=== PATIENT | male | born 1955 | race Caucasian/White ===

== ENCOUNTER 2022-09-01 10:00 | Outpatient (OUT) | payer MEDICARE, SELFPAY ==
[2022-09-01 11:17] LABS: Basophils Percent Auto 0.4 % (0.2-2.0); Eosinophils Absolute Auto 0.1 10^3/uL (0.0-0.7); Eosinophils Percent Auto 1.5 % (0.9-7.0); Hematocrit 37.7 % (42.0-54.0); Hemoglobin 12.6 g/dL (14.0-18.0); Immature Granulocytes Abs Auto 0.03 10^3/uL (0.00-0.03); Immature Granulocytes Pct Auto 0.6 % (0.0-0.5); Mean Corpuscular HGB Conc 33.4 g/dL (29.9-35.2); Mean Corpuscular Hemoglobin 30.4 pg (25.9-34.0); Mean Corpuscular Volume 90.8 fL (80.0-94.0); Mean Platelet Volume 10.7 fL (9.5-13.5); Monocytes Absolute Auto 0.5 10^3/uL (0.3-0.8); Monocytes Percent Auto 8.8 % (1.7-12.0); Neutrophils Absolute Auto 3.7 10^3/uL (1.4-6.5); Neutrophils Percent Auto 69.7 % (43.0-75.0); Platelet Count 132 10^3/uL (150-450); Red Blood Count 4.15 10^6/uL (4.70-6.10); Red Cell Distribution Width 13.1 % (11.0-15.0); White Blood Count 5.3 10^3/uL (4.0-11.0)
[2022-09-01 11:26] LABS: Creatinine Urine Random 92.04 mg/dL (20.00-300.00); Total Protein Urine Random 18.5 mg/dL (<=11.9)
[2022-09-01 11:27] LABS: Phosphorus 2.6 mg/dL (2.6-4.7)
[2022-09-01 11:38] LABS: Alanine Aminotransferase 29 U/L (16-63); Albumin Globulin Ratio 1.1; Albumin Level 3.6 g/dL (3.4-5.0); Alkaline Phosphatase 44 U/L (46-116); Anion Gap 13.4; Aspartate Amino Transferase 19 U/L (15-37); BUN Creatinine Ratio 18.9; Bilirubin Total 0.7 mg/dL (0.2-1.0); Calcium 9.9 mg/dL (8.5-10.1); Carbon Dioxide 24.1 mmol/L (21.0-32.0); Chloride 105 mmol/L (98-107); Estimated GFR (African America 49 (>=60); Estimated GFR (Non-African Ame 41 (>=60); Globulin 3.3 g/dL; Glucose 206 mg/dL (74-106); Magnesium 1.9 mg/dL (1.8-2.4); Potassium 4.5 mmol/L (3.5-5.1); Sodium 138 mmol/L (136-145); Total Protein 6.9 g/dL (6.4-8.2); Uric Acid 4.9 mg/dL (3.5-7.2)
[2022-09-01 12:17] LABS: Bilirubin Urine NEGATIVE (NEGATIVE); Blood Urine NEGATIVE (NEGATIVE); Clarity Urine CLEAR (CLEAR); Color Urine YELLOW (YELLOW); Glucose Urine UA 250 mg/dL (NEGATIVE); Ketones Urine NEGATIVE (NEGATIVE); Leukocyte Esterase Urine NEGATIVE (NEGATIVE); Nitrite Urine NEGATIVE (NEGATIVE); Protein Urine NEGATIVE (NEG/TRACE); Specific Gravity Urine 1.015 (1.005-1.025); Urobilinogen Urine 0.2 EU/dL (0.2-1.0); pH Urine 5.5 (5.0-9.0)
[2022-09-01 13:28] LABS: Bacteria Urine NONE SEEN #/HPF (NONE SEEN); Mucus Urine NONE SEEN (NONE SEEN); RBC Urine NONE SEEN #/HPF (0-2); Squamous Epithelial Cell Urine RARE #/LPF (NONE/RARE); WBC Urine NONE SEEN #/HPF (NONE SEEN)
[2022-09-02 13:08] LABS: PTH, Intact 82 pg/mL (15-65)
[2022-09-04 03:06] LABS: Tacrolimus (FK506), Blood 3.7 ng/mL (2.0-20.0)
== END 2022-09-01 10:01 | disposition home or self-care (01) ==
PROVIDERS: PCP Internal Medicine; Visit Provider Internal Medicine
DX: Z00.00 Encounter for general adult medical examination without abnormal findings (principal); Z94.0 Kidney transplant status; N18.30 Chronic kidney disease, stage 3 unspecified; E11.22 Type 2 diabetes mellitus with diabetic chronic kidney disease; I12.9 Hypertensive chronic kidney disease with stage 1 through stage 4 chronic kidney disease, or unspecified chronic kidney disease; N25.81 Secondary hyperparathyroidism of renal origin
CPT/HCPCS: 36415; 80053; 80069; 80197; 81001; 82042; 82306; 82570; 83735; 83970; 84100; 84156; 84550; 85025

== ENCOUNTER 2022-10-11 12:33 | Outpatient (OUT) | payer MEDICARE, SELFPAY ==
--- NOTE | 2022-10-11 | ECG_ITS ---
[facility] Test Date: 2022-10-11 Pat Name: LAUREL BLANCA Department: Room: - Gender: Male Qm Nurse: : 1955 Requested By: SHAIKH NOEMY Order Number: [id number] Reading MD: KATALINA KLEIN Measurements Intervals [place] Rate: 66 P: 61 WI: 191 QRS: 65 QRSD: 148 T: 51 QT: 396 QTc: 418 Interpretive Statements SINUS RHYTHM RIGHT BUNDLE BRANCH BLOCK [120+ ms QRS DURATION, UPRIGHT V1, 40+ ms S IN I/aVL/V4/V5/V6] No previous ECG available for comparison Electronically Signed On 10-12-2022 7:13:21 EDT by KATALINA KLEIN
--- NOTE | 2022-10-11 12:39 | XR_ITS ---
[address] [address] Patient Name: LAUREL BLANCA MRN: [id number] date: 1955 Sex: M Assigned Patient Location: CARD Current Patient Location: CARD Accession/Order Number: [id number] Exam Date: 10/11/2022 12:45 Report Date: 10/11/2022 13:55 At the request of: SHAIKH NOEMY Procedure: XR DEXA axial skeleton EXAMINATION: XR DEXA axial skeleton HISTORY: Osteoporosis screening Z13.820 COMPARISON: No relevant comparison available. TECHNIQUE: Dual-energy X-ray absorptiometry (DXA) was performed. FINDINGS: SPINE ANALYSIS: Average bone mineral density is 1.175 g/cm2. T-score (standard deviation relative to young adult mean): -0.2 . HIP ANALYSIS: Lowest bone mineral density is within the left femoral neck, 0.602 g/cm2. T-score (standard deviation relative to young adult mean): -3.1 . XR/XR DEXA axial skeleton IMPRESSION: [employer] Classification: Osteoporosis - High Fracture Risk Electronically authenticated by: RAMSEY RIVERS Date: 10/11/2022 13:55
== END 2022-10-11 12:34 | disposition home or self-care (01) ==
LOC: CARD 12:34
PROVIDERS: PCP Internal Medicine; Visit Provider Internal Medicine
DX: R06.09 Other forms of dyspnea (principal); Z13.820 Encounter for screening for osteoporosis; M81.0 Age-related osteoporosis without current pathological fracture
CPT/HCPCS: 77080; 93005

== ENCOUNTER 2022-12-13 08:56 | Outpatient (OUT) | payer MEDICARE, SELFPAY ==
[2022-12-13 09:47] LABS: Hematocrit 38.2 % (42.0-54.0); Hemoglobin 12.5 g/dL (14.0-18.0); Mean Corpuscular HGB Conc 32.7 g/dL (29.9-35.2); Mean Corpuscular Hemoglobin 30.3 pg (25.9-34.0); Mean Corpuscular Volume 92.5 fL (80.0-94.0); Mean Platelet Volume 10.9 fL (9.5-13.5); Platelet Count 119 10^3/uL (150-450); Red Blood Count 4.13 10^6/uL (4.70-6.10); Red Cell Distribution Width 12.8 % (11.0-15.0); White Blood Count 4.7 10^3/uL (4.0-11.0)
[2022-12-13 10:03] LABS: Creatinine Urine Random 59.97 mg/dL (20.00-300.00); Total Protein Urine Random 11.7 mg/dL (<=11.9)
[2022-12-13 10:14] LABS: Bilirubin Urine NEGATIVE (NEGATIVE); Blood Urine NEGATIVE (NEGATIVE); Clarity Urine CLEAR (CLEAR); Color Urine LT. YELLOW (YELLOW); Glucose Urine UA 100 mg/dL (NEGATIVE); Ketones Urine NEGATIVE (NEGATIVE); Leukocyte Esterase Urine NEGATIVE (NEGATIVE); Nitrite Urine NEGATIVE (NEGATIVE); Protein Urine NEGATIVE (NEG/TRACE); Urobilinogen Urine 0.2 EU/dL (0.2-1.0)
[2022-12-13 10:28] LABS: Bacteria Urine NONE SEEN #/HPF (NONE SEEN); Mucus Urine NONE SEEN (NONE SEEN); RBC Urine NONE SEEN #/HPF (0-2); Squamous Epithelial Cell Urine RARE #/LPF (NONE/RARE); WBC Urine NONE SEEN #/HPF (NONE SEEN)
[2022-12-13 10:32] LABS: Alanine Aminotransferase 26 U/L (16-63); Albumin Globulin Ratio 1.1; Albumin Level 3.5 g/dL (3.4-5.0); Alkaline Phosphatase 45 U/L (46-116); Anion Gap 10.7; Aspartate Amino Transferase 14 U/L (15-37); BUN Creatinine Ratio 16.5; Bilirubin Total 0.6 mg/dL (0.2-1.0); Calcium 9.4 mg/dL (8.5-10.1); Carbon Dioxide 25.6 mmol/L (21.0-32.0); Chloride 105 mmol/L (98-107); Estimated GFR (African America 45 (>=60); Estimated GFR (Non-African Ame 37 (>=60); Globulin 3.3 g/dL; Glucose 156 mg/dL (74-106); Magnesium 1.5 mg/dL (1.8-2.4); Phosphorus 2.6 mg/dL (2.6-4.7); Potassium 4.3 mmol/L (3.5-5.1); Sodium 137 mmol/L (136-145); Total Protein 6.8 g/dL (6.4-8.2)
[2022-12-14 11:09] LABS: PTH, Intact 74 pg/mL (15-65)
[2022-12-16 09:10] LABS: Tacrolimus (FK506), Blood 6.3 ng/mL (2.0-20.0)
== END 2022-12-13 08:57 | disposition home or self-care (01) ==
LOC: LAB 08:58
PROVIDERS: PCP Internal Medicine; Visit Provider Internal Medicine
DX: Z00.00 Encounter for general adult medical examination without abnormal findings (principal); E78.5 Hyperlipidemia, unspecified; Z94.0 Kidney transplant status; E11.22 Type 2 diabetes mellitus with diabetic chronic kidney disease; I12.9 Hypertensive chronic kidney disease with stage 1 through stage 4 chronic kidney disease, or unspecified chronic kidney disease; N18.30 Chronic kidney disease, stage 3 unspecified; N25.81 Secondary hyperparathyroidism of renal origin; R01.1 Cardiac murmur, unspecified; D69.6 Thrombocytopenia, unspecified
CPT/HCPCS: 36415; 80053; 80061; 80069; 80197; 81001; 82306; 82570; 83036; 83735; 83970; 84156; 85027

== ENCOUNTER 2022-12-13 09:08 | Outpatient (OUT) | payer MEDICARE, SELFPAY ==
[2022-12-13 10:08] LABS: Estimated Average Glucose 131 mg/dL; Glycohemoglobin A1C 6.2 % (4.5-6.2)
[2022-12-13 10:42] LABS: Chol HDL Ratio 2.2; Cholesterol 148 mg/dL (<=200); HDL Cholesterol 68 mg/dL (40-60); Triglycerides 60 mg/dL (<=150)
== END 2022-12-13 09:09 | disposition home or self-care (01) ==
PROVIDERS: PCP Internal Medicine; Visit Provider Internal Medicine
DX: E78.5 Hyperlipidemia, unspecified (principal); E11.9 Type 2 diabetes mellitus without complications
CPT/HCPCS: 36415; 80061; 83036

== ENCOUNTER 2023-04-21 09:06 | Outpatient (OUT) | payer MEDICARE, SELFPAY ==
--- OUTSIDE RECORDS SUMMARY | 2023-04-21 09:11 | XMS_ITS | CCD ---
Author Name Unknown Address [address] [facility] [address] [place] [address] Organization [facility] Care Team Providers Care Translator Deaf Name Role Phone Jarod Painter Unavailable MISC, DR HERRERA Primary Care Unavailable MISC, DR HERRERA Admitting Unavailable MISC, DR HERRERA Attending Unavailable MISC, DR HERRERA Consulting Unavailable MISC, DR HERRERA Admitting Unavailable FAWWAD, KEVIN H Primary Care Unavailable MISC, DR HERRERA Attending Unavailable MISC, DR HERRERA Consulting Unavailable FAWWAD, KEVIN H Primary Care Unavailable FAWWAD, KEVIN H Admitting Unavailable FAWWAD, KEVIN H Attending Unavailable FAWWAD, KEVIN H Consulting Unavailable FAWWAMamadou, KEVIN H Primary Care Unavailable MADINAJAROD Admitting Unavailable MADINAJAROD Simmons Attending Unavailable JAROD PAINTER Consulting Unavailable MISC, DR HERRERA Admitting Unavailable MISC, DR HERRERA Attending Unavailable FAWWAD, KEVIN H Primary Care Unavailable MISC, DR HERRERA Consulting Unavailable MD Jarod Painter Attending Provider [phone] MD Nicolette Rodarte Primary Care Provider Shaikh Rodarte Primary Care Unavailable MadinaJarod simmons Attending Unavailable Jarod Painter Admitting Unavailable Chani Milner Unavailable Kailey Deluca Unavailable Shaikh Rodaret MD Primary Care Provider Shaikh Rodarte MD Primary Care Provider GISSELL GALLO Attending Unavailable SHAIKH RODARTE Attending Unavailable Medications Current Medications Medication Drug Class(es) Dates Sig (Normalized) Sig (Original) alendronic acid 70 mg oral tablet (9 sources) Bisphosphonate Start: 03-26-2023 take 1 tablet by mouth every week alendronate (Fosamax) 70 MG tablet Indications: Other osteoporosis without current pathological fracture (CMS/HCC) Take 1 tablet (70 mg) by mouth 1 (one) time per week 12 tablet 1 03/26/2023 Active End: 03-26-2023 take 1 tablet by mouth in the morning alendronate (Fosamax) 70 MG tablet Take 70 mg by mouth every 7 (seven) days. Take in the morning with a full glass of water, on an empty stomach, and do not take anything else by mouth or lie down for the next 30 min. 0 03/26/2023 Discontinued take 1 tablet by massiel once daily Fosamax 70 MG 1 tablet 30 minutes before the first food, beverage or medicine of the day with plain water Orally Active allopurinol 100 mg oral tablet (12 sources) Xanthine Oxidase Inhibitor Start: 04-02-2023 take 1 tablet by mouth once daily allopurinol (Zyloprim) 100 MG tablet Indications: Encounter for Medicare annual wellness exam TAKE 1 TABLET BY MOUTH EVERY DAY 90 tablet 0 04/02/2023 Active amoxicillin 500 mg oral capsule (2 sources) Penicillin-class Antibacterial Start: 02-23-2023 take 1 capsule by mouth every eight hours Amoxicillin 500 MG 1 capsule Orally three times a day for 10 day(s) Feb, Active take 1 capsule by mo [facility] every eight hours Amoxicillin 500 MG 1 capsule Orally ever y 8 hrs Active atorvastatin 10 mg oral tablet (12 sources) HMG-CoA Reductase Inhibitor take 1 tablet by mouth in the morning atorvastatin (Lipitor) 10 MG tablet Take 10 mg by mouth in the morning. 0 Active baclofen 5 mg oral tablet (5 sources) gamma-Aminobutyric Acid-ergic Agonist take 1 tablet by mouth three times daily as needed baclofen (Lioresal) 5 MG tablet Take 5 mg by mouth 3 (three) times a day as needed. 0 Active calcium carbonate 1500 mg oral tablet (3 sources) take 1 tablet by mouth every twelve hours Calcium Carbonate 600 MG 1 tablet with food Orally Twice a day Active take 1 tablet by massiel twice daily at mealtime Calcium Carbonate 600 MG 1 tablet with food Orally Twice a day Active calcium carbonate 1250 mg / cholecalciferol 200 unt oral tablet (6 sources) Vitamin D Start: 04-02-2023 take 1 tablet by mouth twice daily Calcium Carb-Cholecalciferol (Oyster Shell Calcium w/D) 500-5 MG-MCG tablet Indications: Other osteoporosis without current pathological fracture (CMS/HCC) TAKE 1 TABLET BY MOUTH TWICE A DAY 180 tablet 1 04/02/2023 Active Start: 01-07-2023 End: 04-02-2023 take 1 tablet by mouth in the morning, then take 1 tablet by mouth once at bedtime Calcium Carb-Cholecalciferol (Oyster Shell Calcium w/D) 500-5 MG-MCG tablet Take 1 tablet by mouth in the morning and 1 tablet before bedtime. 0 01/07/2023 04/02/2023 Discontinued carvedilol 12.5 mg oral tablet (12 sources) alpha-Adrenergic Rickie, beta-Adrenergic Rickie carvedilol (Core g) 12.5 MG tablet Take by mouth 2 (two) times a day with meals. 0 Active fluorouracil 50 mg/ml topical cream (2 sources) Nucleoside Metabolic Inhibitor Start: 04-04-2023 fluorouracil (Efudex) 5 % cream Indications: Actinic keratosis Apply to directed areas on the scalp, cheeks twice a day x 14 days. Dispense 30 day supply but only use for 14 days. 40 g 3 04/04/2023 Active Start: 04-04-2023 fluorouracil ( Efudex) 5 % cream Indications: Actinic keratosis Apply to directed areas on the scalp, cheeks twice a day x 14 days. Dispense 30 day supply but only use for 14 days. 40 g 3 04/04/2023 Active glipiZIDE 5 mg oral tablet (12 sources) Sulfonylurea take 1 tablet by mouth in the morning glipiZIDE (Glucotrol) 5 MG tablet Take 5 mg by mouth in the morning and 5 mg in the evening. Take before meals. 0 Active hydrocortisone 10 mg/ml / neomycin 3.5 mg/ml / polymyxin b [id number] unt/ml otic suspension (1 source) Aminoglycoside Antibacterial, Polymyxin-class Antibacterial, Corticosteroid Start: 024 [id number] C 3.5-13180-3 3 drops Otic Three times a day for 7 Feb, Active LORazepam 0.5 mg oral tablet (12 sources) Benzodiazepine take 1 tablet by mouth twice daily as needed for anxiety LORazepam (Ativan) 0.5 MG tablet Take 0.5 mg by mouth 2 (two) times a day as needed for anxiety. 0 Active losartan potassium 50 mg oral tablet (12 sources) Angiotensin 2 Receptor Rickie Start: 023 take 1 tablet by mouth once daily losartan (Cozaar) 50 MG tablet Indications: Essential (primary) hypertension (CMS/HCC) , Essential hypertension (CMS/HCC) TAKE 1 TABLET BY MOUTH EVERY DAY 90 tablet 0 01/18/2023 Active magnesium oxide 400 mg oral tablet (11 sources) Start: 023 take 1 tablet by mouth in the morning magnesium oxide (Mag-Ox) 400 MG tablet Take 400 mg by mouth in the morning. 0 09/15/2022 Active mycophenolate mofetil 500 mg oral tablet (12 sources) take 1 tablet by mouth in the morning mycophenolate (CellCept) 500 MG tablet Take 500 mg by mouth in the morning and 500 mg before bedtime. 0 Active NIFEdipine 60 mg osmotic 24 hr extended release oral tablet (12 sources) Dihydropyridine Calcium Channel Rickie Start: 023 take 1 tablet by mouth every twenty-four hours in the morning NIFEdipine XL (Procardia XL) 60 MG 24 hr tablet Take 60 mg by mouth in the morning. 0 11/01/2022 Active take 1 tablet by massiel th every twenty-four hours NIFEdipine ER 60 MG 1 tablet on an empty stomach Orally Once a day Active penicillin v potassium 500 mg oral tablet (1 source) Start: 08-14-2022 take 1 tablet by mouth every six hours Penicillin V Potassium 500 MG 1 tablet Orally QID for 10 days Jul, Active predniSONE 5 mg oral tablet (7 sources) take 1 tablet by mouth every twenty-four hours predniSONE 5 MG 1 tablet Orally Once a day Active tacrolimus 1 mg oral capsule (16 sources) Calcineurin Inhibitor Immunosuppressant tacrolimus (Prograf) 1 MG capsule Take by mouth 2 (two) times a day. 0 Active take 1 capsule by mouth every tw elve hours Prograf 1 MG 1 capsule Orally q12hr Active take 1 capsule by mo uth once daily at bedtime Prograf 0.5 MG 1 capsule Orally qhs Active Problems Active Problems Problem Classification Problem Date Documented Date Episodic/Chronic Chronic kidney disease (9 sources) Kidney transplant status; Translations: [Chronic kidney disease stage 3] Onset: 3 Chronic Coagulation and hemorrhagic disorders (6 sources) Thrombocytopenic disorder; Translations: [Thrombocytopenia, unspecified] Chronic Deficiency and other anemia (4 sources) Anemia of renal disease; Translations: [Anemia in chronic kidney disease] Chronic Deficiency and other anemia (2 sources) Anemia in chronic kidney disease Chronic Diabetes mellitus with complications (19 sources) Disorder of kidney due to diabetes mellitus; Translations: [Type 2 diabetes mellitus with diabetic chronic kidney disease] Onset: 2 Chronic Diabetes mellitus without complication (4 sources) Type 2 diabetes mellitus without complications; Translations: [TYPE 2 DM WITHOUT COMPLICATIONS] Onset: 3 Chronic Disorders of lipid metabolism (1 source) Hyperlipidemia, unspecified; Translations: [HYPERLIPIDEMIA UNSPECIFIED] Onset: 3 Chronic Disorders of teeth and jaw (1 source) Periapical abscess without sinus Episodic Essential hypertension (5 sources) Essential hypertension; Translations: [Essential (primary) hypertension] Onset: 8 01-22-2023 Chronic Gout and other crystal arthropathies (6 sources) Idiopathic gout, unspecified site; Translations: [Gout] Onset: 1 01-22-2023 Chronic Heart valve disorders (4 sources) Cardiac murmur, unspecified; Translations: [Cardiac murmur, unspecified] Onset: 3 Episodic Hypertension with complications and secondary hypertension (11 sources) Chronic kidney disease due to hypertension; Translations: [Hypertensive chronic kidney disease with stage 1 through stage 4 chronic kidney disease, or unspecified chronic kidney disease] Onset: 3 Chronic Nutritional deficiencies (5 sources) Vitamin D deficiency; Translations: [Vitamin D deficiency, unspecified] Onset: 8 01-22-2023 Chronic Osteoporosis (2 sources) Osteoporosis; Translations: [Other osteoporosis without current pathological fracture] 03-24-2023 Chronic Other aftercare (5 sources) Encounter for aftercare following kidney transplant; Translations: [ENC AFTERCARE FLW KIDNEY TRANSPL] Onset: 2 Chronic Other diseases of kidney and ureters (12 sources) Secondary hyperparathyroidism; Translations: [Secondary hyperparathyroidism of renal origin] Onset: 8 01-22-2023 Chronic Other diseases of kidney and ureters (4 sources) Secondary hyperparathyroidism of renal origin; Translations: [SEC HYPERPARATHYROIDISM RENAL ORIGN] Onset: 3 Chronic Other ear and sense organ disorders (1 source) Unspecified acute noninfective otitis externa, right ear Episodic Other non-epithelial cancer of skin (5 sources) Basal cell carcinoma of face; Translations: [Basal cell carcinoma of skin of unspecified parts of face] Onset: 3 01-22-2023 Episodic Other nutritional; endocrine; and metabolic disorders (3 sources) Hypomagnesemia; Translations: [Hypomagnesemia] Chronic Other nutritional; endocrine; and metabolic disorders (1 source) Hypomagnesemia Chronic Other skin disorders (1 source) Localized swelling, mass and lump, head Episodic Other skin disorders (2 sources) Actinic keratosis; Translations: [Actinic keratosis] 04-04-2023 Episodic Other skin disorders (2 sources) Seborrheic keratosis; Translations: [Other seborrheic keratosis] 04-04-2023 Episodic Other skin disorders (2 sources) Sebaceous gland hypertrophy; Translations: [Other specified follicular disorders] 04-04-2023 Episodic Other skin disorders (2 sources) Lentiginosis; Translations: [Other melanin hyperpigmentation] 04-04-2023 Episodic Otitis media and related conditions (1 source) Otitis media, unspecified, right ear Episodic Peripheral and visceral atherosclerosis (5 sources) Peripheral vascular disease; Translations: [Peripheral vascular disease, unspecified] Onset: 3 01-22-2023 Chronic Unclassified (1 source) CHRN KIDNEY DISEASE STG 3 UNSP; Translations: [CHRN KIDNEY DISEASE STG 3 UNSP] Onset: 3 Past or Other Problems Problem Classification Problem Date Documented Da te Episodic/Chronic Chronic kidney disease (7 sources) Chronic kidney disease; Translations: [Chronic kidney disease, stage III (moderate)] Unclassified (1 source) Contact with and (suspected) exposure to covid-19 Z20.822 Viral infection (1 source) COVID-19 Results Test Name Value Interpretation Reference Range Facility COVID/FLU RT-PCRon 4 SARS-CoV-2 (COVID-19) RNA CODY+probe Ql (Unsp spec) Positive [facility] Other COVID/FLU RT-PCR Negative [employer] [email or web address] Other [facility] echo transthoracicon [facility] echo transthoracic [facility] Main [place] [address] [place], [place] [id number] Echocardiogram Signed Patient: Raul Manriquez MR#: [id number] : 1955 Acct:[id number] Age/Sex: 67 / M ADM Date: 06/29/22 Loc: Room: Type: [facility] Attending Dr: Jarod Painter MD Ordering Provider: Jarod Painter MD Date of Service: 06/29/2201/11/1047 [facility] echo transthoracic: Renal transplant recipient;Murmur Copies to: MD Garret Nicole MD BSA: 1.9 m2 BP: 125/65 mmHg HR: 76 Reason For Study: Renal transplant recipient;Murmur History: kidney transplant (2014), HTN, HLD, DM Interpretation Summary The left ventricular wall motion is normal. Mild concentric left ventricular hypertrophy. Ejection Fraction = 60-65%. A variety of Doppler measurements indicate impaired left ventricular relaxation, which is associated with grade I/IV or mild diastolic dysfunction. The left atrium appears moderately dilated. The right atrium is mildly dilated. Trivial valvular aortic stenosis. The aortic valve maximum pressure gradient is 20 mmHg. The aortic valve mean gradient is 9 mmHg. Trace aortic regurgitation. There is trace mitral regurgitation. There is trace tricuspid regurgitation. There is no comparison study available. Procedure/Quality: A two-dimensional transthoracic echocardiogram with color flow and Doppler was performed. The study was technically good in quality. Left Ventricle: The left ventricular size is normal. Mild concentric left ventricular hypertrophy. Ejection Fraction = 60-65%. A variety of Doppler measurements indicate impaired left ventricular relaxation, which is associated with grade I/IV or mild diastolic dysfunction. The left ventricular wall motion is normal. Left Atrium: The left atrium appears moderately dilated. Right Atrium: The right atrium is mildly dilated. Right Ventricle: The right ventricular size, thickness and function are normal. Aortic Valve: The aortic valve is mildly calcified. Trivial valvular aortic stenosis. The aortic valve maximum pressure gradient is 20 mmHg. The aortic valve mean gradient is 9 mmHg. Trace aortic regurgitation. Mitral Valve: The mitral valve is mildly sclerotic. There is trace mitral regurgitation. Tricuspid Valve: The tricuspid valve is normal in structure and function. There is trace tricuspid regurgitation. Right ventricular systolic pressure is normal. Pulmonic Valve: The pulmonic valve is normal in structure and function. Trace pulmonic valvular regurgitation. Arteries: The aortic root is normal size. Pericardium/Pleura: No pericardial effusion seen. There is no pleural effusion. IVC/Hepatic Viens: The inferior vena cava is normal in size, with a normal collapsibility index. Measurements with Normals IVSd: 1.3 cm (0.7-1.1 cm)LVIDd: 4.9 cm (3.7-5.4 cm) LVPWd: 1.0 cm (0.7-1.1 cm)LVIDs: 2.7 cm (2.3-3.6 cm) LA dimension: 4.8 cm (2.3-4.0 cm)Ao root diam: 3.4 cm(2.0-3.6 cm) asc Aorta Diam: 3.4 cm(2.1-3.4cm) Doppler with Normals RVSP(TR): 31.6 mmHg (18-35mmHg) LV V1 max: 84.4 cm/sec (0.7-1.7m/s)MV E max darryl: 84.0 cm/sec(0.8-1.3m/s) MV A max darryl: 68.6 cm/sec(0.0-0.0m/s) MV E/A: 1.2 (<1.5) MMode/2D Measurements Calculations RVDd: 3.8 cm FS: 44.4 % Ao root area: LVOT diam: 1.9 cm TAPSE: 2.7 cm EDV(Teich): 8.9 cm2 LVOT area: 2.8 cm2 RV S Darryl: 112.7 ml 16.1 cm/sec ESV(Teich): 27.6 ml EF(Teich): 75.5 % __ LVLd ap4: 6.7 cm SV(MOD-sp4): LAV(MOD-sp2): LA A2 area: 17.4 cm2 EDV(MOD-sp4): 31.0 ml 43.6 ml LA length (vol): 46.6 ml 5.4 cm LVLs ap4: 5.3 cm ESV(MOD-sp4): 15.6 ml EF(MOD-sp4): 66.5 % Doppler Measurements Calculations MV dec time: E/E' lat: 11.0 MV dec slope: Ao V2 max: 0.23 sec E/E' med: 11.9 369.8 cm/sec2 225.9 cm/sec Ao max P.4 mmHg Ao mean P.5 mmHg Ao V2 mean: 150.7 cm/sec Ao V2 VTI: 48.6 cm TREASURE(I,D): 1.2 cm2 TREASURE(V,D): 1.0 cm2 __ LV V1 max PG: TV max PG: TR max darryl: 2.8 mmHg 27.0 mmHg 257.9 cm/sec LV V1 mean PG: TR max P.6 mmHg 1.4 mmHg RAP systole: 5.0 mmHg LV V1 mean: 56.0 cm/sec LV V1 VTI: 20.6 cm __ Transcribed By: SCV Performed At: 06/29/22 1054 Signed By: Garret Weeks MD 06/29/22 1135 [facility] FK506 (TACROLIMUS) WHOLE BLO ODon 06-23-2022 Tacrolimus (FK506), Blood 4.8 ng/mL Normal 2.0-20.0 [facility] Comment on above: Result Comment: Trou gh (immediately following transplant) 15.0 . Trough (steady state, 2 weeks or more after transplant): 3.0 - 8.0 . Performed by LC-MS/MS technology. Performed By: #### F [id number] #### [facility] [address] [place] [address] Dr. Sagar Morales PTH INTACTon 06-22-2022 PTH, Intact 57 pg/mL Normal 15-65 [facility] Comment on above: Performed By: #### P THINT #### [facility] [address] [place] [address] Dr. Sagar Morales HEMOGRAM AND PLATELon 2022 Hematocrit (Bld) [Volume fraction] 42.1 % Normal 42.0-54.0 [facility] Comment on above: Performed By: #### H H #### [facility] [address] [place] [address] Dr. Sagar Morales Hemoglobin (Bld) [Mass/Vol] 13.7 g/dL Critically low 14.0-18.0 [facility] Comment on above: Performed By: #### H H #### [facility] [address] [place] [address] Dr. Sagar Morales MCH (RBC) [Entitic mass] 30.0 pg Normal 25.9-34.0 [facility] Comment on above: Performed By: #### H H #### [facility] [address] [place] [address] Dr. Sagar Morales MCHC (RBC) [Mass/Vol] 32.5 g/dL Normal 29.9-35.2 [facility] Comment on above: Performed By: #### H H #### [facility] [address] [place] [address] Dr. Sagar Morales MCV (RBC) [Entitic vol] 92.3 fL Normal 80.0-94.0 [facility] Comment on above: Performed By: #### H H #### [facility] [address] [place] [address] Dr. Sagar Morales PLT 122 103/ul Critically low 150-450 [facility] Comment on above: Performed By: #### H H #### [facility] [address] [place] [address] Dr. Sagar Morales RBC 4.56 106/ul Critically low 4.70-6.10 [facility] Comment on above: Performed By: #### H H #### [facility] [address] [place] [address] Dr. Sagar Morales WBC 5.1 103/ul Normal 4.0-11.0 [facility] Comment on above: Performed By: #### H H #### [facility] [address] [place] [address] Dr. Sagar Morales MAGNESIUMon 06-21-2022 Magnesium [Mass/Vol] 1.7 mg/dL Critically low 1.8-2.4 [facility] Comment on above: Performed By: #### R ENAL, URIC, LIVER #### [facility] [address] [address] [address] Sagar Morales PROF 14(COMP METB)on 023 Albumin [Mass/Vol] 3.6 g/dL Normal 3.4-5.0 [facility] Comment on above: Performed By: #### R ENAL, URIC, LIVER #### [facility] [address] [place] [address] Dr. Sagar Morales Albumin/Globulin [Mass ratio] 1.0 {ratio} Normal [facility] Comment on above: Performed By: #### R ENAL, URIC, LIVER #### [facility] [address] [address] [address] Sagar Morales ALP [Catalytic activity/Vol] 62 U/L Normal 46-116 [facility] Comment on above: Performed By: #### R ENAL, URIC, LIVER #### [facility] [address] [place] [address] Dr. aSgar Morales ALT [Catalytic activity/Vol] 38 U/L Normal 16-63 [facility] Comment on above: Performed By: #### R ENAL, URIC, LIVER #### [facility] [address] [address] [address] Sagar Morales Anion gap [Moles/Vol] 12.4 mmol/L Normal [facility] Comment on above: Performed By: #### R ENAL, URIC, LIVER #### [facility] [address] [address] [address] Sagar Morales AST [Catalytic activity/Vol] 24 U/L Normal 15-37 [facility] Comment on above: Performed By: #### R ENAL, URIC, LIVER #### [facility] [address] [address] [address] Sagar Morales Bilirubin [Mass/Vol] 0.6 mg/dL Normal 0.2-1.0 [facility] Comment on above: Performed By: #### R ENAL, URIC, LIVER #### [facility] [address] [place] [address] Dr. Sagar Morales Calcium [Mass/Vol] 9.9 mg/dL Normal 8.5-10.1 [facility] Comment on above: Performed By: #### R ENAL, URIC, LIVER #### [facility] [address] [place] [address] Dr. Sagar Morales Chloride [Moles/Vol] 103 mmol/L Normal 98-107 [facility] Comment on above: Performed By: #### R ENAL, URIC, LIVER #### [facility] [address] [place] [address] Dr. Sagar Morales CO2 [Moles/Vol] 25.3 mmol/L Normal 21.0-32.0 [facility] Comment on above: Performed By: #### R ENAL, URIC, LIVER #### [facility] [address] [place] [address] Dr. Sagar Morales Creatinine [Mass/Vol] 1.59 mg/dL Critically high 0.70-1.30 [facility] Comment on above: Performed By: #### R ENAL, URIC, LIVER #### [facility] [address] [place] [address] Dr. Sagar Morales EGFR-AF PANAMANIAN 53 mL/min/1.73m2 Critically low >=60 [facility] Comment on above: Performed By: #### R ENAL, URIC, LIVER #### [facility] [address] [place] [address] Dr. Sagar Morales EGFR-NON AF PANAMANIAN 44 mL/min/1.73m2 Critically low >=60 [facility] Comment on above: Performed By: #### R ENAL, URIC, LIVER #### [facility] [address] [address] [address] Sagar Morales Globulin (S) [Mass/Vol] 3.7 g/dL Normal [facility] Comment on above: Performed By: #### R ENAL, URIC, LIVER #### [facility] [address] [address] [address] Sagar Morales Glucose [Mass/Vol] 211 mg/dL Critically high 74-106 [facility] Comment on above: Performed By: #### R ENAL, URIC, LIVER #### [facility] [address] [address] [address] Sagar Morales Potassium [Moles/Vol] 4.7 mmol/L Normal 3.5-5.1 [facility] Comment on above: Performed By: #### R ENAL, URIC, LIVER #### [facility] [address] [place] [address] Dr. Sagar Morales Protein [Mass/Vol] 7.3 g/dL Normal 6.4-8.2 [facility] Comment on above: Performed By: #### R ENMADI, URIC, LIVER #### [facility] [address] [address] [address] Sagar Morales Sodium [Moles/Vol] 136 mmol/L Normal 136-145 [facility] Comment on above: Performed By: #### R ENAL, URIC, LIVER #### [facility] [address] [address] [address] Sagar Morales Urea nitrogen [Mass/Vol] 40.0 mg/dL Critically high 7.0-18.0 [facility] Comment on above: Performed By: #### R ENAL, URIC, LIVER #### [facility] [address] [address] [address] Sagar Morales Urea nitrogen/Creatinine [Mass ratio] 25.2 mg/mg Normal [facility] Comment on above: Performed By: #### R ENAL, URIC, LIVER #### [facility] [address] [address] [address] Sagar Morales UA RANDOM W/MICROSCOPICon BACTERIA NONE SEEN Normal NONE SEEN [facility] Comment on above: Performed By: #### U AMIC #### [facility] [address] [address] [address] Sagar Morales Bilirubin Ql (U) Negative Normal NEGATIVE [facility] Comment on above: Performed By: #### U AMIC #### [facility] [address] [place] [address] Dr. Sagar Morales CAST NONE SEEN Normal NONE SEEN [facility] Comment on above: Performed By: #### U AMIC #### [facility] [address] [address] [address] Sagar Morales Clarity (U) CLEAR Normal CLEAR [facility] Comment on above: Performed By: #### U AMIC #### [facility] [address] [place] [address] Dr. Sagar Morales Color (U) LT. YELLOW Normal YELLOW [facility] Comment on above: Performed By: #### U AMIC #### [facility] [address] [place] [address] Dr. Sagar Morales Crystals LM Nom (Urine sed) NONE SEEN Normal NONE SEEN [facility] Comment on above: Performed By: #### U AMIC #### [facility] [address] [place] [address] Dr. Sagar Morales Epithelial cells LM Ql (Urine sed) FEW Abnormal NONE SEEN /RARE [facility] Comment on above: Performed By: #### U AMIC #### [facility] [address] [place] [address] Dr. Sagar Morales Glucose Ql (U) 250 mg/dl Abnormal NEGATIVE [facility] Comment on above: Performed By: #### U AMIC #### [facility] [address] [address] [address] Sagar Morales Hemoglobin Ql (U) Negative Normal NEGATIVE [facility] Comment on above: Performed By: #### U AMIC #### [facility] [address] [place] [address] Dr. Sagar Morales Ketones Ql (U) Negative Normal NEGATIVE [facility] Comment on above: Performed By: #### U AMIC #### [facility] [address] [address] [address] Sagar Morales LEUKOCYTES Negative Normal NEGATIVE [facility] Comment on above: Performed By: #### U AMIC #### [facility] [address] [address] [address] Sagar Morales MUCOUS NONE SEEN Normal NONE SEEN [facility] Comment on above: Performed By: #### U AMIC #### [facility] [address] [address] [address] Sagar Morales Nitrite Ql (U) Negative Normal NEGATIVE [facility] Comment on above: Performed By: #### U AMIC #### [facility] [address] [address] [address] Sagar Morales pH (U) 5.5 [pH] Normal 5-9 [facility] Comment on above: Performed By: #### U AMIC #### [facility] [address] [address] [address] Sagar Morales RBC NONE SEEN Abnormal 0-2 [facility] Comment on above: Performed By: #### U AMIC #### [facility] [address] [address] [address] Sagar Morales SPEC GRAVITY 1.015 Normal 1.005-<=1.025 [facility] Comment on above: Performed By: #### U AMIC #### [facility] [address] [address] [address] Sagar Morales UA PROTEIN Negative Normal NEGATIVE/ TRACE [facility] Comment on above: Performed By: #### U AMIC #### [facility] [address] [address] [address] Sagar Morales Urobilinogen Qn (U) 0.2 {Hernandez'U}/dL Normal 0.2 - 1. 0 [facility] Comment on above: Performed By: #### U AMIC #### [facility] [address] [address] [address] Sagar Morales WBC NONE SEEN Normal NONE SEEN [facility] Comment on above: Performed By: #### U AMIC #### [facility] [address] [place] [address] Dr. Sagar Morales URIC ACID SERUMon 06-21-2022 Urate [Mass/Vol] 4.4 mg/dL Normal 3.5-7.2 [facility] Comment on above: Performed By: #### R ENAL, URIC, LIVER #### [facility] [address] [place] [address] Dr. Sagar Morales URINE T PROTEIN CREAT RATIOo n 06-21-2022 Protein (U) [Mass/Vol] 15.7 mg/dL Critically high <=12.0 [facility] Comment on above: Performed By: #### R ENMADI URIC, LIVER #### [facility] [address] [place] [address] Dr. Sagar Morales UR PROT CREAT RAT 0.34 Normal [facility] Comment on above: Performed By: #### R ENMADI URIC, LIVER #### [facility] [address] [place] [address] Dr. Sagar Morales URINE CREAT 45.54 mg/dL Normal 20.00-300.00 [facility] Comment on above: Performed By: #### R ENMADI URIC, LIVER #### [facility] [address] [place] [address] Dr. Sagar Morales VITAMIN D 25 OHon 06-21-2022 VIT D 25-OH 36.8 ng/mL Normal [facility] Comment on above: Performed By: #### R ENAL URIC, LIVER #### [facility] [address] [place] [address] Dr. Sagar Morales VIT D RANGES SEE BELOW Normal [facility] Comment on above: Result Comment: <20 ng/mL Vit D deficient 20 - <30 ng/mL Vit D insufficient 30 - 100 ng/mL Vit D sufficient >100 ng/mL Potential Toxicity Performed By: #### R ENAL URIC, LIVER #### [facility] [address] [place] [address] Dr. Sagar Morales GLYCOHEMOGLOBIN A1Con 2022 ADA RECOMMENDATION SEE BELOW Normal [facility] Comment on above: Result Comment: ADA RECOMMENDED LIMIT 4.0 - 6.0 ADA THERAPEUTIC TARGET < 7.0 ACTION SUGGESTED > 7.0 Performed By: #### R ENAL URIC, LIVER #### [facility] [address] [address] [address] Sagar Morales Glucose [Mass/Vol] 120 mg/dL Normal [facility] [place] Comment on above: Performed By: #### R ENAL URIC, LIVER #### [facility] [address] [address] [address] Sagar Morales HbA1c (Bld) [Mass fraction] 5.8 % Normal 4.5-6.2 [facility] Comment on above: Performed By: #### R KATHRYN URIC, LIVER #### [facility] [address] [place] [address] Dr. Sagar Morales LIPID PROFILEon 05-18-2022 CHOL-HDL RATIO NORM SEE BELOW Normal [facility] Comment on above: Result Comment: 3.3 - 4.4 LOW RISK 4.4 - 7.1 AVERAGE RISK 7.1 - 11.0 MODERATE RISK >11.0 HIGH RISK Performed By: #### R ENMADI URIC, LIVER #### [facility] [address] [address] [address] Sagar Morales Cholesterol [Mass/Vol] 176 mg/dL Normal <=200 [facility] Comment on above: Performed By: #### R ENMADI URIC, LIVER #### [facility] [address] [address] [address] Sagar Morales Cholesterol in HDL [Mass/Vol] 84 mg/dL Critically high 40-60 [facility] Comment on above: Performed By: #### R ENMADI URIC, LIVER #### [facility] [address] [address] [address] Sagar Morales Cholesterol in LDL [Mass/Vol] 76.0 mg/dL Normal [facility] Comment on above: Performed By: #### R ENAL, URIC, LIVER #### [facility] [address] [address] [address] Sagar Morales Cholesterol.total/Ch olesterol in HDL [Mass ratio] 2.1 {ratio} Normal [facility] Comment on above: Performed By: #### R ENAL, URIC, LIVER #### [facility] [address] [address] [address] Sagar Morales HDL NORMAL > or = 60 mg/dl - LOW CARDIOVASCULAR RISK <40 mg/dl - HIGH CARDIOVASCULAR RISK Normal [facility] Comment on above: Performed By: #### R ENMADI URIC, LIVER #### [facility] [address] [address] [address] Sagar Morales LDL CALC NORMAL SEE BELOW Normal [facility] Comment on above: Result Comment: <100 mg/dl OPTIMAL 100 - 129 mg/dl NEAR OR ABOVE OPTIMAL 130 - 159 mg/dl BORDERLINE HIGH 160 - 189 mg/dl HIGH >190 mg/dl VERY HIGH Performed By: #### R ENAL, URIC, LIVER #### [facility] [address] [place] [address] Dr. Sagar Morales Triglyceride [Mass/Vol] 80 mg/dL Normal <=150 [facility] Comment on above: Performed By: #### R ENAL, URIC, LIVER #### [facility] [address] [place] [address] Dr. Sagar Morales VLDL CALC 16.0 mg/dL Normal [facility] Comment on above: Performed By: #### R ENAL, URIC, LIVER #### [facility] [address] [place] [address] Dr. Sagar Morales FK506 (TACROLIMUS) WHOLE BLO ODon 04-02-2022 Tacrolimus (FK506), Blood 5.4 ng/mL Normal 2.0-20.0 [facility] Comment on above: Result Comment: Trou gh (immediately following transplant) 15.0 . Trough (steady state, 2 weeks or more after transplant): 3.0 - 8.0 . Performed by LC-MS/MS technology. Performed By: #### F [id number] #### [facility] [address] [place] [address] Dr. Sagar Morales RENAL FUNCTION PANELon 03-30 Albumin [Mass/Vol] 3.4 g/dL Normal 3.4-5.0 [facility] [place] Comment on above: Performed By: #### R ENAL, URIC, LIVER #### [facility] [address] [address] [address] Sagar Morales Calcium [Mass/Vol] 9.5 mg/dL Normal 8.5-10.1 [facility] [place] Comment on above: Performed By: #### R ENAL, URIC, LIVER #### [facility] [address] [address] [address] Sagar Morales Chloride [Moles/Vol] 106 mmol/L Normal 98-107 [facility] Comment on above: Performed By: #### R ENAL, URIC, LIVER #### [facility] [address] [place] [address] Dr. Sagar Morales CO2 [Moles/Vol] 23.0 mmol/L Normal 21.0-32.0 [facility] Comment on above: Performed By: #### R ENAL, URIC, LIVER #### [facility] [address] [place] [address] Dr. Sagar Morales Creatinine [Mass/Vol] 1.62 mg/dL Critically high 0.70-1.30 [facility] Comment on above: Performed By: #### R ENAL, URIC, LIVER #### [facility] [address] [place] [address] Dr. Sagar Morales EGFR-AF PANAMANIAN 52 mL/min/1.73m2 Critically low >=60 [facility] Comment on above: Performed By: #### R ENAL, URIC, LIVER #### [facility] [address] [place] [address] Dr. Sagar Morales EGFR-NON AF PANAMANIAN 43 mL/min/1.73m2 Critically low >=60 [facility] Comment on above: Performed By: #### R ENAL, URIC, LIVER #### [facility] [address] [place] [address] Dr. Sagar Morales Glucose [Mass/Vol] 148 mg/dL Critically high 74-106 [facility] Comment on above: Performed By: #### R ENAL, URIC, LIVER #### [facility] [address] [place] [address] Dr. Sagar Morales Phosphate [Mass/Vol] 2.3 mg/dL Critically low 2.6-4.7 [facility] Comment on above: Performed By: #### FRANNY ASHFORD, LIVER #### [facility] [address] [place] [address] Dr. Sagar Morales Potassium [Moles/Vol] 4.2 mmol/L Normal 3.5-5.1 [facility] Comment on above: Performed By: #### FRANNY ASHFORD, LIVER #### [facility] [address] [place] [address] Dr. Sagar Morales Sodium [Moles/Vol] 138 mmol/L Normal 136-145 [facility] Comment on above: Performed By: #### FRANNY ASHFORD, LIVER #### [facility] [address] [place] [address] Dr. aSgar Morales Urea nitrogen [Mass/Vol] 27.0 mg/dL Critically high 7.0-18.0 [facility] Comment on above: Performed By: #### FRANNY ASHFORD, LIVER #### [facility] [address] [place] [address] Dr. Sagar Morales FK506 (TACROLIMUS) WHOLE BLO ODon 12-09-2021 Tacrolimus (FK506), Blood 3.6 ng/mL Normal 2.0-20.0 [facility] Comment on above: Result Comment: Trou gh (immediately following transplant) 15.0 . Trough (steady state, 2 weeks or more after transplant): 3.0 - 8.0 . Performed by LC-MS/MS technology. Performed By: #### F [id number] #### [facility] [address] [place] [address] Dr. Sagar Morales LIVER PROFILEon 12-06-2021 Albumin [Mass/Vol] 3.6 g/dL Normal 3.4-5.0 [facility] [place] Comment on above: Performed By: #### FRANNY ASHFORD, LIVER #### [facility] [address] [place] [address] Dr. Sagar Morales Albumin/Globulin [Mass ratio] 1.0 {ratio} Normal [facility] Comment on above: Performed By: #### R ENAL, URIC, LIVER #### [facility] [address] [address] [address] Sagar Morales ALP [Catalytic activity/Vol] 59 U/L Normal 46-116 [facility] Comment on above: Performed By: #### R ENAL, URIC, LIVER #### [facility] [address] [address] [address] Sagar Morales ALT [Catalytic activity/Vol] 31 U/L Normal 16-63 [facility] Comment on above: Performed By: #### R ENAL, URIC, LIVER #### [facility] [address] [place] [address] Dr. Sagar Morales AST [Catalytic activity/Vol] 19 U/L Normal 15-37 [facility] Comment on above: Performed By: #### R ENAL, URIC, LIVER #### [facility] [address] [place] [address] Dr. Sagar Morales BILI, CONJUGATED 0.1 mg/dL Normal 0.0-0.2 [facility] Comment on above: Performed By: #### R ENAL, URIC, LIVER #### [facility] [address] [place] [address] Dr. Sagar Morlaes Bilirubin [Mass/Vol] 0.6 mg/dL Normal 0.2-1.0 [facility] Comment on above: Performed By: #### R ENAL, URIC, LIVER #### [facility] [address] [place] [address] Dr. Sagar Morales Globulin (S) [Mass/Vol] 3.5 g/dL Normal [facility] Comment on above: Performed By: #### R ENAL, URIC, LIVER #### [facility] [address] [place] [address] Dr. Sagar Morales Protein [Mass/Vol] 7.1 g/dL Normal 6.4-8.2 [facility] [place] Comment on above: Performed By: #### R ENAL, URIC, LIVER #### [facility] [address] [place] [address] Dr. Sagar Morales RENAL FUNCTION PANELon 12-06 Calcium [Mass/Vol] 9.6 mg/dL Normal 8.5-10.1 [facility] [place] Comment on above: Performed By: #### R ENAL, URIC, LIVER #### [facility] [address] [address] [address] Sagar Morales Chloride [Moles/Vol] 103 mmol/L Normal 98-107 [facility] Comment on above: Performed By: #### R ENAL, URIC, LIVER #### [facility] [address] [place] [address] Dr. Sagar Morales CO2 [Moles/Vol] 23.7 mmol/L Normal 21.0-32.0 [facility] Comment on above: Performed By: #### R ENMADI URIC, LIVER #### [facility] [address] [place] [address] Dr. Sagar Morales Creatinine [Mass/Vol] 1.65 mg/dL Critically high 0.70-1.30 [facility] Comment on above: Performed By: #### R ENAL, URIC, LIVER #### [facility] [address] [place] [address] Dr. Sagar Morales EGFR-AF PANAMANIAN 51 mL/min/1.73m2 Critically low >=60 [facility] Comment on above: Performed By: #### R ENAL, URIC, LIVER #### [facility] [address] [place] [address] Dr. Sagar Morales EGFR-NON AF PANAMANIAN 42 mL/min/1.73m2 Critically low >=60 [facility] Comment on above: Performed By: #### R ENAL, URIC, LIVER #### [facility] [address] [place] [address] Dr. Sagar Morales Glucose [Mass/Vol] 256 mg/dL Critically high 74-106 [facility] Comment on above: Performed By: #### R ENAL, URIC, LIVER #### [facility] [address] [place] [address] Dr. Sagar Morales Phosphate [Mass/Vol] 2.6 mg/dL Normal 2.6-4.7 [facility] Comment on above: Performed By: #### R ENAL, URIC, LIVER #### [facility] [address] [address] [address] Sagar Morales Potassium [Moles/Vol] 4.7 mmol/L Normal 3.5-5.1 [facility] Comment on above: Performed By: #### R ENAL, URIC, LIVER #### [facility] [address] [address] [address] Sagar Morales Sodium [Moles/Vol] 137 mmol/L Normal 136-145 [facility] Comment on above: Performed By: #### R ENAL, URIC, LIVER #### [facility] [address] [address] [address] Sagar Morales Urea nitrogen [Mass/Vol] 27.0 mg/dL Critically high 7.0-18.0 [facility] Comment on above: Performed By: #### R ENMADI, URIC, LIVER #### [facility] [address] [place] [address] Dr. Sagar Morales URIC ACID SERUMon 12-06-2021 Urate [Mass/Vol] 4.7 mg/dL Normal 3.5-7.2 [facility] Comment on above: Performed By: #### R ENMADI, URIC, LIVER #### [facility] [address] [place] [address] Dr. Sagar Morales URINE T PROTEIN CREAT RATIOo n 12-06-2021 Protein (U) [Mass/Vol] 28.8 mg/dL Critically high <=12.0 [facility] Comment on above: Performed By: #### R ENAL, URIC, LIVER #### [facility] [address] [place] [address] Dr. Sagar Morales UR PROT CREAT RAT 0.21 Normal [facility] Comment on above: Performed By: #### R ENAL, URIC, LIVER #### [facility] [address] [place] [address] Dr. Sagar Morales URINE CREAT 137.37 mg/dL Normal 20.00-300.00 [facility] Comment on above: Performed By: #### R ENAL, URIC, LIVER #### [facility] [address] [address] [address] Sagar Morales FK506 (TACROLIMUS) WHOLE BLO ODon 08-19-2021 Tacrolimus (FK506), Blood 4.4 ng/mL Normal 2.0-20.0 [facility] Comment on above: Result Comment: Trou gh (immediately following transplant) 15.0 . Trough (steady state, 2 weeks or more after transplant): 3.0 - 8.0 . Performed by LC-MS/MS technology. Performed By: #### F [id number] #### [facility] [address] [place] [address] Dr. Sagar Morales LIVER PROFILEon 08-17-2021 Albumin [Mass/Vol] 3.4 g/dL Normal 3.4-5.0 [facility] [place] Comment on above: Performed By: #### R ENAL, URIC, LIVER #### [facility] [address] [place] [address] Dr. Sagar Morales Albumin/Globulin [Mass ratio] 1.0 {ratio} Normal [facility] Comment on above: Performed By: #### R ENAL, URIC, LIVER #### [facility] [address] [address] [address] Sagar Morales ALP [Catalytic activity/Vol] 71 U/L Normal 46-116 [facility] Comment on above: Performed By: #### R ENAL, URIC, LIVER #### [facility] [address] [address] [address] Sagar Morales ALT [Catalytic activity/Vol] 38 U/L Normal 16-63 [facility] Comment on above: Performed By: #### R ENAL, URIC, LIVER #### [facility] [address] [place] [address] Dr. Sagar Morales AST [Catalytic activity/Vol] 21 U/L Normal 15-37 [facility] Comment on above: Performed By: #### R ENAL, URIC, LIVER #### [facility] [address] [place] [address] Dr. Sagar Morales BILI, CONJUGATED 0.2 mg/dL Normal 0.0-0.2 [facility] Comment on above: Performed By: #### R ENAL, URIC, LIVER #### [facility] [address] [address] [address] Sagar Morales Bilirubin [Mass/Vol] 0.6 mg/dL Normal 0.2-1.0 [facility] Comment on above: Performed By: #### R ENAL, URIC, LIVER #### [facility] [address] [place] [address] Dr. Sagar Morales Globulin (S) [Mass/Vol] 3.4 g/dL Normal [facility] Comment on above: Performed By: #### R ENAL, URIC, LIVER #### [facility] [address] [place] [address] Dr. Sagar Morales Protein [Mass/Vol] 6.8 g/dL Normal 6.4-8.2 [facility] Comment on above: Performed By: #### R ENAL, URIC, LIVER #### [facility] [address] [place] [address] Dr. Sagar Morales RENAL FUNCTION PANELon 08-17 Calcium [Mass/Vol] 9.5 mg/dL Normal 8.5-10.1 [facility] Comment on above: Performed By: #### R ENAL, URIC, LIVER #### [facility] [address] [place] [address] Dr. Sagar Morales Chloride [Moles/Vol] 103 mmol/L Normal 98-107 [facility] Comment on above: Performed By: #### R ENAL, URIC, LIVER #### [facility] [address] [place] [address] Dr. Sagar Morales CO2 [Moles/Vol] 25.3 mmol/L Normal 21.0-32.0 [facility] Comment on above: Performed By: #### R ENAL, URIC, LIVER #### [facility] [address] [place] [address] Dr. Sagar Morales Creatinine [Mass/Vol] 1.73 mg/dL Critically high 0.70-1.30 [facility] Comment on above: Performed By: #### R ENAL, URIC, LIVER #### [facility] [address] [address] [address] Sagar Morales EGFR-AF PANAMANIAN 48 mL/min/1.73m2 Critically low >=60 [facility] Comment on above: Performed By: #### R ENAL, URIC, LIVER #### [facility] [address] [place] [address] Dr. Sagar Morales EGFR-NON AF PANAMANIAN 40 mL/min/1.73m2 Critically low >=60 [facility] Comment on above: Performed By: #### R ENAL, URIC, LIVER #### [facility] [address] [place] [address] Dr. Sagar Morales Glucose [Mass/Vol] 197 mg/dL Critically high 74-106 [facility] Comment on above: Performed By: #### R ENAL, URIC, LIVER #### [facility] [address] [place] [address] Dr. Sagar Morales Phosphate [Mass/Vol] 2.8 mg/dL Normal 2.6-4.7 [facility] Comment on above: Performed By: #### R ENAL, URIC, LIVER #### [facility] [address] [place] [address] Dr. Sagar Morales Potassium [Moles/Vol] 4.9 mmol/L Normal 3.5-5.1 [facility] Comment on above: Performed By: #### R ENAL, URIC, LIVER #### [facility] [address] [place] [address] Dr. Sagar Morales Sodium [Moles/Vol] 136 mmol/L Normal 136-145 [facility] [place] Comment on above: Performed By: #### R ENAL, URIC, LIVER #### [facility] [address] [place] [address] Dr. Sagar Morales Urea nitrogen [Mass/Vol] 25.0 mg/dL Critically high 7.0-18.0 [facility] Comment on above: Performed By: #### R ENAL, URIC, LIVER #### [facility] [address] [place] [address] Dr. Sagar Morales URIC ACID SERUMon 08-17-2021 Urate [Mass/Vol] 4.5 mg/dL Normal 3.5-7.2 [facility] Comment on above: Performed By: #### R ENAL, URIC, LIVER #### [facility] [address] [address] [address] Sagar Morales URINE T PROTEIN CREAT RATIOo n 08-17-2021 Protein (U) [Mass/Vol] 27.9 mg/dL Critically high <=12.0 [facility] Comment on above: Performed By: #### R ENAL, URIC, LIVER #### [facility] [address] [address] [address] Sagar Morales UR PROT CREAT RAT 0.24 Normal [facility] Comment on above: Performed By: #### R ENAL, URIC, LIVER #### [facility] [address] [place], [place] [address] Dr. Sagar Morales URINE CREAT 114.26 mg/dL Normal 20.00-300.00 [facility] Comment on above: Performed By: #### R ENAL, URIC, LIVER #### [facility] [address] [place], [place] [address] Dr. Sagar Morales Vital Signs Date Time Vital Sign Value Performing Clinician Facility 02-23-2023 12:15-0500 Body height 180.34 cm Kailey Deluca Other [facility] Other 02-23-2023 12:15-0500 Body mass index (BMI) [Ratio] 20.58 kg/m2 Kailey Deluca Other [facility] Other 02-23-2023 12:15-0500 Body temperature 98.7 [degF] Kailey Deluca Other [facility] Other 02-23-2023 12:15-0500 Body weight 66.95 kg Kailey Deluca Other [facility] Other 02-23-2023 12:15-0500 Diastolic blood pressure 62 mm[Hg] Kailey Deluca Other [facility] Other 02-23-2023 12:15-0500 Respiratory rate 18 /min Kailey Deluca Other [facility] Other 02-23-2023 12:15-0500 SaO2% (BldA) [Mass fraction] 98 % Kailey Deluca Other [facility] Other 02-23-2023 12:15-0500 Systolic blood pressure 118 mm[Hg] Kailey Deluca Other [facility] Other 12-18-2022 14:20-0400 Body height 180.34 cm Jarod Madina Other [facility] Other 12-18-2022 14:20-0400 Body mass index (BMI) [Ratio] 20.89 kg/m2 Jarod Madina Other [facility] Other 12-18-2022 14:20-0400 Body temperature 96.9 [degF] Jarod Madina Other [facility] Other 12-18-2022 14:20-0400 Body weight 67.95 kg Jarod Madina Other [facility] Other 12-18-2022 14:20-0400 Diastolic blood pressure 62 mm[Hg] Jarod Madina Other [facility] Other 12-18-2022 14:20-0400 Respiratory rate 18 /min Jarod Madina Other [facility] Other 12-18-2022 14:20-0400 SaO2% (BldA) [Mass fraction] 99 % Jarod Madina Other [facility] Other 12-18-2022 14:20-0400 Systolic blood pressure 116 mm[Hg] Jarod Madina Other [facility] Other 09-07-2022 10:40-0400 Body height 180.34 cm Jarod Madina Other [facility] Other 09-07-2022 10:40-0400 Body mass index (BMI) [Ratio] 21.11 kg/m2 Jarod Madina Other [facility] Other 09-07-2022 10:40-0400 Body temperature 97.2 [degF] Jarod Madina Other [facility] Other 09-07-2022 10:40-0400 Body weight 68.68 kg Jarod Madina Other [facility] Other 09-07-2022 10:40-0400 Diastolic blood pressure 53 mm[Hg] Jarod Madina Other [facility] Other 09-07-2022 10:40-0400 Respiratory rate 18 /min Jarod Madina Other [facility] Other 09-07-2022 10:40-0400 SaO2% (BldA) [Mass fraction] 99 % Jarod Madina Other [facility] Other 09-07-2022 10:40-0400 Systolic blood pressure 102 mm[Hg] Jarod Madina Other [facility] Other 08-14-2022 09:55-0400 Body height 180.34 cm Chani Milner Other [facility] Other 08-14-2022 09:55-0400 Body mass index (BMI) [Ratio] 20.36 kg/m2 Chani Milner Other [facility] Other 08-14-2022 09:55-0400 Body temperature 97.9 [degF] Chani Milner Other [facility] Other 08-14-2022 09:55-0400 Body weight 66.23 kg Chani Milner Other [facility] Other 08-14-2022 09:55-0400 Diastolic blood pressure 55 mm[Hg] Chani Milner Other [facility] Other 08-14-2022 09:55-0400 Respiratory rate 18 /min Chani Milner Other [facility] Other 08-14-2022 09:55-0400 SaO2% (BldA) [Mass fraction] 98 % Chani Milner Other [facility] Other 08-14-2022 09:55-0400 Systolic blood pressure 102 mm[Hg] Chani Milner Other [facility] Other 06-15-2022 15:20-0400 Body height 180.34 cm Jarod Madina Other [facility] Other 06-15-2022 15:20-0400 Body mass index (BMI) [Ratio] 20.61 kg/m2 Jarod Madina Other [facility] Other 06-15-2022 15:20-0400 Body temperature 97.5 [degF] Jarod Madina Other [facility] Other 06-15-2022 15:20-0400 Body weight 67.04 kg Jarod Madina Other [facility] Other 06-15-2022 15:20-0400 Diastolic blood pressure 64 mm[Hg] Jarod Madina Other [facility] Other 06-15-2022 15:20-0400 Respiratory rate 18 /min Jarod Madina Other [facility] Other 06-15-2022 15:20-0400 SaO2% (BldA) [Mass fraction] 97 % Jarod Madina Other [facility] Other 06-15-2022 15:20-0400 Systolic blood pressure 120 mm[Hg] Jarod Madina Other [facility] Other Encounters Encounter Date Encounter Type Care Provider Facility Start: 04-04-2023 Bamboo flowsheet Gissell A Fel ter ENTRY ANALYST-CAMERA MECHANIC Work Phone: [facility] Start: 04-04-2023 Bamboo flowsheet Gissell A Fel ter ENTRY ANALYST-CAMERA MECHANIC Work Phone: [facility] Start: 04-04-2023 End: 04-04-2023 ambulatory GISSELL A FELTER Not Available Start: 04-04-2023 End: 04-04-2023 Office outpatient visit 15 minutes Gissell A Felter ENTRY ANALYST-CAMERA MECHANIC Work Phone: [facility] Comment on above: Seborrheic keratosis (Primary Dx); Actinic keratosis; Sebaceous hyperplasia; Lentigines Start: 04-01-2023 Daniel Rodarte MD Work Phone: [facility] Comment on above: Other osteoporosis w ithout current pathological fracture ([facility]) Start: 03-24-2023 Daniel Rodarte MD Work Phone: [facility] Comment on above: Other osteoporosis w ithout current pathological fracture ([facility]) Start: 02-23-2023 End: 02-23-2023 ambulatory Kailey Deluca Other [facility] Other Start: 02-23-2023 Office outpatient vi sit 15 minutes Kailey Sandrine [facility] Start: 01-30-2023 End: 01-30-2023 ambulatory Jarod Madina Other [facility] Other Start: 01-30-2023 Telephone encounter Jarod Madina [facility] Start: 01-22-2023 End: 01-22-2023 ambulatory SHAIKH CAYDEN Not Available Start: 01-22-2023 Patient encounter procedure Shaikh Cayden SWAN Work Phone: [facility] Start: 12-18-2022 End: 12-18-2022 ambulatory Jarod Madina Other [facility] Other Start: 12-18-2022 Encounter for genera l adult medical examination without abnormal findings Jarod Madina [facility] Start: 12-18-2022 Office outpatient vi sit 25 minutes Jarod Madina [facility] Start: 09-07-2022 End: 09-07-2022 ambulatory Jarod Madina Other [facility] Other Start: 09-07-2022 Encounter for genera l adult medical examination without abnormal findings Jarod Madina [facility] Start: 09-07-2022 Office outpatient vi sit 25 minutes Jarod Madina [facility] Start: 08-14-2022 End: 08-14-2022 ambulatory Chani Milner Other [facility] Other Start: 08-14-2022 Office outpatient vi sit 15 minutes Chani Milner [facility] Start: 06-29-2022 End: 06-29-2022 ambulatory Shaikh Cayden Facility:[facility] Start: 06-29-2022 End: 06-29-2022 ambulatory MD Shaikh Rodarte Work Phone: [facility] Work Phone: Start: 06-29-2022 End: 06-29-2022 Patient encounter procedure MD Shaikh Rodarte Work Phone: [facility] Work Phone: Start: 06-28-2022 Encounter for genera l adult medical examination without abnormal findings JAROD MADINA [facility] Start: 06-25-2022 End: 06-25-2022 ambulatory Jarod Madina Other [facility] Other Start: 06-25-2022 Telephone encounter Jarod Madina [facility] Start: 06-21-2022 End: 06-22-2022 ambulatory SHAIKH Hugo RODARTE Facility: Start: 06-15-2022 End: 06-15-2022 ambulatory Jarod Madina Other [facility] Other Start: 06-15-2022 Encounter for genera l adult medical examination without abnormal findings Jarod Madina [facility] Start: 06-15-2022 Office outpatient ne w 45 minutes Jarod Madina [facility] Start: 05-18-2022 End: 05-19-2022 ambulatory SHAIKH Hugo RODARTE Facility: Start: 03-30-2022 End: 03-31-[address] DOCTOR LOREDO Facility:[facility] Start: 12-06-2021 End: 12-07-[address] DOCTOR LOREDO Facility:[facility] Start: 08-17-2021 End: 08-18-[address] DOCTOR LOREDO Facility:[facility] Procedures Date Procedure Procedure Detail Performing Clinician Start: 05-24-2017 History of renal transplant History of renal transplant Shaikh Cayden SWAN Work Phone: History of renal transplant Jarod Madina Other Plan of Treatment Date Care Activity Detail Author Start: 08-19-2025 Screening for malign ant neoplasm of colon [facility] Start: 01-23-2024 Medicare Annual Well ness (AWV) Medicare Annual Wellness (AWV) [facility] Start: 04-24-2023 End: 04-24-2023 Patient encounter procedure 04/24/2023 10:00 AM EST Office Visit [facility] [address] [place] [address] Shaikh Rodarte MD [address] [place] [address] [facility] Start: 04-04-2023 End: 04-04-2023 Patient encounter procedure 04/04/2023 9:20 AM EST Office Visit [facility] [address] [place] [address] Gissell Gallo APRN-CAMERA MECHANIC [address] [place] [address] [facility] Start: 02-19-2023 Hemoglobin A1c measurement Diabetes: Hemoglobin A1C [facility] Start: 10-20-2022 Influenza vaccination Influenza Vacc ine (#1) [facility] Start: 05-22-2019 Pneumococcal Vaccine : 65+ Years (2 - PCV) Pneumococcal Vaccine: 65+ Years (2 - PCV) [facility] Start: 02-12-1964 Glaucoma screening Diabetes: R etinopathy Screening [facility] Start: 1955 Screening for malign ant neoplasm of colon [facility] Immunizations Immunization Date Immunization Notes Care Provider Hakan cole 12-20-2018 influenza virus vacc ine, unspecified formulation Shaikh Cayden SWAN Work Phone: [facility] Payers Date Payer Category Payer Private Health Insurance [id number] 2022 Self-pay 2022 Medicare [id number] 1960 Medicare [id number]. [id number] 1960 Medicare [id number] 1955 Unknown [id number] 1954 Unknown [id number] [id number] 1954 Unknown [id number] [id number] [id number] 1954 Unknown [id number] [id number] [id number] 1954 Unknown [id number] 2.16.84 [id number] 1954 Unknown [id number] 2.16.84 [id number] 1954 Unknown [id number] Unknown [id number] [id number] Social History Date Type Detail Facility Unknown if ever smoked [facility] Other Start: 01-22-2023 End: 04-04-2023 Sex Assigned At ADOP Other Start: 1955 Sex Assigned At Male F [facility] Start: 08-17-2022 [facility] Start: 08-17-2022 Tobacco use and exposure Smokeless tobacco non-user [facility] Start: 01-22-2023 End: 04-04-2023 Alcohol intake Current drinker of alcohol (finding) [facility] Start: 01-22-2023 End: 04-04-2023 History of Social function [facility] Within the last year , have you been afraid of your partner or ex-partner? No [facility] Are you now , , , , never or living with a partner? [facility] How often to you hav e a drink containing alcohol? Monthly or less [facility] How many standard drinks containing alcohol do you have on a typical day? 1 or 2 [facility] How often do you hav e 6 or more drinks on 1 occasion? Never [facility] How hard is it for y ou to pay for the very basics like food, housing, medical care, and heating Not hard at all [facility] Do you feel stress - tense, restless, nervous, or anxious, or unable to sleep at night because your mind is troubled all the time - these days [OSQ] Not at all [facility] (I/We) worried wheth er (my/our) food would run out before (I/we) got money to buy more. Never true [facility] Start: 01-22-2023 Alcohol Comment DAILY [facility] Start: 1955 Sex Assigned At Not on file [facility] Medical Equipment Procedure Code Equipment Code Equipment Origin al Text Equipment Identifier Dates USE DIRECTED EVERY DAY [id number] Start: 01-08-2023 Clinical Notes 06-15-2022 to 04-04-2023 Gissell Gallo, ENTRY ANALYST-CAMERA MECHANIC - 04/04/2023 9:20 AM EST Note Date & Type Note Facility 04-04-2023 History of Presen t illness Narrative Lesion(s) Location: scalp, face Duration: months Quality: itchy Modifying factors: aggravated by picking Associated symptoms: rough, scaly Treatments: none Established patient All pertinent medical history, medications, and allergies were reviewed. General Exam: alert , oriented to person, place, and time , normal affect, well appearing Unaccompanied A focused exam completed based on patient reported problems, see below: 1. Seborrheic keratosis Head - Anterior (Face) Stuck on verrucous, variably pigmented papules and plaques. Patient was counseled regarding these benign growths. Removal is normally not necessary, but they may be removed if they are symptomatic or for cosmetic reasons. 2. Actinic keratosis (2) Head - Anterior (Face), Scalp Erythematous scaly papules Patient was counseled regarding these sun-induced growths that can develop into squamous cell carcinoma if left untreated. Discussed treatment options, including cryotherapy and topical preparations. It was emphasized that any treated lesions that fail to resolve should be re-evaluated. Patient elected for treatment with Efudex as this has become a chronic issue. Educated on Efudex treatment. Apply to Scalp and Cheeks twice a day for two weeks. Discussed that treated areas will become red, crusty, and inflamed. If areas become too uncomfortable, patient may use OTC hydrocortisone cream to help decrease irritation and can discontinue treatment early. Sun exposure should be avoided during treatment. Patient instructed to contact office for any questions or issues during treatment. Lesions that fail to resolve once treated area is healed should be re-evaluated in the office. Handout given to patient Related Medications fluorouracil (Efudex) 5 % cream Apply to directed areas on the scalp, cheeks twice a day x 14 days. Dispense 30 day supply but only use for 14 days. 3. Sebaceous hyperplasia Head - Anterior (Face) Small yellow papules with a central dell. Reassure, benign. Discussed these can be removed for a cosmetic fee with the hyfrecator if desired. 4. Lentigines Scalp Scattered freitas macules in sun-exposed areas. The patient was informed that lentigines are benign pigmented lesions that occur on sun-exposed and sun-damaged skin. No treatment is necessary. Recommended regular use of broad spectrum sunscreen SPF 30 or higher Next Visit: 1 year (skin check) documented in this encounter [facility] 02-23-2023 Evaluation note Encounter Date Diagnosis Assessment Notes Feb, COVID-19 (ICD-10 - U07.1) Discharge Instructions for COVID-19 (Suspected or Confirmed ) material was printed Drink plenty fluids, get plenty of rest. Take the amoxicillin as prescribed until gone for your middle ear infection. Use the eardrops as prescribed for your outer ear infection. Take Tylenol as needed for pain or fevers. Continue home medications as prescribed. You must quarantine for 5 days after the onset of your symptoms of COVID. Follow-up with your family physician for any further concerns Feb, Right otitis media, unspecified otitis media type (ICD-10 - H66.91) Feb, Acute otitis externa of right ear, unspecified type (ICD-10 - H60.501) Feb, Contact with and (suspected) exposure to covid-19 (ICD-10 - Z20.822) [facility] Other 12-12-2023 Evaluation note* Encounter Date Diagnosis Assessment Notes Treatment Notes Treatment Clinical Notes Jan, Renal transplant recipient (ICD-10 - Z94.0) [facility] Other 10-30-2023 Evaluation note* Encounter Date Diagnosis Assessment Notes Treatment Notes Treatment Clinical Notes Nov, Renal transplant recipient (ICD-10 - Z94.0) He has a cadaveric renal transplant since 2014 and currently follows with the transplant team in [place]. He is currently on immunosuppressive medication including Prograf CellCept and prednisone. He reported be compliant with his immunosuppressive medications. Tacrolimus is within the goal. 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 His serum creatinine 1.8 mg/dL above his baseline. He has no evidence of hematuria and proteinuria. Renal function has mildly declined either due to the progression of CKD or hemodynamic changes. I discussed with him the importance of good HTN and DM control to slow down the progression of CKD. Nov, Diabetes mellitus wi th chronic kidney disease (ICD-10 - E11.22) He has a xgs-dybllot-deijmudhs type 2 diabetes mellitus. Advised him continue to follow with PCP for DM management. He is currently on losartan for renal protection. We will continue that. 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 He appears to be euvolemic. Continue current antihypertensive medication including nifedipine and losartan Nov, Secondary hyperparathyroidism (ICD-10 - N25.81) He has a secondary hyperparathyroidism due to the CKD but his calcium and vitamin D are within the goal. Nov, Health maintenance examination (ICD-10 - Z00.00) Pneumonia vaccine 2013. Advised him to have a follow-up with PCP for repeat dose COVID-vaccine. He got routine vaccine but did not receive the booster. opted against it Flu vaccine 2020. Advised to have a flu vaccine.. opted against it Colonoscopy 2013. He had Cologuard in 2022 and it was negative as per patient Dermatology. He has a history of basal cancer and currently follows with dermatology on regular basis. And was seen recently in 2022. DEXA bone scan. DEXA Scan done with PCP showed osteoporosis and was prescribed oral calcium and Fosamax Nov, Murmur (ICD-10 - R01.1) He h as a systolic murmur. His echocardiogram showed normal EF 60 to 65% with trivial valvular heart disease. Nov, Thrombocytopenia (ICD-10 - D69.6) Patient and the reported that he has a chronic thrombocytopenia even before the transplant. No intervention was recommended in the past but the providers. Nov, Anemia of renal dise ase (ICD-10 - D63.1) Hemoglobin is within the target goal and has low Iron stores Nov, Hypomagnesemia (ICD- 10 - E83.42) He has hypomagnesemia due to the tacrolimus. Advised him to comply with the magnesium. Explained to him possible risks of cardiac arrhythmias due to the low magnesium. He understood and verbalized. [facility] Other 07-20-2023 Evaluation note* Encounter Date Diagnosis Assessment Notes Treatment Notes Treatment Clinical Notes Aug, Renal transplant recipient (ICD-10 - Z94.0) He has a cadaveric renal transplant since 2014 and currently follows with the transplant team in [place]. He is currently on immunosuppressive medication including Prograf CellCept and prednisone. Advised him to increase 1 mg q12 hrs due to subtherapeutic level. He reported be compliant with his immunosuppressive medications. 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 His tacrolimus last time was 4.8 and now down to 3.7. He agrees to take 1 mg twice daily. He still has plenty of supply at home. I offered repeat test done in 1 week. He opted to wait for 3 months. 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 I discussed with him the importance of good HTN and DM control to slow down the progression of CKD. Aug, Diabetes mellitus wi th chronic kidney disease (ICD-10 - E11.22) He has a rhv-dhhprct-wxaahkbdn type 2 diabetes mellitus. Advised him continue to follow with PCP for DM management. He is currently on losartan for renal protection. We will continue that. 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 He appears to be euvolemic. Continue current antihypertensive medication including nifedipine and losartan Aug, Secondary hyperparathyroidism (ICD-10 - N25.81) He has a secondary hyperparathyroidism due to the CKD but his calcium and vitamin D are within the goal. Aug, Health maintenance examination (ICD-10 - Z00.00) Pneumonia vaccine 2013. Advised him to have a follow-up with PCP for repeat dose COVID-vaccine. He got routine vaccine but did not receive the booster. Flu vaccine 2020. Advised to have a flu vaccine for the next season. Colonoscopy 2013. Advised him to have discussion with PCP about Cologuard or colonoscopy Dermatology. He has a history of basal cancer and currently follows with dermatology on regular basis. And was seen recently in 2022. DEXA bone scan. Advised him to have follow-up with the PCP Will need DEXA scan due to his chronic steroid use. Aug, Murmur (ICD-10 - R01.1) He has a systolic murmur. His echocardiogram showed normal EF 60 to 65% with trivial valvular heart disease. Aug, Thrombocytopenia (ICD-10 - D69.6) Patient and the reported that he has a chronic thrombocytopenia even before the transplant. No intervention was recommended in the past but the providers. Aug, Anemia of renal disease (ICD-10 - D63.1) Hemoglobin within the target goal. We will check iron studies in future including B12 and folate level. [facility] Other 06-26-2023 Evaluation note* Encounter Date Diagnosis Assessment Notes Treatment Notes Treatment Clinical Notes Jul, Dental abscess (ICD-10 - K04.7) Discussed with patient exam is consistent with dental infection. Will treat with penicillin VK. Probiotic supplement encouraged. Finish entire course. May use Tylenol for pain, topical Anbesol or Orajel. Avoid use of NSAIDs given kidney transplant. Discussed importance of following up with dentist as soon as possible as infection will likely recur until proper treatment of tooth. ER if any rapidly spreading erythema, edema to face, fever. Patient verbalized understanding of treatment plan. Jul, Jaw swelling (ICD-10 - R22.0) [facility] Other 04-27-2023 Evaluation note* Encounter Date Diagnosis Assessment Notes Treatment Notes Treatment Clinical Notes May, Renal transplant recipient (ICD-10 - Z94.0) It was a pleasure to see Mr. Manriquez in our office for an evaluation and management of the CKD and renal transplant. As you know he has a cadaveric renal transplant since 2014 and currently follows with the transplant team in [place]. He is currently on immunosuppressive medication including Prograf CellCept and prednisone. We will continue to monitor his a Prograf level every 3 months. He reported that he has been taking Prograf at the current dose for long time. Sometimes levels varies but usually his Prograf level is within the target range with this regimen. He reported be compliant with his immunosuppressive medications. 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 I discussed with him the importance of good HTN and DM control to slow down the progression of CKD. May, Diabetes mellitus wi th chronic kidney disease (ICD-10 - E11.22) He has a guy-cubjchj-yvgvnawsw type 2 diabetes mellitus. Hemoglobin A1c was within the target goal. Advised him continue to follow with PCP for DM management. He is currently on losartan for renal protection. We will continue that. 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 He appears to be euvolemic. Continue current antihypertensive medication including nifedipine and losartan May, Secondary hyperparathyroidism (ICD-10 - N25.81) Calcium is within normal limit. We will check PTH and vitamin D. May, Health maintenance examination (ICD-10 - Z00.00) Pneumonia vaccine 2013. Advised him to have a follow-up with PCP for repeat dose COVID-vaccine. He got routine vaccine but did not receive the booster. Flu vaccine 2020. Advised to have a flu vaccine for the next season. Colonoscopy 2013. Advised him to have discussion with PCP about Cologuard or colonoscopy Dermatology. He has a history of basal cancer and currently follows with dermatology on regular basis. And was seen recently in 2022. DEXA bone scan. Advised him to have follow-up with the PCP Will need DEXA scan due to his chronic steroid use. May, Murmur (ICD-10 - R01.1) He h as a systolic murmur. Ordered the echocardiogram [facility] Other Evaluation noteNo [facility] Other Evaluation noteNo assessment information available [facility] Work Phone: Evaluation note* Diagnosis Other osteoporosis without current pathological fracture (CMS/HCC) [facility] Diagnosis Other osteoporosis without current pathological fracture (CMS/HCC) [facility] Diagnosis Seborrheic keratosis- Primary Actinic keratosis Sebaceous hyperplasia Lentigines documented in this encounter [facility] HealthcareHistory general Narrative - Reported* Type Description Date Medical History ESRD Medical History SKIN CANCER Medical History ANXIETY AND DEPRESSION Medical History HYPERLIPIDEMIA Medical History DIABETES MELLITUS TYPE 2 Medical History HYPERTENSION Medical History HYPERURICEMIA Medical History BASAL CELL CARCINOMA OF SKIN OF FACE Medical History IMMUNOSUPPRESSED STATUS Medical History RENAL STENOSIS Surgical History LEFT WRIST FRACTURE 2021 Surgical History RENAL STENT 2012 Surgical History CEA 2013 Surgical History KIDNEY TRANSPLANT 04/2014 Hospitalization History SEE ABOVE [facility] Other Summary Purpose Family History No Family History Records FoundNo Family History Records FoundNo Family History Records Found Advance Directives No Advanced Directives Records Found Advance Directive Response Recorded Date/ Time Advance Directives No June 29 10:41am Chief Complaint and Reason for Visit Chief Complaint Z94.0 R01.1 Additional Source Comments REASON FOR VISIT (unrecogniz ed section and content) Reason Comments Med Refill Reason Comments Suspicious Skin Lesion (unrecognized sect ion and content) No Status Records FoundNo Status Records FoundNo Status Records Found INFORMATION SOURCE (unrecogn ized section and content) DATE CREATED AUTHOR 06/29/2022 [facility] DATE CREATED AUTHOR AUTHOR'S ORGANIZ ATION 06/30/2022 [facility] DATE CREATED AUTHOR AUTHOR'S ORGANIZ ATION 04/05/2023 [facility] Care Teams (unrecognized sec tion and content) Team Status: Active Member Role Status Dates Shaikh Cayden MD Primary Care Provider Active Team Status: Inactive Member Role Status Dates Jarod Painter MD Attending Provider Active Shaikh Cayden MD Primary Care Provider Active Translator Deaf Relationship Specialty Start Date End Date Shaikh Rodarte MD PCP - General Internal Medicine 02/19/22 Translator Deaf Relationship Specialty Start Date End Date Shaikh Rodarte MD PCP - General Internal Medicine 02/19/22 Translator Deaf Relationship Specialty Start Date End Date Shaikh Rodarte MD [address] [place] [address] PCP - General Internal Medicine 02/19/22 Translator Deaf Relationship Specialty Start Date End Date Shaikh Rodarte MD [address] [place] [address] PCP - General Internal Medicine 02/19/22 Goals (unrecognized section and content) Goals may be documented in a n alternate section FOR RECORDS PERTAINING TO PATIENTS WHO ARE OR HAVE BEEN ENROLLED IN A CHEMICAL DEPENDENCY/SUBSTANCEABUSE PROGRAM, SOME INFORMATION MAY BE OMITTED. This clinical summary was aggregated from multiple sources. Caution should be exercised in using it in the provision of clinical care. This summary normalizes information from multiple sources, and as a consequence, information in this document may materially change the coding, format and clinical context of patient data. In addition, data may be omitted in some cases. CLINICAL DECISIONS SHOULD BE BASED ON THE PRIMARY CLINICAL RECORDS. [facility] [employer] [facility]. provides no warranty or guarantee of the accuracy or completeness of information in this document.
[2023-04-21 09:53] LABS: Hematocrit 39.6 % (42.0-54.0); Hemoglobin 12.8 g/dL (14.0-18.0); Mean Corpuscular HGB Conc 32.3 g/dL (29.9-35.2); Mean Corpuscular Hemoglobin 29.5 pg (25.9-34.0); Mean Corpuscular Volume 91.2 fL (80.0-94.0); Mean Platelet Volume 10.7 fL (9.5-13.5); Platelet Count 138 10^3/uL (150-450); Red Blood Count 4.34 10^6/uL (4.70-6.10); Red Cell Distribution Width 13.1 % (11.0-15.0); White Blood Count 5.7 10^3/uL (4.0-11.0)
[2023-04-21 09:54] LABS: Bilirubin Urine NEGATIVE (NEGATIVE); Blood Urine NEGATIVE (NEGATIVE); Clarity Urine CLEAR (CLEAR); Color Urine LT. YELLOW (YELLOW); Glucose Urine UA 100 mg/dL (NEGATIVE); Ketones Urine NEGATIVE (NEGATIVE); Leukocyte Esterase Urine NEGATIVE (NEGATIVE); Nitrite Urine NEGATIVE (NEGATIVE); Protein Urine NEGATIVE (NEG/TRACE); Specific Gravity Urine 1.015 (1.005-1.025); Urobilinogen Urine 0.2 EU/dL (0.2-1.0)
[2023-04-21 10:05] LABS: Creatinine Urine Random 56.64 mg/dL (20.00-300.00); Total Protein Urine Random 11.1 mg/dL (<=11.9)
[2023-04-21 10:19] LABS: Alanine Aminotransferase 24 U/L (16-63); Albumin Level 3.7 g/dL (3.4-5.0); Alkaline Phosphatase 48 U/L (46-116); Anion Gap 11.6; Aspartate Amino Transferase 17 U/L (15-37); BUN Creatinine Ratio 18.4; Bilirubin Total 0.8 mg/dL (0.2-1.0); Calcium 10.1 mg/dL (8.5-10.1); Carbon Dioxide 27.1 mmol/L (21.0-32.0); Chloride 102 mmol/L (98-107); Estimated GFR (African America 38 (>=60); Estimated GFR (Non-African Ame 31 (>=60); Globulin 3.6 g/dL; Glucose 207 mg/dL (74-106); Magnesium 1.7 mg/dL (1.8-2.4); Phosphorus 2.5 mg/dL (2.6-4.7); Potassium 4.7 mmol/L (3.5-5.1); Sodium 136 mmol/L (136-145); Total Protein 7.3 g/dL (6.4-8.2); Uric Acid 5.2 mg/dL (3.5-7.2)
[2023-04-21 10:24] LABS: Bacteria Urine NONE SEEN #/HPF (NONE SEEN); Cast Seen? NONE SEEN #/LPF (NONE SEEN); Crystals Seen? None Seen #/HPF (None Seen); Mucus Urine NONE SEEN (NONE SEEN); RBC Urine NONE SEEN #/HPF (0-2); Squamous Epithelial Cell Urine RARE #/LPF (NONE/RARE); WBC Urine NONE SEEN #/HPF (NONE SEEN)
[2023-04-21 10:42] LABS: Percent Iron Saturation 33.5 %
[2023-04-27 14:09] LABS: PTHrP (PTH-Related Peptide) <2.0 pmol/L (.)
== END 2023-04-21 09:07 | disposition home or self-care (01) ==
LOC: LAB 09:09
PROVIDERS: PCP Internal Medicine; Visit Provider Internal Medicine
DX: Z00.00 Encounter for general adult medical examination without abnormal findings (principal); Z94.0 Kidney transplant status; N18.30 Chronic kidney disease, stage 3 unspecified; E11.22 Type 2 diabetes mellitus with diabetic chronic kidney disease; I12.9 Hypertensive chronic kidney disease with stage 1 through stage 4 chronic kidney disease, or unspecified chronic kidney disease; N25.81 Secondary hyperparathyroidism of renal origin; R01.1 Cardiac murmur, unspecified; D69.6 Thrombocytopenia, unspecified; D63.1 Anemia in chronic kidney disease
CPT/HCPCS: 36415; 80053; 80069; 81001; 82306; 82397; 82570; 82728; 83540; 83550; 83735; 84156; 84550; 85027

== ENCOUNTER 2023-05-12 09:38 | Outpatient (OUT) | payer MEDICARE, SELFPAY ==
--- OUTSIDE RECORDS SUMMARY | 2023-05-12 09:42 | XMS_ITS | CCD ---
Author Organization [facility] Care Team Providers Care Project Intern Name Role Phone Zen Ballardul Unavailable MISC, DR HERRERA Primary Care Unavailable [...] Attending Unavailable FAWWAD, KEVIN H Consulting Unavailable FAWWAD, KEVIN H Primary Care Unavailable MADINAJAROD Admitting Unavailable MADINAJAROD Attending Unavailable MADINAJAROD Consulting Unavailable MISC, DR HERRERA Admitting Unavailable MISC, DR HERRERA Attending Unavailable FAWWAD, KEVIN H Primary Care Unavailable MISC, DR HERRERA Consulting Unavailable MD Jarod Ballard Attending Provider MD Nicolette Salguero Primary Care Provider [phone] Shaikh Salguero Primary Care Unavailable MadinaJarod Attending Unavailable Madina, Jarod Admitting Unavailable Chani Milner Unavailable Kailey Deluca Unavailable Shaikh Salguero MD Primary Care Provider Shaikh Salguero MD Primary Care Provider GISSELL GALLO Attending Unavailable SHAIKH SALGUERO Attending Unavailable Medications Current Medications Medication Drug [...] 03/26/2023 Discontinued take 1 tablet by massiel th once daily Fosamax 70 MG 1 tablet [...] Feb, Active take 1 capsule by mo [facility] every eight hours Amoxicillin 500 MG 1 [...] day Active take 1 tablet by massiel th twice daily at mealtime Calcium Carbonate 600 [...] / neomycin 3.5 mg/ml / polymyxin b 46905 unt/ml otic suspension (1 source) Aminoglycoside Antibacterial, Polymyxin-class Antibacterial, Corticosteroid Start: 024 Vdsffqvk-Egsdzdqic-K C 3.5-89195-0 3 drops Otic Three times a day [...] (COVID-19) RNA CODY+probe Ql (Unsp spec) Positive [facility] Other COVID/FLU RT-PCR Negative [facility] transthoracicon [facility] echo transthoracic [facility] Main [place] [address] [place] [address] Echocardiogram Signed Patient: Raul Manriquez MR#: [id number] : 1955 Acct:[id number] Age/Sex: 67 / M ADM Date: 06/29/22 Loc: Room: Type: [facility] Attending Dr: Jarod Ballard MD Ordering Provider: Jarod Ballard MD Date of Service: 06/29/2201/11/1047 [facility] echo transthoracic: Renal transplant recipient;Murmur Copies to: [...] max darryl: 84.0 cm/sec(0.8-1.3m/s) MV A max daryrl: 68.6 cm/sec(0.0-0.0m/s) MV E/A: 1.2 (<1.5) MMode/2D [...] Signed By: Garret Weeks MD 06/29/[address] [facility] FK506 (TACROLIMUS) WHOLE BLO ODon 06-23-2022 Tacrolimus (FK506), Blood 4.8 ng/mL Normal 2.0-20.0 [facility] Comment on above: Result Comment: Trou gh (immediately following transplant) 15.0 . Trough (steady state, 2 weeks or more after transplant): 3.0 - 8.0 . Performed by LC-MS/MS technology. Performed By: #### F [id number] #### [facility] [address] [place] [address] Dr. Sagar Morales PTH INTACTon 06-22-2022 PTH, Intact 57 pg/mL Normal 15-65 [facility] Comment on above: Performed By: #### P THINT #### [facility] [address] [place] [address] Dr. Sagar Morales HEMOGRAM AND PLATELon 2022 Hematocrit (Bld) [Volume fraction] 42.1 % Normal 42.0-54.0 [facility] Comment on above: Performed By: #### H H #### [facility] [address] [place] [address] Dr. Sagar Morales Hemoglobin (Bld) [Mass/Vol] 13.7 g/dL Critically low 14.0-18.0 [facility] Comment on above: Performed By: #### H H #### [facility] [address] [place] [address] Dr. Sagar Morales MCH (RBC) [Entitic mass] 30.0 pg Normal 25.9-34.0 [facility] Comment on above: Performed By: #### H H #### [facility] [address] [place] [address] Dr. Sagar Morales MCHC (RBC) [Mass/Vol] 32.5 g/dL Normal 29.9-35.2 [facility] Comment on above: Performed By: #### H H #### [facility] [address] [place] [address] Dr. Sagar Morales MCV (RBC) [Entitic vol] 92.3 fL Normal 80.0-94.0 [facility] Comment on above: Performed By: #### H H #### [facility] [address] [place] [address] Dr. Sagar Morales PLT 122 103/ul Critically low 150-450 [facility] Comment on above: Performed By: #### H H #### [facility] [address] [place] [address] Dr. Sagar Morales RBC 4.56 106/ul Critically low 4.70-6.10 [facility] Comment on above: Performed By: #### H H #### [facility] [address] [place] [address] Dr. Sagar Morales WBC 5.1 103/ul Normal 4.0-11.0 [facility] Comment on above: Performed By: #### H H #### [facility] [address] [place] [address] Dr. Sagar Morales MAGNESIUMon 06-21-2022 Magnesium [Mass/Vol] 1.7 mg/dL Critically low 1.8-2.4 [facility] Comment on above: Performed By: #### R ENMADI URIC, LIVER #### [facility] [address] [place] [address] Dr. Sagar Morales PROF 14(COMP METB)on 023 Albumin [Mass/Vol] 3.6 g/dL Normal 3.4-5.0 [facility] Comment on above: Performed By: #### R KATHRYN URIC, LIVER #### [facility] [address] [place] [address] Dr. Sagar Morales Albumin/Globulin [Mass ratio] 1.0 {ratio} Normal [facility] Comment on above: Performed By: #### R ENMADI URIC, LIVER #### [facility] [address] [place] [address] Dr. Sagar Morales ALP [Catalytic activity/Vol] 62 U/L Normal 46-116 [facility] Comment on above: Performed By: #### R ENMADI URIC, LIVER #### [facility] [address] [place] [address] Dr. Sagar Morales ALT [Catalytic activity/Vol] 38 U/L Normal 16-63 [facility] Comment on above: Performed By: #### R ENMADI URIC, LIVER #### [facility] [address] [place] [address] Dr. Sagar Morales Anion gap [Moles/Vol] 12.4 mmol/L Normal [facility] Comment on above: Performed By: #### R ENMADI, URIC, LIVER #### [facility] [address] [place] [address] Dr. Sagar Morales AST [Catalytic activity/Vol] 24 U/L Normal 15-37 [facility] Comment on above: Performed By: #### R ENAL, URIC, LIVER #### [facility] [address] [address] [address] Sagar Morales Bilirubin [Mass/Vol] 0.6 mg/dL Normal 0.2-1.0 [facility] Comment on above: Performed By: #### R ENAL, URIC, LIVER #### [facility] [address] [address] [address] Sagar Morales Calcium [Mass/Vol] 9.9 mg/dL Normal 8.5-10.1 [facility] Comment on above: Performed By: #### R ENAL, URIC, LIVER #### [facility] [address] [place] [address] Dr. Sagar Morales Chloride [Moles/Vol] 103 mmol/L Normal 98-107 [facility] Comment on above: Performed By: #### R ENAL, URIC, LIVER #### [facility] [address] [place] [address] Dr. Sagar Morales CO2 [Moles/Vol] 25.3 mmol/L Normal 21.0-32.0 [facility] Comment on above: Performed By: #### R ENAL, URIC, LIVER #### [facility] [address] [place] [address] Dr. Sagar Morales Creatinine [Mass/Vol] 1.59 mg/dL Critically high 0.70-1.30 [facility] Comment on above: Performed By: #### R ENAL, URIC, LIVER #### [facility] [address] [place] [address] Dr. Sagar Morales EGFR-AF [place] 53 mL/min/1.73m2 Critically low >=60 [facility] Comment on above: Performed By: #### R ENAL, URIC, LIVER #### [facility] [address] [place] [address] Dr. Sagar Morales EGFR-NON AF [place] 44 mL/min/1.73m2 Critically low >=60 [facility] Comment on above: Performed By: #### R ENAL, URIC, LIVER #### [facility] [address] [place] [address] Dr. Sagar Morales Globulin (S) [Mass/Vol] 3.7 g/dL Normal [facility] Comment on above: Performed By: #### R ENMADI URIC, LIVER #### [facility] [address] [place] [address] Dr. Sagar Morales Glucose [Mass/Vol] 211 mg/dL Critically high 74-106 [facility] Comment on above: Performed By: #### R ENMADI URIC, LIVER #### [facility] [address] [place] [address] Dr. Sagar Morales Potassium [Moles/Vol] 4.7 mmol/L Normal 3.5-5.1 [facility] Comment on above: Performed By: #### R ENMADI URIC, LIVER #### [facility] [address] [place] [address] Dr. Sagar Morales Protein [Mass/Vol] 7.3 g/dL Normal 6.4-8.2 [facility] Comment on above: Performed By: #### R ENMADI URIC, LIVER #### [facility] [address] [place] [address] Dr. Sagar Morales Sodium [Moles/Vol] 136 mmol/L Normal 136-145 [facility] Comment on above: Performed By: #### R ENAL URIC, LIVER #### [facility] [address] [place] [address] Dr. Sagar Morales Urea nitrogen [Mass/Vol] 40.0 mg/dL Critically high 7.0-18.0 [facility] Comment on above: Performed By: #### R ENAL URIC, LIVER #### [facility] [address] [place] [address] Dr. Sagar Morales Urea nitrogen/Creatinine [Mass ratio] 25.2 mg/mg Normal [facility] Comment on above: Performed By: #### R ENAL URIC, LIVER #### [facility] [address] [place] [address] Dr. Sagar Morales UA RANDOM W/MICROSCOPICon BACTERIA NONE SEEN Normal NONE SEEN [facility] Comment on above: Performed By: #### U AMIC #### [facility] [address] [address] [address] Sagar Morales Bilirubin Ql (U) Negative Normal NEGATIVE [facility] Comment on above: Performed By: #### U AMIC #### [facility] [address] [address] [address] Sagar Morales CAST NONE SEEN Normal NONE SEEN [facility] Comment on above: Performed By: #### U AMIC #### [facility] [address] [address] [address] Sagar Morales Clarity (U) CLEAR Normal CLEAR [facility] Comment on above: Performed By: #### U AMIC #### [facility] [address] [address] [address] Sagar Morales Color (U) LT. YELLOW Normal YELLOW [facility] Comment on above: Performed By: #### U AMIC #### [facility] [address] [address] [address] Sagar Morales Crystals LM Nom (Urine sed) NONE SEEN Normal NONE SEEN [facility] Comment on above: Performed By: #### U AMIC #### [facility] [address] [address] [address] Sagar Morales Epithelial cells LM Ql (Urine sed) FEW Abnormal NONE SEEN /RARE [facility] Comment on above: Performed By: #### U AMIC #### [facility] [address] [place] [address] Dr. Sagar Morales Glucose Ql (U) 250 mg/dl Abnormal NEGATIVE [facility] Comment on above: Performed By: #### U AMIC #### [facility] [address] [address] [address] Sagar Morales Hemoglobin Ql (U) Negative Normal NEGATIVE [facility] Comment on above: Performed By: #### U AMIC #### [facility] [address] [address] [address] Sagar Morales Ketones Ql (U) Negative Normal NEGATIVE [facility] Comment on above: Performed By: #### U AMIC #### [facility] [address] [place] [address] Dr. Sagar Morales LEUKOCYTES Negative Normal NEGATIVE [facility] Comment on above: Performed By: #### U AMIC #### [facility] [address] [place] [address] Dr. Sagar Morales MUCOUS NONE SEEN Normal NONE SEEN [facility] Comment on above: Performed By: #### U AMIC #### [facility] [address] [place] [address] Dr. Sagar Morales Nitrite Ql (U) Negative Normal NEGATIVE [facility] Comment on above: Performed By: #### U AMIC #### [facility] [address] [place] [address] Dr. Sagar Morales pH (U) 5.5 [pH] Normal 5-9 [facility] Comment on above: Performed By: #### U AMIC #### [facility] [address] [place] [address] Dr. Sagar Morales RBC NONE SEEN Abnormal 0-2 [facility] Comment on above: Performed By: #### U AMIC #### [facility] [address] [place] [address] Dr. Sagar Morales SPEC GRAVITY 1.015 Normal 1.005-<=1.025 [facility] Comment on above: Performed By: #### U AMIC #### [facility] [address] [place] [address] Dr. Sagar Morales UA PROTEIN Negative Normal NEGATIVE/ TRACE [facility] Comment on above: Performed By: #### U AMIC #### [facility] [address] [place] [address] Dr. Sagar Morales Urobilinogen Qn (U) 0.2 {Hernandez'U}/dL Normal 0.2 - 1. 0 [facility] Comment on above: Performed By: #### U AMIC #### [facility] [address] [place] [address] Dr. Sagar Morales WBC NONE SEEN Normal NONE SEEN [facility] Comment on above: Performed By: #### U AMIC #### [facility] [address] [place] [address] Dr. Sagar Morales URIC ACID SERUMon 06-21-2022 Urate [Mass/Vol] 4.4 mg/dL Normal 3.5-7.2 [facility] Comment on above: Performed By: #### R ENAL URIC, LIVER #### [facility] [address] [place] [address] Dr. Sagar Morales URINE T PROTEIN CREAT RATIOo n 06-21-2022 Protein (U) [Mass/Vol] 15.7 mg/dL Critically high <=12.0 [facility] Comment on above: Performed By: #### R ENAL, URIC, LIVER #### [facility] [address] [place] [address] Dr. Sagar Morales UR PROT CREAT RAT 0.34 Normal [facility] Comment on above: Performed By: #### R ENMADI URIC, LIVER #### [facility] [address] [place] [address] Dr. Sagar Morales URINE CREAT 45.54 mg/dL Normal 20.00-300.00 [facility] Comment on above: Performed By: #### R ENMADI, URIC, LIVER #### [facility] [address] [place] [address] Dr. Sagar Morales VITAMIN D 25 OHon 06-21-2022 VIT D 25-OH 36.8 ng/mL Normal [facility] Comment on above: Performed By: #### R ENMADI URIC, LIVER #### [facility] [address] [place] [address] Dr. Sagar Morales VIT D RANGES SEE BELOW Normal [facility] Comment on above: Result Comment: <20 ng/mL Vit D deficient 20 - <30 ng/mL Vit D insufficient 30 - 100 ng/mL Vit D sufficient >100 ng/mL Potential Toxicity Performed By: #### R ENMADI URIC, LIVER #### [facility] [address] [place] [address] Dr. Sagar Morales GLYCOHEMOGLOBIN A1Con 2022 ADA RECOMMENDATION SEE BELOW Normal [facility] Comment on above: Result Comment: ADA RECOMMENDED LIMIT 4.0 - 6.0 ADA THERAPEUTIC TARGET < 7.0 ACTION SUGGESTED > 7.0 Performed By: #### R ENAL, URIC, LIVER #### [facility] [address] [address] [address] Sagar Morales Glucose [Mass/Vol] 120 mg/dL Normal [facility] Comment on above: Performed By: #### R ENAL, URIC, LIVER #### [facility] [address] [address] [address] Sagar Morales HbA1c (Bld) [Mass fraction] 5.8 % Normal 4.5-6.2 [facility] Comment on above: Performed By: #### R ENMADI URIC, LIVER #### [facility] [address] [address] [address] Sagar Morales LIPID PROFILEon 05-18-2022 CHOL-HDL RATIO NORM SEE BELOW Normal [facility] Comment on above: Result Comment: 3.3 - 4.4 LOW RISK 4.4 - 7.1 AVERAGE RISK 7.1 - 11.0 MODERATE RISK >11.0 HIGH RISK Performed By: #### R ENAL, URIC, LIVER #### [facility] [address] [address] [address] Sagar Morales Cholesterol [Mass/Vol] 176 mg/dL Normal <=200 [facility] Comment on above: Performed By: #### R ENMADI URIC, LIVER #### [facility] [address] [address] [address] Sagar Morales Cholesterol in HDL [Mass/Vol] 84 mg/dL Critically high 40-60 [facility] Comment on above: Performed By: #### R ENAL URIC, LIVER #### [facility] [address] [address] [address] Sagar Morales Cholesterol in LDL [Mass/Vol] 76.0 mg/dL Normal [facility] Comment on above: Performed By: #### R ENAL, URIC, LIVER #### [facility] [address] [address] [address] Sagar Morales Cholesterol.total/Ch olesterol in HDL [Mass ratio] 2.1 {ratio} Normal [facility] Comment on above: Performed By: #### R ENAL, URIC, LIVER #### [facility] [address] [address] [address] Sagar Morales HDL NORMAL > or = 60 mg/dl - LOW CARDIOVASCULAR RISK <40 mg/dl - HIGH CARDIOVASCULAR RISK Normal [facility] Comment on above: Performed By: #### Troy PERALTA URIC, LIVER #### [facility] [address] [address] [address] Sagar Morales LDL CALC NORMAL SEE BELOW Normal [facility] Comment on above: Result Comment: <100 mg/dl OPTIMAL 100 - 129 mg/dl NEAR OR ABOVE OPTIMAL 130 - 159 mg/dl BORDERLINE HIGH 160 - 189 mg/dl HIGH >190 mg/dl VERY HIGH Performed By: #### FRANNY ASHFORD, LIVER #### [facility] [address] [place] [address] Dr. Sagar Morales Triglyceride [Mass/Vol] 80 mg/dL Normal <=150 [facility] Comment on above: Performed By: #### FRANNY ASHFORD, LIVER #### [facility] [address] [place] [address] Dr. Sagar Morales VLDL CALC 16.0 mg/dL Normal [facility] Comment on above: Performed By: #### FRANNY ASHFORD, LIVER #### [facility] [address] [place] [address] Dr. Sagar Morales FK506 (TACROLIMUS) WHOLE BLO ODon 04-02-2022 Tacrolimus (FK506), Blood 5.4 ng/mL Normal 2.0-20.0 [facility] Comment on above: Result Comment: Trou gh (immediately following transplant) 15.0 . Trough (steady state, 2 weeks or more after transplant): 3.0 - 8.0 . Performed by LC-MS/MS technology. Performed By: #### F [id number] #### [facility] [address] [place] [address] Dr. Sagar Morales RENAL FUNCTION PANELon 03-30 Albumin [Mass/Vol] 3.4 g/dL Normal 3.4-5.0 [facility] Comment on above: Performed By: #### FRANNY ASHFORD, LIVER #### [facility] [address] [address] [address] Sagar Morales Calcium [Mass/Vol] 9.5 mg/dL Normal 8.5-10.1 [facility] Comment on above: Performed By: #### R ENAL, URIC, LIVER #### [facility] [address] [address] [address] Sagar Morales Chloride [Moles/Vol] 106 mmol/L Normal 98-107 [facility] Comment on above: Performed By: #### R ENAL, URIC, LIVER #### [facility] [address] [address] [address] Sagar Morales CO2 [Moles/Vol] 23.0 mmol/L Normal 21.0-32.0 [facility] Comment on above: Performed By: #### R ENAL, URIC, LIVER #### [facility] [address] [place] [address] Dr. Sagar Morales Creatinine [Mass/Vol] 1.62 mg/dL Critically high 0.70-1.30 [facility] Comment on above: Performed By: #### R ENAL, URIC, LIVER #### [facility] [address] [address] [address] Sagar Morales EGFR-AF [place] 52 mL/min/1.73m2 Critically low >=60 [facility] Comment on above: Performed By: #### R ENAL, URIC, LIVER #### [facility] [address] [address] [address] Sagar Morales EGFR-NON AF [place] 43 mL/min/1.73m2 Critically low >=60 [facility] Comment on above: Performed By: #### R ENAL, URIC, LIVER #### [facility] [address] [address] [address] Sagar Morales Glucose [Mass/Vol] 148 mg/dL Critically high 74-106 [facility] Comment on above: Performed By: #### R ENAL, URIC, LIVER #### [facility] [address] [address] [address] Sagar Morales Phosphate [Mass/Vol] 2.3 mg/dL Critically low 2.6-4.7 [facility] Comment on above: Performed By: #### R KATHRYN URIC, LIVER #### [facility] [address] [place] [address] Dr. Sagar Morales Potassium [Moles/Vol] 4.2 mmol/L Normal 3.5-5.1 [facility] Comment on above: Performed By: #### R KATHRYN URIC, LIVER #### [facility] [address] [place] [address] Dr. Sagar Morales Sodium [Moles/Vol] 138 mmol/L Normal 136-145 [facility] Comment on above: Performed By: #### R FRANNY PERALTA, LIVER #### [facility] [address] [place] [address] Dr. Sagar Morales Urea nitrogen [Mass/Vol] 27.0 mg/dL Critically high 7.0-18.0 [facility] Comment on above: Performed By: #### R KATHRYN URIC, LIVER #### [facility] [address] [place] [address] Dr. Sagar Morales FK506 (TACROLIMUS) WHOLE BLO ODon 12-09-2021 Tacrolimus (FK506), Blood 3.6 ng/mL Normal 2.0-20.0 [facility] Comment on above: Result Comment: Trou gh (immediately following transplant) 15.0 . Trough (steady state, 2 weeks or more after transplant): 3.0 - 8.0 . Performed by LC-MS/MS technology. Performed By: #### F [id number] #### [facility] [address] [place] [address] Dr. Sagar Morales LIVER PROFILEon 12-06-2021 Albumin [Mass/Vol] 3.6 g/dL Normal 3.4-5.0 [facility] Comment on above: Performed By: #### R KATHRYN URIC, LIVER #### [facility] [address] [place] [address] Dr. Sagar Morales Albumin/Globulin [Mass ratio] 1.0 {ratio} Normal [facility] Comment on above: Performed By: #### R KATHRYN URIC, LIVER #### [facility] [address] [address] [address] Sagar Morales ALP [Catalytic activity/Vol] 59 U/L Normal 46-116 [facility] Comment on above: Performed By: #### R ENAL, URIC, LIVER #### [facility] [address] [address] [address] Sagar Morales ALT [Catalytic activity/Vol] 31 U/L Normal 16-63 [facility] Comment on above: Performed By: #### R ENAL, URIC, LIVER #### [facility] [address] [address] [address] Sagar Morales AST [Catalytic activity/Vol] 19 U/L Normal 15-37 [facility] Comment on above: Performed By: #### R ENAL, URIC, LIVER #### [facility] [address] [place] [address] Dr. Sagar Morales BILI, CONJUGATED 0.1 mg/dL Normal 0.0-0.2 [facility] Comment on above: Performed By: #### R ENAL, URIC, LIVER #### [facility] [address] [address] [address] Sagar Morales Bilirubin [Mass/Vol] 0.6 mg/dL Normal 0.2-1.0 [facility] Comment on above: Performed By: #### R ENAL, URIC, LIVER #### [facility] [address] [place] [address] Dr. Sagar Morales Globulin (S) [Mass/Vol] 3.5 g/dL Normal [facility] Comment on above: Performed By: #### R ENAL, URIC, LIVER #### [facility] [address] [address] [address] Sagar Morales Protein [Mass/Vol] 7.1 g/dL Normal 6.4-8.2 [facility] Comment on above: Performed By: #### R ENAL, URIC, LIVER #### [facility] [address] [address] [address] Sagar Morales RENAL FUNCTION PANELon 12-06 Calcium [Mass/Vol] 9.6 mg/dL Normal 8.5-10.1 [facility] Comment on above: Performed By: #### R ENAL, URIC, LIVER #### [facility] [address] [address] [address] Sagar Morales Chloride [Moles/Vol] 103 mmol/L Normal 98-107 [facility] Comment on above: Performed By: #### R ENAL, URIC, LIVER #### [facility] [address] [place] [address] Dr. Sagar Morales CO2 [Moles/Vol] 23.7 mmol/L Normal 21.0-32.0 [facility] Comment on above: Performed By: #### R ENAL, URIC, LIVER #### [facility] [address] [place] [address] Dr. Sagar Morales Creatinine [Mass/Vol] 1.65 mg/dL Critically high 0.70-1.30 [facility] Comment on above: Performed By: #### R ENAL, URIC, LIVER #### [facility] [address] [place] [address] Dr. Sagar Morales EGFR-AF [place] 51 mL/min/1.73m2 Critically low >=60 [facility] Comment on above: Performed By: #### R ENAL, URIC, LIVER #### [facility] [address] [place] [address] Dr. Sagar Morales EGFR-NON AF [place] 42 mL/min/1.73m2 Critically low >=60 [facility] Comment on above: Performed By: #### R ENAL, URIC, LIVER #### [facility] [address] [place] [address] Dr. Sagar Morales Glucose [Mass/Vol] 256 mg/dL Critically high 74-106 [facility] Comment on above: Performed By: #### R ENAL, URIC, LIVER #### [facility] [address] [place] [address] Dr. Sagar Morales Phosphate [Mass/Vol] 2.6 mg/dL Normal 2.6-4.7 [facility] Comment on above: Performed By: #### R ENAL, URIC, LIVER #### [facility] [address] [address] [address] Sagar Moralse Potassium [Moles/Vol] 4.7 mmol/L Normal 3.5-5.1 [facility] Comment on above: Performed By: #### R ENAL, URIC, LIVER #### [facility] [address] [place] [address] Dr. Sagar Morales Sodium [Moles/Vol] 137 mmol/L Normal 136-145 [facility] Comment on above: Performed By: #### R ENAL, URIC, LIVER #### [facility] [address] [place] [address] Dr. Sagar Morales Urea nitrogen [Mass/Vol] 27.0 mg/dL Critically high 7.0-18.0 [facility] Comment on above: Performed By: #### R ENMADI, URIC, LIVER #### [facility] [address] [place] [address] Dr. Sagar Morales URIC ACID SERUMon 12-06-2021 Urate [Mass/Vol] 4.7 mg/dL Normal 3.5-7.2 [facility] Comment on above: Performed By: #### R ENMADI, URIC, LIVER #### [facility] [address] [place] [address] Dr. Sagar Morales URINE T PROTEIN CREAT RATIOo n 12-06-2021 Protein (U) [Mass/Vol] 28.8 mg/dL Critically high <=12.0 [facility] Comment on above: Performed By: #### R ENAL, URIC, LIVER #### [facility] [address] [place] [address] Dr. Sagar Morales UR PROT CREAT RAT 0.21 Normal [facility] Comment on above: Performed By: #### R ENAL, URIC, LIVER #### [facility] [address] [place] [address] Dr. Sagar Morales URINE CREAT 137.37 mg/dL Normal 20.00-300.00 [facility] Comment on above: Performed By: #### R ENAL, URIC, LIVER #### [facility] [address] [place] [address] Dr. Sagar Morales FK506 (TACROLIMUS) WHOLE BLO ODon 08-19-2021 Tacrolimus (FK506), Blood 4.4 ng/mL Normal 2.0-20.0 [facility] Comment on above: Result Comment: Trou gh (immediately following transplant) 15.0 . Trough (steady state, 2 weeks or more after transplant): 3.0 - 8.0 . Performed by LC-MS/MS technology. Performed By: #### F [id number] #### [facility] [address] [address] [address] Sagar Morales LIVER PROFILEon 08-17-2021 Albumin [Mass/Vol] 3.4 g/dL Normal 3.4-5.0 [facility] Comment on above: Performed By: #### R KATHRYN URIC, LIVER #### [facility] [address] [address] [address] Sagar Morales Albumin/Globulin [Mass ratio] 1.0 {ratio} Normal [facility] Comment on above: Performed By: #### R ENAL URIC, LIVER #### [facility] [address] [address] [address] Sagar Morales ALP [Catalytic activity/Vol] 71 U/L Normal 46-116 [facility] Comment on above: Performed By: #### R ENMADI URIC, LIVER #### [facility] [address] [place] [address] Dr. Sagar Morales ALT [Catalytic activity/Vol] 38 U/L Normal 16-63 [facility] Comment on above: Performed By: #### R ENAL URIC, LIVER #### [facility] [address] [address] [address] Sagar Morales AST [Catalytic activity/Vol] 21 U/L Normal 15-37 [facility] Comment on above: Performed By: #### R ENAL, URIC, LIVER #### [facility] [address] [place] [address] Dr. Sagar Morales BILI, CONJUGATED 0.2 mg/dL Normal 0.0-0.2 [facility] Comment on above: Performed By: #### R ENAL, URIC, LIVER #### [facility] [address] [address] [address] Sagar Morales Bilirubin [Mass/Vol] 0.6 mg/dL Normal 0.2-1.0 [facility] Comment on above: Performed By: #### R ENAL, URIC, LIVER #### [facility] [address] [place] [address] Dr. Sagar Morales Globulin (S) [Mass/Vol] 3.4 g/dL Normal [facility] Comment on above: Performed By: #### R ENAL, URIC, LIVER #### [facility] [address] [place] [address] Dr. Sagar Morales Protein [Mass/Vol] 6.8 g/dL Normal 6.4-8.2 [facility] Comment on above: Performed By: #### R ENAL, URIC, LIVER #### [facility] [address] [place] [address] Dr. Sagar Morales RENAL FUNCTION PANELon 08-17 Calcium [Mass/Vol] 9.5 mg/dL Normal 8.5-10.1 [facility] Comment on above: Performed By: #### R ENAL, URIC, LIVER #### [facility] [address] [place] [address] Dr. Sagar Morales Chloride [Moles/Vol] 103 mmol/L Normal 98-107 [facility] Comment on above: Performed By: #### R ENAL, URIC, LIVER #### [facility] [address] [place] [address] Dr. Sagar Morales CO2 [Moles/Vol] 25.3 mmol/L Normal 21.0-32.0 [facility] Comment on above: Performed By: #### R ENAL, URIC, LIVER #### [facility] [address] [place] [address] Dr. Sagar Morales Creatinine [Mass/Vol] 1.73 mg/dL Critically high 0.70-1.30 [facility] Comment on above: Performed By: #### R ENAL, URIC, LIVER #### [facility] [address] [place] [address] Dr. Sagar Morales EGFR-AF [place] 48 mL/min/1.73m2 Critically low >=60 [facility] Comment on above: Performed By: #### R ENMADI URIC, LIVER #### [facility] [address] [address] [address] Sagar Morales EGFR-NON AF [place] 40 mL/min/1.73m2 Critically low >=60 [facility] Comment on above: Performed By: #### R ENMADI URIC, LIVER #### [facility] [address] [place] [address] Dr. Sagar Morales Glucose [Mass/Vol] 197 mg/dL Critically high 74-106 [facility] Comment on above: Performed By: #### R ENMADI URIC, LIVER #### [facility] [address] [place] [address] Dr. Sagar Morales Phosphate [Mass/Vol] 2.8 mg/dL Normal 2.6-4.7 [facility] Comment on above: Performed By: #### R ENMADI URIC, LIVER #### [facility] [address] [place] [address] Dr. Sagar Morales Potassium [Moles/Vol] 4.9 mmol/L Normal 3.5-5.1 [facility] Comment on above: Performed By: #### R ENMADI URIC, LIVER #### [facility] [address] [place] [address] Dr. Sagar Morales Sodium [Moles/Vol] 136 mmol/L Normal 136-145 [facility] Comment on above: Performed By: #### R ENMADI URIC, LIVER #### [facility] [address] [address] [address] Sagar Morales Urea nitrogen [Mass/Vol] 25.0 mg/dL Critically high 7.0-18.0 [facility] Comment on above: Performed By: #### R ENMADI URIC, LIVER #### [facility] [address] [address] [address] Sagar Morales URIC ACID SERUMon 08-17-2021 Urate [Mass/Vol] 4.5 mg/dL Normal 3.5-7.2 [facility] Comment on above: Performed By: #### R ENAL, URIC, LIVER #### [facility] [address] [address] [address] Sagar Morales URINE T PROTEIN CREAT RATIOo n 08-17-2021 Protein (U) [Mass/Vol] 27.9 mg/dL Critically high <=12.0 [facility] Comment on above: Performed By: #### R ENAL, URIC, LIVER #### [facility] [address] [address] [address] Sagar Morales UR PROT CREAT RAT 0.24 Normal [facility] Comment on above: Performed By: #### R ENAL, URIC, LIVER #### [facility] [address] [address] [address] Sagar Morales URINE CREAT 114.26 mg/dL Normal 20.00-300.00 [facility] Comment on above: Performed By: #### R ENAL, URIC, LIVER #### [facility] [address] [address] [address] Sagar Morales Vital Signs Date Time Vital Sign Value Performing Clinician Facility 02-23-2023 12:15-0500 Body height 180.34 cm Kailey Sandrine Other [facility] 02-23-2023 12:15-0500 Body mass index (BMI) [Ratio] 20.58 kg/m2 Kailey Deluca Other [facility] 02-23-2023 12:15-0500 Body temperature 98.7 [degF] Kailey Deluca Other [facility] 02-23-2023 12:15-0500 Body weight 66.95 kg Kailey Deluca Other [facility] Other 02-23-2023 12:15-0500 Diastolic blood pressure 62 mm[Hg] Kailey Deluca Other [facility] 02-23-2023 12:15-0500 Respiratory rate 18 /min Kailey Deluca Other [facility] 02-23-2023 12:15-0500 SaO2% (BldA) [Mass fraction] 98 % Kailey Deluca Other [facility] 02-23-2023 12:15-0500 Systolic blood pressure 118 mm[Hg] Kailey Deluca Other [facility] 12-18-2022 14:20-0400 Body height 180.34 cm Jarod Madina Other [facility] 12-18-2022 14:20-0400 Body mass index (BMI) [Ratio] 20.89 kg/m2 Jarod Madina Other [facility] 12-18-2022 14:20-0400 Body temperature 96.9 [degF] Jarod Madina Other [facility] 12-18-2022 14:20-0400 Body weight 67.95 kg Jarod Madina Other [facility] Other 12-18-2022 14:20-0400 Diastolic blood pressure 62 mm[Hg] Jarod Madina Other [facility] 12-18-2022 14:20-0400 Respiratory rate 18 /min Jarod Madina Other [facility] Other 12-18-2022 14:20-0400 SaO2% (BldA) [Mass fraction] 99 % Jarod Madina Other [facility] 12-18-2022 14:20-0400 Systolic blood pressure 116 mm[Hg] Jarod Madina Other [facility] Other 09-07-2022 10:40-0400 Body height 180.34 cm Jarod Madina Other [facility] Other 09-07-2022 10:40-0400 Body mass index (BMI) [Ratio] 21.11 kg/m2 Jarod Madina Other [facility] Other 09-07-2022 10:40-0400 Body temperature 97.2 [degF] Jarod Madina Other [facility] Other 09-07-2022 10:40-0400 Body weight 68.68 kg Jarod Madina Other [facility] Other 09-07-2022 10:40-0400 Diastolic blood pressure 53 mm[Hg] Jarod Madina Other [facility] Other 09-07-2022 10:40-0400 Respiratory rate 18 /min Jarod Madina Other [facility] Other 09-07-2022 10:40-0400 SaO2% (BldA) [Mass fraction] 99 % Jarod Madina Other [facility] Other 09-07-2022 10:40-0400 Systolic blood pressure 102 mm[Hg] Jarod Madina Other [facility] Other 08-14-2022 09:55-0400 Body height 180.34 cm Chani Milner Other [facility] Other 08-14-2022 09:55-0400 Body mass index (BMI) [Ratio] 20.36 kg/m2 Chanivesta Milner Other [facility] Other 08-14-2022 09:55-0400 Body temperature 97.9 [degF] Chanivesta Milner Other [facility] Other 08-14-2022 09:55-0400 Body weight 66.23 kg Chanivesta Milner Other [facility] Other 08-14-2022 09:55-0400 Diastolic blood pressure 55 mm[Hg] Chani Minler Other [facility] Other 08-14-2022 09:55-0400 Respiratory rate 18 /min Chanivesta Milner Other [facility] Other 08-14-2022 09:55-0400 SaO2% (BldA) [Mass fraction] 98 % Chani Milner Other [facility] Other 08-14-2022 09:55-0400 Systolic blood pressure 102 mm[Hg] Chani Milner Other [facility] Other 06-15-2022 15:20-0400 Body height 180.34 cm Jarod Madina Other [facility] Other 06-15-2022 15:20-0400 Body mass index (BMI) [Ratio] 20.61 kg/m2 Jarod Madina Other [facility] Other 06-15-2022 15:20-0400 Body temperature 97.5 [degF] Jarod Madina Other [facility] Other 06-15-2022 15:20-0400 Body weight 67.04 kg Jarod Madina Other [facility] Other 06-15-2022 15:20-0400 Diastolic blood pressure 64 mm[Hg] Jarod Madina Other [facility] Other 06-15-2022 15:20-0400 Respiratory rate 18 /min Jarod Madina Other [facility] Other 06-15-2022 15:20-0400 SaO2% (BldA) [Mass fraction] 97 % Jarod Madina Other [facility] Other 06-15-2022 15:20-0400 Systolic blood pressure 120 mm[Hg] Jarod Madina Other [facility] Other Encounters Encounter Date Encounter Type Care Provider Facility Start: 04-04-2023 [employer] [address] A [address] [employer]GE COMPILATION CLERK Work Phone: [facility] Start: 04-04-2023 [email or web address] Gissell A Fel ter [employer] WORK[employer]NAGE COMPILATION CLERK Work Phone: [facility] Start: 04-04-2023 End: 04-04-2023 ambulatory GISSELL A FELTER Not Available Start: 04-04-2023 End: 04-04-2023 Office outpatient visit 15 minutes Gissell Gallo [employer] COMPILATION CLERK Work Phone: [facility] Comment on above: Seborrheic keratosis (Primary Dx); Actinic keratosis; Sebaceous hyperplasia; Lentigines Start: 04-01-2023 Daniel Salguero MD Work Phone: [facility] Comment on above: Other osteoporosis w ithout current pathological fracture (CMS/HCC) Start: 03-24-2023 Daniel Salguero MD Work Phone: [facility] Comment on above: Other osteoporosis w ithout current pathological fracture (CMS/HCC) Start: 02-23-2023 End: 02-23-2023 ambulatory Kailey Sandrine Other [facility] Other Start: 02-23-2023 Office outpatient vi sit 15 minutes Kailey Sandrine [facility] Start: 01-30-2023 End: 01-30-2023 ambulatory Jarod Madina Other [facility] Other Start: 01-30-2023 Telephone encounter Jarod Madina [facility] Start: 01-22-2023 End: 01-22-2023 ambulatory SHAIKH CAYDEN Not Available Start: 01-22-2023 Patient encounter procedure Shaikh Cayden SWAN Work Phone: [facility] Start: 12-18-2022 End: 12-18-2022 ambulatory Jarod Madina Other [facility] Other Start: 12-18-2022 Encounter for genera l adult medical examination without abnormal findings Jarod Madina [facility] Start: 12-18-2022 Office outpatient vi sit 25 minutes Jarod Madina [facility] Start: 09-07-2022 End: 09-07-2022 ambulatory Jarod Madina Other [facility] Other Start: 09-07-2022 Encounter for genera l adult medical examination without abnormal findings Jarod Madina [facility] Start: 09-07-2022 Office outpatient vi sit 25 minutes Jarod Madina [facility] Start: 08-14-2022 End: 08-14-2022 ambulatory Chani Milner Other [facility] Other Start: 08-14-2022 Office outpatient vi sit 15 minutes Chani Milner [facility] Start: 06-29-2022 End: 06-29-2022 ambulatory Shaikh Cayden Facility:[facility] Start: 06-29-2022 End: 06-29-2022 ambulatory MD Shaikh Salguero Work Phone: [facility] Work Phone: Start: 06-29-2022 End: 06-29-2022 Patient encounter procedure MD Shaikh Salguero Work Phone: [facility] Work Phone: Start: 06-28-2022 Encounter for genera l adult medical examination without abnormal findings JAROD MADINA [facility] Start: 06-25-2022 End: 06-25-2022 ambulatory Jarod Madina Other [facility] Other Start: 06-25-2022 Telephone encounter Jarod Madina [facility] Start: 06-21-2022 End: 06-22-2022 ambulatory SHAIKH Hugo SALGUERO Facility:[facility] Start: 06-15-2022 End: 06-15-2022 ambulatory Jarod Madina Other [facility] Other Start: 06-15-2022 Encounter for genera l adult medical examination without abnormal findings Jarod Madina [facility] Start: 06-15-2022 Office outpatient ne w 45 minutes Jarod Madina [facility] Start: 05-18-2022 End: 05-19-2022 ambulatory SHAIKH Hugo SALGUERO Facility:[facility] Start: 03-30-2022 End: 03-31-[address] DOCTOR LOREDO Facility:[facility] Start: 12-06-2021 End: 12-07-[address] DOCTOR LOREDO Facility:[facility] Start: 08-17-2021 End: 08-18-[address] DOCTOR LOREDO Facility:[facility] Procedures Date Procedure Procedure Detail Performing Clinician Start: 05-24-2017 History of renal transplant History of renal transplant Shaikh Cayden SWAN Work Phone: History of renal transplant [facility] Other Plan of Treatment Date Care Activity Detail Author Start: 08-19-2025 Screening for malign ant neoplasm of colon [facility] Start: 01-23-2024 Medicare Annual Well ness (AWV) Medicare Annual Wellness (AWV) [facility] Start: 04-24-2023 End: 04-24-2023 Patient encounter procedure 04/24/2023 10:00 AM EST Office Visit [facility] [address] [place] [address] Shaikh Salguero MD [address] [place] [address] [facility] Start: 04-04-2023 End: 04-04-2023 Patient encounter procedure 04/04/2023 9:20 AM EST Office Visit [facility] [address] [place] [id number] Gissell Gallo APRN-TONNAGE COMPILATION CLERK [address] [place] [address] [facility] Start: 02-19-2023 Hemoglobin A1c measurement Diabetes: Hemoglobin A1C [facility] Start: 10-20-2022 Influenza vaccination Influenza Vacc ine (#1) [facility] Start: 05-22-2019 Pneumococcal Vaccine : 65+ Years (2 - PCV) Pneumococcal Vaccine: 65+ Years (2 - PCV) [facility] Start: 02-12-1964 Glaucoma screening Diabetes: R etinopathy Screening [facility] Start: 1955 Screening for malign ant neoplasm of colon [facility] Immunizations Immunization Date Immunization Notes Care Provider Fa cility 12-20-2018 influenza virus vacc ine, unspecified formulation Shaikh Cayden SWAN Work Phone: [facility] Payers Date Payer Category Payer Private Health Insurance [id number] 2022 Self-pay 2022 Medicare [id number] 1960 Medicare [id number]. [id number] 1960 Medicare [id number] 1955 Unknown [id number] [id number] 1954 Unknown [id number] 2.16.84 [id number] 1954 Unknown [id number] 2.16.84 [id number] 1954 Unknown [id number] 2.16.84 [id number] 1954 Unknown [id number] 2.16.84 [id number] 1954 Unknown [id number] 2.16.84 [id number] 1954 Unknown [id number] Unknown [id number] 2.16.8 [id number] Social History Date Type Detail Facility Unknown if ever smoked [facility] Other Start: 01-22-2023 End: 04-04-2023 Sex Assigned At [employer] Other Start: 1955 Sex Assigned At Male F [facility] Start: 08-17-2022 Tobacco smoking stat us NHIS Never smoked tobacco [facility] Start: 08-17-2022 [...] Sex Assigned At Not on file [facility] Medical Equipment Procedure Code Equipment Code Equipment Origin al Text Equipment Identifier Dates USE DIRECTED EVERY DAY [id number] Start: 01-08-2023 Clinical Notes 06-15-2022 to 04-04-2023 Gissell Gallo, [employer] COMPILATION CLERK - 04/04/2023 9:20 AM EST Note Date [...] year (skin check) documented in this encounter [facility] 02-23-2023 Evaluation note Encounter Date Diagnosis [...] (suspected) exposure to covid-19 (ICD-10 - Z20.822) [facility] 12-12-2023 Evaluation note* Encounter Date Diagnosis Assessment Notes Treatment Notes Treatment Clinical Notes Jan, Renal transplant recipient (ICD-10 - Z94.0) [facility] 10-30-2023 Evaluation note* Encounter Date Diagnosis Assessment Notes Treatment Notes Treatment Clinical Notes Nov, Renal transplant recipient (ICD-10 - Z94.0) He has a cadaveric renal transplant since 2014 and currently follows with the transplant team in [place]. He is currently on immunosuppressive medication including [...] disease (ICD-10 - E11.22) He has a qjo-llrmkkl-vykngvbnm type 2 diabetes mellitus. Advised him continue [...] the low magnesium. He understood and verbalized. [facility] 07-20-2023 Evaluation note* Encounter Date Diagnosis Assessment Notes Treatment Notes Treatment Clinical Notes Aug, Renal transplant recipient (ICD-10 - Z94.0) He has a cadaveric renal transplant since 2014 and currently follows with the transplant team in [place]. He is currently on immunosuppressive medication including Prograf CellCept and prednisone. Advised him to increase 1 mg q12 hrs due to subtherapeutic level. He reported be compliant with his immunosuppressive medications. Patient reported that he was advised to increase the Prograf to 1 mg twice daily by his transplant underliner in [place] but he was still taking 1 mg [...] disease (ICD-10 - E11.22) He has a jhp-pztdsvt-ffveilntf type 2 diabetes mellitus. Advised him continue [...] in future including B12 and folate level. [facility] 06-26-2023 Evaluation note* Encounter Date Diagnosis [...] plan. Jul, Jaw swelling (ICD-10 - R22.0) [facility] 04-27-2023 Evaluation note* Encounter Date Diagnosis Assessment Notes Treatment Notes Treatment Clinical Notes May, Renal transplant recipient (ICD-10 - Z94.0) It was a pleasure to see Mr. Manriquez in our office for an evaluation and management of the CKD and renal transplant. As you know he has a cadaveric renal transplant since 2014 and currently follows with the transplant team in [place]. He is currently on immunosuppressive medication including [...] disease (ICD-10 - E11.22) He has a pgr-pxznemd-wvvgwwovw type 2 diabetes mellitus. Hemoglobin A1c was [...] as a systolic murmur. Ordered the echocardiogram [facility] Other Evaluation noteNo InformationNort [employer] Other Evaluation noteNo assessment information available [facility] Work Phone: Evaluation note* Diagnosis Other osteoporosis without current pathological fracture (CMS/HCC) [facility] Other osteoporosis without current pathological fracture (CMS/HCC) documented in this encounter [facility]* Diagnosis Seborrheic keratosis- Primary Actinic keratosis Sebaceous hyperplasia Lentigines documented in this encounter [facility] general Narrative - Reported* Type Description [...] KIDNEY TRANSPLANT 04/2014 Hospitalization History SEE ABOVE [facility] Other Summary Purpose Family History No Family History Records FoundNo Family History Records FoundNo Family History Records Found Advance Directives No Advanced Directives Records Found Advance Directive Response Recorded Date/ Time Advance Directives No June 29 3 10:41am Chief Complaint and Reason for Visit Chief Complaint Z94.0 R01.1 Additional Source Comments REASON FOR VISIT (unrecogniz ed section and content) Reason Comments Med Refill Reason Comments Suspicious Skin Lesion (unrecognized sect ion and content) No Status Records FoundNo Status Records FoundNo Status Records Found INFORMATION SOURCE (unrecogn ized section and content) DATE CREATED AUTHOR [facility] DATE CREATED AUTHOR AUTHOR'S ORGANIZ ATION 06/30/2022 [facility] DATE CREATED AUTHOR AUTHOR'S ORGANIZ ATION 04/05/2023 [facility] EPIC Care Teams (unrecognized sec tion and content) Team Status: Active Member Role Status Dates Shaikh Cayden MD Primary Care Provider Active Team Status: Inactive Member Role Status Dates Jarod Ballard MD Attending Provider Active Shaikh Cayden MD Primary Care Provider Active Project Intern Relationship Specialty Start Date End Date Shaikh Salguero MD PCP - General Internal Medicine 02/19/22 Project Intern Relationship Specialty Start Date End Date Shaikh Salguero MD PCP - General Internal Medicine 02/19/22 Project Intern Relationship Specialty Start Date End Date Shaikh Salguero MD [address] [place] [address] PCP - General Internal Medicine 02/19/22 Project Intern Relationship Specialty Start Date End Date Shaikh Salguero MD [address] [place] [address] PCP - General Internal Medicine 02/19/22 Goals [...] BE BASED ON THE PRIMARY CLINICAL RECORDS. Author[facility]. provides no warranty or guarantee of the accuracy or completeness of information in this document.
[2023-05-12 09:55] LABS: Hemoglobin 13.6 g/dL (14.0-18.0); Mean Corpuscular HGB Conc 32.4 g/dL (29.9-35.2); Mean Corpuscular Hemoglobin 29.7 pg (25.9-34.0); Mean Corpuscular Volume 91.7 fL (80.0-94.0); Mean Platelet Volume 10.3 fL (9.5-13.5); Platelet Count 146 10^3/uL (150-450); Red Blood Count 4.58 10^6/uL (4.70-6.10); Red Cell Distribution Width 13.3 % (11.0-15.0); White Blood Count 5.7 10^3/uL (4.0-11.0)
[2023-05-12 10:02] LABS: Bilirubin Urine NEGATIVE (NEGATIVE); Blood Urine NEGATIVE (NEGATIVE); Clarity Urine CLEAR (CLEAR); Color Urine LT. YELLOW (YELLOW); Glucose Urine UA 250 mg/dL (NEGATIVE); Ketones Urine NEGATIVE (NEGATIVE); Leukocyte Esterase Urine NEGATIVE (NEGATIVE); Nitrite Urine NEGATIVE (NEGATIVE); Protein Urine NEGATIVE (NEG/TRACE); Specific Gravity Urine 1.015 (1.005-1.025); Urobilinogen Urine 0.2 EU/dL (0.2-1.0); pH Urine 5.5 (5.0-9.0)
[2023-05-12 10:24] LABS: Bacteria Urine NONE SEEN #/HPF (NONE SEEN); Cast Seen? NONE SEEN #/LPF (NONE SEEN); Crystals Seen? None Seen #/HPF (None Seen); Mucus Urine NONE SEEN (NONE SEEN); RBC Urine NONE SEEN #/HPF (0-2); Squamous Epithelial Cell Urine RARE #/LPF (NONE/RARE); WBC Urine NONE SEEN #/HPF (NONE SEEN)
[2023-05-12 10:26] LABS: Albumin Level 3.7 g/dL (3.4-5.0); Anion Gap 15.4; BUN Creatinine Ratio 16.5; Calcium 10.3 mg/dL (8.5-10.1); Carbon Dioxide 24.6 mmol/L (21.0-32.0); Chloride 100 mmol/L (98-107); Estimated GFR (African America 43 (>=60); Estimated GFR (Non-African Ame 36 (>=60); Glucose 194 mg/dL (74-106); Magnesium 1.6 mg/dL (1.8-2.4); Phosphorus 2.3 mg/dL (2.6-4.7); Sodium 136 mmol/L (136-145)
[2023-05-15 15:09] LABS: Tacrolimus (FK506), Blood 4.4 ng/mL (2.0-20.0)
== END 2023-05-12 09:39 | disposition home or self-care (01) ==
PROVIDERS: PCP Internal Medicine; Visit Provider Internal Medicine
DX: E11.22 Type 2 diabetes mellitus with diabetic chronic kidney disease (principal); N18.30 Chronic kidney disease, stage 3 unspecified; Z94.0 Kidney transplant status; N25.81 Secondary hyperparathyroidism of renal origin
CPT/HCPCS: 36415; 80069; 80197; 81001; 83735; 85027

== ENCOUNTER 2023-08-06 08:07 | Outpatient (OUT) | payer MEDICARE, SELFPAY ==
--- OUTSIDE RECORDS SUMMARY | 2023-08-06 08:17 | XMS_ITS | CCD ---
Author Organization [facility] Care Team Providers Care Kier Tender Name Role Phone Jarod Ballard Unavailable MISC, DR HERRERA Primary Care Unavailable [...] MADINAJAROD Admitting Unavailable MADINAJAROD Attending Unavailable MADINAJAROD Simmons Consulting Unavailable MISC, DR HERRERA Admitting Unavailable MISC, DR HERRERA Attending Unavailable FAWWAD, KEVIN H Primary Care Unavailable MISC, DR HERRERA Consulting Unavailable MD Jarod Ballard Attending Provider MD Nicolette Rodarte Primary Care Provider Chani Milner Unavailable Kailey Deluca Unavailable Shaikh Rodarte MD Primary Care Provider Shaikh Rodarte MD Primary Care Provider MD Nicolette Rodarte Primary Care Provider JULIEN Deluca Attending Provider Kailey Deluca Admitting Unavailable Kailey Deluca Attending Unavailable Shaikh Rodatre Primary Care Unavailable Jarod Ballard Admitting Unavailable Jarod Ballard Attending Unavailable Shaikh Rodarte Primary Care Unavailable GISSELL GALLO Attending Unavailable SHAIKH RODARTE Attending Unavailable SHAIKH RODARTE Attending Unavailable KHAI THOMPSON Attending Unavailable SHAIKH RODARTE Referring Unavailable CAYDEN, Attending Unavailable Medications Current Medications Medication Drug Class(es) Dates Sig (Normalized) Sig (Original) alendronic acid 70 mg oral tablet (12 sources) Bisphosphonate Start: 05-17-2023 take 70 mg by mouth every week Alendronate Active 70 MG PO every week May 17, 2023 12:00am Start: 03-26-2023 take 1 tablet by massiel th every week alendronate (Fosamax) 70 MG tablet [...] Orally Active allopurinol 100 mg oral tablet (15 sources) Xanthine Oxidase Inhibitor Start: 05-17-2023 take 100 mg by mouth once daily Allopurinol Active 100 MG PO Daily May 17, 2023 12:00am Start: 04-02-2023 take 1 tablet by massiel th once daily allopurinol (Zyloprim) 100 MG tablet [...] Feb, Active take 1 capsule by mo ut every eight hours Amoxicillin 500 MG 1 capsule Orally ever y 8 hrs Active atorvastatin 10 mg oral tablet (15 sources) HMG-CoA Reductase Inhibitor Start: 05-17-2023 take 10 mg by mouth once daily Atorvastatin Active 10 MG PO Daily May 17, 2023 12:00am take 1 tablet by mouth in the mo rning atorvastatin (Lipitor) 10 MG tablet Take 10 mg by mouth in the morning. 0 Active baclofen 5 mg oral tablet (5 sources) gamma-Aminobutyric Acid-ergic Agonist take 1 tablet by mouth three times daily as needed baclofen (Lioresal) 5 MG tablet Take 5 mg by mouth 3 (three) times a day as needed. 0 Active calcium carbonate 1250 mg / cholecalciferol 200 unt oral tablet (6 sources) Vitamin D Start: take 1 tablet by mouth twice daily Calcium Carb-Cholecalcifer ol (Oyster Shell Calcium w/D) 500-5 MG-MCG tablet [...] 04/04/2023 Active glipiZIDE 5 mg oral tablet (15 sources) Sulfonylurea Start: 05-17-2023 take 5 mg by mouth once daily Glipizide Active 5 MG PO Daily May 17, 2023 12:00am take 1 tablet by mouth in the mo rning glipiZIDE (Glucotrol) 5 MG tablet Take 5 mg by mouth in the morning and 5 mg in the evening. Take before meals. 0 Active hydrocortisone 10 mg/ml / neomycin 3.5 mg/ml / polymyxin b [id number] unt/ml otic suspension (1 source) Aminoglycoside Antibacterial, Polymyxin-class Antibacterial, Corticosteroid Start: 02-23-2023 Pefjanzj-Zbqlupruw-JY [id number] 3 drops Otic Three times a day for 7 Feb, Active LORazepam 0.5 mg oral tablet (15 sources) Benzodiazepine Start: 05-17-2023 take 0.5 mg by mouth twice daily Lorazepam Active 0.5 MG PO Twice daily May 17, 2023 12:00am take 1 tablet by massiel th twice daily as needed for anxiety LORazepam (Ativan) 0.5 MG tablet Take 0. 5 mg by mouth 2 (two) times a day as needed for anxiety. 0 Active losartan potassium 50 mg oral tablet (15 sources) Angiotensin 2 Receptor Rickie Start: 05-17-2023 take 50 mg by mouth once daily Losartan Active 50 MG PO Daily May 17, 2023 12:00am Start: 01-18-2023 take 1 tablet by massiel th once daily losartan (Cozaar) 50 MG tablet Indications: Essential (primary) hypertension (CMS/HCC) , Essential hypertension (CMS/HCC) TAKE 1 TABLET BY MOUTH EVERY DAY 90 tablet 0 01/18/2023 Active magnesium oxide 400 mg oral tablet (14 sources) Start: 05-17-2023 take 400 mg by mouth once daily Magnesium Oxide Active 400 MG PO Daily May 17, 2023 12:00am Start: 06-27-2022 take 1 tablet by massiel th in the morning magnesium oxide (Mag-Ox) 400 MG tablet Take 400 mg by mouth in the morning. 0 09/15/2022 Active mycophenolate mofetil 500 mg oral tablet (15 sources) Start: 05-17-2023 take 500 mg by mouth twice daily Mycophenolate Mofetil Active 500 MG PO Twice daily May 17, 2023 12:00am take 1 tablet by mouth in the mo rning mycophenolate (CellCept) 500 MG tablet Take 500 mg by mouth in the morning and 500 mg before bedtime. 0 Active 24 hr NIFEdipine 60 mg extended release oral tablet (15 sources) Dihydropyridine Calcium Channel Rickie Start: 05-17-2023 take 60 mg by mouth once daily Nifedipine Active 60 MG PO Daily May 17, 2023 12:00am Start: 11-01-2022 take 1 tablet by massiel th every twenty-four hours in the morning NIFEdipine [...] Jul, Active predniSONE 5 mg oral tablet (10 sources) Start: 05-17-2023 take 5 mg by mouth once daily Prednisone Active 5 MG PO Daily May 17, 2023 12:00am take 1 tablet by massiel th every twenty-four hours predniSONE 5 MG 1 tablet Orally Once a day Active tacrolimus 1 mg oral capsule (19 sources) Calcineurin Inhibitor Immunosuppressant Start: 05-17-2023 take 1 capsule by mouth twice daily Tacrolimus (Prograf) 1 mg capsule Active 1 MG PO Twice daily May 17, 2023 12:00am tacrolimus (Prog chino) 1 MG capsule Take by mouth 2 (two) times a day. 0 Active take 1 capsule by mo ut every twelve hours Prograf 1 MG 1 capsule Orally q12hr Acti ve take 1 capsule by mo ut once daily at bedtime Prograf 0.5 MG 1 capsule Orally qhs Acti ve Completed/Discontinued Medications Medication Drug Class(es) Dates Sig (Normalized) Sig (Original) calcium carbonate 1500 mg oral tablet (6 sources) Start: 05-17-2023 End: 05-17-2023 take 600 mg by mouth twice daily Calcium Carbonate Discontinued 600 MG PO Twice daily May 17, 2023 12:00am May 17, 2023 3:52pm take 1 tablet by mouth every twe lve hours Calcium Carbonate 600 MG 1 tablet with food Orally Twice a day Active take 1 tablet by massiel th twice daily at mealtime Calcium Carbonate 600 MG 1 tablet with food Orally Twice a day Active Problems Active Problems Problem Classification Problem Date Documented Date Episodic/Chronic Chronic kidney disease (20 sources) Kidney transplant status; Translations: [Chronic kidney disease stage 3] Onset: 3 Chronic Coagulation and hemorrhagic disorders (6 sources) Thrombocytopenic disorder; Translations: [Thrombocytopenia, unspecified] Chronic Deficiency and other anemia (4 sources) Anemia of renal disease; Translations: [Anemia in chronic kidney disease] Chronic Deficiency and other anemia (2 sources) Anemia in chronic kidney disease Chronic Diabetes mellitus with complications (20 sources) Disorder of kidney due to diabetes mellitus; Translations: [Type 2 diabetes mellitus with diabetic chronic kidney disease] Onset: 2 Chronic Diabetes mellitus without complication (4 sources) Type 2 diabetes mellitus without complications; Translations: [TYPE 2 DM WITHOUT COMPLICATIONS] Onset: 3 Chronic Disorders of lipid metabolism (5 sources) Hyperlipidemia, unspecified; Translations: [Hyperlipidemia] Onset: 3 05-19-2023 Chronic Disorders of teeth and jaw (1 source) Periapical abscess without sinus Episodic Essential hypertension (5 sources) Essential hypertension; Translations: [Essential (primary) hypertension] Onset: 8 01-22-2023 Chronic Gout and other crystal arthropathies (10 sources) Idiopathic gout, unspecified site; Translations: [Gout] Onset: 1 01-22-2023 Chronic Hypertension with complications and secondary hypertension (17 sources) Chronic kidney disease due to hypertension; [...] FLW KIDNEY TRANSPL] Onset: 2 Chronic Other connective tissue disease (1 source) Pain in right hand; Translations: [Pain in right hand] Onset: 4 Episodic Other diseases of kidney and ureters (15 sources) Secondary hyperparathyroidism; Translations: [Secondary hyperparathyroidism of renal origin] Onset: 8 01-22-2023 Chronic Other diseases of kidney and ureters (7 sources) Secondary hyperparathyroidism of renal origin; Translations: [Secondary hyperparathyroidism (of renal origin)] Onset: 3 Chronic Other ear and sense organ disorders (1 source) Unspecified acute noninfective otitis externa, right ear Episodic Other non-epithelial cancer of skin (5 sources) Basal cell carcinoma of face; Translations: [Basal cell carcinoma of skin of unspecified parts of face] Onset: 3 01-22-2023 Episodic Other nutritional; endocrine; and metabolic disorders (6 sources) Hypomagnesemia; Translations: [Hypomagnesemia] 05-17-2023 Chronic Other nutritional; endocrine; and metabolic disorders (4 sources) Hypomagnesemia; Translations: [Disorders of magnesium metabolism] Chronic Other skin disorders (1 source) Localized [...] vascular disease, unspecified] Onset: 3 01-22-2023 Chronic Sprains and strains (3 sources) Sprain of unspecified part of right wrist and hand, initial encounter; Translations: [Sprain of hand, unspecified site] 05-24-2023 Episodic Unclassified (1 source) CHRN KIDNEY DISEASE STG 3 UNSP; Translations: [CHRN KIDNEY DISEASE STG 3 UNSP] Onset: 3 Past or Other Problems Problem Classification Problem Date Documented Da te Episodic/Chronic Chronic kidney disease (7 sources) Chronic kidney disease; Translations: [Chronic kidney disease, stage III (moderate)] Heart valve disorders (4 sources) Cardiac murmur, unspecified; Translations: [Cardiac murmur, unspecified] Onset: 06-29-2022 Episodic Unclassified (1 source) Contact with and (suspected) exposure to covid-19 Z20.822 Viral infection (1 source) COVID-19 Results Test Name Value Interpretation Reference Range Facility XR hand RT min 3V*on 024 XR hand RT min 3V* [facility] Main [place] [address] [place] [address] XRay Report Signed Patient: Raul Manriquez MR#: [id number] : 1955 Acct:[id number] Age/Sex: 68 / M ADM Date: 05/24/23 Loc: [facility] Room: Type: [facility] Attending Dr: Kailey VICTORIA Copies to: JULIEN Deras Ordering Provider: JULIEN Deras Date of Service: 05/24/23 XR/XR hand RT min 3V*: RIGHT HAND PAIN RIGHT HAND - 3 views REASON FOR EXAM: Fall last night now with pain and swelling right hand. COMPARISON: None FINDINGS: No focal soft tissue abnormality. Vascular calcifications. Healed deformity involving the fifth metacarpal suggestive of prior fracture. No acute fracture is seen. Scattered degenerative changes particularly involving the IP joints. No bony erosions. XR/XR hand RT min 3V* IMPRESSION: NO ACUTE BONY PROCESS. Impression dictated by: Elijah Gaytan Jr., D.O.05/24/2023 12:03 PM Dictation Location: [place] [address] Transcribed By: [facility] 05/24/23 1203 Dictated By: Elijah Gaytan Jr, DO 05/24/23 1202 Signed By: 05/24/23 1203 Normal [facility] Automated epithelial cells c ount in urine sediment (number/area)on 05-12-2023 Epithelial cells Auto (Urine sed) [#/Area] RARE #/LPF NONE/RARE [facility] Automated leukocytes count i n urine sediment (number/area)on 05-12-2023 WBC Auto (Urine sed) [#/Area] NONE SEEN #/HPF 0-2 [facility] Automated urine specific gra vity by refractometryon 05-12-2023 Specific gravity Refractometry automated (U) [Rel density] 1.015 1.005-1.025 [facility] Bilirubin Auto test strip (U ) [Mass/Vol]on 05-12-2023 Bilirubin (U) [Mass/Vol] Negative NEGATIVE [facility] Casts typing in urine sedime nt by light microscopyon 05-12-2023 Casts LM Nom (Urine sed) NONE SEEN #/LPF NONE SEEN [facility] Color Auto (U)on 05-12-2023 Color (U) LT. YELLOW YELLOW [facility] Erythrocyte distribution wid th Auto (RBC) [Ratio]on 05-12-2023 Erythrocyte distribution width (RBC) [Ratio] 13.3 % 11.0-15.0 [facility] Estimated glomerular filtrat ion rate (GFR) non- Americanon 05-12-2023 GFR/1.73 sq M.predicted among non-blacks MDRD (S/P/Bld) [Vol rate/Area] 36 mL/min/{1.73_m2} >=60 [facility] Hematocrit Auto (Bld) [Volum e fraction]on 05-12-2023 Hematocrit (Bld) [Volume fraction] 42.0 % 42.0-54.0 [facility] Hemoglobin [Mass/volume] in Bloodon 05-12-2023 Hemoglobin (Bld) [Mass/Vol] 13.6 g/dL 14.0-18.0 [facility] Ketones Auto test strip (U) [Mass/Vol]on 05-12-2023 Ketones (U) [Mass/Vol] Negative NEGATIVE [facility] Laboratory - Chemistry and C hemistry - challengeon 05-12-2023 Albumin [Mass/Vol] 3.7 g/dL 3.4-5.0 [facility] Calcium [Mass/Vol] 10.3 mg/dL 8.5-10.1 [facility] Chloride [Moles/Vol] 100 mmol/L 98-107 [facility] CO2 [Moles/Vol] 24.6 mmol/L 21.0-32.0 [facility] Creatinine [Mass/Vol] 1.88 mg/dL 0.70-1.30 [facility] GFR/1.73 sq M.predicted MDRD (S/P/Bld) [Vol rate/Area] 43 mL/min/{1.73_m2} >=60 [facility] Glucose [Mass/Vol] 194 mg/dL 74-106 [facility] Magnesium [Mass/Vol] 1.6 mg/dL 1.8-2.4 [facility] Potassium [Moles/Vol] 4.0 mmol/L 3.5-5.1 [facility] Sodium [Moles/Vol] 136 mmol/L 136-145 [facility] Urea nitrogen [Mass/Vol] 31.0 mg/dL 7.0-18.0 [facility] Urea nitrogen/Creatini ne [Mass ratio] 16.5 mg/mg [facility] Leukocytes [#/volume] correc mayr for nucleated erythrocytes in Blood by Automated counon 05-12-2023 WBC corrected for nucl RBC Auto (Bld) [#/Vol] 5.7 10 3/uL 4.0-11.0 [facility] MCH Auto (RBC) [Entitic mass ]on 05-12-2023 MCH (RBC) [Entitic mass] 29.7 pg 25.9-34.0 [facility] MCHC Auto (RBC) [Mass/Vol]on 05-12-2023 MCHC (RBC) [Mass/Vol] 32.4 g/dL 29.9-35.2 [facility] MCV Auto (RBC) [Entitic vol] on 05-12-2023 MCV (RBC) [Entitic vol] 91.7 fL 80.0-94.0 [facility] Mucus LM Ql (Urine sed)on Mucus Ql (Urine sed) NONE SEEN NONE SEEN [facility] No Panel Informationon 05-11 Phosphorus Level 2.3 mg/dL 2.6-4.7 [facility] Platelet mean volume Auto (B ld) [Entitic vol]on 05-12-2023 Platelet mean volume (Bld) [Entitic vol] 10.3 fL 9.5-13.5 [facility] Platelets Auto (Bld) [#/Vol] on 05-12-2023 Platelets (Bld) [#/Vol] 146 10 3/uL 150-450 [facility] Protein Auto test strip (U) [Mass/Vol]on 05-12-2023 Protein (U) [Mass/Vol] Negative NEG/TRACE [facility] RBC Auto (Bld) [#/Vol]on RBC (Bld) [#/Vol] 4.58 10 6/uL 4.70-6.10 [facility] Serum or plasma anion gap de terminationon 05-12-2023 Anion gap [Moles/Vol] 15.4 mmol/L [facility] Specific gravity Auto test s trip (U) [Rel density]on 05-12-2023 Specific gravity (U) [Rel density] CLEAR CLEAR [facility] Tacrolimus [Mass/volume] in Bloodon 05-12-2023 Tacrolimus (Bld) [Mass/Vol] 4.4 ng/mL 2.0-20.0 [facility] Comment on above: This test was develo ped and its performance characteristicsdetermined by [employer]. It has not been cleared orapproved by the Food and Drug Administration. Trough (immediately following transplant) 15.0 Trough (steady state, 2 weeks or more after transplant): 3.0 - 8.0 Performed by LC-MS/MS technology.Performed at: [address] [id number] Director: George Dahl MD, Phone: [phone] Urine bacteria detection by automated methodon 05-12-2023 Bacteria Auto Ql (U) NONE SEEN #/HPF NONE SEEN [facility] Urine glucose measurement by test strip (mass/volume)on 05-12-2023 Glucose Test strip (U) [Mass/Vol] 250 mg/dL NEGATIVE [facility] Urine hemoglobin detection b y automated test stripon 05-12-2023 Hemoglobin Auto test strip Ql (U) Negative NEGATIVE [facility] Urine nitrite detection by a utomated test stripon 05-12-2023 Nitrite Auto test strip Ql (U) Negative NEGATIVE [facility] Urine sediment crystal ident ification by light microscopyon 05-12-2023 Crystals LM Nom (Urine sed) None Seen #/HPF None Seen [facility] Urine sediment leukocyte cou nt by microscopy (number/high power field)on 05-12-2023 WBC LM.HPF (Urine sed) [#/Area] NONE SEEN #/HPF NONE SEEN [facility] Urobilinogen Auto test strip (U) [Mass/Vol]on 05-12-2023 Urobilinogen Qn (U) 0.2 {Hernandez'U}/dL 0.2-1.0 [facility] pH Auto test strip (U)on pH (U) 5.5 [pH] 5.0-9.0 [facility] COVID/FLU RT-PCRon SARS-CoV-2 (COVID-19) RNA CODY+probe Ql (Unsp spec) Positive [employer] Other COVID/FLU RT-PCR Negative [employer] Other [facility] echo transthoracicon [facility] echo transthoracic [facility] [place] [address] Echocardiogram Signed Patient: Raul Manriquez MR#: [id number] : 1955 Acct:[id number] Age/Sex: 67 / M ADM Date: 06/29/22 Loc: Room: Type: [facility] Attending Dr: Jarod Ballard MD Ordering Provider: Jarod Ballard MD Date of Service: 06/29/2201/11/1047 [facility] echo transthoracic: Renal transplant recipient;Murmur Copies [...] 56.0 cm/sec LV V1 VTI: 20.6 cm Transcribed By: SCV Performed At: 06/29/22 1054 Signed By: Garret Weeks MD 06/29/22 1135 Normal [facility] [id number] (TACROLIMUS) WHOLE BLO ODon 06-23-2022 Tacrolimus (FK506), Blood 4.8 ng/mL Normal 2.0-20.0 [facility] Comment on above: Result Comment: Trou gh (immediately following transplant) 15.0 . Trough (steady state, 2 weeks or more after transplant): 3.0 - 8.0 . Performed by LC-MS/MS technology. Performed By: #### F [id number] #### [facility] [address] [place] [address] Dr. Sagar Morales PTH INTACTon 06-22-2022 PTH, Intact 57 pg/mL Normal 15-65 [facility] Comment on above: Performed By: #### P THINT #### [facility] [address] [place] [address] Dr. Sagar Morales HEMOGRAM AND PLATELon 06-21 Hematocrit (Bld) [Volume fraction] 42.1 % Normal 42.0-54.0 [facility] Comment on above: Performed By: #### H H #### [facility] [address] [place] [address] Dr. Sagar Morales Hemoglobin (Bld) [Mass/Vol] 13.7 g/dL Critically low 14.0-18.0 [facility] Comment on above: Performed By: #### H H #### [facility] [address] [place] [address] Dr. Sagar Morales MCH (RBC) [Entitic mass] 30.0 pg Normal 25.9-34.0 [facility] Comment on above: Performed By: #### H H #### [facility] [address] [place] [address] Dr. Sagar Morales MCHC (RBC) [Mass/Vol] 32.5 g/dL Normal 29.9-35.2 [facility] Comment on above: Performed By: #### H H #### [facility] [address] [place] [address] Dr. Sagar Morales MCV (RBC) [Entitic vol] 92.3 fL Normal 80.0-94.0 [facility] Comment on above: Performed By: #### H H #### [facility] [address] [place] [address] Dr. Sagar Morales PLT 122 103/ul Critically low 150-450 [facility] Comment on above: Performed By: #### H H #### [facility] [address] [place] [address] Dr. Sagar Morales RBC 4.56 106/ul Critically low 4.70-6.10 [facility] Comment on above: Performed By: #### H H #### [facility] [address] [place] [address] Dr. Sagar Morales WBC 5.1 103/ul Normal 4.0-11.0 [facility] Comment on above: Performed By: #### H H #### [facility] [address] [place] [address] Dr. Sagar Morales MAGNESIUMon 06-21-2022 Magnesium [Mass/Vol] 1.7 mg/dL Critically low 1.8-2.4 [facility] Comment on above: Performed By: #### R KATHRYN URIC, LIVER #### [facility] [address] [place] [address] Dr. Sagar Morales PROF 14(COMP METB)on 023 Albumin [Mass/Vol] 3.6 g/dL Normal 3.4-5.0 [facility] Comment on above: Performed By: #### R ENMADI URIC, LIVER #### [facility] [address] [place] [address] Dr. Sagar Morales Albumin/Globulin [Mass ratio] 1.0 {ratio} Normal [facility] Comment on above: Performed By: #### R ENMADI URIC, LIVER #### [facility] [address] [place] [address] [address] Sagar Morales ALP [Catalytic activity/Vol] 62 U/L Normal 46-[address] [facility] Comment on above: Performed By: #### R ENMADI, URIC, LIVER #### [facility] [address] [place] [address] [address] Sagar Morales ALT [Catalytic activity/Vol] 38 U/L Normal 16-[address] [facility] Comment on above: Performed By: #### R ENMADI, URIC, LIVER #### [facility] [address] [place] [address] [address] Sagar Morales Anion gap [Moles/Vol] 12.4 mmol/L Normal [facility] Comment on above: Performed By: #### R ENMADI URIC, LIVER #### [facility] [address] [place] [address] Dr. Sagar Morales AST [Catalytic activity/Vol] 24 U/L Normal 15-[address] [facility] Comment on above: Performed By: #### R ENMADI URIC, LIVER #### [facility] [address] [place] [address] [address] Sagar Morales Bilirubin [Mass/Vol] 0.6 mg/dL Normal 0.2-1.0 [facility] Comment on above: Performed By: #### R ENMADI, URIC, LIVER #### [facility] [address] [place] [address] Dr. Sagar Morales Calcium [Mass/Vol] 9.9 mg/dL Normal 8.5-10.[address] [facility] Comment on above: Performed By: #### R ENAL, URIC, LIVER #### [facility] [address] [place] [address] Dr. Sagar Morales Chloride [Moles/Vol] 103 mmol/L Normal 98-[address] [facility] Comment on above: Performed By: #### R ENAL, URIC, LIVER #### [facility] [address] [place] [address] Dr. Sagar Morales CO2 [Moles/Vol] 25.3 mmol/L Normal 21.0-32.0 [facility] Comment on above: Performed By: #### R ENAL, URIC, LIVER #### [facility] [address] [place] [address] Dr. Sagar Morales Creatinine [Mass/Vol] 1.59 mg/dL Critically high 0.70-1.30 [facility] Comment on above: Performed By: #### R ENAL, URIC, LIVER #### [facility] [address] [place] [address] Dr. Sagar Morales EGFR-AF KAZAKH 53 mL/min/1.73m2 Critically low >=60 [facility] Comment on above: Performed By: #### R ENAL, URIC, LIVER #### [facility] [address] [place] [address] Dr. Sagar Morales EGFR-NON AF KAZAKH 44 mL/min/1.73m2 Critically low >=60 [facility] Comment on above: Performed By: #### R ENAL, URIC, LIVER #### [facility] [address] [place] [address] Dr. Sagar Morales Globulin (S) [Mass/Vol] 3.7 g/dL Normal [facility] Comment on above: Performed By: #### R ENAL, URIC, LIVER #### [facility] [address] [place] [address] Dr. Sagar Morales Glucose [Mass/Vol] 211 mg/dL Critically high 74-106 [facility] Comment on above: Performed By: #### R ENAL, URIC, LIVER #### [facility] [address] [place] [address] Dr. Sagar Morales Potassium [Moles/Vol] 4.7 mmol/L Normal 3.5-5.[address] [facility] Comment on above: Performed By: #### R ENAL, URIC, LIVER #### [facility] [address] [place] [address] Dr. Sagar Morales Protein [Mass/Vol] 7.3 g/dL Normal 6.4-8.[address] [facility] Comment on above: Performed By: #### R ENAL, URIC, LIVER #### [facility] [address] [place] [address] Dr. Sagar Morales Sodium [Moles/Vol] 136 mmol/L Normal 136-[address] [facility] Comment on above: Performed By: #### R FRANNY PERALTA, LIVER #### [facility] [address] [place] [address] Dr. Sagar Morales Urea nitrogen [Mass/Vol] 40.0 mg/dL Critically high 7.0-18.0 [facility] Comment on above: Performed By: #### R FRANNY PERALTA, LIVER #### [facility] [address] [place] [address] Dr. Sagar Morales Urea nitrogen/Creatini ne [Mass ratio] 25.2 mg/mg Normal [facility] Comment on above: Performed By: #### R FRANNY PERALTA, LIVER #### [facility] [address] [place] [address] Dr. Sagar Morales UA RANDOM W/MICROSCOPICon BACTERIA NONE SEEN Normal NONE SEEN [facility] Comment on above: Performed By: #### U AMIC #### [facility] [address] [place] [address] Dr. Sagar Morales Bilirubin Ql (U) Negative Normal NEGATIVE [facility] Comment on above: Performed By: #### U AMIC #### [facility] [address] [place] [address] Dr. Sagar Morales CAST NONE SEEN Normal NONE SEEN [facility] Comment on above: Performed By: #### U AMIC #### [facility] [address] [place] [address] Dr. Sagar Morales Clarity (U) CLEAR Normal CLEAR [facility] Comment on above: Performed By: #### U AMIC #### [facility] [address] [place] [address] Dr. Sagar Morales Color (U) LT. YELLOW Normal YELLOW [facility] Comment on above: Performed By: #### U AMIC #### [facility] [address] [place] [address] Dr. Sagar Morales Crystals LM Nom (Urine sed) NONE SEEN Normal NONE SEEN [facility] Comment on above: Performed By: #### U AMIC #### [facility] [address] [address] [address] Sagar Morales Epithelial cells LM Ql (Urine sed) FEW Abnormal NONE SEEN /RARE [facility] Comment on above: Performed By: #### U AMIC #### [facility] [address] [address] [address] Sagar Morales Glucose Ql (U) 250 mg/dl Abnormal NEGATIVE [facility] Comment on above: Performed By: #### U AMIC #### [facility] [address] [address] [address] Sagar Morales Hemoglobin Ql (U) Negative Normal NEGATIVE [facility] Comment on above: Performed By: #### U AMIC #### [facility] [address] [address] [address] Sagar Morales Ketones Ql (U) Negative Normal NEGATIVE [facility] Comment on above: Performed By: #### U AMIC #### [facility] [address] [address] [address] Sagar Morales LEUKOCYTES Negative Normal NEGATIVE [facility] Comment on above: Performed By: #### U AMIC #### [facility] [address] [address] [address] Sagar Morales MUCOUS NONE SEEN Normal NONE SEEN [facility] Comment on above: Performed By: #### U AMIC #### [facility] [address] [address] [address] Sagar Morales Nitrite Ql (U) Negative Normal NEGATIVE [facility] Comment on above: Performed By: #### U AMIC #### [facility] [address] [address] [address] Sagar Morales pH (U) 5.5 [pH] Normal 5-[address] [facility] Comment on above: Performed By: #### U AMIC #### [facility] [address] [place] [address] Dr. Sagar Morales RBC NONE SEEN Abnormal 0-[address] [facility] Comment on above: Performed By: #### U AMIC #### [facility] [address] [place] [address] Dr. Sagar Morales SPEC GRAVITY 1.015 Normal 1.005-<=1.0 25 [facility] Comment on above: Performed By: #### U AMIC #### [facility] [address] [place] [address] Dr. Sagar Morales UA PROTEIN Negative Normal NEGATIVE/ TRACE [facility] Comment on above: Performed By: #### U AMIC #### [facility] [address] [place] [address] Dr. Sagar Morales Urobilinogen Qn (U) 0.2 {Hernandez'U}/dL Normal 0.2 - 1.0 [facility] Comment on above: Performed By: #### U AMIC #### [facility] [address] [place] [address] Dr. Sagar Morales WBC NONE SEEN Normal NONE SEEN [facility] Comment on above: Performed By: #### U AMIC #### [facility] [address] [place] [address] Dr. Sagar Morales URIC ACID SERUMon 06-21-2022 Urate [Mass/Vol] 4.4 mg/dL Normal 3.5-7.2 [facility] Comment on above: Performed By: #### R ENAL URIC, LIVER #### [facility] [address] [place] [address] Dr. Sagar Morales URINE T PROTEIN CREAT RATIOo n 06-21-2022 Protein (U) [Mass/Vol] 15.7 mg/dL Critically high <=12.0 [facility] Comment on above: Performed By: #### R ENAL, URIC, LIVER #### [facility] [address] [place] [address] Dr. Sagar Morales UR PROT CREAT RAT 0.34 Normal [facility] Comment on above: Performed By: #### R ENAL, URIC, LIVER #### [facility] [address] [place] [address] Dr. Sagar Morales URINE CREAT 45.54 mg/dL Normal 20.00-300.0 0 [facility] Comment on above: Performed By: #### R ENAL, URIC, LIVER #### [facility] [address] [address] [address] Sagar Morales VITAMIN D 25 OHon 06-21-2022 VIT D 25-OH 36.8 ng/mL Normal [facility] Comment on above: Performed By: #### R ENAL, URIC, LIVER #### [facility] [address] [place] [address] Dr. Sagar Morales VIT D RANGES SEE BELOW Normal [facility] Comment on above: Result Comment: <20 ng/mL Vit D deficient 20 - <30 ng/mL Vit D insufficient 30 - 100 ng/mL Vit D sufficient >100 ng/mL Potential Toxicity Performed By: #### R ENAL, URIC, LIVER #### [facility] [address] [place] [address] Dr. Sagar Morales GLYCOHEMOGLOBIN A1Con 2022 ADA RECOMMENDATION SEE BELOW Normal [facility] Comment on above: Result Comment: ADA RECOMMENDED LIMIT 4.0 - 6.0 ADA THERAPEUTIC TARGET < 7.0 ACTION SUGGESTED > 7.0 Performed By: #### R ENAL, URIC, LIVER #### [facility] [address] [place] [address] Dr. Sagar Morales Glucose [Mass/Vol] 120 mg/dL Normal [facility] Comment on above: Performed By: #### R ENAL, URIC, LIVER #### [facility] [address] [place] [address] Dr. Sagar Morales HbA1c (Bld) [Mass fraction] 5.8 % Normal 4.5-6.2 [facility] Comment on above: Performed By: #### R ENAL, URIC, LIVER #### [facility] [address] [place] [address] Dr. Sagar Morales LIPID PROFILEon 05-18-2022 CHOL-HDL RATIO NORM SEE BELOW Normal [facility] Comment on above: Result Comment: 3.3 - 4.4 LOW RISK 4.4 - 7.1 AVERAGE RISK 7.1 - 11.0 MODERATE RISK >11.0 HIGH RISK Performed By: #### R ENAL, URIC, LIVER #### [facility] [address] [place] [address] Dr. Sagar Morales Cholesterol [Mass/Vol] 176 mg/dL Normal <=200 [facility] Comment on above: Performed By: #### R ENAL URIC, LIVER #### [facility] [address] [address] [address] Sagar Morales Cholesterol in HDL [Mass/Vol] 84 mg/dL Critically high 40-60 [facility] Comment on above: Performed By: #### R ENAL URIC, LIVER #### [facility] [address] [address] [address] Sagar Morales Cholesterol in LDL [Mass/Vol] 76.0 mg/dL Normal [facility] Comment on above: Performed By: #### R ENMADI URIC, LIVER #### [facility] [address] [place] [address] Dr. Sagar Morales Cholesterol.total /Cholesterol in HDL [Mass ratio] 2.1 {ratio} Normal [facility] Comment on above: Performed By: #### R ENAL URIC, LIVER #### [facility] [address] [place] [address] Dr. Sagar Morales HDL NORMAL > or = 60 mg/dl - LO W CARDIOVASCULAR RISK <40 mg/dl - HIGH CARDIOVASCULAR RISK Normal [facility] Comment on above: Performed By: #### R ENAL URIC, LIVER #### [facility] [address] [place] [address] Dr. Sagar Morales LDL CALC NORMAL SEE BELOW Normal [facility] Comment on above: Result Comment: <100 mg/dl OPTIMAL 100 - 129 mg/dl NEAR OR ABOVE OPTIMAL 130 - 159 mg/dl BORDERLINE HIGH 160 - 189 mg/dl HIGH >190 mg/dl VERY HIGH Performed By: #### R ENAL URIC, LIVER #### [facility] [address] [address] [address] Sagar Morales Triglyceride [Mass/Vol] 80 mg/dL Normal <=150 [facility] Comment on above: Performed By: #### R ENAL URIC, LIVER #### [facility] [address] [address] [address] Sagar Morales VLDL CALC 16.0 mg/dL Normal [facility] Comment on above: Performed By: #### R ENMADI URIC, LIVER #### [facility] [address] [address] [address] Sagar Morales FK506 (TACROLIMUS) WHOLE BLO ODon 04-02-2022 Tacrolimus (FK506), Blood 5.4 ng/mL Normal 2.0-20.0 [facility] Comment on above: Result Comment: Trou gh (immediately following transplant) 15.0 . Trough (steady state, 2 weeks or more after transplant): 3.0 - 8.0 . Performed by LC-MS/MS technology. Performed By: #### F [id number] #### [facility] [address] [place] [address] Dr. Sagar Morales RENAL FUNCTION PANELon 03-30 Albumin [Mass/Vol] 3.4 g/dL Normal 3.4-5.0 [facility] Comment on above: Performed By: #### R ENMADI URIC, LIVER #### [facility] [address] [place] [address] Dr. Sagar Morales Calcium [Mass/Vol] 9.5 mg/dL Normal 8.5-10.[address] [facility] Comment on above: Performed By: #### R KATHRYN URIC, LIVER #### [facility] [address] [place] [address] Dr. Sagar Morales Chloride [Moles/Vol] 106 mmol/L Normal 98-[address] [facility] Comment on above: Performed By: #### R ENMADI URIC, LIVER #### [facility] [address] [place] [address] Dr. Sagar Morales CO2 [Moles/Vol] 23.0 mmol/L Normal 21.0-32.0 [facility] Comment on above: Performed By: #### R ENMADI URIC, LIVER #### [facility] [address] [place] [address] Dr. Sagar Morales Creatinine [Mass/Vol] 1.62 mg/dL Critically high 0.70-1.[address] [facility] Comment on above: Performed By: #### R ENMADI URIC, LIVER #### [facility] [address] [address] [address] Sagar Morales EGFR-AF KAZAKH 52 mL/min/1.73m2 Critically low >=60 [facility] Comment on above: Performed By: #### R ENAL, URIC, LIVER #### [facility] [address] [address] [address] Sagar Morales EGFR-NON AF KAZAKH 43 mL/min/1.73m2 Critically low >=60 [facility] Comment on above: Performed By: #### R ENAL, URIC, LIVER #### [facility] [address] [address] [address] Sagar Morales Glucose [Mass/Vol] 148 mg/dL Critically high 74-106 [facility] Comment on above: Performed By: #### R ENAL, URIC, LIVER #### [facility] [address] [place] [address] Dr. Sagar Morales Phosphate [Mass/Vol] 2.3 mg/dL Critically low 2.6-4.7 [facility] Comment on above: Performed By: #### R ENMADI URIC, LIVER #### [facility] [address] [address] [address] Sagar Morales Potassium [Moles/Vol] 4.2 mmol/L Normal 3.5-5.1 [facility] Comment on above: Performed By: #### R ENMADI URIC, LIVER #### [facility] [address] [address] [address] Sagar Morales Sodium [Moles/Vol] 138 mmol/L Normal 136-145 [facility] Comment on above: Performed By: #### R ENAL, URIC, LIVER #### [facility] [address] [address] [address] Sagar Morales Urea nitrogen [Mass/Vol] 27.0 mg/dL Critically high 7.0-18.0 [facility] Comment on above: Performed By: #### R ENAL, URIC, LIVER #### [facility] [address] [address] [address] Sagar Morales FK506 (TACROLIMUS) WHOLE BLO ODon 12-09-2021 Tacrolimus (FK506), Blood 3.6 ng/mL Normal 2.0-20.0 [facility] Comment on above: Result Comment: Trou gh (immediately following transplant) 15.0 . Trough (steady state, 2 weeks or more after transplant): 3.0 - 8.0 . Performed by LC-MS/MS technology. Performed By: #### F [id number] #### [facility] [address] [address] [address] Sagar Morales LIVER PROFILEon 12-06-2021 Albumin [Mass/Vol] 3.6 g/dL Normal 3.4-5.0 [facility] Comment on above: Performed By: #### Troy PERALTA URIC, LIVER #### [facility] [address] [place] [address] Dr. Sagar Morales Albumin/Globulin [Mass ratio] 1.0 {ratio} Normal [facility] Comment on above: Performed By: #### Troy PERALTA URIC, LIVER #### [facility] [address] [place] [address] Dr. Sagar Morales ALP [Catalytic activity/Vol] 59 U/L Normal 46-[address] [facility] Comment on above: Performed By: #### Troy PERALTA URIC, LIVER #### [facility] [address] [place] [address] Dr. Sagar Morales ALT [Catalytic activity/Vol] 31 U/L Normal 16-63 [facility] Comment on above: Performed By: #### R ENMADI URIC, LIVER #### [facility] [address] [address] [address] Sagar Morales AST [Catalytic activity/Vol] 19 U/L Normal 15-[address] [facility] Comment on above: Performed By: #### R ENMADI URIC, LIVER #### [facility] [address] [place] [address] Dr. Sagar Morales BILI, CONJUGATED 0.1 mg/dL Normal 0.0-0.2 [facility] Comment on above: Performed By: #### R ENMADI URIC, LIVER #### [facility] [address] [place] [address] Dr. Sagar Morales Bilirubin [Mass/Vol] 0.6 mg/dL Normal 0.2-1.[address] [facility] Comment on above: Performed By: #### R ENAL, URIC, LIVER #### [facility] [address] [address] [address] Sagar Morales Globulin (S) [Mass/Vol] 3.5 g/dL Normal [facility] Comment on above: Performed By: #### R ENAL, URIC, LIVER #### [facility] [address] [address] [address] Sagar Morales Protein [Mass/Vol] 7.1 g/dL Normal 6.4-8.[address] [facility] Comment on above: Performed By: #### R ENAL, URIC, LIVER #### [facility] [address] [place] [address] Dr. Sagar Morales RENAL FUNCTION PANELon 12-06 Calcium [Mass/Vol] 9.6 mg/dL Normal 8.5-10.1 [facility] Comment on above: Performed By: #### R ENAL, URIC, LIVER #### [facility] [address] [address] [address] Sagar Morales Chloride [Moles/Vol] 103 mmol/L Normal 98-[address] [facility] Comment on above: Performed By: #### R ENAL, URIC, LIVER #### [facility] [address] [address] [address] Sagar Morales CO2 [Moles/Vol] 23.7 mmol/L Normal 21.0-32.0 [facility] Comment on above: Performed By: #### R ENAL, URIC, LIVER #### [facility] [address] [address] [address] Sagar Morales Creatinine [Mass/Vol] 1.65 mg/dL Critically high 0.70-1.[address] [facility] Comment on above: Performed By: #### R ENAL, URIC, LIVER #### [facility] [address] [address] [address] Sagar Morales EGFR-AF KAZAKH 51 mL/min/1.73m2 Critically low >=[address] [facility] Comment on above: Performed By: #### R ENAL, URIC, LIVER #### [facility] [address] [address] [address] Sagar Morales EGFR-NON AF KAZAKH 42 mL/min/1.73m2 Critically low >=60 [facility] Comment on above: Performed By: #### R ENAL, URIC, LIVER #### [facility] [address] [place] [address] Dr. Sagar Morales Glucose [Mass/Vol] 256 mg/dL Critically high 74-106 [facility] Comment on above: Performed By: #### R ENAL, URIC, LIVER #### [facility] [address] [place] [address] Dr. Sagar Morales Phosphate [Mass/Vol] 2.6 mg/dL Normal 2.6-4.7 [facility] Comment on above: Performed By: #### R ENAL, URIC, LIVER #### [facility] [address] [place] [address] Dr. Sagar Morales Potassium [Moles/Vol] 4.7 mmol/L Normal 3.5-5.1 [facility] Comment on above: Performed By: #### R ENAL, URIC, LIVER #### [facility] [address] [place] [address] Dr. Sagar Morales Sodium [Moles/Vol] 137 mmol/L Normal 136-[address] [facility] Comment on above: Performed By: #### R ENAL, URIC, LIVER #### [facility] [address] [place] [address] Dr. Sagar Morales Urea nitrogen [Mass/Vol] 27.0 mg/dL Critically high 7.0-18.0 [facility] Comment on above: Performed By: #### R ENAL, URIC, LIVER #### [facility] [address] [place] [address] Dr. Sagar Morales URIC ACID SERUMon 12-06-2021 Urate [Mass/Vol] 4.7 mg/dL Normal 3.5-7.2 [facility] Comment on above: Performed By: #### R ENAL, URIC, LIVER #### [facility] [address] [place] [address] Dr. Sagar Morales URINE T PROTEIN CREAT RATIOo n 12-06-2021 Protein (U) [Mass/Vol] 28.8 mg/dL Critically high <=12.0 [facility] Comment on above: Performed By: #### R ENAL, URIC, LIVER #### [facility] [address] [address] [address] Sagar Morales UR PROT CREAT RAT 0.21 Normal [facility] Comment on above: Performed By: #### R ENMADI, URIC, LIVER #### [facility] [address] [place] [address] Dr. Sagar Morales URINE CREAT 137.37 mg/dL Normal 20.00-300.0 0 [facility] Comment on above: Performed By: #### R ENMADI URIC, LIVER #### [facility] [address] [place] [address] Dr. Sagar Morales FK506 (TACROLIMUS) WHOLE BLO ODon 08-19-2021 Tacrolimus (FK506), Blood 4.4 ng/mL Normal 2.0-20.0 [facility] Comment on above: Result Comment: Trou gh (immediately following transplant) 15.0 . Trough (steady state, 2 weeks or more after transplant): 3.0 - 8.0 . Performed by LC-MS/MS technology. Performed By: #### F [id number] #### [facility] [address] [place] [address] Dr. Sagar Morales LIVER PROFILEon 08-17-2021 Albumin [Mass/Vol] 3.4 g/dL Normal 3.4-5.0 [facility] Comment on above: Performed By: #### R ENMADI URIC, LIVER #### [facility] [address] [place] [address] Dr. Sagar Morales Albumin/Globulin [Mass ratio] 1.0 {ratio} Normal [facility] Comment on above: Performed By: #### R ENMADI URIC, LIVER #### [facility] [address] [place] [address] Dr. Sagar Morales ALP [Catalytic activity/Vol] 71 U/L Normal 46-[address] [facility] Comment on above: Performed By: #### R ENAL, URIC, LIVER #### [facility] [address] [place] [address] Dr. Sagar Morales ALT [Catalytic activity/Vol] 38 U/L Normal 16-63 [facility] Comment on above: Performed By: #### R ENMADI, URIC, LIVER #### [facility] [address] [place] [address] Dr. Sagar Morales AST [Catalytic activity/Vol] 21 U/L Normal 15-[address] [facility] Comment on above: Performed By: #### R ENMADI URIC, LIVER #### [facility] [address] [place] [address] Dr. Sagar Morales BILI, CONJUGATED 0.2 mg/dL Normal 0.0-0.2 [facility] Comment on above: Performed By: #### R ENAL URIC, LIVER #### [facility] [address] [place] [address] Dr. Sagar Morales Bilirubin [Mass/Vol] 0.6 mg/dL Normal 0.2-1.0 [facility] Comment on above: Performed By: #### R ENMADI URIC, LIVER #### [facility] [address] [place] [address] Dr. Sagar Morales Globulin (S) [Mass/Vol] 3.4 g/dL Normal [facility] Comment on above: Performed By: #### R ENAL, URIC, LIVER #### [facility] [address] [place] [address] Dr. Sagar Morales Protein [Mass/Vol] 6.8 g/dL Normal 6.4-8.[address] [facility] Comment on above: Performed By: #### R ENMADI, URIC, LIVER #### [facility] [address] [place] [address] Dr. Sagar Morales RENAL FUNCTION PANELon 08-17 Calcium [Mass/Vol] 9.5 mg/dL Normal 8.5-10.[address] [facility] Comment on above: Performed By: #### R ENMADI URIC, LIVER #### [facility] [address] [address] [address] Sagar Morales Chloride [Moles/Vol] 103 mmol/L Normal 98-[address] [facility] Comment on above: Performed By: #### R ENAL, URIC, LIVER #### [facility] [address] [place] [address] Dr. Sagar Morales CO2 [Moles/Vol] 25.3 mmol/L Normal 21.0-32.0 [facility] Comment on above: Performed By: #### R ENAL, URIC, LIVER #### [facility] [address] [place] [place] [address] Dr. Sagar Morales Creatinine [Mass/Vol] 1.73 mg/dL Critically high 0.70-1.30 [facility] Comment on above: Performed By: #### R ENAL, URIC, LIVER #### [facility] [address] [place] [address] Dr. Sagar Morales EGFR-AF KAZAKH 48 mL/min/1.73m2 Critically low >=[address] [facility] Comment on above: Performed By: #### R ENAL, URIC, LIVER #### [facility] [address] [place] [address] Dr. Sagar Morales EGFR-NON AF KAZAKH 40 mL/min/1.73m2 Critically low >=[address] [facility] Comment on above: Performed By: #### R ENAL, URIC, LIVER #### [facility] [address] [place] [address] Dr. Sagar Morales Glucose [Mass/Vol] 197 mg/dL Critically high 74-[address] [facility] Comment on above: Performed By: #### R ENAL, URIC, LIVER #### [facility] [address] [place] [address] Dr. Sagar Morales Phosphate [Mass/Vol] 2.8 mg/dL Normal 2.6-4.7 [facility] Comment on above: Performed By: #### R ENAL, URIC, LIVER #### [facility] [address] [place] [address] Dr. Sagar Morales Potassium [Moles/Vol] 4.9 mmol/L Normal 3.5-5.1 [facility] Comment on above: Performed By: #### R ENMADI URIC, LIVER #### [facility] [address] [place] [address] Dr. Sagar Morales Sodium [Moles/Vol] 136 mmol/L Normal 136-145 [facility] Comment on above: Performed By: #### R ENMADI URIC, LIVER #### [facility] [address] [place] [address] Dr. Sagar Morales Urea nitrogen [Mass/Vol] 25.0 mg/dL Critically high 7.0-18.0 [facility] Comment on above: Performed By: #### R ENMADI URIC, LIVER #### [facility] [address] [place] [address] Dr. Sagar Morales URIC ACID SERUMon 08-17-2021 Urate [Mass/Vol] 4.5 mg/dL Normal 3.5-7.2 [facility] Comment on above: Performed By: #### R ENMADI URIC, LIVER #### [facility] [address] [place] [address] Dr. Sagar Morales URINE T PROTEIN CREAT RATIOo n 08-17-2021 Protein (U) [Mass/Vol] 27.9 mg/dL Critically high <=12.0 [facility] Comment on above: Performed By: #### R ENMADI URIC, LIVER #### [facility] [address] [place] [address] Dr. Sagar Morales UR PROT CREAT RAT 0.24 Normal [facility] Comment on above: Performed By: #### R ENAL, URIC, LIVER #### [facility] [address] [place] [address] Dr. Sagar Morales URINE CREAT 114.26 mg/dL Normal 20.00-300.0 0 [facility] Comment on above: Performed By: #### R ENMADI, URIC, LIVER #### [facility] [address] [place] [address] Dr. Sagar Morales Vital Signs Date Time Vital Sign Value Performing Clinician Facility 05-24-2023 11:23-0400 Body height 180.34 cm MD Shaikh Rodarte Work Phone: [facility] 05-24-2023 11:23-0400 Body mass index (BMI) [Ratio] 21.3 kg/m2 MD Shaikh Rodarte Work Phone: [facility] 05-24-2023 11:23-0400 Body temperature 98 [degF] MD Shaikh Rodarte Work Phone: [facility] 05-24-2023 11:23-0400 Body weight 69.45 kg MD Shaikh Rodarte Work Phone: [facility] 05-24-2023 11:23-0400 Heart rate 91 /min MD Shaikh Rodarte Work Phone: [facility] 05-24-2023 11:23-0400 Respiratory rate 18 /min MD Shaikh Rodarte Work Phone: [facility] 05-24-2023 11:23-0400 SaO2% (BldA) [Mass fraction] 99 % MD Shaikh Rodarte Work Phone: [facility] 05-17-2023 13:20-0400 Body height 180.34 cm [facility] 05-17-2023 13:20-0400 Body mass index (BMI) [Ratio] 20.9 kg/m2 [facility] 05-17-2023 13:20-0400 Body temperature 97.6 [degF] [facility] 05-17-2023 13:20-0400 Body weight 68.26 kg [facility] 05-17-2023 13:20-0400 Diastolic blood pressure 60 mm[Hg] [facility] 05-17-2023 13:20-0400 Heart rate 99 /min [facility] 05-17-2023 13:20-0400 Respiratory rate 16 /min [facility] 05-17-2023 13:20-0400 SaO2% (BldA) [Mass fraction] 98 % [facility] 05-17-2023 13:20-0400 Systolic blood pressure 122 mm[Hg] [facility] 02-23-2023 12:15-0500 Body height 180.34 cm Kailey Deluca Other [facility] 02-23-2023 12:15-0500 Body mass index (BMI) [Ratio] 20.58 kg/m2 Kailey Rosariomond Other [facility] 02-23-2023 12:15-0500 Body temperature 98.7 [degF] Kailey Deluca Other [facility] Other 02-23-2023 12:15-0500 Body weight 66.95 kg Kailey Deluca Other [facility] 02-23-2023 12:15-0500 Diastolic blood pressure 62 mm[Hg] Kailey Deluca Other [facility] 02-23-2023 12:15-0500 Respiratory rate 18 /min Kailey Rosariomond Other [facility] Other 02-23-2023 12:15-0500 SaO2% (BldA) [Mass fraction] 98 % Kailey Rosariomond Other [facility] Other 02-23-2023 12:15-0500 Systolic blood pressure 118 mm[Hg] Kailey Sandrine Other [facility] 12-18-2022 14:20-0400 Body height 180.34 cm Jarod Madina Other [facility] Other 12-18-2022 14:20-0400 Body mass index (BMI) [Ratio] 20.89 kg/m2 Jarod Mdaina Other [facility] Other 12-18-2022 14:20-0400 Body temperature 96.9 [degF] Jarod Madina Other [facility] Other 12-18-2022 14:20-0400 Body weight 67.95 kg Jarod Madina Other [facility] Other 12-18-2022 14:20-0400 Diastolic blood pressure 62 mm[Hg] Jarod Madina Other [facility] Other 12-18-2022 14:20-0400 Respiratory rate 18 /min Jarod Madina Other [facility] Other 12-18-2022 14:20-0400 SaO2% (BldA) [Mass fraction] 99 % Jarod Madina Other [facility] Other 12-18-2022 14:20-0400 Systolic blood pressure 116 mm[Hg] Jarod Madina Other [facility] Other 09-07-2022 10:40-0400 Body height 180.34 cm Jarod Madina Other [facility] Other 09-07-2022 10:40-0400 Body mass index (BMI) [Ratio] 21.11 kg/m2 Jarod Madina Other [facility] Other 09-07-2022 10:40-0400 Body temperature 97.2 [degF] Jarod Madina Other [facility] Other 09-07-2022 10:40-0400 Body weight 68.68 kg Jarod Madina Other [facility] Other 09-07-2022 10:40-0400 Diastolic blood pressure 53 mm[Hg] Jarod Madina Other [facility] Other 09-07-2022 10:40-0400 Respiratory rate 18 /min Jarod Madina Other [facility] Other 09-07-2022 10:40-0400 SaO2% (BldA) [Mass fraction] 99 % Jarod Madina Other [facility] Other 09-07-2022 10:40-0400 Systolic blood pressure 102 mm[Hg] Jarod Madina Other [facility] Other 08-14-2022 09:55-0400 Body height 180.34 cm Chani Milner Other [facility] Other 08-14-2022 09:55-0400 Body mass index (BMI) [Ratio] 20.36 kg/m2 Chani Milner Other [facility] Other 08-14-2022 09:55-0400 Body temperature 97.9 [degF] Chani Milner Other [facility] Other 08-14-2022 09:55-0400 Body weight 66.23 kg Chani Milner Other [facility] Other 08-14-2022 09:55-0400 Diastolic blood pressure 55 mm[Hg] Chani Milner Other [facility] Other 08-14-2022 09:55-0400 Respiratory rate 18 /min Chani Galloley Other [facility] Other 08-14-2022 09:55-0400 SaO2% (BldA) [Mass fraction] 98 % Chani Galloley Other [facility] Other 08-14-2022 09:55-0400 Systolic blood pressure 102 mm[Hg] Chani Galloley Other [facility] Other 06-15-2022 15:20-0400 Body height 180.34 cm Jarod Madina Other [facility] Other 06-15-2022 15:20-0400 Body mass index (BMI) [Ratio] 20.61 kg/m2 Jarod Madina Other [facility] Other 06-15-2022 15:20-0400 Body temperature 97.5 [degF] Jarod Madina Other [facility] Other 06-15-2022 15:20-0400 Body weight 67.04 kg Jarod Madina Other [facility] Other 06-15-2022 15:20-0400 Diastolic blood pressure 64 mm[Hg] Jarod Madina Other [facility] Other 06-15-2022 15:20-0400 Respiratory rate 18 /min Jarod Madina Other [facility] Other 06-15-2022 15:20-0400 SaO2% (BldA) [Mass fraction] 97 % Jarod Madina Other [facility] Other 06-15-2022 15:20-5490 Systolic blood pressure 120 mm[Hg] Jarod Ballard Other [facility] Other Encounters Encounter Date Encounter Type Care Provider Facility Start: 07-30-2023 End: 07-30-2023 ambulatory SHAIKH CAYDEN Not Available Start: 07-26-2023 End: 07-26-2023 ambulatory KHAI THOMPSON Not Available Start: 05-24-2023 End: 05-24-2023 ambulatory Kailey Deluca Facility:[facility] Start: 05-24-2023 End: 05-24-2023 ambulatory MD Shaikh Rodarte Work Phone: [facility] Work Phone: Start: 05-24-2023 End: 05-24-2023 Patient encounter procedure MD Shaikh Rodarte Work Phone: [facility] Work Phone: Start: 05-17-2023 Patient encounter status [facility] Start: 05-17-2023 End: 05-17-2023 ambulatory [facility] Work Phone: Start: 05-17-2023 End: 05-17-2023 Encounter for general adult medical examination without abnormal findings [facility] Start: 05-17-2023 End: 05-17-2023 Patient encounter procedure 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-LEGAL COUNSEL Work Phone: [facility] Start: 04-04-[address] Bamboo [address]al Krishna ter SECURITY SYSTEMS MANAGER-LEGAL COUNSEL Work Phone: [facility] Start: 04-04-2023 End: 04-04-2023 Office outpatient visit 15 minutes Gissell Scotter SECURITY SYSTEMS MANAGER-LEGAL COUNSEL Work Phone: [facility] Comment on above: Seborrheic keratosis (Primary Dx); Actinic keratosis; Sebaceous hyperplasia; Lentigines Start: 04-04-2023 End: 04-04-2023 ambulatory GISSELL A FELTER Not Available Start: 04-01-2023 Daniel Rodarte MD Work Phone: [facility] Comment on above: Other osteoporosis w ithout current pathological fracture (CMS/HCC) Start: 03-24-2023 Daniel Rodarte MD Work Phone: [facility] Comment on above: Other osteoporosis w ithout current pathological fracture (CMS/HCC) Start: 02-23-2023 End: 02-23-2023 ambulatory Kailey Deluca Other [facility] Other Start: 02-23-2023 Office outpatient vi sit 15 minutes Kailey Deluca [facility] Start: 02-23-2023 End: 02-23-2023 Patient encounter procedure [facility] Work Phone: Start: 01-30-2023 End: 01-30-2023 ambulatory Jarod Madina Other [facility] Other Start: 01-30-2023 Telephone encounter Jarod Ballard [facility] Start: 01-22-2023 End: 01-22-2023 ambulatory SHAIKH CAYDEN Not Available Start: 01-22-2023 Patient encounter procedure Shaikh Cayden SWAN Work Phone: [facility] Start: 12-18-2022 End: 12-18-2022 ambulatory Jarod Madina Other [facility] Other Start: 12-18-2022 Encounter for genera l adult medical examination without abnormal findings Jarod Madina [facility] Start: 12-18-2022 Office outpatient vi sit 25 minutes Jarod Madina [facility] Start: 09-07-2022 End: 09-07-2022 ambulatory Jarod Madina Other [facility] Other Start: 09-07-2022 Encounter for genera l adult medical examination without abnormal findings Jarod Madina [facility] Start: 09-07-2022 Office outpatient vi sit 25 minutes Jarod Madina [facility] Start: 08-14-2022 End: 08-14-2022 ambulatory Chani Milner Other [facility] Other Start: 08-14-2022 Office outpatient vi sit 15 minutes Chani Milner [facility] Start: 06-29-2022 End: 06-29-2022 ambulatory Jarod Madina Facility:[facility] Start: 06-29-2022 End: 06-29-2022 ambulatory MD Shaikh Rodarte Work Phone: [facility] Work Phone: Start: 06-29-2022 End: 06-29-2022 Patient encounter procedure MD Shaikh Rodarte Work Phone: [facility] Work Phone: Start: 06-28-2022 Encounter for genera l adult medical examination without abnormal findings JAROD MADINA [facility] Start: 06-25-2022 End: 06-25-2022 ambulatory Jarod Madina Other [facility] Other Start: 06-25-2022 Telephone encounter Jarod Madina [facility] Start: 06-21-2022 End: 06-22-2022 ambulatory SHAIKH Hugo RODARTE Facility:[facility] Start: 06-15-2022 End: 06-15-2022 ambulatory Jarod Madina Other [facility] Other Start: 06-15-2022 Encounter for genera l adult medical examination without abnormal findings Jarod Madina [facility] Start: 06-15-2022 Office outpatient ne w 45 minutes Jarod Madina [facility] Start: 05-18-2022 End: 05-19-2022 ambulatory SHAIKH Hugo RODARTE Facility:[facility] Start: 03-30-2022 End: 03-31-[address] DOCTOR LOREDO Facility:[facility] Start: 12-06-2021 End: 12-07-[address] DOCTOR LOREDO Facility:[facility] Start: 08-17-2021 End: 08-18-[address] DOCTOR LOREDO Facility:[facility] Procedures Date Procedure Procedure Detail Performing Clinician Start: 05-24-2023 Plain X-ray of right hand MD Shaikh Rodarte Work Phone: Start: 05-24-2017 History of renal transplant History of renal transplant Shaikh Cayden SWAN Work Phone: History of renal transplant Jarod Ballard Other History of renal transplant Renal transplant recipient Plan of Treatment Date Care Activity Detail Author Start: 08-19-2025 Screening for malignant neoplasm of colon [facility] Start: 01-23-2024 Medicare Annual Wellness (AWV) Medicare Annual Wellness (AWV) [facility] Start: 04-24-2023 End: 04-24-2023 Patient encounter procedure 04/24/2023 10:00 AM EST Office Visit [facility] [address] [place] [id number] Shaikh Rodarte MD [address] [place] [id number] [facility] Start: 04-04-2023 End: 04-04-2023 Patient encounter procedure 04/04/2023 9:20 AM EST Office Visit [facility] [address] [place] [id number] Gissell Gallo, SECURITY SYSTEMS MANAGER-LEGAL COUNSEL [address] [place] [address] [facility] Start: 02-19-2023 Hemoglobin A1c measurement Diabetes: Hemoglobin A1C [facility] Start: 10-20-2022 Influenza vaccination Influenza Vaccine (#1) [facility] Start: 05-22-2019 Pneumococcal Vaccine: 65+ Years (2 - PCV) Pneumococcal Vaccine: 65+ Years (2 - PCV) [facility] Start: 02-12-1964 Glaucoma screening Diabetes: Retinopathy Screening [facility] Start: 1955 Screening for malignant neoplasm of colon [facility] Renal function 2000 panel - Serum or Plasma [facility] Tacrolimus [Mass/vol ume] in Blood [facility] XR Hand - right GE 3 Views [facility] Immunizations Immunization Date Immunization Notes Care Provider [facility]2018 influenza virus vacc ine, unspecified formulation Shaikh Cayden SWAN Work Phone: [facility] Payers Date Payer Category Payer Private Health Insurance [id number] 2022 Self-pay 2022 Medicare [id number] 1960 Medicare [id number] 2. [id number] 1960 Medicare [id number] 1954 Unknown [id number] 2.16.84 [id number] 1954 Unknown [id number] 2.16.84 [id number] 1954 Unknown [id number] 2.16.84 [id number] 1954 Unknown [id number] 2.16.84 [id number] 1954 Unknown [id number] 2.16.84 [id number] 1954 Unknown [id number] 2.16.84 [id number] 1954 Unknown [id number] 2.16.84 [id number] 1954 Unknown [id number] 2.16.84 [id number] 1954 Unknown [id number] 2.16.84 [id number] 1954 Unknown [id number] 2.16.840 .[id number] Unknown [id number] 2.16.8 [id number] Unknown [id number] 2.16.8 [id number] Social History Date Type Detail Facility Unknown if ever smoked [facility] Other Start: 01-22-2023 End: 04-04-2023 Sex Assigned At [employer] Other Start: 1955 Sex Assigned At Male F [facility] Start: 08-17-2022 End: 05-17-2023 Tobacco smoking status NHIS Never smoked tobacco [facility] Start: [...] Sex Assigned At Not on file N [facility] Medical Equipment Procedure Code Equipment Code Equipment Origin al Text Equipment Identifier Dates USE DIRECTED EVERY DAY [id number] Start: 01-08-2023 Clinical Notes 06-15-2022 to 04-04-2023 Gissell Gallo, SECURITY SYSTEMS MANAGER-LEGAL COUNSEL - 04/04/2023 9:20 AM EST Note Date [...] year (skin check) documented in this encounter [facility] 02-23-2023 Evaluation note Encounter Date Diagnosis Assessment [...] (suspected) exposure to covid-19 (ICD-10 - Z20.822) [facility] Other 12-12-2023 Evaluation note* Encounter Date Diagnosis Assessment Notes Treatment Notes Treatment Clinical Notes Jan, Renal transplant recipient (ICD-10 - Z94.0) [facility] 10-30-2023 Evaluation note* Encounter Date Diagnosis Assessment Notes Treatment Notes Treatment Clinical Notes Nov, Renal transplant recipient (ICD-10 - Z94.0) He has a cadaveric renal transplant since 2014 and currently follows with the transplant team in [place]. He is currently on immunosuppressive medication including [...] disease (ICD-10 - E11.22) He has a eih-jvfchdo-xdgxyswdz type 2 diabetes mellitus. Advised him continue [...] the low magnesium. He understood and verbalized. [facility] Other 07-20-2023 Evaluation note* Encounter Date Diagnosis Assessment Notes Treatment Notes Treatment Clinical Notes Aug, Renal transplant recipient (ICD-10 - Z94.0) He has a cadaveric renal transplant since 2014 and currently follows with the transplant team in [place]. He is currently on immunosuppressive medication including Prograf CellCept and prednisone. Advised him to increase 1 mg q12 hrs due to subtherapeutic level. He reported be compliant with his immunosuppressive medications. Patient reported that he was advised to increase the Prograf to 1 mg twice daily by his transplant presser first in [place] but he was still taking 1 mg [...] disease (ICD-10 - E11.22) He has a yts-uiusoqn-ztrbftndj type 2 diabetes mellitus. Advised him continue [...] in future including B12 and folate level. [facility] Other 06-26-2023 Evaluation note* Encounter Date Diagnosis [...] plan. Jul, Jaw swelling (ICD-10 - R22.0) [facility] Other 04-27-2023 Evaluation note* Encounter Date Diagnosis Assessment Notes Treatment Notes Treatment Clinical Notes May, Renal transplant recipient (ICD-10 - Z94.0) It was a pleasure to see Mr. Manriquez in our office for an evaluation and management of the CKD and renal transplant. As you know he has a cadaveric renal transplant since 2014 and currently follows with the transplant team in [place]. He is currently on immunosuppressive medication including [...] disease (ICD-10 - E11.22) He has a teq-hchcycp-ifijhsozb type 2 diabetes mellitus. Hemoglobin A1c was [...] as a systolic murmur. Ordered the echocardiogram [facility] Other Evaluation noteNo InformationNortEn[facility] Other Evaluation noteNo assessment information available [facility] Work Phone: Evaluation note* Diagnosis Other osteoporosis without current pathological fracture (CMS/HCC) [facility] Diagnosis Other osteoporosis without current pathological fracture (CMS/HCC) [facility] Diagnosis Seborrheic keratosis- Primary Actinic keratosis Sebaceous hyperplasia Lentigines [facility] Diagnosis Onset Date Resolution Status Anemia of renal disease acut e Chronic kidney disease, stage III (moderate) acute Diabetes mellitus with chronic kidney disease acute Healthcare maintenance acute [id number] acute Hypomagnesemia acute Renal transplant recipient a cute Secondary hyperparathyroidism acute [facility] Work Phone: Evaluation note* Diagnosis Onset Date Resolution Status Anemia of renal disease acut e Chronic kidney disease, stage III (moderate) acute Diabetes mellitus with chronic kidney disease acute Gout acute Healthcare maintenance acute Hyperlipidemia acute [id number] acute Hypomagnesemia acute Renal transplant recipient a cute Secondary hyperparathyroidism acute Sprain of right hand noneact bonita [facility] Work Phone: Evaluation note* Diagnosis Onset Date Resolution Status Anemia of renal disease acut e Chronic kidney disease, stage III (moderate) acute Diabetes mellitus with chronic kidney disease acute Gout acute Healthcare maintenance acute Hyperlipidemia acute [id number] acute Hypomagnesemia acute Renal transplant recipient a cute Secondary hyperparathyroidism acute Hand sprain noneactive Sprain of right hand noneact bonita [facility] Work Phone: History general Narrative - Reported* Type Description Date [...] KIDNEY TRANSPLANT 04/2014 Hospitalization History SEE ABOVE [facility] Other Summary Purpose Family History No Family History Records Found Relationship Condition Age at Onset Recorded Date/T bobbi father Family history of mental disorder Unknown Unknown family member Unknown Not Specified Malignant neoplasm Unknown Family history of lung cancer Unknown sister Diabetes mellitus Unknown Advance Directives No Advanced Directives Records Found Advance Directive Response Recorded Date/ Time Advance Directives No June 29 3 10:41am Chief Complaint and Reason for Visit Chief Complaint Z94.0 R01.1 Chief Complaint Cough, Congestion, RENAL 3 month Follow up Reason for Visit Anemia of renal dise ase Chronic kidney disease, stage III (moderate) Diabetes mellitus with chronic kidney disease Healthcare maintenance [id number] Hypomagnesemia Renal transplant recipient Secondary hyperparathyroidism Chief Complaint RENAL 3 month Follow up right hand pain Reason for Visit Anemia of renal dise ase Chronic kidney disease, stage III (moderate) Diabetes mellitus with chronic kidney disease Gout Healthcare maintenance Hyperlipidemia [id number] Hypomagnesemia Renal transplant recipient Secondary hyperparathyroidism Sprain of right hand Chief Complaint RENAL 3 month Follow up right hand pain Reason for Visit Anemia of renal dise ase Chronic kidney disease, stage III (moderate) Diabetes mellitus with chronic kidney disease Gout Healthcare maintenance Hyperlipidemia [id number] Hypomagnesemia Renal transplant recipient Secondary hyperparathyroidism Hand sprain Sprain of right hand Additional Source Comments REASON FOR VISIT (unrecogniz ed section and content) Reason Comments Med Refill Reason Comments Suspicious Skin Lesion (unrecognized sect ion and content) No Status Records FoundNo Status Records FoundNo Status Records Found INFORMATION SOURCE (unrecogn ized section and content) DATE CREATED AUTHOR 06/29/2022 [facility] DATE CREATED AUTHOR AUTHOR'S ORGANIZ ATION 06/06/2023 [facility] DATE CREATED AUTHOR AUTHOR'S ORGANIZ ATION 07/30/2023 [facility] EPIC Care Teams (unrecognized sec tion and content) Team Status: Active Member Role Status Dates Shaikh Cayden MD Primary Care Provider Active Team Status: Active Member Role Status Dates Shaikh Cayden MD Primary Care Provide r, Attending Provider Active Start: April 21, 2023 Team Status: Active Member Role Status Dates Shaikh Cayden MD Primary Care Provider Active Start: May 12, 2023 Jarod Ballard MD Attending Provider Active Start : May 12, 2023 Team Status: Inactive Member Role Status Dates Shaikh Cayden MD Primary Care Provider Active Start: May 17, 2023 End: May 17, 2023 Jarod Ballard MD Attending Provider Active Start : May 17, 2023 End: May 17, 2023 Team Status: Inactive Member Role Status Dates Shaikh Cayden MD Primary Care Provider Active Start: May 24, 2023 End: May 24, 2023 JULIEN Tapia Attending Provider Active S tart: May 24, 2023 End: May 24, 2023 Team Status: Active Member Role Status Dates Shaikh Cayden MD Primary Care Provider Active Start: May 24, 2023 JULIEN Tapia Attending Provider Active S tart: May 24, 2023 Team Status: Inactive Member Role Status Dates Jarod Ballard MD Attending Provider Active Shaikh Cayden MD Primary Care Provider Active Kier Tender Relationship Specialty Start Date End Date Shaikh Rodarte MD PCP - General Internal Medicine 02/19/22 Kier Tender Relationship Specialty Start Date End Date Shaikh Rodarte MD PCP - General Internal Medicine 02/19/22 Kier Tender Relationship Specialty Start Date End Date Shaikh Rodarte MD [address] [place] [address] PCP - General Internal Medicine 02/19/22 Kier Tender Relationship Specialty Start Date End Date Shaikh Rodarte MD [address] [place] [address] PCP - General Internal Medicine 02/19/22 Team Status: Inactive Member Role Status Dates NUSRAT TapiaC Attending Provider Active S tart: February 23, 2023 End: February 23, 2023 Goals (unrecognized section and content) Goals may [...] BE BASED ON THE PRIMARY CLINICAL RECORDS. [employer] provides no warranty or guarantee of the accuracy or completeness of information in this document.
[2023-08-06 08:49] LABS: Estimated Average Glucose 146 mg/dL; Glycohemoglobin A1C 6.7 % (4.5-6.2)
[2023-08-06 09:06] LABS: Chol HDL Ratio 2.7; Cholesterol 187 mg/dL (<=200); HDL Cholesterol 70 mg/dL (40-60); Triglycerides 88 mg/dL (<=150); VLDL CHOLESTEROL 17.6 mg/dL
== END 2023-08-06 08:08 | disposition home or self-care (01) ==
LOC: LAB 08:08
PROVIDERS: PCP Internal Medicine; Visit Provider Internal Medicine
DX: E11.22 Type 2 diabetes mellitus with diabetic chronic kidney disease (principal); N18.31 Chronic kidney disease, stage 3a; E78.5 Hyperlipidemia, unspecified
CPT/HCPCS: 36415; 80061; 83036

== ENCOUNTER 2023-08-06 08:10 | Outpatient (OUT) | payer MEDICARE, SELFPAY ==
--- OUTSIDE RECORDS SUMMARY | 2023-08-06 08:19 | XMS_ITS | CCD ---
Author Organization [facility] Care Team Providers Care General Counsel Name Role Phone Jarod Ballard Unavailable MISC, [...] Provider Shaikh Rodarte MD Primary Care Provider [phone] MD Nicolette Rodarte Primary Care Provider JULIEN Deluca Attending Provider Kailey Deluca Admitting Unavailable Kailey Deluca Attending Unavailable Shaikh Rodarte Primary Care Unavailable Jarod Ballard Admitting Unavailable [...] / neomycin 3.5 mg/ml / polymyxin b [id number] unt/ml otic suspension (1 source) Aminoglycoside Antibacterial, Polymyxin-class Antibacterial, Corticosteroid Start: 02-23-2023 Inoneaev-Cwbpvnhgk-GP 3.5-63844-8 3 drops Otic Three times a day [...] 3V*on 024 XR hand RT min 3V* [facility] Main [place] [address] [place] [address] XRay Report Signed Patient: Raul Manriquez MR#: [id number] : 1955 Acct:[id number] Age/Sex: 68 / M ADM Date: 05/24/23 Loc: [facility] Room: Type: [facility] Attending Dr: Kailey VICTORIA Copies to: JULIEN [...] Gaytan Jr., D.O.05/24/2023 12:03 PM Dictation Location: [place] [address] Transcribed By: [facility] 05/24/23 1203 Dictated By: Elijah Gaytan Jr, DO 05/24/23 1202 Signed By: 05/24/23 1203 Normal [facility] Automated epithelial cells c ount in urine sediment (number/area)on 05-12-2023 Epithelial cells Auto (Urine sed) [#/Area] RARE #/LPF NONE/RARE [facility] Automated leukocytes count i n urine sediment (number/area)on 05-12-2023 WBC Auto (Urine sed) [#/Area] NONE SEEN #/HPF 0-2 [facility] Automated urine specific gra vity by refractometryon 05-12-2023 Specific gravity Refractometry automated (U) [Rel density] 1.015 1.005-1.025 [facility] Bilirubin Auto test strip (U ) [Mass/Vol]on 05-12-2023 Bilirubin (U) [Mass/Vol] Negative NEGATIVE [facility] Casts typing in urine sedime nt by light microscopyon 05-12-2023 Casts LM Nom (Urine sed) NONE SEEN #/LPF NONE SEEN [facility] Color Auto (U)on 05-12-2023 Color (U) LT. YELLOW YELLOW [facility] Erythrocyte distribution wid th Auto (RBC) [Ratio]on 05-12-2023 Erythrocyte distribution width (RBC) [Ratio] 13.3 % 11.0-15.0 [facility] Estimated glomerular filtrat ion rate (GFR) non- Americanon 05-12-2023 GFR/1.73 sq M.predicted among non-blacks MDRD (S/P/Bld) [Vol rate/Area] 36 mL/min/{1.73_m2} >=60 [facility] Hematocrit Auto (Bld) [Volum e fraction]on 05-12-2023 Hematocrit (Bld) [Volume fraction] 42.0 % 42.0-54.0 [facility] Hemoglobin [Mass/volume] in Bloodon 05-12-2023 Hemoglobin (Bld) [Mass/Vol] 13.6 g/dL 14.0-18.0 [facility] Ketones Auto test strip (U) [Mass/Vol]on 05-12-2023 Ketones (U) [Mass/Vol] Negative NEGATIVE [facility] Laboratory - Chemistry and C hemistry - challengeon 05-12-2023 Albumin [Mass/Vol] 3.7 g/dL 3.4-5.0 [facility] Calcium [Mass/Vol] 10.3 mg/dL 8.5-10.1 [facility] Chloride [Moles/Vol] 100 mmol/L 98-107 [facility] CO2 [Moles/Vol] 24.6 mmol/L 21.0-32.0 [facility] Creatinine [Mass/Vol] 1.88 mg/dL 0.70-1.30 [facility] GFR/1.73 sq M.predicted MDRD (S/P/Bld) [Vol rate/Area] 43 mL/min/{1.73_m2} >=60 [facility] Glucose [Mass/Vol] 194 mg/dL 74-106 [facility] Magnesium [Mass/Vol] 1.6 mg/dL 1.8-2.4 [facility] Potassium [Moles/Vol] 4.0 mmol/L 3.5-5.1 [facility] Sodium [Moles/Vol] 136 mmol/L 136-145 [facility] Urea nitrogen [Mass/Vol] 31.0 mg/dL 7.0-18.0 [facility] Urea nitrogen/Creatini ne [Mass ratio] 16.5 mg/mg [facility] Leukocytes [#/volume] correc mary for nucleated erythrocytes in Blood by Automated counon 05-12-2023 WBC corrected for nucl RBC Auto (Bld) [#/Vol] 5.7 10 3/uL 4.0-11.0 [facility] MCH Auto (RBC) [Entitic mass ]on 05-12-2023 MCH (RBC) [Entitic mass] 29.7 pg 25.9-34.0 [facility] MCHC Auto (RBC) [Mass/Vol]on 05-12-2023 MCHC (RBC) [Mass/Vol] 32.4 g/dL 29.9-35.2 [facility] MCV Auto (RBC) [Entitic vol] on 05-12-2023 MCV (RBC) [Entitic vol] 91.7 fL 80.0-94.0 [facility] Mucus LM Ql (Urine sed)on Mucus Ql (Urine sed) NONE SEEN NONE SEEN [facility] No Panel Informationon 05-11 Phosphorus Level 2.3 mg/dL 2.6-4.7 [facility] Platelet mean volume Auto (B ld) [Entitic vol]on 05-12-2023 Platelet mean volume (Bld) [Entitic vol] 10.3 fL 9.5-13.5 [facility] Platelets Auto (Bld) [#/Vol] on 05-12-2023 Platelets (Bld) [#/Vol] 146 10 3/uL 150-450 [facility] Protein Auto test strip (U) [Mass/Vol]on 05-12-2023 Protein (U) [Mass/Vol] Negative NEG/TRACE [facility] RBC Auto (Bld) [#/Vol]on RBC (Bld) [#/Vol] 4.58 10 6/uL 4.70-6.10 [facility] Serum or plasma anion gap de terminationon 05-12-2023 Anion gap [Moles/Vol] 15.4 mmol/L [facility] Specific gravity Auto test s trip (U) [Rel density]on 05-12-2023 Specific gravity (U) [Rel density] CLEAR CLEAR [facility] Tacrolimus [Mass/volume] in Bloodon 05-12-2023 Tacrolimus (Bld) [Mass/Vol] 4.4 ng/mL 2.0-20.0 [facility] Comment on above: This test was develo ped and its performance characteristicsdetermined by [employer]. It has not been cleared orapproved by the Food and Drug Administration. Trough (immediately following transplant) 15.0 Trough (steady state, 2 weeks or more after transplant): 3.0 - 8.0 Performed by LC-MS/MS technology.Performed at: [address] [id number] Director: George Dahl MD, Phone: [phone] Urine bacteria detection by automated methodon 05-12-2023 Bacteria Auto Ql (U) NONE SEEN #/HPF NONE SEEN [facility] Urine glucose measurement by test strip (mass/volume)on 05-12-2023 Glucose Test strip (U) [Mass/Vol] 250 mg/dL NEGATIVE [facility] Urine hemoglobin detection b y automated test stripon 05-12-2023 Hemoglobin Auto test strip Ql (U) Negative NEGATIVE [facility] Urine nitrite detection by a utomated test stripon 05-12-2023 Nitrite Auto test strip Ql (U) Negative NEGATIVE [facility] Urine sediment crystal ident ification by light microscopyon 05-12-2023 Crystals LM Nom (Urine sed) None Seen #/HPF None Seen [facility] Urine sediment leukocyte cou nt by microscopy (number/high power field)on 05-12-2023 WBC LM.HPF (Urine sed) [#/Area] NONE SEEN #/HPF NONE SEEN [facility] Urobilinogen Auto test strip (U) [Mass/Vol]on 05-12-2023 Urobilinogen Qn (U) 0.2 {Hernandez'U}/dL 0.2-1.0 [facility] pH Auto test strip (U)on pH (U) 5.5 [pH] 5.0-9.0 [facility] COVID/FLU RT-PCRon SARS-CoV-2 (COVID-19) RNA CODY+probe Ql (Unsp spec) Positive [employer] Other COVID/FLU RT-PCR Negative [employer] Other [facility] echo transthoracicon [facility] echo transthoracic [facility] [place] [address] Echocardiogram Signed Patient: Raul Manriquez MR#: [id number] : 1955 Acct:[id number] Age/Sex: 67 / M ADM Date: 06/29/22 Loc: Room: Type: [facility] Attending Dr: Jarod Ballard MD Ordering Provider: Jarod Ballard MD Date of Service: 06/29/2201/11/1047 [facility] echo transthoracic: Renal transplant recipient;Murmur Copies [...] Garret Weeks MD 06/29/22 1135 Normal [facility] [id number] (TACROLIMUS) WHOLE BLO ODon 06-23-2022 Tacrolimus (FK506), Blood 4.8 ng/mL Normal 2.0-20.0 [facility] Comment on above: Result Comment: Trou gh (immediately following transplant) 15.0 . Trough (steady state, 2 weeks or more after transplant): 3.0 - 8.0 . Performed by LC-MS/MS technology. Performed By: #### F [id number] #### [facility] [address] [place] [address] Dr. Sagar Morales PTH INTACTon 06-22-2022 PTH, Intact 57 pg/mL Normal 15-65 [facility] Comment on above: Performed By: #### P THINT #### [facility] [address] [place] [address] Dr. Sagar Morales HEMOGRAM AND PLATELon 06-21 Hematocrit (Bld) [Volume fraction] 42.1 % Normal 42.0-54.0 [facility] Comment on above: Performed By: #### H H #### [facility] [address] [place] [address] Dr. Sagar Morales Hemoglobin (Bld) [Mass/Vol] 13.7 g/dL Critically low 14.0-18.0 [facility] Comment on above: Performed By: #### H H #### [facility] [address] [place] [address] Dr. Sagar Morales MCH (RBC) [Entitic mass] 30.0 pg Normal 25.9-34.0 [facility] Comment on above: Performed By: #### H H #### [facility] [address] [place] [address] Dr. Sagar Morales MCHC (RBC) [Mass/Vol] 32.5 g/dL Normal 29.9-35.2 [facility] Comment on above: Performed By: #### H H #### [facility] [address] [place] [address] Dr. Sagar Morales MCV (RBC) [Entitic vol] 92.3 fL Normal 80.0-94.0 [facility] Comment on above: Performed By: #### H H #### [facility] [address] [place] [address] Dr. Sagar Morales PLT 122 103/ul Critically low 150-450 [facility] Comment on above: Performed By: #### H H #### [facility] [address] [place] [address] Dr. Sagar Morales RBC 4.56 106/ul Critically low 4.70-6.10 [facility] Comment on above: Performed By: #### H H #### [facility] [address] [place] [address] Dr. Sagar Morales WBC 5.1 103/ul Normal 4.0-11.0 [facility] Comment on above: Performed By: #### H H #### [facility] [address] [place] [address] Dr. Sagar Morales MAGNESIUMon 06-21-2022 Magnesium [Mass/Vol] 1.7 mg/dL Critically low 1.8-2.4 [facility] Comment on above: Performed By: #### R KATHRYN URIC, LIVER #### [facility] [address] [place] [address] Dr. Sagar Morales PROF 14(COMP METB)on 023 Albumin [Mass/Vol] 3.6 g/dL Normal 3.4-5.0 [facility] Comment on above: Performed By: #### R ENMADI URIC, LIVER #### [facility] [address] [place] [address] Dr. Sagar Morales Albumin/Globulin [Mass ratio] 1.0 {ratio} Normal [facility] Comment on above: Performed By: #### R ENMADI URIC, LIVER #### [facility] [address] [place] [address] [address] Sagar Morales ALP [Catalytic activity/Vol] 62 U/L Normal 46-116 [facility] Comment on above: Performed By: #### R ENMADI, URIC, LIVER #### [facility] [address] [place] [address] [address] Sagar Morales ALT [Catalytic activity/Vol] 38 U/L Normal 16-63 [facility] Comment on above: Performed By: #### R ENMADI, URIC, LIVER #### [facility] [address] [place] [address] [address] Sagar Morales Anion gap [Moles/Vol] 12.4 mmol/L Normal [facility] Comment on above: Performed By: #### R ENMADI URIC, LIVER #### [facility] [address] [place] [address] Dr. Sagar Morales AST [Catalytic activity/Vol] 24 U/L Normal 15-37 [facility] Comment on above: Performed By: #### R ENMADI URIC, LIVER #### [facility] [address] [place] [address] [address] Sagar Morales Bilirubin [Mass/Vol] 0.6 mg/dL Normal 0.2-1.0 [facility] Comment on above: Performed By: #### R ENMADI, URIC, LIVER #### [facility] [address] [place] [address] Dr. Sagar Morales Calcium [Mass/Vol] 9.9 mg/dL Normal 8.5-10.1 [facility] Comment on above: Performed By: #### R ENAL, URIC, LIVER #### [facility] [address] [place] [address] Dr. Sagar Morales Chloride [Moles/Vol] 103 mmol/L Normal 98-107 [facility] Comment on above: Performed By: #### R ENAL, URIC, LIVER #### [facility] [address] [place] [address] Dr. Sagar Morales CO2 [Moles/Vol] 25.3 mmol/L Normal 21.0-32.0 [facility] Comment on above: Performed By: #### R ENAL, URIC, LIVER #### [facility] [address] [place] [address] Dr. Sagar Morales Creatinine [Mass/Vol] 1.59 mg/dL Critically high 0.70-1.30 [facility] Comment on above: Performed By: #### R ENAL, URIC, LIVER #### [facility] [address] [place] [address] Dr. Sagar Morales EGFR-AF VINCENTIAN 53 mL/min/1.73m2 Critically low >=60 [facility] Comment on above: Performed By: #### R ENAL, URIC, LIVER #### [facility] [address] [place] [address] Dr. Sagar Morales EGFR-NON AF VINCENTIAN 44 mL/min/1.73m2 Critically low >=60 [facility] Comment on above: Performed By: #### R ENAL, URIC, LIVER #### [facility] [address] [place] [address] Dr. Sagar Morales Globulin (S) [Mass/Vol] 3.7 g/dL Normal [facility] Comment on above: Performed By: #### R ENAL, URIC, LIVER #### [facility] [address] [place] [address] Dr. Sagar Morales Glucose [Mass/Vol] 211 mg/dL Critically high 74-106 [facility] Comment on above: Performed By: #### R ENAL, URIC, LIVER #### [facility] [address] [place] [address] Dr. Sagar Morales Potassium [Moles/Vol] 4.7 mmol/L Normal 3.5-5.1 [facility] Comment on above: Performed By: #### R ENAL, URIC, LIVER #### [facility] [address] [place] [address] Dr. Sagar Morales Protein [Mass/Vol] 7.3 g/dL Normal 6.4-8.2 [facility] Comment on above: Performed By: #### R ENAL, URIC, LIVER #### [facility] [address] [place] [address] Dr. Sagar Morales Sodium [Moles/Vol] 136 mmol/L Normal 136-145 [facility] Comment on above: Performed By: #### R FRANNY PERALTA, LIVER #### [facility] [address] [place] [address] Dr. Sagar Morales Urea nitrogen [Mass/Vol] 40.0 mg/dL Critically high 7.0-18.0 [facility] Comment on above: Performed By: #### R FRANNY PERALTA, LIVER #### [facility] [address] [place] [address] Dr. Sagar Morales Urea nitrogen/Creatini ne [Mass ratio] 25.2 mg/mg Normal [facility] Comment on above: Performed By: #### R FRANNY PERALTA, LIVER #### [facility] [address] [place] [address] Dr. Sagar Morales UA RANDOM W/MICROSCOPICon BACTERIA NONE SEEN Normal NONE SEEN [facility] Comment on above: Performed By: #### U AMIC #### [facility] [address] [place] [address] Dr. Sagar Morales Bilirubin Ql (U) Negative Normal NEGATIVE [facility] Comment on above: Performed By: #### U AMIC #### [facility] [address] [place] [address] Dr. Sagar Morales CAST NONE SEEN Normal NONE SEEN [facility] Comment on above: Performed By: #### U AMIC #### [facility] [address] [place] [address] Dr. Sagar Morales Clarity (U) CLEAR Normal CLEAR [facility] Comment on above: Performed By: #### U AMIC #### [facility] [address] [place] [address] Dr. Sagar Morales Color (U) LT. YELLOW Normal YELLOW [facility] Comment on above: Performed By: #### U AMIC #### [facility] [address] [place] [address] Dr. Sagar Morales Crystals LM Nom (Urine sed) NONE SEEN Normal NONE SEEN [facility] Comment on above: Performed By: #### U AMIC #### [facility] [address] [place] [address] [address] Sagar Morales Epithelial cells LM Ql (Urine sed) FEW Abnormal NONE SEEN /RARE [facility] Comment on above: Performed By: #### U AMIC #### [facility] [address] [place] [address] [address] Sagar Morales Glucose Ql (U) 250 mg/dl Abnormal NEGATIVE [facility] Comment on above: Performed By: #### U AMIC #### [facility] [address] [place] [address] [address] Sagar Morales Hemoglobin Ql (U) Negative Normal NEGATIVE [facility] Comment on above: Performed By: #### U AMIC #### [facility] [address] [place] [address] [address] Sagar Morales Ketones Ql (U) Negative Normal NEGATIVE [facility] Comment on above: Performed By: #### U AMIC #### [facility] [address] [place] [address] [address] Sagar Morales LEUKOCYTES Negative Normal NEGATIVE [facility] Comment on above: Performed By: #### U AMIC #### [facility] [address] [address] [address] Sagar Morales MUCOUS NONE SEEN Normal NONE SEEN [facility] Comment on above: Performed By: #### U AMIC #### [facility] [address] [place] [address] [address] Sagar Morales Nitrite Ql (U) Negative Normal NEGATIVE [facility] Comment on above: Performed By: #### U AMIC #### [facility] [address] [place] [address] [address] Sagar Morales pH (U) 5.5 [pH] Normal 5-9 [facility] Comment on above: Performed By: #### U AMIC #### [facility] [address] [place] [address] Dr. Sagar Morales RBC NONE SEEN Abnormal 0-2 [facility] Comment on above: Performed By: #### U AMIC #### [facility] [address] [place] [address] Dr. Sagar Morales SPEC GRAVITY 1.015 Normal 1.005-<=1.0 25 [facility] Comment on above: Performed By: #### U AMIC #### [facility] [address] [place] [address] Dr. Sagar Morales UA PROTEIN Negative Normal NEGATIVE/ TRACE [facility] Comment on above: Performed By: #### U AMIC #### [facility] [address] [place] [address] Dr. Sagar Morales Urobilinogen Qn (U) 0.2 {Hernandez'U}/dL Normal 0.2 - 1.0 [facility] Comment on above: Performed By: #### U AMIC #### [facility] [address] [place] [address] Dr. Sagar Morales WBC NONE SEEN Normal NONE SEEN [facility] Comment on above: Performed By: #### U AMIC #### [facility] [address] [place] [address] Dr. Sagar Morales URIC ACID SERUMon 06-21-2022 Urate [Mass/Vol] 4.4 mg/dL Normal 3.5-7.2 [facility] Comment on above: Performed By: #### R ENAL URIC, LIVER #### [facility] [address] [place] [address] Dr. Sagar Morales URINE T PROTEIN CREAT RATIOo n 06-21-2022 Protein (U) [Mass/Vol] 15.7 mg/dL Critically high <=12.0 [facility] Comment on above: Performed By: #### R ENAL, URIC, LIVER #### [facility] [address] [place] [address] Dr. Sagar Morales UR PROT CREAT RAT 0.34 Normal [facility] Comment on above: Performed By: #### R ENAL, URIC, LIVER #### [facility] [address] [place] [address] Dr. Sagar Morales URINE CREAT 45.54 mg/dL Normal 20.00-300.0 0 [facility] Comment on above: Performed By: #### R ENAL, URIC, LIVER #### [facility] [address] [address] [address] Sagar Morales VITAMIN D 25 OHon 06-21-2022 VIT D 25-OH 36.8 ng/mL Normal [facility] Comment on above: Performed By: #### R ENAL, URIC, LIVER #### [facility] [address] [place] [address] Dr. Sagar Morales VIT D RANGES SEE BELOW Normal [facility] Comment on above: Result Comment: <20 ng/mL Vit D deficient 20 - <30 ng/mL Vit D insufficient 30 - 100 ng/mL Vit D sufficient >100 ng/mL Potential Toxicity Performed By: #### R ENAL, URIC, LIVER #### [facility] [address] [place] [address] Dr. Sagar Morales GLYCOHEMOGLOBIN A1Con 2022 ADA RECOMMENDATION SEE BELOW Normal [facility] Comment on above: Result Comment: ADA RECOMMENDED LIMIT 4.0 - 6.0 ADA THERAPEUTIC TARGET < 7.0 ACTION SUGGESTED > 7.0 Performed By: #### R ENAL, URIC, LIVER #### [facility] [address] [place] [address] Dr. Sagar Morales Glucose [Mass/Vol] 120 mg/dL Normal [facility] Comment on above: Performed By: #### R ENAL, URIC, LIVER #### [facility] [address] [place] [address] Dr. Sagar Morales HbA1c (Bld) [Mass fraction] 5.8 % Normal 4.5-6.2 [facility] Comment on above: Performed By: #### R ENAL, URIC, LIVER #### [facility] [address] [place] [address] Dr. Sagar Morales LIPID PROFILEon 05-18-2022 CHOL-HDL RATIO NORM SEE BELOW Normal [facility] Comment on above: Result Comment: 3.3 - 4.4 LOW RISK 4.4 - 7.1 AVERAGE RISK 7.1 - 11.0 MODERATE RISK >11.0 HIGH RISK Performed By: #### R ENAL, URIC, LIVER #### [facility] [address] [place] [address] Dr. Sagar Morales Cholesterol [Mass/Vol] 176 mg/dL Normal <=200 [facility] Comment on above: Performed By: #### R ENAL URIC, LIVER #### [facility] [address] [address] [address] Sagar Morales Cholesterol in HDL [Mass/Vol] 84 mg/dL Critically high 40-60 [facility] Comment on above: Performed By: #### R ENAL URIC, LIVER #### [facility] [address] [address] [address] Sagar Morales Cholesterol in LDL [Mass/Vol] 76.0 mg/dL Normal [facility] Comment on above: Performed By: #### R ENMADI URIC, LIVER #### [facility] [address] [place] [address] Dr. Sagar Morales Cholesterol.total /Cholesterol in HDL [Mass ratio] 2.1 {ratio} Normal [facility] Comment on above: Performed By: #### R ENAL URIC, LIVER #### [facility] [address] [place] [address] Dr. Sagar Morales HDL NORMAL > or = 60 mg/dl - LO W CARDIOVASCULAR RISK <40 mg/dl - HIGH CARDIOVASCULAR RISK Normal [facility] Comment on above: Performed By: #### R ENAL URIC, LIVER #### [facility] [address] [place] [address] Dr. Sagar Morales LDL CALC NORMAL SEE BELOW Normal [facility] Comment on above: Result Comment: <100 mg/dl OPTIMAL 100 - 129 mg/dl NEAR OR ABOVE OPTIMAL 130 - 159 mg/dl BORDERLINE HIGH 160 - 189 mg/dl HIGH >190 mg/dl VERY HIGH Performed By: #### R ENAL URIC, LIVER #### [facility] [address] [address] [address] Sagar Morales Triglyceride [Mass/Vol] 80 mg/dL Normal <=150 [facility] Comment on above: Performed By: #### R ENAL URIC, LIVER #### [facility] [address] [address] [address] Sagar Morales VLDL CALC 16.0 mg/dL Normal [facility] Comment on above: Performed By: #### R ENMADI URIC, LIVER #### [facility] [address] [address] [address] Sagar Morales FK506 (TACROLIMUS) WHOLE BLO ODon 04-02-2022 Tacrolimus (FK506), Blood 5.4 ng/mL Normal 2.0-20.0 [facility] Comment on above: Result Comment: Trou gh (immediately following transplant) 15.0 . Trough (steady state, 2 weeks or more after transplant): 3.0 - 8.0 . Performed by LC-MS/MS technology. Performed By: #### F [id number] #### [facility] [address] [place] [address] Dr. Sagar Morales RENAL FUNCTION PANELon 03-30 Albumin [Mass/Vol] 3.4 g/dL Normal 3.4-5.0 [facility] Comment on above: Performed By: #### R ENMADI URIC, LIVER #### [facility] [address] [place] [address] Dr. Sagar Morales Calcium [Mass/Vol] 9.5 mg/dL Normal 8.5-10.1 [facility] Comment on above: Performed By: #### R KATHRYN URIC, LIVER #### [facility] [address] [place] [address] Dr. Sagar Morales Chloride [Moles/Vol] 106 mmol/L Normal 98-107 [facility] Comment on above: Performed By: #### R ENMADI URIC, LIVER #### [facility] [address] [place] [address] Dr. Sagar Morales CO2 [Moles/Vol] 23.0 mmol/L Normal 21.0-32.0 [facility] Comment on above: Performed By: #### R ENMADI URIC, LIVER #### [facility] [address] [place] [address] Dr. Sagar Morales Creatinine [Mass/Vol] 1.62 mg/dL Critically high 0.70-1.30 [facility] Comment on above: Performed By: #### R ENMADI URIC, LIVER #### [facility] [address] [address] [address] Sagar Morales EGFR-AF VINCENTIAN 52 mL/min/1.73m2 Critically low >=60 [facility] Comment on above: Performed By: #### R ENAL, URIC, LIVER #### [facility] [address] [address] [address] Sagar Morales EGFR-NON AF VINCENTIAN 43 mL/min/1.73m2 Critically low >=60 [facility] Comment on above: Performed By: #### R ENAL, URIC, LIVER #### [facility] [address] [address] [address] Sagar Morales Glucose [Mass/Vol] 148 mg/dL Critically high 74-106 [facility] Comment on above: Performed By: #### R ENAL, URIC, LIVER #### [facility] [address] [place] [address] Dr. Sagar Morales Phosphate [Mass/Vol] 2.3 mg/dL Critically low 2.6-4.7 [facility] Comment on above: Performed By: #### R ENMADI URIC, LIVER #### [facility] [address] [address] [address] Sagar Morales Potassium [Moles/Vol] 4.2 mmol/L Normal 3.5-5.1 [facility] Comment on above: Performed By: #### R ENMADI URIC, LIVER #### [facility] [address] [address] [address] Sagar Morales Sodium [Moles/Vol] 138 mmol/L Normal 136-145 [facility] Comment on above: Performed By: #### R ENAL, URIC, LIVER #### [facility] [address] [address] [address] Sagar Morales Urea nitrogen [Mass/Vol] 27.0 mg/dL Critically high 7.0-18.0 [facility] Comment on above: Performed By: #### R ENAL, URIC, LIVER #### [facility] [address] [address] [address] Sagar Morales FK506 (TACROLIMUS) WHOLE BLO ODon 12-09-2021 Tacrolimus (FK506), Blood 3.6 ng/mL Normal 2.0-20.0 [facility] Comment on above: Result Comment: Trou gh (immediately following transplant) 15.0 . Trough (steady state, 2 weeks or more after transplant): 3.0 - 8.0 . Performed by LC-MS/MS technology. Performed By: #### F [id number] #### [facility] [address] [address] [address] Sagar Morales LIVER PROFILEon 12-06-2021 Albumin [Mass/Vol] 3.6 g/dL Normal 3.4-5.0 [facility] Comment on above: Performed By: #### Troy PERALTA URIC, LIVER #### [facility] [address] [place] [address] Dr. Sagar Morales Albumin/Globulin [Mass ratio] 1.0 {ratio} Normal [facility] Comment on above: Performed By: #### Troy PERALTA URIC, LIVER #### [facility] [address] [place] [address] Dr. Sagar Morales ALP [Catalytic activity/Vol] 59 U/L Normal 46-116 [facility] Comment on above: Performed By: #### Troy PERALTA URIC, LIVER #### [facility] [address] [place] [address] Dr. Sagar Morales ALT [Catalytic activity/Vol] 31 U/L Normal 16-63 [facility] Comment on above: Performed By: #### R ENMADI URIC, LIVER #### [facility] [address] [address] [address] Sagar Morales AST [Catalytic activity/Vol] 19 U/L Normal 15-37 [facility] Comment on above: Performed By: #### R ENMADI URIC, LIVER #### [facility] [address] [place] [address] Dr. Sagar Morales BILI, CONJUGATED 0.1 mg/dL Normal 0.0-0.2 [facility] Comment on above: Performed By: #### R ENMADI URIC, LIVER #### [facility] [address] [place] [address] Dr. Sagar Morales Bilirubin [Mass/Vol] 0.6 mg/dL Normal 0.2-1.0 [facility] Comment on above: Performed By: #### R ENAL, URIC, LIVER #### [facility] [address] [address] [address] Sagar Morales Globulin (S) [Mass/Vol] 3.5 g/dL Normal [facility] Comment on above: Performed By: #### R ENAL, URIC, LIVER #### [facility] [address] [address] [address] Sagar Morales Protein [Mass/Vol] 7.1 g/dL Normal 6.4-8.2 [facility] Comment on above: Performed By: #### R ENAL, URIC, LIVER #### [facility] [address] [place] [address] Dr. Sagar Morales RENAL FUNCTION PANELon 12-06 Calcium [Mass/Vol] 9.6 mg/dL Normal 8.5-10.1 [facility] Comment on above: Performed By: #### R ENAL, URIC, LIVER #### [facility] [address] [address] [address] Sagar Morales Chloride [Moles/Vol] 103 mmol/L Normal 98-107 [facility] Comment on above: Performed By: #### R ENAL, URIC, LIVER #### [facility] [address] [address] [address] Sagar Morales CO2 [Moles/Vol] 23.7 mmol/L Normal 21.0-32.0 [facility] Comment on above: Performed By: #### R ENAL, URIC, LIVER #### [facility] [address] [address] [address] Sagar Morales Creatinine [Mass/Vol] 1.65 mg/dL Critically high 0.70-1.30 [facility] Comment on above: Performed By: #### R ENAL, URIC, LIVER #### [facility] [address] [address] [address] Sagar Morales EGFR-AF VINCENTIAN 51 mL/min/1.73m2 Critically low >=60 [facility] Comment on above: Performed By: #### R ENAL, URIC, LIVER #### [facility] [address] [address] [address] Sagar Morales EGFR-NON AF VINCENTIAN 42 mL/min/1.73m2 Critically low >=60 [facility] Comment on above: Performed By: #### R ENAL, URIC, LIVER #### [facility] [address] [place] [address] Dr. Sagar Morales Glucose [Mass/Vol] 256 mg/dL Critically high 74-106 [facility] Comment on above: Performed By: #### R ENAL, URIC, LIVER #### [facility] [address] [place] [address] Dr. Sagar Morales Phosphate [Mass/Vol] 2.6 mg/dL Normal 2.6-4.7 [facility] Comment on above: Performed By: #### R ENAL, URIC, LIVER #### [facility] [address] [place] [address] Dr. Sagar Morales Potassium [Moles/Vol] 4.7 mmol/L Normal 3.5-5.1 [facility] Comment on above: Performed By: #### R ENAL, URIC, LIVER #### [facility] [address] [place] [address] Dr. Sagar Morales Sodium [Moles/Vol] 137 mmol/L Normal 136-145 [facility] Comment on above: Performed By: #### R ENAL, URIC, LIVER #### [facility] [address] [place] [address] Dr. Sagar Morales Urea nitrogen [Mass/Vol] 27.0 mg/dL Critically high 7.0-18.0 [facility] Comment on above: Performed By: #### R ENAL, URIC, LIVER #### [facility] [address] [place] [address] Dr. Sagar Morales URIC ACID SERUMon 12-06-2021 Urate [Mass/Vol] 4.7 mg/dL Normal 3.5-7.2 [facility] Comment on above: Performed By: #### R ENAL, URIC, LIVER #### [facility] [address] [place] [address] Dr. Sagar Morales URINE T PROTEIN CREAT RATIOo n 12-06-2021 Protein (U) [Mass/Vol] 28.8 mg/dL Critically high <=12.0 [facility] Comment on above: Performed By: #### R ENAL, URIC, LIVER #### [facility] [address] [address] [address] Sagar Morales UR PROT CREAT RAT 0.21 Normal [facility] Comment on above: Performed By: #### R ENMADI, URIC, LIVER #### [facility] [address] [place] [address] Dr. Sagar Moralse URINE CREAT 137.37 mg/dL Normal 20.00-300.0 0 [facility] Comment on above: Performed By: #### R ENMADI URIC, LIVER #### [facility] [address] [place] [address] Dr. Sagar Morales FK506 (TACROLIMUS) WHOLE BLO ODon 08-19-2021 Tacrolimus (FK506), Blood 4.4 ng/mL Normal 2.0-20.0 [facility] Comment on above: Result Comment: Trou gh (immediately following transplant) 15.0 . Trough (steady state, 2 weeks or more after transplant): 3.0 - 8.0 . Performed by LC-MS/MS technology. Performed By: #### F [id number] #### [facility] [address] [place] [address] Dr. Sagar Morales LIVER PROFILEon 08-17-2021 Albumin [Mass/Vol] 3.4 g/dL Normal 3.4-5.0 [facility] Comment on above: Performed By: #### R ENMADI URIC, LIVER #### [facility] [address] [place] [address] Dr. Sagar Morales Albumin/Globulin [Mass ratio] 1.0 {ratio} Normal [facility] Comment on above: Performed By: #### R ENMADI URIC, LIVER #### [facility] [address] [place] [address] Dr. Sagar Morales ALP [Catalytic activity/Vol] 71 U/L Normal 46-116 [facility] Comment on above: Performed By: #### R ENAL, URIC, LIVER #### [facility] [address] [place] [address] Dr. Sagar Morales ALT [Catalytic activity/Vol] 38 U/L Normal 16-63 [facility] Comment on above: Performed By: #### R ENMADI, URIC, LIVER #### [facility] [address] [place] [address] Dr. Sagar Morales AST [Catalytic activity/Vol] 21 U/L Normal 15-37 [facility] Comment on above: Performed By: #### R ENMAID URIC, LIVER #### [facility] [address] [place] [address] Dr. Sagar Morales BILI, CONJUGATED 0.2 mg/dL Normal 0.0-0.2 [facility] Comment on above: Performed By: #### R ENAL URIC, LIVER #### [facility] [address] [place] [address] Dr. Sagar Morales Bilirubin [Mass/Vol] 0.6 mg/dL Normal 0.2-1.0 [facility] Comment on above: Performed By: #### R ENMADI URIC, LIVER #### [facility] [address] [place] [address] Dr. Sagar Morales Globulin (S) [Mass/Vol] 3.4 g/dL Normal [facility] Comment on above: Performed By: #### R ENAL, URIC, LIVER #### [facility] [address] [place] [address] Dr. Sagar Morales Protein [Mass/Vol] 6.8 g/dL Normal 6.4-8.2 [facility] Comment on above: Performed By: #### R ENMADI, URIC, LIVER #### [facility] [address] [place] [address] Dr. Sagar Morales RENAL FUNCTION PANELon 08-17 Calcium [Mass/Vol] 9.5 mg/dL Normal 8.5-10.1 [facility] Comment on above: Performed By: #### R ENMADI URIC, LIVER #### [facility] [address] [address] [address] Sagar Morales Chloride [Moles/Vol] 103 mmol/L Normal 98-107 [facility] Comment on above: Performed By: #### R ENAL, URIC, LIVER #### [facility] [address] [place] [address] Dr. Sagar Morales CO2 [Moles/Vol] 25.3 mmol/L Normal 21.0-32.0 [facility] Comment on above: Performed By: #### R ENAL, URIC, LIVER #### [facility] [address] [place] [address] Dr. Sagar Morales Creatinine [Mass/Vol] 1.73 mg/dL Critically high 0.70-1.30 [facility] Comment on above: Performed By: #### R ENAL, URIC, LIVER #### [facility] [address] [place] [address] Dr. Sagar Morales EGFR-AF VINCENTIAN 48 mL/min/1.73m2 Critically low >=60 [facility] Comment on above: Performed By: #### R ENAL, URIC, LIVER #### [facility] [address] [place] [address] Dr. Sagar Morales EGFR-NON AF VINCENTIAN 40 mL/min/1.73m2 Critically low >=60 [facility] Comment on above: Performed By: #### R ENAL, URIC, LIVER #### [facility] [address] [place] [address] Dr. Sagar Morales Glucose [Mass/Vol] 197 mg/dL Critically high 74-106 [facility] Comment on above: Performed By: #### R ENAL, URIC, LIVER #### [facility] [address] [place] [address] Dr. Sagar Morales Phosphate [Mass/Vol] 2.8 mg/dL Normal 2.6-4.7 [facility] Comment on above: Performed By: #### R ENAL, URIC, LIVER #### [facility] [address] [place] [address] Dr. Sagar Morales Potassium [Moles/Vol] 4.9 mmol/L Normal 3.5-5.1 [facility] Comment on above: Performed By: #### R ENMADI URIC, LIVER #### [facility] [address] [place] [address] Dr. Sagar Morales Sodium [Moles/Vol] 136 mmol/L Normal 136-145 [facility] Comment on above: Performed By: #### R ENMADI URIC, LIVER #### [facility] [address] [place] [address] Dr. Sagar Morales Urea nitrogen [Mass/Vol] 25.0 mg/dL Critically high 7.0-18.0 [facility] Comment on above: Performed By: #### R ENMADI URIC, LIVER #### [facility] [address] [place] [address] Dr. Sagar Morales URIC ACID SERUMon 08-17-2021 Urate [Mass/Vol] 4.5 mg/dL Normal 3.5-7.2 [facility] Comment on above: Performed By: #### R ENMADI URIC, LIVER #### [facility] [address] [place] [address] Dr. Sagar Morales URINE T PROTEIN CREAT RATIOo n 08-17-2021 Protein (U) [Mass/Vol] 27.9 mg/dL Critically high <=12.0 [facility] Comment on above: Performed By: #### R ENMADI URIC, LIVER #### [facility] [address] [place] [address] Dr. Sagar Morales UR PROT CREAT RAT 0.24 Normal [facility] Comment on above: Performed By: #### R ENAL, URIC, LIVER #### [facility] [address] [place] [address] Dr. Sagar Morales URINE CREAT 114.26 mg/dL Normal 20.00-300.0 0 [facility] Comment on above: Performed By: #### R ENMADI, URIC, LIVER #### [facility] [address] [place] [address] Dr. Sagar Morales Vital Signs Date Time Vital Sign Value Performing Clinician Facility 05-24-2023 11:23-0400 Body height 180.34 cm MD Shaikh Rodarte Work Phone: [facility] 05-24-2023 11:23-0400 Body mass index (BMI) [Ratio] 21.3 kg/m2 MD Shaikh Rodarte Work Phone: [facility] 05-24-2023 11:23-0400 Body temperature 98 [degF] MD Shaikh Rodarte Work Phone: [facility] 05-24-2023 11:23-0400 Body weight 69.45 kg MD Shaikh Rodarte Work Phone: [facility] 05-24-2023 11:23-0400 Heart rate 91 /min MD Shaikh Rodarte Work Phone: [facility] 05-24-2023 11:23-0400 Respiratory rate 18 /min MD Shaikh Rodarte Work Phone: [facility] 05-24-2023 11:23-0400 SaO2% (BldA) [Mass fraction] 99 % MD Shaikh Rodarte Work Phone: [facility] 05-17-2023 13:20-0400 Body height 180.34 cm [facility] 05-17-2023 13:20-0400 Body mass index (BMI) [Ratio] 20.9 kg/m2 [facility] 05-17-2023 13:20-0400 Body temperature 97.6 [degF] [facility] 05-17-2023 13:20-0400 Body weight 68.26 kg [facility] 05-17-2023 13:20-0400 Diastolic blood pressure 60 mm[Hg] [facility] 05-17-2023 13:20-0400 Heart rate 99 /min [facility] 05-17-2023 13:20-0400 Respiratory rate 16 /min [facility] 05-17-2023 13:20-0400 SaO2% (BldA) [Mass fraction] 98 % [facility] 05-17-2023 13:20-0400 Systolic blood pressure 122 mm[Hg] [facility] 02-23-2023 12:15-0500 Body height 180.34 cm Kailey Deluca Other [facility] 02-23-2023 12:15-0500 Body mass index (BMI) [Ratio] 20.58 kg/m2 Kailey Rosariomond Other [employer] Other 02-23-2023 12:15-0500 Body temperature 98.7 [degF] Kailey Deluca Other [employer] Other 02-23-2023 12:15-0500 Body weight 66.95 kg Kailey Deluca Other [facility] 02-23-2023 12:15-0500 Diastolic blood pressure 62 mm[Hg] Kailey Deluca Other [facility] 02-23-2023 12:15-0500 Respiratory rate 18 /min Kailey Rosariomond Other [employer] Other 02-23-2023 12:15-0500 SaO2% (BldA) [Mass fraction] 98 % Kailey Rosariomond Other [employer] Other 02-23-2023 12:15-0500 Systolic blood pressure 118 mm[Hg] Kailey Sandrine Other [facility] 12-18-2022 14:20-0400 Body height 180.34 cm Jarod Madina Other [employer] Other 12-18-2022 14:20-0400 Body mass index (BMI) [Ratio] 20.89 kg/m2 Jarod Madina Other [employer] Other 12-18-2022 14:20-0400 Body temperature 96.9 [degF] Jarod Madina Other [employer] Other 12-18-2022 14:20-0400 Body weight 67.95 kg Jarod Madina Other [employer] Other 12-18-2022 14:20-0400 Diastolic blood pressure 62 mm[Hg] Jarod Madina Other [employer] Other 12-18-2022 14:20-0400 Respiratory rate 18 /min Jarod Madina Other [employer] Other 12-18-2022 14:20-0400 SaO2% (BldA) [Mass fraction] 99 % Jarod Madina Other [employer] Other 12-18-2022 14:20-0400 Systolic blood pressure 116 mm[Hg] Jarod Madina Other [employer] Other 09-07-2022 10:40-0400 Body height 180.34 cm Jarod Madina Other [employer] Other 09-07-2022 10:40-0400 Body mass index (BMI) [Ratio] 21.11 kg/m2 Jarod Madina Other [employer] Other 09-07-2022 10:40-0400 Body temperature 97.2 [degF] Jarod Madina Other [employer] Other 09-07-2022 10:40-0400 Body weight 68.68 kg Jarod Madina Other [employer] Other 09-07-2022 10:40-0400 Diastolic blood pressure 53 mm[Hg] Jarod Madina Other [employer] Other 09-07-2022 10:40-0400 Respiratory rate 18 /min Jarod Madina Other [employer] Other 09-07-2022 10:40-0400 SaO2% (BldA) [Mass fraction] 99 % Jarod Madina Other [employer] Other 09-07-2022 10:40-0400 Systolic blood pressure 102 mm[Hg] Jarod Madina Other [employer] Other 08-14-2022 09:55-0400 Body height 180.34 cm Chani Milner Other [employer] Other 08-14-2022 09:55-0400 Body mass index (BMI) [Ratio] 20.36 kg/m2 Chani Milner Other [employer] Other 08-14-2022 09:55-0400 Body temperature 97.9 [degF] Chani Milner Other [employer] Other 08-14-2022 09:55-0400 Body weight 66.23 kg Chani Milner Other [employer] Other 08-14-2022 09:55-0400 Diastolic blood pressure 55 mm[Hg] Chani Milner Other [employer] Other 08-14-2022 09:55-0400 Respiratory rate 18 /min Chani Galloley Other [employer] Other 08-14-2022 09:55-0400 SaO2% (BldA) [Mass fraction] 98 % Chani Galloley Other [employer] Other 08-14-2022 09:55-0400 Systolic blood pressure 102 mm[Hg] Chani Galloley Other [employer] Other 06-15-2022 15:20-0400 Body height 180.34 cm Jarod Madina Other [employer] Other 06-15-2022 15:20-0400 Body mass index (BMI) [Ratio] 20.61 kg/m2 Jarod Madina Other [employer] Other 06-15-2022 15:20-0400 Body temperature 97.5 [degF] Jarod Madina Other [employer] Other 06-15-2022 15:20-0400 Body weight 67.04 kg Jarod Madina Other [employer] Other 06-15-2022 15:20-0400 Diastolic blood pressure 64 mm[Hg] Jarod Madina Other [employer] Other 06-15-2022 15:20-0400 Respiratory rate 18 /min Jarod Madina Other [employer] Other 06-15-2022 15:20-0400 SaO2% (BldA) [Mass fraction] 97 % Jarod Madina Other [employer] Other 06-15-2022 15:20-9750 Systolic blood pressure 120 mm[Hg] Jarod Ballard Other [facility] [employer] Other Encounters Encounter Date Encounter Type Care Provider Facility Start: 07-30-2023 End: 07-30-2023 ambulatory SHAIKH CAYDEN Not Available Start: 07-26-2023 End: 07-26-2023 ambulatory KHAI THOMPSON Not Available Start: 05-24-2023 End: 05-24-2023 ambulatory Kailey Deluca Facility:[facility] Start: 05-24-2023 End: 05-24-2023 ambulatory MD Shaikh Rodarte Work Phone: [facility] Work Phone: Start: 05-24-2023 End: 05-24-2023 Patient encounter procedure MD Shaikh Rodarte Work Phone: [facility] Work Phone: Start: 05-17-2023 Patient encounter status [facility] Start: 05-17-2023 End: 05-17-2023 ambulatory [facility] Work Phone: Start: 05-17-2023 End: 05-17-2023 Encounter for general adult medical examination without abnormal findings [facility] Start: 05-17-2023 End: 05-17-2023 Patient encounter procedure [facility] Work Phone: Start: 05-12-2023 Non-patient / Non-visit [facility] Work Phone: Start: 04-24-2023 End: 04-24-2023 ambulatory SHAIKH CAYDEN Not Available Start: 04-21-2023 Non-patient / Non-visit MD Trung Rodarte Work Phone: [facility] Work Phone: Start: 04-04-[address] [facility] [employer] Work Phone: [facility] Start: 04-04-[address] [employer]OW [employer] Work Phone: [facility] Start: 04-04-2023 End: 04-04-2023 Office outpatient visit 15 minutes Gissell Scotter [employer] Work Phone: [facility] Comment on [...] 02-23-2023 End: 02-23-2023 ambulatory Kailey Deluca Other [employer] Other Start: 02-23-2023 Office outpatient vi sit 15 minutes Kailey Deluca [facility] Start: 02-23-2023 End: 02-23-2023 Patient encounter procedure [facility] Physician [facility] Work Phone: Start: 01-30-2023 End: 01-30-2023 ambulatory Jarod Madina Other [employer] Other Start: 01-30-2023 Telephone encounter Jarod Ballard [facility] Start: 01-22-2023 End: 01-22-2023 ambulatory SHAIKH CAYDEN Not Available Start: 01-22-2023 Patient encounter procedure Shaikh Cayden SWAN Work Phone: [facility] Start: 12-18-2022 End: 12-18-2022 ambulatory Jarod Madina Other [employer] Other Start: 12-18-2022 Encounter for genera l adult medical examination without abnormal findings Jarod Madina [facility] Start: 12-18-2022 Office outpatient vi sit 25 minutes Jarod Madina [facility] Start: 09-07-2022 End: 09-07-2022 ambulatory Jarod Madina Other [employer] Other Start: 09-07-2022 Encounter for genera l adult medical examination without abnormal findings Jarod Madina [facility] Start: 09-07-2022 Office outpatient vi sit 25 minutes Jarod Madina [facility] Start: 08-14-2022 End: 08-14-2022 ambulatory Chani Milner Other [employer] Other Start: 08-14-2022 Office outpatient vi sit 15 minutes Chani Milner [facility] Start: 06-29-2022 End: 06-29-2022 ambulatory Jarod Madina Facility:[facility] Start: 06-29-2022 End: 06-29-2022 ambulatory MD Shaikh Rodarte Work Phone: [facility] Work Phone: Start: 06-29-2022 End: 06-29-2022 Patient encounter procedure MD Shaikh Rodarte Work Phone: [facility] Work Phone: Start: 06-28-2022 Encounter for genera l adult medical examination without abnormal findings JAROD MADINA [facility] Start: 06-25-2022 End: 06-25-2022 ambulatory Jarod Madina Other [employer] Other Start: 06-25-2022 Telephone encounter Jarod Madina [facility] Start: 06-21-2022 End: 06-22-2022 ambulatory SHAIKH Hugo RODARTE Facility:[facility] Start: 06-15-2022 End: 06-15-2022 ambulatory Jarod Madina Other [employer] Other Start: 06-15-2022 Encounter for genera l [...] [facility] [address] [place] [id number] Shaikh Rodarte MD [address] [place] [id number] [facility] Start: 04-04-2023 End: 04-04-2023 Patient encounter procedure 04/04/2023 9:20 AM EST Office Visit [facility] [address] [place] [id number] Gissell Gallo, NARROW [employer] [address] [place] [address] [facility] Start: 02-19-2023 Hemoglobin A1c measurement Diabetes: Hemoglobin A1C [facility] Start: 10-20-2022 Influenza vaccination Influenza Vaccine (#1) [facility] Start: 05-22-2019 Pneumococcal Vaccine: 65+ Years (2 - PCV) Pneumococcal Vaccine: 65+ Years (2 - PCV) [facility] Start: 02-12-1964 Glaucoma screening Diabetes: Retinopathy Screening [facility] Start: 1955 Screening for malignant neoplasm of colon [facility] Renal function 2000 panel - Serum or Plasma [facility] Tacrolimus [Mass/vol ume] in Blood [facility] XR Hand - right GE 3 Views [facility] Immunizations Immunization Date Immunization Notes Care Provider [facility]-2018 influenza virus vacc ine, unspecified formulation Shaikh Cayden SWAN Work Phone: [facility] Payers Date Payer Category Payer Private Health Insurance [id number] 2022 Self-pay 2022 Medicare [id number] 1960 Medicare [id number] 2. [id number] 1960 Medicare [id number] 1955 Unknown [id number] 2.16.84 [id number] 1954 Unknown [id number] 2.16.84 0.1.136086.3.579.2.593 1954 Unknown [id number] 2.16.84 0.1.869696.3.579.2.593 1954 Unknown [id number] 2.16.84 0.1.022499.3.579.2.593 1954 Unknown [id number] 2.16.84 0.1.512562.3.579.2.593 1954 Unknown [id number] 2.16.84 0.1.426117.3.579.2.1259 1954 Unknown [id number] 2.16.84 0.1.721666.3.579.2.1259 1954 Unknown [id number] 2.16.84 0.1.779877.3.579.2.1259 1954 Unknown [id number] 2.16.84 0.1.562792.3.579.2.1259 1954 Unknown [id number] 2.16.840 .[id number] Unknown [id number] 2.16.8 [id number] Unknown [id number] 2.16.8 [id number] Social History Date Type Detail Facility Unknown if ever smoked [employer] Other Start: 01-22-2023 End: 04-04-2023 Sex Assigned At [employer] Other Start: 1955 Sex Assigned At Male F [facility] Start: 08-17-2022 End: 05-17-2023 Tobacco smoking status [...] Sex Assigned At Not on file N [facility] Medical Equipment Procedure Code Equipment Code Equipment Origin al Text Equipment Identifier Dates USE DIRECTED EVERY DAY [id number] Start: 01-08-2023 Clinical Notes 06-15-2022 to 04-04-2023 Gissell Gallo, [employer] - 04/04/2023 9:20 AM EST Note Date [...] year (skin check) documented in this encounter [facility] 02-23-2023 Evaluation note Encounter Date Diagnosis Assessment [...] (suspected) exposure to covid-19 (ICD-10 - Z20.822) [employer] Other 12-12-2023 Evaluation note* Encounter Date Diagnosis Assessment Notes Treatment Notes Treatment Clinical Notes Jan, Renal transplant recipient (ICD-10 - Z94.0) [employer] Other 10-30-2023 Evaluation note* Encounter Date Diagnosis Assessment Notes Treatment Notes Treatment Clinical Notes Nov, Renal transplant recipient (ICD-10 - Z94.0) He has a cadaveric renal transplant since 2014 and currently follows with the transplant team in [place]. He is currently on immunosuppressive medication including [...] disease (ICD-10 - E11.22) He has a vqx-djjeleo-tvghfrrie type 2 diabetes mellitus. Advised him continue [...] the low magnesium. He understood and verbalized. [employer] Other 07-20-2023 Evaluation note* Encounter Date Diagnosis Assessment Notes Treatment Notes Treatment Clinical Notes Aug, Renal transplant recipient (ICD-10 - Z94.0) He has a cadaveric renal transplant since 2014 and currently follows with the transplant team in [place]. He is currently on immunosuppressive medication including Prograf CellCept and prednisone. Advised him to increase 1 mg q12 hrs due to subtherapeutic level. He reported be compliant with his immunosuppressive medications. 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 Advised him continue [...] in future including B12 and folate level. [employer] Other 06-26-2023 Evaluation note* Encounter Date Diagnosis [...] plan. Jul, Jaw swelling (ICD-10 - R22.0) [employer] Other 04-27-2023 Evaluation note* Encounter Date Diagnosis Assessment Notes Treatment Notes Treatment Clinical Notes May, Renal transplant recipient (ICD-10 - Z94.0) It was a pleasure to see Mr. Manriquez in our office for an evaluation and management of the CKD and renal transplant. As you know he has a cadaveric renal transplant since 2014 and currently follows with the transplant team in [place]. He is currently on immunosuppressive medication including [...] disease (ICD-10 - E11.22) He has a bui-opaqaqp-gvfmazouw type 2 diabetes mellitus. Hemoglobin A1c was [...] as a systolic murmur. Ordered the echocardiogram [facility] [employer] [facility] [employer] Other Evaluation noteNo assessment information available [facility] Work Phone: Evaluation note* Diagnosis Other [...] chronic kidney disease acute Healthcare maintenance acute [id number] acute Hypomagnesemia acute Renal transplant recipient a cute Secondary hyperparathyroidism acute [facility] Work Phone: Evaluation note* Diagnosis Onset Date Resolution Status Anemia of renal disease acut e Chronic kidney disease, stage III (moderate) acute Diabetes mellitus with chronic kidney disease acute Gout acute Healthcare maintenance acute Hyperlipidemia acute [id number] acute Hypomagnesemia acute Renal transplant recipient a cute Secondary hyperparathyroidism acute Sprain of right hand noneact bonita [facility] Work Phone: Evaluation note* Diagnosis Onset Date Resolution Status Anemia of renal disease acut e Chronic kidney disease, stage III (moderate) acute Diabetes mellitus with chronic kidney disease acute Gout acute Healthcare maintenance acute Hyperlipidemia acute [id number] acute Hypomagnesemia acute Renal transplant recipient a cute Secondary hyperparathyroidism acute Hand sprain noneactive Sprain of right hand noneact bonita [facility] Work Phone: History general Narrative - Reported* [...] KIDNEY TRANSPLANT 04/2014 Hospitalization History SEE ABOVE [employer] Other Summary Purpose Family History No Family [...] mellitus with chronic kidney disease Healthcare maintenance [id number] Hypomagnesemia Renal transplant recipient Secondary hyperparathyroidism Chief Complaint RENAL 3 month Follow up right hand pain Reason for Visit Anemia of renal dise ase Chronic kidney disease, stage III (moderate) Diabetes mellitus with chronic kidney disease Gout Healthcare maintenance Hyperlipidemia [id number] Hypomagnesemia Renal transplant recipient Secondary hyperparathyroidism Sprain of right hand Chief Complaint RENAL 3 month Follow up right hand pain Reason for Visit Anemia of renal dise ase Chronic kidney disease, stage III (moderate) Diabetes mellitus with chronic kidney disease Gout Healthcare maintenance Hyperlipidemia [id number] Hypomagnesemia Renal transplant recipient Secondary hyperparathyroidism Hand [...] CREATED AUTHOR AUTHOR'S ORGANIZ ATION 06/06/2023 [facility] DATE CREATED AUTHOR AUTHOR'S ORGANIZ ATION 07/30/2023 [facility] EPIC Care Teams (unrecognized sec tion and content) Team Status: Active Member Role Status Dates Shaikh Cayedn MD Primary Care Provider Active Team Status: [...] Shaikh Cayden MD Primary Care Provider Active General Counsel Relationship Specialty Start Date End Date Shaikh Rodarte MD PCP - General Internal Medicine 02/19/22 General Counsel Relationship Specialty Start Date End Date Shaikh Rodarte MD PCP - General Internal Medicine 02/19/22 General Counsel Relationship Specialty Start Date End Date Shaikh Rodarte MD [address] [place] [address] PCP - General Internal Medicine 02/19/22 General Counsel Relationship Specialty Start Date End Date Shaikh Rodarte MD [address] [place] [place] [address] PCP - General Internal Medicine 02/19/22 Team [...] BE BASED ON THE PRIMARY CLINICAL RECORDS. [employer] provides no warranty or guarantee of the accuracy or completeness of information in this document.
[2023-08-06 08:35] LABS: Bilirubin Urine NEGATIVE (NEGATIVE); Blood Urine NEGATIVE (NEGATIVE); Clarity Urine CLEAR (CLEAR); Color Urine LT. YELLOW (YELLOW); Glucose Urine UA 100 mg/dL (NEGATIVE); Ketones Urine NEGATIVE (NEGATIVE); Leukocyte Esterase Urine NEGATIVE (NEGATIVE); Nitrite Urine NEGATIVE (NEGATIVE); Protein Urine NEGATIVE (NEG/TRACE); Specific Gravity Urine 1.015 (1.005-1.025); Urobilinogen Urine 0.2 EU/dL (0.2-1.0)
[2023-08-06 08:35] LABS: Hematocrit 41.4 % (42.0-54.0); Hemoglobin 13.3 g/dL (14.0-18.0); Mean Corpuscular HGB Conc 32.1 g/dL (29.9-35.2); Mean Corpuscular Hemoglobin 28.9 pg (25.9-34.0); Mean Platelet Volume 10.4 fL (9.5-13.5); Platelet Count 150 10^3/uL (150-450); Red Cell Distribution Width 13.1 % (11.0-15.0); White Blood Count 6.2 10^3/uL (4.0-11.0)
[2023-08-06 08:39] LABS: Creatinine Urine Random 58.11 mg/dL (20.00-300.00); Protein Creatinine Ratio Urine 0.33; Total Protein Urine Random 19.4 mg/dL (<=11.9)
[2023-08-06 08:47] LABS: Bacteria Urine NONE SEEN #/HPF (NONE SEEN); Mucus Urine NONE SEEN (NONE SEEN); RBC Urine NONE SEEN #/HPF (0-2); Squamous Epithelial Cell Urine RARE #/LPF (NONE/RARE); WBC Urine NONE SEEN #/HPF (NONE SEEN)
[2023-08-06 09:05] LABS: Albumin Level 3.4 g/dL (3.4-5.0); Anion Gap 17.1; BUN Creatinine Ratio 17.8; Calcium 9.8 mg/dL (8.5-10.1); Carbon Dioxide 21.4 mmol/L (21.0-32.0); Chloride 102 mmol/L (98-107); Estimated GFR (African America 49 (>=60); Estimated GFR (Non-African Ame 40 (>=60); Glucose 190 mg/dL (74-106); Magnesium 1.9 mg/dL (1.8-2.4); Phosphorus 2.6 mg/dL (2.6-4.7); Potassium 4.5 mmol/L (3.5-5.1); Sodium 136 mmol/L (136-145); Uric Acid 5.1 mg/dL (3.5-7.2)
[2023-08-06 09:42] LABS: Percent Iron Saturation 19.6 %
[2023-08-07 12:09] LABS: PTH, Intact 90 pg/mL (15-65)
[2023-08-08 08:13] LABS: Tacrolimus (FK506), Blood 5.1 ng/mL (2.0-20.0)
== END 2023-08-06 08:11 | disposition home or self-care (01) ==
PROVIDERS: PCP Internal Medicine; Visit Provider Internal Medicine
DX: Z00.00 Encounter for general adult medical examination without abnormal findings (principal); E11.22 Type 2 diabetes mellitus with diabetic chronic kidney disease; N18.31 Chronic kidney disease, stage 3a; E78.5 Hyperlipidemia, unspecified; I12.9 Hypertensive chronic kidney disease with stage 1 through stage 4 chronic kidney disease, or unspecified chronic kidney disease; N18.9 Chronic kidney disease, unspecified; D63.1 Anemia in chronic kidney disease; N25.81 Secondary hyperparathyroidism of renal origin; Z94.0 Kidney transplant status
CPT/HCPCS: 36415; 80061; 80069; 80197; 81001; 82306; 82570; 82728; 83036; 83540; 83550; 83735; 83970; 84156; 84550; 85027

== ENCOUNTER 2023-08-31 09:35 | Outpatient (OUT) | payer MEDICARE, SELFPAY ==
--- NOTE | 2023-08-31 09:43 | XR_ITS ---
The [address] [address] Patient Name: LAUREL ADRIAN MRN: [id number] date: 1955 Sex: M Assigned Patient Location: [facility] Current Patient Location: Accession/Order Number: [id number] Exam Date: 08/31/2023 09:48 Report Date: 09/01/2023 07:54 At the request of: SHAIKH NOEMY Procedure: XR chest 2V PROCEDURE: XR chest 2V DATE: 08/31/2023 8:48 AM CDT COMPARISONS: None. CLINICAL INDICATION: 68 years Male Dyspnea On Exertion FINDINGS: The cardiomediastinal silhouette and pulmonary vasculature are within normal limits. The lungs are clear. There is no evidence of pleural effusion or pneumothorax. XR/XR chest 2V IMPRESSION: Chest radiograph is within normal limits. Electronically authenticated by: DAVID HOOD Date: 09/01/2023 07:54
--- NOTE | 2023-08-31 09:43 | XR_ITS ---
[place] [id number] Patient Name: LAUREL ADRIAN MRN: [id number] date: 1955 Sex: M Assigned Patient Location: [facility] Current Patient Location: [facility] Accession/Order Number: [id number] Exam Date: 08/31/2023 09:48 Report Date: 09/03/2023 06:38 At the request of: SHAIKH NOEMY Procedure: XR lumbar spine 2-3V EXAM: XR lumbar spine 2-3V CLINICAL INDICATION: Acute Bilateral Low Back Pain COMPARISON: None TECHNIQUE: 5 views of the lumbar spine obtained FINDINGS: There are 5 nonrib-bearing lumbar-type vertebra. Vertebral body heights are maintained without evidence for acute fracture. No subluxations. Mild to moderate multilevel degenerative changes of the lumbar spine, worst at L1-L2 and L5-S1. XR/XR lumbar spine 2-3V IMPRESSION: Mild to moderate multilevel degenerative changes of the lumbar spine without evidence for acute fracture Electronically authenticated by: JONNIE WALKER Date: 09/03/2023 06:38
== END 2023-08-31 09:36 | disposition home or self-care (01) ==
LOC: RAD 09:36
PROVIDERS: PCP Internal Medicine; Visit Provider Internal Medicine
DX: M54.50 Low back pain, unspecified (principal); R06.09 Other forms of dyspnea
CPT/HCPCS: 71046; 72100

== ENCOUNTER 2023-10-15 14:37 | Outpatient (OUT) | payer MEDICARE, SELFPAY ==
[2023-10-15 15:01] LABS: Hematocrit 34.6 % (42.0-54.0); Hemoglobin 11.6 g/dL (14.0-18.0); Mean Corpuscular HGB Conc 33.5 g/dL (29.9-35.2); Mean Corpuscular Hemoglobin 27.6 pg (25.9-34.0); Mean Corpuscular Volume 82.2 fL (80.0-94.0); Mean Platelet Volume 11.5 fL (9.5-13.5); Platelet Count 156 10^3/uL (150-450); Red Blood Count 4.21 10^6/uL (4.70-6.10); Red Cell Distribution Width 13.3 % (11.0-15.0); White Blood Count 5.3 10^3/uL (4.0-11.0)
[2023-10-15 15:02] LABS: Bilirubin Urine NEGATIVE (NEGATIVE); Blood Urine NEGATIVE (NEGATIVE); Clarity Urine CLEAR (CLEAR); Color Urine YELLOW (YELLOW); Glucose Urine UA >=1000 mg/dL (NEGATIVE); Ketones Urine NEGATIVE (NEGATIVE); Leukocyte Esterase Urine NEGATIVE (NEGATIVE); Nitrite Urine NEGATIVE (NEGATIVE); Protein Urine NEGATIVE (NEG/TRACE); Urobilinogen Urine 0.2 EU/dL (0.2-1.0); pH Urine 5.5 (5.0-9.0)
[2023-10-15 15:14] LABS: Bacteria Urine NONE SEEN #/HPF (NONE SEEN); RBC Urine NONE SEEN #/HPF (0-2); WBC Urine NONE SEEN #/HPF (NONE SEEN)
[2023-10-15 15:15] LABS: Mucus Urine NONE SEEN (NONE SEEN); Squamous Epithelial Cell Urine FEW #/LPF (NONE/RARE)
[2023-10-15 15:16] LABS: Creatinine Urine Random 99.35 mg/dL (20.00-300.00); Protein Creatinine Ratio Urine 0.28; Total Protein Urine Random 28.3 mg/dL (<=11.9)
[2023-10-15 15:19] LABS: Albumin Level 2.7 g/dL (3.4-5.0); Anion Gap 14.1; Calcium 9.3 mg/dL (8.5-10.1); Carbon Dioxide 21.9 mmol/L (21.0-32.0); Chloride 98 mmol/L (98-107); Estimated GFR (African America 46 (>=60); Estimated GFR (Non-African Ame 38 (>=60); Glucose 300 mg/dL (74-106); Magnesium 2.1 mg/dL (1.8-2.4); Phosphorus 2.5 mg/dL (2.6-4.7); Sodium 130 mmol/L (136-145); Uric Acid 5.8 mg/dL (3.5-7.2)
[2023-10-15 15:38] LABS: Percent Iron Saturation 8.2 %
[2023-10-16 11:09] LABS: PTH, Intact 178 pg/mL (15-65)
== END 2023-10-15 14:38 | disposition home or self-care (01) ==
LOC: LAB 14:37
PROVIDERS: PCP Internal Medicine; Visit Provider Internal Medicine
DX: Z00.00 Encounter for general adult medical examination without abnormal findings (principal); M10.9 Gout, unspecified; E78.5 Hyperlipidemia, unspecified; I12.9 Hypertensive chronic kidney disease with stage 1 through stage 4 chronic kidney disease, or unspecified chronic kidney disease; N18.9 Chronic kidney disease, unspecified; D63.1 Anemia in chronic kidney disease; E83.42 Hypomagnesemia; N25.81 Secondary hyperparathyroidism of renal origin
CPT/HCPCS: 36415; 80069; 80197; 81001; 82306; 82570; 82728; 83540; 83550; 83735; 83970; 84156; 84550; 85027

== ENCOUNTER 2023-10-18 08:42 | Outpatient (OUT) | payer MEDICARE, SELFPAY ==
--- OUTSIDE RECORDS SUMMARY | 2023-10-18 09:08 | XMS_ITS | CCD ---
Author Organization [facility] Care Team Providers Care Lithopress Operator Name Role Phone Jarod Ballard Unavailable MISC, [...] H Primary Care Unavailable MADINAJAROD Admitting Unavailable MADINA, JAROD Attending Unavailable MADINAJAROD Consulting Unavailable MISC, DR HERRERA Admitting Unavailable MISC, DR HERRERA Attending Unavailable FAWWAD, KEVIN H Primary Care Unavailable MISC, DR HERRERA Consulting Unavailable MadinaMD Jarod silvestre Attending Provider MD Matt Rodarteh Primary Care Provider Chani Milner Unavailable Kailey Deluca Unavailable Shaikh Rodarte MD Primary Care Provider Shaikh Rodarte MD Primary Care Provider MD Nicolette Rodarte Primary Care Provider JULIEN Deluca Attending Provider MD Nicolette Rodarte Primary Care Provider MD Sheldon Cameron Emergency Provider MD Mary Kay Gray Admit Provider MD Mary Kay Gray Attending Provider [phone] MD Shakira Duarte Other Provider DO Cristian Waddell II Other Provider MD Sherry Heard Other Provider MD Agnieszka Benavides Other Provider Janet Rea Other Provider ANGELA Colunga Other Provider Chandrika Dotson Other Provider Catrachita Green Other Provider MD Chaya yunior Yaser Other Provider [phone] ANGELA Cruz Other Provider MD Caesar Black Attending Provider MD Rosendo Hansen Other Provider ANGELA Pinzon Other Provider [phone] MD Rina Georges Other Provider DO Swetha Carmona Other Provider [phone] MD Silvestre Lopez Other Provider SAMUEL Buchanan-Clark Elliott Other Provider Unavailable MD Jarod Ballard Other Provider MD Briseyda Valadez Other Provider MD Shakira Duarte Attending Provider Kailey Deluca Admitting Unavailable Kailey Deluca Attending Unavailable [facility], [facility] Primary Care Unavailable Jarod Ballard Referring Unavailable [place], [facility] Primary Care Unavailable Gerald Shakira Admitting Unavailable Shakira Duarte Attending Unavailable Caesar Black Attending Unavailable [facility] Primary Care Unavailable Mary Kay Gray Admitting Unavailable Shakira Duarte Consulting Unavailable Critsian Waddell II Consulting Unavaila ble Heard, Sherry Consulting Unavailable Benavides, Agnieszka Consulting Unavailable Rona, Janet Consulting Unavailable Cristine, Tamiko Cobos Consulting Unavail able Chandrika Dotson Consulting Unavailable Catrachita Green Consulting Unavailable Chaya, Jon Wyman Consulting UnavailNorma Saenz Consulting Unavailable Rosendo Hansen Consulting Unavailable ScCayden aguero Consulting Unavailable Asaad, Imad Consulting Unavailable Ly, Swetha Quach Consulting Unavailable Elashi, Essam Consulting Unavailable Runner, Lexi Consulting Unavailable Madina, Jarod Consulting Unavailable Bakhous, Aziz Consulting Unavailable Fawwayunior, Kevin Primary Care Unavailable Shakira Duarte Admitting Unavailable Gerald, Shakira Attending Unavailable DARREN GALLO Attending Unavailable CAYDEN, Attending Unavailable KHAI THOMPSON Attending Unavailable CAYDEN, Referring Unavailable FACATALINO, Attending Unavailable CAYDEN, Attending Unavailable KHAI THOMPSON Attending Unavailable FACATALINO, Attending Unavailable FACATALINO, Attending Unavailable MEHDI SAUL Attending Unavailable NAKUL ENNIS Attending UnavailMD Shakira Julien Attending Provider JULIEN Ennis Primary Care Provid er Medications Current Medications Medication Drug Class(es) Dates Sig (Normalized) Sig (Original) alendronic acid 70 mg oral tablet (18 sources) Bisphosphonate Start: 05-17-2023 take 70 mg [...] Orally Active allopurinol 100 mg oral tablet (20 sources) Xanthine Oxidase Inhibitor Start: 05-17-2023 take [...] capsule Orally ever y 8 hrs Active apixaban 5 mg oral tablet (5 sources) Factor Xa Inhibitor Start: 09-11-2023 take 1 tablet by mouth twice daily Apixaban (Eliquis) 5 mg tablet Active 5 MG PO Twice daily September 11, 2023 12:00am atorvastatin 20 mg oral tablet (20 sources) HMG-CoA Reductase Inhibitor Start: 08-09-2023 take 20 mg by mouth once daily at bedtime Atorvastatin Active 20 MG PO Daily at bedtime August 09, 2023 12:00am Start: 05-17-2023 End: 08-09-2023 take 10 mg by mouth once daily Atorvastatin Discontinu ed 10 MG PO Daily May 17, 2023 12:00am August 09, 2023 10:24am take 1 tablet by massiel th in the morning atorvastatin (Lipitor) 10 MG tablet Take 10 mg by mouth in the morning. 0 Active baclofen 5 mg oral tablet (5 sources) gamma-Aminobutyric Acid-ergic Agonist take 1 tablet by mouth three times daily as needed baclofen (Lioresal) 5 MG tablet Take 5 mg by mouth 3 (three) times a day as needed. 0 Active bisacodyl 5 mg delayed release oral tablet (4 sources) Stimulant Laxative Start: take 10 mg by mouth once daily Bisacodyl Active 10 MG PO Daily September 14, 2023 12:00am calcium carbonate 1250 mg / cholecalciferol 200 [...] before bedtime. 0 01/07/2023 04/02/2023 Discontinued carvedilol 6.25 mg oral tablet (16 sources) alpha-Adrenergic Rickie, beta-Adrenergic Rickie Start: 09-14-2023 take 6.25 mg by mouth twice daily at mealtime Carvedilol Active 6.25 MG PO Twice daily with meals 30 September 14, 2023 12:00am carvedilol (Core g) 12.5 MG tablet Take by mouth 2 (two) times a day with meals. 0 Active fluorouracil 50 mg/ml topical cream (2 sources) Nucleoside Metabolic Inhibitor Start: 04-04-2023 fluorouracil (Efudex ) 5 % cream Indications: Actinic keratosis Apply [...] 04/04/2023 Active glipiZIDE 5 mg oral tablet (20 sources) Sulfonylurea Start: 05-17-2023 take 5 mg [...] / neomycin 3.5 mg/ml / polymyxin b [id number] unt/ml otic suspension (1 source) Aminoglycoside Antibacterial, Polymyxin-class Antibacterial, Corticosteroid Start: 02-23-2023 [id number]-FV 3.5-16065-2 3 drops Otic Three times a day for 7 Feb, Active 3 ml insulin glargine 100 unt/ml pen injector (1 source) Insulin Analog Start: 10-17-2023 inject 10 [IU] by subcutaneous injection once daily in the evening Insulin Glargine (Lantus Solostar U-100 Insulin) 100 unit/mL (3 mL) insulin pen Active 10 UNIT SUBCUT Every evening October 17, 2023 12:00am LORazepam 0.5 mg oral tablet (20 sources) Benzodiazepine Start: 05-17-2023 take 0.5 mg by mouth twice daily Lorazepam Active 0.5 MG PO Twice daily May 17, 2023 12:00am take 1 tablet by massiel th twice daily as needed for anxiety LORazepam (Ativan) 0.5 MG tablet Take 0. 5 mg by mouth 2 (two) times a day as needed for anxiety. 0 Active magnesium oxide 400 mg oral tablet (20 sources) Start: 05-17-2023 take 400 mg by mouth once daily Magnesium Oxide Active 400 MG PO Daily May 17, 2023 12:00am Start: 06-27-2022 take 1 tablet by massiel th in the morning magnesium oxide (Mag-Ox) 400 MG tablet Take 400 mg by mouth in the morning. 0 09/15/2022 Active mycophenolate mofetil 500 mg oral tablet (20 sources) Start: 05-17-2023 End: 07-26-2023 take 500 mg by mouth twice daily Mycophenolate Mofetil Active 500 MG PO Twice daily 180 July 26, 2023 9:35am take 1 tablet by mouth in the mo rning mycophenolate (CellCept) 500 MG tablet Take 500 mg by mouth in the morning and 500 mg before bedtime. 0 Active NIFEdipine 60 mg osmotic 24 hr extended release oral tablet (20 sources) Dihydropyridine Calcium Channel Rickie Start: 08-09-2023 take 60 mg by mouth at bedtime Nifedipine Active 60 MG PO Bedtime August 09, 2023 12:00am Start: 05-17-2023 End: 08-09-2023 take 60 mg by mouth once daily Nifedipine Discontinued 60 MG PO Daily May 17, 2023 12:00am August 09, 2023 10:25am Start: 11-01-2022 take 1 tablet by massiel th every twenty-four hours in the morning NIFEdipine XL (Procardia XL) 60 MG 24 hr tablet Take 60 mg by mouth in the morning. 0 11/01/2022 Active take 1 tablet by massiel th every twenty-four hours NIFEdipine ER 60 MG 1 tablet on an empty stomach Orally Once a day Active oxyCODONE hydrochloride 5 mg oral capsule (2 sources) Opioid Agonist Start: 10-04-2023 take 5 mg by mouth every six hours Oxycodone Active 5 MG PO Every 6 hours 60 14 October 04, 2023 pantoprazole 40 mg delayed release oral tablet (5 sources) Proton Pump Inhibitor Start: 09-11-2023 take 40 mg by mouth once daily Pantoprazole Active 40 MG PO Daily September 11, 2023 12:00am penicillin v potassium 500 mg oral tablet (1 source) Start: 08-14-2022 take 1 tablet by mouth every six hours Penicillin V Potassium 500 MG 1 tablet Orally QID for 10 days Jul, Active predniSONE 5 mg oral tablet (20 sources) Start: 05-17-2023 End: 08-29-2023 take 5 mg by mouth once daily Prednisone Active 5 MG PO Daily 90 August 29, 2023 3:25pm take 1 tablet by massiel th every twenty-four hours predniSONE 5 MG 1 tablet Orally Once a day Active tacrolimus 1 mg oral capsule (20 sources) Calcineurin Inhibitor Immunosuppressant Start: 08-10-2023 take 1 capsule by mouth twice daily Tacrolimus Active 0 .ROUTE .COMPLEX 180 August 10, 2023 10:44am TAKE 1 CAPSULE BY MOUTH TWICE A DAY FOR 90 DAYS Start: 05-17-2023 End: 08-10-2023 take 1 capsule by mouth twice daily Tacrolimus (Prograf) 1 mg capsule Discontinued 1 MG PO Twice daily 180 July 26, 2023 9:35am August 10, 2023 10:44am tacrolimus (Prog chino) 1 MG capsule Take by mouth 2 (two) times a day. 0 Active take 1 capsule by mo [facility] every twelve hours Prograf 1 MG 1 capsule Orally q12hr Active take 1 capsule by mo [facility] once daily at bedtime Prograf 0.5 MG 1 capsule Orally qhs Active Completed/Discontinued Medications Medication Drug Class(es) Dates Sig (Normalized) Sig (Original) acetaminophen 325 mg / oxyCODONE hydrochloride 5 mg oral tablet (5 sources) Opioid Agonist Start: 09-11-2023 End: 10-04-2023 take 6 tablets by mouth once Oxycodone-Acetamino phen Discontinued 1 TAB PO .Q6 September 11, 2023 12:00am October 04, 2023 11:44am calcium carbonate 1500 mg oral tablet (12 sources) Start: 05-17-2023 End: 05-17-2023 take 600 mg by mouth twice daily Calcium Carbonate Discontinued 600 MG PO Twice daily May 17, 2023 12:00am May 17, 2023 3:52pm take 1 tablet by mouth every twe lve hours Calcium Carbonate 600 MG 1 tablet with food Orally Twice a day Active take 1 tablet by amssiel twice daily at mealtime Calcium Carbonate 600 MG 1 tablet with food Orally Twice a day Active dicyclomine hydrochloride 10 mg oral capsule (5 sources) Anticholinergic Start: 09-11-2023 End: 09-28-2023 Dicyclomine Discontinued 10 MG PO September 11, 2023 12:00am September 28, 2023 9:58am 0.6 ml enoxaparin sodium 100 mg/ml prefilled syringe (3 sources) Low Molecular Weight Heparin Start: 09-28-2023 End: 10-17-2023 Enoxaparin (Lovenox) 60 mg/0.6 mL syringe Discontinued 60 MG SUBCUT Every 12 hours 4.8 4 September 28, 2023 12:00am October 17, 2023 1:51pm take 60mg SQ BID start four days before procedure then stop furosemide 40 mg oral tablet (2 sources) Loop Diuretic Start: 10-15-2023 End: 10-17-2023 take 1 tablet by mouth once daily in the morning Furosemide (Lasix) 40 mg tablet Discontinued 40 MG PO Every morning October 15, 2023 2:29pm October 17, 2023 2:21pm losartan potassium 50 mg oral tablet (20 sources) Angiotensin 2 Receptor Rickie Start: 05-17-2023 End: 09-14-2023 take 50 mg by mouth once daily Losartan Discontinued 50 MG PO Daily May 17, 2023 12:00am September 14, 2023 4:23pm Start: 01-18-2023 take 1 tablet by massiel th once daily losartan (Cozaar) 50 MG tablet Indications: Essential (primary) hypertension (CMS/HCC) , Essential hypertension (CMS/HCC) TAKE 1 TABLET BY MOUTH EVERY DAY 90 tablet 0 01/18/2023 Active Problems Active Problems Problem Classification Problem Date Documented Date Episodic/Chronic Administrative/social admission (4 sources) Patient encounter status; Translations: [Other specified counseling] 09-29-2023 Episodic Cancer of other GI organs; peritoneum (13 sources) Malignant tumor of gallbladder; Translations: [Malignant neoplasm of gallbladder] Onset: 4 09-11-2023 Chronic Chronic kidney disease (20 sources) Kidney transplant status; Translations: [Chronic kidney disease stage 3] Onset: 3 Chronic Chronic kidney disease (8 sources) Chronic kidney disease; Translations: [Chronic kidney disease, stage III (moderate)] Onset: 4 Coagulation and hemorrhagic disorders (6 sources) Thrombocytopenic [...] Onset: 3 Chronic Disorders of lipid metabolism (20 sources) Hyperlipidemia, unspecified; Translations: [Hyperlipidemia] Onset: 3 05-19-2023 Chronic Disorders of teeth and jaw (1 source) Periapical abscess without sinus Episodic Essential hypertension (5 sources) Essential hypertension; Translations: [Essential (primary) hypertension] Onset: 8 01-22-2023 Chronic Fluid and electrolyte disorders (11 sources) Hyponatremia; Translations: [Hypo-osmolality and hyponatremia] Onset: 4 09-11-2023 Episodic Gout and other crystal arthropathies (20 sources) Idiopathic gout, unspecified site; Translations: [Gout] Onset: 1 01-22-2023 Chronic Heart valve disorders (3 sources) Cardiac murmur, unspecified Episodic Hypertension with complications and secondary hypertension (20 sources) Chronic kidney disease due to hypertension; Translations: [Hypertensive chronic kidney disease with stage 1 through stage 4 chronic kidney disease, or unspecified chronic kidney disease] Onset: 3 Chronic Nutritional deficiencies (5 sources) Vitamin D deficiency; Translations: [Vitamin D deficiency, unspecified] Onset: 8 01-22-2023 Chronic Open wounds of extremities (1 source) Laceration without foreign body of right elbow, initial encounter; Translations: [Laceration without foreign body of right elbow, initial encounter] Onset: 4 Episodic Osteoporosis (2 sources) Osteoporosis; Translations: [Other osteoporosis without current pathological fracture] 03-24-2023 Chronic Other aftercare (5 sources) Encounter for aftercare following kidney transplant; Translations: [ENC AFTERCARE FLW KIDNEY TRANSPL] Onset: 2 Chronic Other diseases of kidney and ureters (20 sources) Secondary hyperparathyroidism; Translations: [Secondary hyperparathyroidism of renal origin] Onset: 8 01-22-2023 Chronic Other diseases of kidney and ureters (20 sources) Secondary hyperparathyroidism of renal origin; Translations: [Secondary hyperparathyroidism (of renal origin)] Onset: 3 Chronic Other ear and sense organ disorders (1 source) Unspecified acute noninfective otitis externa, right ear Episodic Other gastrointestinal disorders (4 sources) Ascites; Translations: [Other ascites] 09-12-2023 Episodic Other gastrointestinal disorders (7 sources) Other ascites; Translations: [Other ascites] Onset: 4 09-14-2023 Episodic Other non-epithelial cancer of skin (5 sources) Basal cell carcinoma of face; Translations: [Basal cell carcinoma of skin of unspecified parts of face] Onset: 3 01-22-2023 Episodic Other nutritional; endocrine; and metabolic disorders (12 sources) Hypomagnesemia; Translations: [Hypomagnesemia] 05-17-2023 Chronic Other nutritional; endocrine; and metabolic disorders (12 sources) Hypomagnesemia; Translations: [Disorders of magnesium metabolism] Chronic Other screening for suspected conditions (not mental disorders or infectious disease) (1 source) Abnormal findings on diagnostic imaging of liver and biliary tract; Translations: [Abnormal findings on diagnostic imaging of liver and biliary tract] Onset: 4 Episodic Other skin disorders (1 source) Localized swelling, [...] vascular disease, unspecified] Onset: 3 01-22-2023 Chronic Phlebitis; thrombophlebitis and thromboembolism (13 sources) Portal vein thrombosis; Translations: [Portal vein thrombosis] Onset: 4 09-11-2023 Episodic Secondary malignancies (5 sources) Secondary malignant neoplastic disease; Translations: [Secondary malignant neoplasm of unspecified site] 09-11-2023 Chronic Secondary malignancies (6 sources) Secondary malignant neoplasm of unspecified site; Translations: [Other malignant neoplasm without specification of site] Onset: 4 09-11-2023 Chronic Sprains and strains (5 sources) Sprain of unspecified part of right wrist and hand, initial encounter; Translations: [Sprain of hand, unspecified site] 05-24-2023 Episodic Thyroid disorders (4 sources) Thyroid nodule; Translations: [Nontoxic single thyroid nodule] 09-29-2023 Chronic Unclassified (1 source) CHRN KIDNEY DISEASE STG 3 UNSP; Translations: [CHRN KIDNEY DISEASE STG 3 UNSP] Onset: 3 Past or Other Problems Problem Classification Problem Date Documented Da te Episodic/Chronic Other connective tissue disease (1 source) Pain in right hand; Translations: [Pain in right hand] Onset: 05-24-2023 Episodic Unclassified (1 source) Contact with and (suspected) exposure to covid-19 Z20.822 Viral infection (1 source) COVID-19 Results Test Name Value Interpretation Reference Range Facility Glucose Glucometer (BldC) [M ass/Vol]Ordered By: Shakira Duarte on 10-17-2023 Glucose [Mass/Vol] 161 mg/dL [facility] Comment on above: Random Glucose Refer ence Range is dependent on time and content of last meal. Glucose of more than 200 mg/dL in a nonstressed, ambulatory subject supports the diagnosis of Diabetes Mellitus. Erythrocyte distribution wid th Auto (RBC) [Ratio]on 10-15-2023 Erythrocyte distribution width (RBC) [Ratio] 13.3 % 11.0-15.0 [facility] Estimated glomerular filtrat ion rate (GFR) non- Americanon 10-15-2023 GFR/1.73 sq M.predicted among non-blacks MDRD (S/P/Bld) [Vol rate/Area] 38 mL/min/{1.73_m2} Low >=60 [facility] Hematocrit Auto (Bld) [Volum e fraction]on 10-15-2023 Hematocrit (Bld) [Volume fraction] 34.6 % Low 42.0-54.0 [facility] Hemoglobin [Mass/volume] in Bloodon 10-15-2023 Hemoglobin (Bld) [Mass/Vol] 11.6 g/dL Low 14.0-18.0 [facility] Iron binding capacity [Mass/ volume] in Serum or Plasmaon 10-15-2023 Iron binding capacity [Mass/Vol] 207.0 ug/dL Low 250.0-450. 0 [facility] Iron saturation [Mass Fracti on] in Serum or Plasmaon 10-15-2023 Iron saturation [Mass fraction] 8.2 % [facility] Laboratory - Chemistry and C hemistry - challengeon 10-15-2023 Albumin [Mass/Vol] 2.7 g/dL Low 3.4-5.0 [facility] Calcium [Mass/Vol] 9.3 mg/dL 8.5-10.1 [facility] Chloride [Moles/Vol] 98 mmol/L 98-107 [facility] CO2 [Moles/Vol] 21.9 mmol/L 21.0-32.0 [facility] Creatinine [Mass/Vol] 1.79 mg/dL High 0.70-1.30 [facility] Ferritin [Mass/Vol] 500.0 ng/mL High 26.0-388.0 [facility] GFR/1.73 sq M.predicted MDRD (S/P/Bld) [Vol rate/Area] 46 mL/min/{1.73_m2} Low >=60 [facility] Glucose [Mass/Vol] 300 mg/dL High 74-106 [facility] Iron [Mass/Vol] 17.0 ug/dL Low 65.0-175.0 [facility] Magnesium [Mass/Vol] 2.1 mg/dL 1.8-2.4 [facility] Potassium [Moles/Vol] 4.0 mmol/L 3.5-5.1 [facility] Sodium [Moles/Vol] 130 mmol/L Low 136-145 [facility] Urate [Mass/Vol] 5.8 mg/dL 3.5-7.2 [facility] Urea nitrogen [Mass/Vol] 34.0 mg/dL High 7.0-18.0 [facility] Urea nitrogen/Creatinine [Mass ratio] 19.0 mg/mg [facility] Bilirubin Ql (U) Negative NEGATIVE [facility] Glucose (U) [Mass/Vol] mg/dL Abnormal NEGATIVE [facility] Ketones Ql (U) Negative NEGATIVE [facility] pH (U) 5.5 [pH] 5.0-9.0 [facility] Specific gravity (U) [Rel density] 1.020 1.005-1.02 5 [facility] Urobilinogen Qn (U) 0.2 {Hernandez'U}/dL 0.2-1.0 [facility] Laboratory - Specimen inform ationon 10-15-2023 Appearance (U) CLEAR CLEAR [facility] Color (U) YELLOW YELLOW [facility] Laboratory - Urinalysison Leukocyte esterase Test strip Ql (U) Negative NEGATIVE [facility] Mucus Ql (Urine sed) NONE SEEN NONE SEEN [facility] Nitrite Ql (U) Negative NEGATIVE [facility] Protein (U) [Mass/Vol] 28.3 mg/dL High <=11.9 [facility] Protein Ql (U) Negative NEG/TRACE [facility] Leukocytes [#/volume] correc mary for nucleated erythrocytes in Blood by Automated counon 10-15-2023 WBC corrected for nucl RBC Auto (Bld) [#/Vol] 5.3 10 3/uL 4.0-11.0 [facility] MCH Auto (RBC) [Entitic mass ]on 10-15-2023 MCH (RBC) [Entitic mass] 27.6 pg 25.9-34.0 [facility] MCHC Auto (RBC) [Mass/Vol]on 10-15-2023 MCHC (RBC) [Mass/Vol] 33.5 g/dL 29.9-35.2 [facility] MCV Auto (RBC) [Entitic vol] on 10-15-2023 MCV (RBC) [Entitic vol] 82.2 fL 80.0-94.0 [facility] No Panel Informationon 10-14 25-Hydroxy Vitamin D Total 33.6 ng/mL [facility] Comment on above: <20 ng/mL Vit D defi cient20-<30 ng/mL Vit D trcpcilgyrkf25-148 ng/mL Vit D sufficient>100 ng/mL Potential Toxicity Parathyroid Hormone (Intact) 178 pg/mL Abnormal 15-65 [facility] Comment on above: Performed at: - [employer] [address] [id number] Director: Sukhwinder Garcia PhD, Phone: [phone] Phosphorus Level 2.5 mg/dL Low 2.6-4.7 [facility] Urine Bacteria NONE SEEN #/HPF NONE SEEN [facility] Urine Occult Blood Negative NEGATIVE [facility] Urine Random Creatinine 99.35 mg/dL 20.00-300. 00 [facility] Urine RBC NONE SEEN #/HPF 0-2 [facility] Urine Squamous Epithelial Cells FEW #/LPF Abnormal NONE/RARE [facility] Urine WBC NONE SEEN #/HPF NONE SEEN [facility] Platelet mean volume Auto (B ld) [Entitic vol]on 10-15-2023 Platelet mean volume (Bld) [Entitic vol] 11.5 fL 9.5-13.5 [facility] Platelets Auto (Bld) [#/Vol] on 10-15-2023 Platelets (Bld) [#/Vol] 156 10 3/uL 150-450 [facility] RBC Auto (Bld) [#/Vol]on RBC (Bld) [#/Vol] 4.21 10 6/uL Low 4.70-6.10 [facility] Serum or plasma anion gap de terminationon 10-15-2023 Anion gap [Moles/Vol] 14.1 mmol/L [facility] Urine protein/creatinine rat ioon 10-15-2023 Protein/Creatinine (U) [Ratio] 0.28 [facility] [place] 10-05-2023 L Specimen: [id number] Received: 10/05/23 Status: FABIOLA Ceja Num: [id number] Spec Type: Surgical Subm Dr: Ken Cabrera DO Tissues: A Gallbladder (GALLBLADDER BIOPSY) Procedures: HE/2, Gross/Micro L3, DIFF QWIK/2 Age/ Patient Sex Location Account Attending Physician Raul Manriquez 68/M UL [id number] Shakira Duarte MD SPEC NUM: [id number] RECD: 10/05/23 STATUS: FABIOLA CEJA NUM: [id number] JOSUE: 10/05/23- SUBM DR: Ken Cabrera DO ENTERED: 10/05/23 [facility] DR: SPEC TYPE: Surgical DEPT: S ENTERED BY: [id number] RECV BY: [id number] ORDERED: HE/2, Gross/Micro L3, DIFF QWIK/2 ORDERED: HE/2, Gross/Micro L3, DIFF QWIK/2 Pathological Diagnosis Gallbladder lesion, ultrasound-targeted core biopsy -Scant material with focal necrosis displaying atypical epithelial cells in small suggested papillary cluster, compatible with high-grade dysplasia including in situ carcinoma -Additional material including cholecystectomy and/or liver biopsy is also suggested for definitive diagnosis of invasive malignancy Clinical Information Liver lesion, gallbladder lesion Gross Description Received in formalin labeled with the patient's name, date of and gallbladder are 3 delicate freitas tissue cores ranging from 0.2 to 0.3 cm in length by 0.1 cm in diameter, entirely submitted in A1. 2 touch preps have been performed on the specimen prior to the additional formalin. Intraoperative Diagnosis 3 cores, touch prep(diff) Onsite rapid specimen adequacy interpretation: Specimen: [id number] Received: 10/05/239 Status: FABIOLA Montalvoemma Num: [id number] Spec Type: Surgical Subm Dr: Ken Cabrera DO Tissues: A Gallbladder (GALLBLADDER BIOPSY) Procedures: HE/2, Gross/Micro L3, DIFF QWIK/2 Patient: Raul Manriquez [id number] (Continued) Specimen: [id number] Received: 10/05/233 (Continued) Intraoperative Diagnosis (Continued) Signed (signature on file) Lopez Morales MD 10/08/23 1144 Specimen: [id number] Received: 10/05/23 Status: FABIOLA Montalvoemma Num: [id number] Spec Type: Surgical Subm Dr: Ken Cabrera DO Tissues: A Gallbladder (GALLBLADDER BIOPSY) Procedures: HE/2, Gross/Micro L3, DIFF QWIK/2 Patient: MitraRaul L [id number] (Continued) Specimen: [id number] Received: 10/05/23 (Continued) Intraoperative Diagnosis (Continued) -Atypical cells seen, reported by Dr Morales: on 10-04-23 Microscopic Description Microscopic examinations are performed CPT Codes 25510 57268 Specimen: [id number] Received: 10/05/23-1304 Status: FABIOLA Montalvoemma Num: [id number] Spec Type: Surgical Subm Dr: Ken Cabrera DO Tissues: A Gallbladder (GALLBLADDER BIOPSY) Procedures: HE/2, Gross/Micro L3, DIFF QWIK/2 Patient: Raul Manriquez [id number] (Continued) Signed (signature on file) Lopez Morales MD 10/08/23 1144 Normal [facility] Activated partial thrombopla stin time (aPTT) in platelet poor plasma by coagulation aOrdered By: Shaikh Cayden on 10-04-2023 aPTT Coag (PPP) [Time] 30.2 s 25.1-36.5 [facility] Comment on above: A hematocrit value g reater than 55% may lead to inaccurate results in coagulation testing. Patients having hematocrit values >55% require a special collection tube for coagulation studies. Please contact the laboratory at [phone] for redraw instructions. Coagulation Profileon 2023 aPTT Coag (Bld) [Time] 30.2 s Normal 25.1-36.5 [facility] Comment on above: Order Comment: STAT FOR US Result Comment: A he matocrit value greater than 55% may lead to inaccurate results in coagulation testing. Patients having hematocrit values >55% require a special collection tube for coagulation studies. Please contact the laboratory at [phone] for redraw instructions. PERFORMED BY: [address] [address] PATHOLOGIST SET UP MECHANIC BRO PIERRE M.D. Performed By: #### B MP, PT, PTT #### [address] [address] [facility] INR in Platelet poor plasma by Coagulation assayOrdered By: Shaikh Cayden on 10-04-2023 INR Coag (PPP) [Relative time] 1.1 {INR} [facility] Comment on above: INR Therapeutic Rang e A) Pre- and Peroperative OAT started two weeks before surgery. NOT HIP SURGERY: 1.5 - 2.5 HIP SURGERY: 2 - 3B) Primary and secondary prevention of venous THROMBOSIS: 2 - 3C) Active venous thrombosis, pulmonary embolismand prevention of recurrent venous thrombosis: 2 - 3D) Prevention of arterial thromboembolismincluding patients with mechanical heart valves: 3 - 4.5 Order Comment: STAT FOR US Result Comment: INR Therapeutic Range A) Pre- and Peroperative OAT started two weeks before surgery. NOT HIP SURGERY: 1.5 - 2.5 HIP SURGERY: 2 - 3 B) Primary and secondary prevention of venous THROMBOSIS: 2 - 3 C) Active venous thrombosis, pulmonary embolism and prevention of recurrent venous thrombosis: 2 - 3 D) Prevention of arterial thromboembolism including patients with mechanical heart valves: 3 - 4.5 Performed By: #### B MP, PT, PTT #### [address] [address] [facility] Triston 10-04-2023 L Specimen: [id number] Received: 10/05/23 Status: SOUT Req Num: [id number] Spec Type: Cytology Subm Dr: Ken Cabrera DO Tissues: A FNA SLIDES PATH (GB FNA) Procedures: -, DIFF QWIK/3, PAPSTN/4 Age/ Patient Sex Location Account Attending Physician Raul Manriquez 68/M [id number] Shakira Duarte MD SPEC NUM: [id number] RECD: 10/05/23 STATUS: FABIOLA REQ NUM: [id number] JOSUE: 10/04/23-[address]: Ken Cabrera DO ENTERED: 10/05/23 [facility] DR: Shakira Duarte MD SPEC TYPE: Cytology DEPT: CNG ENTERED BY: [id number] RECV BY: [id number] ORDERED: -, DIFF QWIK/3, PAPSTN/4 ORDERED: -, DIFF QWIK/3, PAPSTN/4 Pathological Diagnosis Gallbladder lesion, FNA cytology: -Satisfactory for assessment -Positive for atypical cells in many small cellular groups, also demonstrating 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 Cabrera in the morning of . -The NGS molecular study can only be performed on additional material with the definite diagnosis of invasive malignancy of note Clinical Information Liver lesion, gall bladder lesion Gross Description Received fresh is 2 ml red cloudy unfixed fluid for cytology said to have been obtained as gallbladder. ThinPrep preparations are prepared for microscopic examination. Also received are 6 smeared slides, 3 pap and 3 diff for microscopic examination.(CC/nh) Specimen: [id number] Received: 10/05/23 Status: FABIOLA Req Num: [id number] Spec Type: Cytology Subm Dr: Ken Cabrera DO Tissues: A FNA SLIDES PATH (GB FNA) Procedures: -, DIFF QWIK/3, PAPSTN/4 Patient: Raul Manriquez Philomena [id number] (Continued) Specimen: [id number] Received: 10/05/23 (Continued) Signed (signature on file) Lopez Morales MD 10/08/23 1156 Specimen: [id number] Received: 10/05/23 Status: FABIOLA Ceja Num: [id number] Spec Type: Cytology Subm Dr: Ken Cabrera DO Tissues: A FNA SLIDES PATH (GB FNA) Procedures: -, DIFF QWIK/3, PAPSTN/4 Patient: Raul Manriquez [id number] (Continued) Specimen: [id number] Received: 10/05/23 (Continued) Immediate Evaluation -Abnormal proliferative epithelial lesion -Reported by Dr. Morales: 10-04-23 Microscopic Description Microscopic examinations are performed CPT Codes 88839 49821 Specimen: [id number] Received: 10/05/23 Status: FABIOLA Ceja Num: [id number] Spec Type: Cytology Subm Dr: Ken Cabrera DO Tissues: A FNA SLIDES PATH (GB FNA) Procedures: -, DIFF QWIK/3, PAPSTN/4 Patient: Raul Manriquez [id number] (Continued) Signed (signature on file) Juan-Ion Morales MD 10/08/23 1156 Normal [facility] Platelets [#/volume] in Bloo d by Automated countOrdered By: Shaikh Cayden on 10-04-2023 Platelets (Bld) [#/Vol] 119 10*3/uL Low 150-450 [facility] Comment on above: Order Comment: STAT FOR US Result Comment: PERF ORMED BY: [place] [address] PATHOLOGIST SET UP MECHANIC BRO PIERRE M.D. Performed By: #### B MP, PT, PTT #### [address] Prothrombin time (PT)Ordered By: Shaikh Cayden on 10-04-2023 PT Coag (PPP) [Time] 12.8 s 9.0-12.9 [facility] Comment on above: A hematocrit value g reater than 55% may lead to inaccurate results in coagulation testing. Patients having hematocrit values >55% require a special collection tube for coagulation studies. Please contact the laboratory at [phone] for redraw instructions. Order Comment: STAT FOR US Result Comment: A he matocrit value greater than 55% may lead to inaccurate results in coagulation testing. Patients having hematocrit values >55% require a special collection tube for coagulation studies. Please contact the laboratory at [phone] for redraw instructions. Performed By: #### B MP, PT, PTT #### [facility] [address] [place] [address] [facility] US needle biopsyon US needle biopsy [facility] [place] [address] [place], [place] [id number] Ultrasound Report Signed Patient: Raul Manriquez MR#: [id number] : 1955 Acct:[id number] Age/Sex: 68 / M ADM Date: 10/04/23 Loc: Room: Type: [facility] Attending Dr: Shakira Duarte MD Ordering Provider: Shakira Duarte MD Date of Service: 10/04/23 US/US needle biopsy: TARGETED LIVER BIOPSY ([id number]) US/US needle aspiration: LIVER MASS Copies to: Shakira Duarte MD Ultrasound-guided fine needle aspiration and core biopsy of gallbladder mass. HISTORY: History of gallbladder mass concerning for malignancy. Concern for direct extension into the liver. TECHNIQUE: Informed consent obtained. The gallbladder and liver were assessed. The hepatic lesion is high within the dome of the liver cannot be accessed with ultrasound. The gallbladder is anterior and was able to the access for the ultrasound-guided biopsy. Skin entry site prepped and draped in sterile fashion with local lidocaine administered. Ultrasound guidance of aspirates and core biopsy performed. 3 fine-needle aspirates were obtained with a 23-gauge needle. Specimens adequate for atypical cells. Additional 3 core biopsy samples were obtained to further assess for malignancy. No immediate complications. Immediate and delayed follow-up imaging unremarkable. No evidence of developing hematoma or active bleed. Patient discharged in satisfactory condition. US/US needle biopsy IMPRESSION: Successful ultrasound-guided biopsy of gallbladder mass. Impression dictated by: Ken Cabrera M.D.10/04/2023 4:20 PM Dictation Location: [place] [address] Tech: Cassi Abraham Transcribed By: TC 10/04/23 1620 Dictated By: Ken Cabrera DO 10/04/23 1615 Signed By: 10/04/23 1620 Normal [facility] Activated partial thrombopla stin time (aPTT) in platelet poor plasma by coagulation aOrdered By: Caesar Black on 09-14-2023 aPTT Coag (PPP) [Time] 82.2 s High 25.1-36.5 [facility] Comment on above: A hematocrit value g reater than 55% may lead to inaccurate results in coagulation testing. Patients having hematocrit values >55% require a special collection tube for coagulation studies. Please contact the laboratory at [phone] for redraw instructions. Alanine aminotransferase [En zymatic activity/volume] in Serum or PlasmaOrdered By: Caesar Black on 09-14-2023 ALT [Catalytic activity/Vol] 15 U/L 7-52 [facility] Comment on above: Performed By: #### B MP, PT, PTT #### [facility] [address] [place] [address] [place] Albumin [Mass/volume] in Ser um or Plasma by Bromocresol green (BCG) dye binding methoOrdered By: Caesar Black on 09-14-2023 Albumin BCG dye [Mass/Vol] 2.9 g/dL Low 3.5-5.7 [facility] Alkaline phosphatase [Enzyma tic activity/volume] in Serum or PlasmaOrdered By: Caesar Black on 09-14-2023 ALP [Catalytic activity/Vol] 100 U/L 34-104 [facility] Comment on above: Performed By: #### B MP, PT, PTT #### [facility] [address] [place] [id number] [place] Aspartate aminotransferase [ Enzymatic activity/volume] in Serum or PlasmaOrdered By: Caesar Black on 09-14-2023 AST [Catalytic activity/Vol] 19 U/L 13-39 [facility] Comment on above: Performed By: #### B MP, PT, PTT #### [facility] [address] [place] [id number] [place] Basophils Auto (Bld) [#/Vol] Ordered By: Caesar Black on 09-14-2023 Basophils (Bld) [#/Vol] N/A [facility] Basophils/100 WBC Auto (Bld) Ordered By: Caesar Black on 09-14-2023 Basophils/100 WBC (Bld) N/A [facility] Bilirubin.total [Mass/volume ] in Serum or PlasmaOrdered By: Caesar Black on 09-14-2023 Bilirubin [Mass/Vol] 0.5 mg/dL 0.3-1.0 [facility] Comment on above: Performed By: #### B MP, PT, PTT #### [address] Calcium [Mass/volume] in Ser um or PlasmaOrdered By: Caesar Black on 09-14-2023 Calcium [Mass/Vol] 8.8 mg/dL 8.6-10.3 [facility] Comment on above: Performed By: #### B MP, PT, PTT #### [address] Cancer Antigen 125on 024 Cancer Antigen 125 70.2 Normal Not Estab. [facility] Comment on above: Result Comment: [employer] Electrochemiluminescence Immunoassay (ECLIA) Values obtained with different assay methods or kits cannot be used interchangeably. Results cannot be interpreted as absolute evidence of the presence or absence of malignant disease. Performed at: [address] [id number] [employer]: Sukhwinder Garcia PhD, Phone: [phone] PERFORMED BY: [place] [address] PATHOLOGIST SET UP MECHANIC BRO PIERRE M.D. Performed By: #### B MP, PT, PTT #### [address] Carbohydrate Antigen 19-9on 09-14-2023 Carbohydrate Antigen 19-9 <2 Normal 0-35 [facility] Comment on above: Result Comment: [facility] [employer] Electrochemiluminescence Immunoassay (ECLIA) Values obtained with different assay methods or kits cannot be used interchangeably. Results cannot be interpreted as absolute evidence of the presence or absence of malignant disease. Performed By: #### B MP, PT, PTT #### [address] Carbon dioxide, total [Moles /volume] in Serum or PlasmaOrdered By: Caesar Black on 09-14-2023 CO2 [Moles/Vol] 22.4 mmol/L 21.0-31.0 [facility] Comment on above: Performed By: #### B MP, PT, PTT #### [facility] [address] Chloride [Moles/volume] in [place] am[place] or PlasmaOrdered By: Caesar Black on 09-14-2023 Chloride [Moles/Vol] 102 mmol/L 98-107 [facility] Comment on above: Performed By: #### B MP, PT, PTT #### [facility] [address] Comprehensive Metabolic Pane triston 09-14-2023 Albumin [Mass/Vol] 2.9 g/dL Low 3.5-5.7 [facility] Comment on above: Performed By: #### B MP, PT, PTT #### [address] Creatinine Clr Calc Pharmacy 51.16 Normal [facility] Comment on above: Performed By: #### B MP, PT, PTT #### [address] GFR/1.73 sq M.predicted MDRD (S/P/Bld) [Vol rate/Area] 55.355 mL/min/{1.73_m2} Normal [facility] Comment on above: Performed By: #### B MP, PT, PTT #### [facility] [address] Creatinine [Mass/volume] in Serum or PlasmaOrdered By: Caesar Black on 09-14-2023 Creatinine [Mass/Vol] 1.38 mg/dL High 0.70-1.30 [facility] Comment on above: Performed By: #### B MP, PT, PTT #### [facility] [address] [place] [address] [place] Diff and CBCon 09-14-2023 Giant Platelet Tally 2 /100{WBC} Normal [facility] Comment on above: Performed By: #### B MP, PT, PTT #### [address] Mean Corpuscular HGB Conc 33.5 g/dL Normal 32.5-35.6 [facility] Comment on above: Performed By: #### B MP, PT, PTT #### [address] Ovalocytes Slight Normal [facility] Comment on above: Performed By: #### B MP, PT, PTT #### [address] Platelet Estimate Decreased Normal Normal [facility] Comment on above: Performed By: #### B MP, PT, PTT #### [address] Platelet Morphology Normal Normal Normal [facility] Comment on above: Performed By: #### B MP, PT, PTT #### [address] Eosinophils Auto (Bld) [#/Vo l]Ordered By: Caesar Black on 09-14-2023 Eosinophils (Bld) [#/Vol] N/A [facility] Eosinophils/100 WBC Auto (Bl d)Ordered By: Caesar Black on 09-14-2023 Eosinophils/100 WBC (Bld) N/A [facility] Eosinophils/100 leukocytes i n Blood by Manual countOrdered By: Caesar Black on 09-14-2023 Eosinophils/100 WBC (Bld) 1 % 1-3 [facility] Comment on above: Performed By: #### B MP, PT, PTT #### [address] Erythrocyte Sedimentation Ra imer 09-14-2023 ESR (Bld) [Velocity] 41 mm/h High 0-19 [facility] Comment on above: Result Comment: PERF ORMED BY: [place] [address] PATHOLOGIST SET UP MECHANIC BRO PIERRE M.D. Performed By: #### B MP, PT, PTT #### [address] [place] [address] [place] Erythrocyte distribution wid th [Ratio] by Automated countOrdered By: Caesar Black on 09-14-2023 Erythrocyte distribution width (RBC) [Ratio] 13.0 % 12.0-14.8 [facility] Comment on above: Performed By: #### B MP, PT, PTT #### [facility] [address] Erythrocyte sedimentation ra te by Photometric methodOrdered By: Caesar Black on 09-14-2023 ESR Photometric method (Bld) [Velocity] 41 mm/hr High 0-19 [facility] Erythrocytes [#/volume] in B lood by Automated countOrdered By: Caesar Black on 09-14-2023 RBC (Bld) [#/Vol] 4.14 10*6/uL 3.90-5.60 [facility] Comment on above: Performed By: #### B MP, PT, PTT #### [facility] [address] Giant platelets/100 leukocyt es [Ratio] in Blood by Manual countOrdered By: Caesar Black on 09-14-2023 Giant platelets/100 WBC Manual cnt (Bld) [Ratio] 2 /100{WBC} [facility] Glucose [Mass/volume] in Ser um or PlasmaOrdered By: Caesar Black on 09-14-2023 Glucose [Mass/Vol] 211 mg/dL High 70-100 [facility] Comment on above: ADA recommended refe rence rangeRandom Glucose Reference Range is dependent on time and content of last meal. Glucose of more than 200 mg/dL in a nonstressed, ambulatory subject supports the diagnosis of Diabetes Mellitus. Result Comment: [place] om Glucose Reference Range is dependent on time and content of last meal. Glucose of more than 200 mg/dL in a nonstressed, ambulatory subject supports the diagnosis of Diabetes Mellitus. ADA recommended reference range Performed By: #### B MP, PT, PTT #### [facility] [address] Hematocrit [Volume Fraction] of Blood by Automated countOrdered By: Caesar Black on 09-14-2023 Hematocrit (Bld) [Volume fraction] 35.9 % Low 38.8-50.0 [facility] Comment on above: Performed By: #### B MP, PT, PTT #### [facility] [address] [place] [id number] [facility] Hemoglobin [Mass/volume] in BloodOrdered By: Caesar Black on 09-14-2023 Hemoglobin (Bld) [Mass/Vol] 12.0 g/dL Low 13.0-17.0 [facility] Comment on above: Performed By: #### B MP, PT, PTT #### [facility] [address] INR in Platelet poor plasma by Coagulation assayOrdered By: Mary Kay Gray on 09-14-2023 INR Coag (PPP) [Relative time] 1.1 {INR} [facility] Comment on above: INR Therapeutic Rang e A) Pre- and Peroperative OAT started two weeks before surgery. NOT HIP SURGERY: 1.5 - 2.5 HIP SURGERY: 2 - 3B) Primary and secondary prevention of venous THROMBOSIS: 2 - 3C) Active venous thrombosis, pulmonary embolismand prevention of recurrent venous thrombosis: 2 - 3D) Prevention of arterial thromboembolismincluding patients with mechanical heart valves: 3 - 4.5 Result Comment: INR Therapeutic Range A) Pre- and Peroperative OAT started two weeks before surgery. NOT HIP SURGERY: 1.5 - 2.5 HIP SURGERY: 2 - 3 B) Primary and secondary prevention of venous THROMBOSIS: 2 - 3 C) Active venous thrombosis, pulmonary embolism and prevention of recurrent venous thrombosis: 2 - 3 D) Prevention of arterial thromboembolism including patients with mechanical heart valves: 3 - 4.5 PERFORMED BY: [place] [address] PATHOLOGIST SET UP MECHANIC BRO PIERRE M.D. Performed By: #### B MP, PT, PTT #### [address] [address] [facility] LDH Lactate Dehydrogenaseon 09-14-2023 LDH Lactate Dehydrogenase 136 U/L Low 140-271 [facility] Comment on above: Result Comment: PERF ORMED BY: [address] [place] [address] PATHOLOGIST SET UP MECHANIC BRO PIERRE M.D. Performed By: #### B MP, PT, PTT #### [facility] [address] [place] [address] Lactate dehydrogenase [Enzym atic activity/volume] in Serum or Plasma by Lactate to pyOrdered By: Caesar Black on 09-14-2023 LDH Lactate to pyruvate reaction [Catalytic activity/Vol] 136 U/L Low 140-271 [facility] Leukocytes [#/volume] correc mary for nucleated erythrocytes in Blood by Automated counOrdered By: Caesar Black on 09-14-2023 WBC corrected for nucl RBC Auto (Bld) [#/Vol] 3.3 10*3/uL Low 4.1-10.5 [facility] Leukocytes [#/volume] in Blo od by Automated countOrdered By: Caesar Black on 09-14-2023 WBC (Bld) [#/Vol] 3.3 10*3/uL Low 4.1-10.5 [facility] Comment on above: Performed By: #### B MP, PT, PTT #### [facility] [address] [place] [address] Lymphocytes Auto (Bld) [#/Vo l]Ordered By: Caesar Black on 09-14-2023 Lymphocytes (Bld) [#/Vol] N/A [facility] Lymphocytes/100 WBC Auto (Bl d)Ordered By: Caesar Black on 09-14-2023 Lymphocytes/100 WBC (Bld) N/A [facility] Lymphocytes/100 leukocytes i n Blood by Manual countOrdered By: Caesar Black on 09-14-2023 Lymphocytes/100 WBC (Bld) 23 % 18-42 [facility] Comment on above: Performed By: #### B MP, PT, PTT #### [facility] [address] [place] [address] [place] MCH [Entitic mass] by Automa mary countOrdered By: Caesar Black on 09-14-2023 MCH (RBC) [Entitic mass] 29.0 pg 27.5-35.2 [facility] Comment on above: Performed By: #### B MP, PT, PTT #### [facility] [address] [place] [address] MCHC Auto (RBC) [Mass/Vol]Or dered By: Caesar Black on 09-14-2023 MCHC (RBC) [Mass/Vol] 33.5 g/dL 32.5-35.6 [facility] MCV [Entitic volume] by Auto mated countOrdered By: Caesar Black on 09-14-2023 MCV (RBC) [Entitic vol] 86.7 fL 83.5-101 [facility] Comment on above: Performed By: #### B MP, PT, PTT #### [facility] [address] [place] [address] Magnesium [Mass/volume] in S amee or PlasmaOrdered By: Caesar Black on 09-14-2023 Magnesium [Mass/Vol] 1.7 mg/dL Low 1.9-2.7 [facility] Comment on above: Performed By: #### B MP, PT, PTT #### [facility] [address] [place] [address] Manual blood segmented neutr ophils/100 leukocytesOrdered By: Caesar Black on 09-14-2023 Segmented neutrophils/100 WBC (Bld) 68 % 50-70 [facility] Comment on above: Performed By: #### B MP, PT, PTT #### [facility] [address] [place] [address] Monocytes Auto (Bld) [#/Vol] Ordered By: Caesar Black on 09-14-2023 Monocytes (Bld) [#/Vol] N/A [facility] Monocytes/100 WBC Auto (Bld) Ordered By: Caesar Black on 09-14-2023 Monocytes/100 WBC (Bld) N/A [facility] Monocytes/100 leukocytes in Blood by Manual countOrdered By: Caesar Black on 09-14-2023 Monocytes/100 WBC (Bld) 9 % 2-11 [facility] Comment on above: Performed By: #### B MP, PT, PTT #### [facility] [address] [place] [address] [place] Neutrophils Auto (Bld) [#/Vo l]Ordered By: Caesar Black on 09-14-2023 Neutrophils (Bld) [#/Vol] N/A [facility] Neutrophils/100 WBC Auto (Bl d)Ordered By: Caesar Black on 09-14-2023 Neutrophils/100 WBC (Bld) N/A [facility] No Panel InformationOrdered By: Caesar Black on 09-14-2023 Estimated GFR (CKD-EPI) 55.355 mL/Min [facility] Creatinine Clearance (Chem 51.16 [facility] Nucleated erythrocytes [Pres ence] in Blood by Automated countOrdered By: Caesar Black on 09-14-2023 Nucleated RBC Auto Ql (Bld) N/A [facility] Ovalocyte detectionOrdered B y: Caesar Black on 09-14-2023 Ovalocytes LM Ql (Bld) Slight [facility] Partial Thromboplastin Timeo n 09-14-2023 aPTT Coag (Bld) [Time] 82.2 s High 25.1-36.5 [facility] Comment on above: Result Comment: A he matocrit value greater than 55% may lead to inaccurate results in coagulation testing. Patients having hematocrit values >55% require a special collection tube for coagulation studies. Please contact the laboratory at [phone] for redraw instructions. PERFORMED BY: [place] [address] PATHOLOGIST SET UP MECHANIC BRO PIERRE M.D. Performed By: #### B MP, PT, PTT #### [facility] [address] [place], [place] [id number] [facility] aPTT Coag (Bld) [Time] 77.0 s High 25.1-36.5 [facility] Comment on above: Result Comment: A he matocrit value greater than 55% may lead to inaccurate results in coagulation testing. Patients having hematocrit values >55% require a special collection tube for coagulation studies. Please contact the laboratory at [phone] for redraw instructions. PERFORMED BY: [place] [address] PATHOLOGIST SET UP MECHANIC BRO PIERRE M.D. Performed By: #### B MP, PT, PTT #### [facility] [address] [place] [address] Phosphate [Mass/volume] in S am[place] or PlasmaOrdered By: Jarod Ballard on 09-14-2023 Phosphate [Mass/Vol] 1.2 mg/dL Low 2.5-4.5 [facility] Comment on above: Performed By: #### B MP, PT, PTT #### [facility] [address] [place] [address] Platelet adequacy [Presence] in Blood by Light microscopyOrdered By: Caesar Black on 09-14-2023 Platelets LM Ql (Bld) Decreased Normal [facility] Platelet mean volume [Entiti c volume] in Blood by Automated countOrdered By: Caesar Black on 09-14-2023 Platelet mean volume (Bld) [Entitic vol] 9.9 fL 6.6-10.1 [facility] Comment on above: Performed By: #### B MP, PT, PTT #### [facility] [address] [place] [address] Platelet morphology finding [Identifier] in BloodOrdered By: Caesar Black on 09-14-2023 Platelet morphology finding Nom (Bld) Normal Normal [facility] Platelets [#/volume] in Bloo d by Automated countOrdered By: Caesar Black on 09-14-2023 Platelets (Bld) [#/Vol] 104 10*3/uL Low 150-450 [facility] Comment on above: Performed By: #### B MP, PT, PTT #### [facility] [address] [place] [address] [place] Potassium [Moles/volume] in Serum or PlasmaOrdered By: Caesar Black on 09-14-2023 Potassium [Moles/Vol] 4.7 mmol/L 3.5-5.1 [facility] Comment on above: Performed By: #### B MP, PT, PTT #### [facility] [address] [place] [address] Protein [Mass/volume] in Ser um or PlasmaOrdered By: Caesar Black on 09-14-2023 Protein [Mass/Vol] 5.5 g/dL Low 6.4-8.9 [facility] Comment on above: Performed By: #### B MP, PT, PTT #### [address] Prothrombin time (PT)Ordered By: Mary Kay Gray on 09-14-2023 PT Coag (PPP) [Time] 12.7 s 9.0-12.9 [facility] Comment on above: A hematocrit value g reater than 55% may lead to inaccurate results in coagulation testing. Patients having hematocrit values >55% require a special collection tube for coagulation studies. Please contact the laboratory at [phone] for redraw instructions. Result Comment: A he matocrit value greater than 55% may lead to inaccurate results in coagulation testing. Patients having hematocrit values >55% require a special collection tube for coagulation studies. Please contact the laboratory at [phone] for redraw instructions. Performed By: #### B MP, PT, PTT #### [address] RBC morphologyOrdered By: Nathanael Black on 09-14-2023 RBC morphology finding Nom (Bld) N/A [facility] Serum globulin measurement b y calculation (mass/volume)Ordered By: Caesar Black on 09-14-2023 Globulin (S) [Mass/Vol] 2.6 g/dL [facility] Comment on above: Performed By: #### B MP, PT, PTT #### [address] Serum or plasma albumin/glob ulin mass ratioOrdered By: Caesar Black on 09-14-2023 Albumin/Globulin [Mass ratio] 1.1 {ratio} [facility] Comment on above: Performed By: #### B MP, PT, PTT #### [address] Serum or plasma anion gap de terminationOrdered By: Caesar Black on 09-14-2023 Anion gap [Moles/Vol] 11.3 mmol/L 6.0-15.0 [facility] Comment on above: Performed By: #### B MP, PT, PTT #### [facility] [address] Serum or plasma cancer antig en 125 (CA-125) measurement (units/volume)Ordered By: Caesar Black on 09-14-2023 Cancer Ag 125 Qn 70.2 [arb'U]/mL Not Estab. [facility] Comment on above: [employer] [place] ectrochemiluminescence Immunoassay(ECLIA)Values obtained with different assay methods or kits cannotbe used interchangeably. Results cannot be interpreted asabsolute evidence of the presence or absence of malignantdisease.Performed at: [employer] [facility] [place] [id number] Director: Sukhwinder Garcia PhD, Phone: [phone] Serum or plasma cancer antig en 19-9 measurement (units/volume)Ordered By: Caesar Black on 09-14-2023 Cancer Ag 19-9 Qn [arb'U]/mL 0-35 [facility] Comment on above: [employer] [place] ectrochemiluminescence Immunoassay(ECLIA)Values obtained with different assay methods or kits cannotbe used interchangeably. Results cannot be interpreted asabsolute evidence of the presence or absence of malignantdisease. 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 Sodium [Moles/volume] in Ser um or PlasmaOrdered By: Caesar Black on 09-14-2023 Sodium [Moles/Vol] 131 mmol/L Low 136-145 [facility] Comment on above: Performed By: #### B MP, PT, PTT #### [address] Urea nitrogen [Mass/volume] in Serum or PlasmaOrdered By: Caesar Black on 09-14-2023 Urea nitrogen [Mass/Vol] 27 mg/dL High 09-12 [facility] Comment on above: Performed By: #### B MP, PT, PTT #### [address] Aerobic Cultureon 09-13-2023 Aerobic Culture ONLY ONE BAG WAS SEN T @[facility] No Growth 2 Days ONLY ONE BAG WAS SENT @[facility] No Anaerobes Isolated 3 Days ONLY ONE BAG WAS SENT @[facility] Gram Stain Result No Bacteria Seen No White Blood Cells Seen Rare Red Blood Cells PERFORMED BY: [place] [address] PATHOLOGIST SET UP MECHANIC BRO PIERRE M.D. Normal [facility] Comment on above: Performed By: #### B MP, HEPATIC, PTT, SHAKIRA, CBC, LIPASE, PT #### [address] Body fluid differential cell countOrdered By: Caesar Black on 09-13-2023 Differential panel (Body fld) 56 % [facility] Comment on above: SIGNET-RING CELLS WI ESENTThe reference interval and other method performance specifications have not been established for this body fluid. The test result must be integrated into the clinical context for interpretation. Cell Count/Diff, Fluidon Appearance, Fluid Hazy Normal [facility] Comment on above: Order Comment: ONLY ONE BAG SENT @[facility] Body Fluid Source: Paracentesis Fluid Body Fluid Site: Paracentesis Result Comment: The reference interval and other method performance specifications have not been established for this body fluid. The test result must be integrated into the clinical context for interpretation. Performed By: #### B MP, HEPATIC, PTT, SHAKIRA, CBC, LIPASE, PT #### [address] Color, Fluid Straw Normal [facility] Comment on above: Order Comment: ONLY ONE BAG SENT @[facility] Body Fluid Source: Paracentesis Fluid Body Fluid Site: Paracentesis Result Comment: The reference interval and other method performance specifications have not been established for this body fluid. The test result must be integrated into the clinical context for interpretation. Performed By: #### B MP, HEPATIC, PTT, SHAKIRA, CBC, LIPASE, PT #### [facility] [address] Color, Fluid Supernatant Straw Normal [facility] Comment on above: Order Comment: ONLY ONE BAG SENT @[facility] Body Fluid Source: Paracentesis Fluid Body Fluid Site: Paracentesis Result Comment: The reference interval and other method performance specifications have not been established for this body fluid. The test result must be integrated into the clinical context for interpretation. Performed By: #### B MP, HEPATIC, PTT, SHAKIRA, CBC, LIPASE, PT #### [facility] [address] Eosinophils, Fluid 0 /100{WBC} Normal 0-3 [facility] Comment on above: Order Comment: ONLY ONE BAG SENT @[facility] Body Fluid Source: Paracentesis Fluid Body Fluid Site: Paracentesis Result Comment: PERF ORMED BY: [place] [address] PATHOLOGIST SET UP MECHANIC BRO PIERRE M.D. Performed By: #### B MP, HEPATIC, PTT, SHAKIRA, CBC, LIPASE, PT #### [facility] [address] Lymphocytes, Fluid 22 % Normal [facility] Comment on above: Order Comment: ONLY ONE BAG SENT @[facility] Body Fluid Source: Paracentesis Fluid Body Fluid Site: Paracentesis Result Comment: The reference interval and other method performance specifications have not been established for this body fluid. The test result must be integrated into the clinical context for interpretation. Performed By: #### B MP, HEPATIC, PTT, SHAKIRA, CBC, LIPASE, PT #### [facility] [address] Monocytes/Macrophages , Fluid 56 % Normal [facility] Comment on above: Order Comment: ONLY ONE BAG SENT @[facility] Body Fluid Source: Paracentesis Fluid Body Fluid Site: Paracentesis Result Comment: SIGN ET-RING CELLS PRESENT The reference interval and other method performance specifications have not been established for this body fluid. The test result must be integrated into the clinical context for interpretation. Performed By: #### B MP, HEPATIC, PTT, SHAKIRA, CBC, LIPASE, PT #### [facility] [address] [place], [place] [address] Neutrophil, Fluid 22 % Normal [facility] Comment on above: Order Comment: ONLY ONE BAG SENT @[facility] Body Fluid Source: Paracentesis Fluid Body Fluid Site: Paracentesis Result Comment: The reference interval and other method performance specifications have not been established for this body fluid. The test result must be integrated into the clinical context for interpretation. Performed By: #### B MP, HEPATIC, PTT, SHAKIRA, CBC, LIPASE, PT #### [facility] [address] [place] [id number] [facility] RBC, Fluid 149 /uL Normal [facility] Comment on above: Order Comment: ONLY ONE BAG SENT @[facility] Body Fluid Source: Paracentesis Fluid Body Fluid Site: Paracentesis Result Comment: The reference interval and other method performance specifications have not been established for this body fluid. The test result must be integrated into the clinical context for interpretation. Performed By: #### B MP, HEPATIC, PTT, SHAKIRA, CBC, LIPASE, PT #### [facility] [address] [place] [id number] [facility] TNC, Body Fluid 220 Normal [facility] Comment on above: Order Comment: ONLY ONE BAG SENT @[facility] Body Fluid Source: Paracentesis Fluid Body Fluid Site: Paracentesis Result Comment: The reference interval and other method performance specifications have not been established for this body fluid. The test result must be integrated into the clinical context for interpretation. Performed By: #### B MP, HEPATIC, PTT, SHAKIRA, CBC, LIPASE, PT #### [facility] [address] [place] [id number] [facility] Cells Counted Total [#] in B vinnie fluidOrdered By: Caesar Black on 09-13-2023 Cells Counted Total (Body fld) [#] 220 mm^3 [facility] Comment on above: The reference interv al and other method performance specifications have not been established for this body fluid. The test result must be integrated into the clinical context for interpretation. Color of Spun Body fluidOrde red By: Caesar Black on 09-13-2023 Color (Spun body fld) Straw [facility] Comment on above: The reference interv al and other method performance specifications have not been established for this body fluid. The test result must be integrated into the clinical context for interpretation. Complete Blood Count Auto Di ffon 09-13-2023 Basophils (Bld) [#/Vol] 0.0 10*3/uL Normal 0.0-0.2 [facility] Comment on above: Result Comment: PERF ORMED BY: [place] [address] PATHOLOGIST SET UP MECHANIC BRO PIERRE M.D. Performed By: #### B MP, HEPATIC, PTT, SHAKIRA, CBC, LIPASE, PT #### [address] Basophils/100 WBC (Bld) 0.4 % Normal . [facility] Comment on above: Performed By: #### B MP, HEPATIC, PTT, SHAKIRA, CBC, LIPASE, PT #### [address] Eosinophils (Bld) [#/Vol] 0.1 10*3/uL Normal 0.0-0.45 [facility] Comment on above: Performed By: #### B MP, HEPATIC, PTT, SHAKIRA, CBC, LIPASE, PT #### [address] Eosinophils/100 WBC (Bld) 1.9 % Normal . [facility] Comment on above: Performed By: #### B MP, HEPATIC, PTT, SHAKIRA, CBC, LIPASE, PT #### [address] Erythrocyte distribution width (RBC) [Ratio] 13.0 % Normal 12.0-14.8 [facility] Comment on above: Performed By: #### B MP, HEPATIC, PTT, SHAKIRA, CBC, LIPASE, PT #### [address] Hematocrit (Bld) [Volume fraction] 32.4 % Low 38.8-50.0 [facility] Comment on above: Performed By: #### B MP, HEPATIC, PTT, SHAKIRA, CBC, LIPASE, PT #### [address] Hemoglobin (Bld) [Mass/Vol] 10.7 g/dL Low 13.0-17.0 [facility] Comment on above: Performed By: #### B MP, HEPATIC, PTT, SHAKIRA, CBC, LIPASE, PT #### [address] Lymphocytes (Bld) [#/Vol] 0.8 10*3/uL Low 1.00-4.8 [facility] Comment on above: Performed By: #### B MP, HEPATIC, PTT, SHAKIRA, CBC, LIPASE, PT #### [address] Lymphocytes/100 WBC (Bld) 22.0 % Normal . [facility] Comment on above: Performed By: #### B MP, HEPATIC, PTT, SHAKIRA, CBC, LIPASE, PT #### [address] MCH (RBC) [Entitic mass] 29.1 pg Normal 27.5-35.2 [facility] Comment on above: Performed By: #### B MP, HEPATIC, PTT, SHAKIRA, CBC, LIPASE, PT #### [address] MCV (RBC) [Entitic vol] 88.3 fL Normal 83.5-101 [facility] Comment on above: Performed By: #### B MP, HEPATIC, PTT, SHAKIRA, CBC, LIPASE, PT #### [address] Mean Corpuscular HGB Conc 32.9 g/dL Normal 32.5-35.6 [facility] Comment on above: Performed By: #### B MP, HEPATIC, PTT, SHAKIRA, CBC, LIPASE, PT #### [address] [address] [place] Monocytes (Bld) [#/Vol] 0.5 10*3/uL Normal 0.0-0.8 [facility] Comment on above: Performed By: #### B MP, HEPATIC, PTT, SHAKIRA, CBC, LIPASE, PT #### [address] Monocytes/100 WBC (Bld) 14.4 % Normal . [facility] Comment on above: Performed By: #### B MP, HEPATIC, PTT, SHAKIRA, CBC, LIPASE, PT #### [address] Neutrophils (Bld) [#/Vol] 2.1 10*3/uL Normal 1.8-7.7 [facility] Comment on above: Performed By: #### B MP, HEPATIC, PTT, SHAKIRA, CBC, LIPASE, PT #### [address] Neutrophils/100 WBC (Bld) 61.3 % Normal . [facility] Comment on above: Performed By: #### B MP, HEPATIC, PTT, SHAKIRA, CBC, LIPASE, PT #### [address] NRBC% 0.3 /100{WBC} Normal 0-0.5 [facility] Comment on above: Performed By: #### B MP, HEPATIC, PTT, SHAKIRA, CBC, LIPASE, PT #### [address] Platelet mean volume (Bld) [Entitic vol] 9.5 fL Normal 6.6-10.1 [facility] Comment on above: Performed By: #### B MP, HEPATIC, PTT, SHAKIRA, CBC, LIPASE, PT #### [address] Platelets (Bld) [#/Vol] 100 10*3/uL Low 150-450 [facility] Comment on above: Performed By: #### B MP, HEPATIC, PTT, SHAKIRA, CBC, LIPASE, PT #### [address] [address] [place] RBC (Bld) [#/Vol] 3.67 10*6/uL Low 3.90-5.60 [facility] Comment on above: Performed By: #### B MP, HEPATIC, PTT, SHAKIRA, CBC, LIPASE, PT #### [facility] [address] WBC (Bld) [#/Vol] 3.5 10*3/uL Low 4.1-10.5 [facility] Comment on above: Performed By: #### B MP, HEPATIC, PTT, SHAKIRA, CBC, LIPASE, PT #### [address] Determination of appearance of body fluidOrdered By: Caesar Black on 09-13-2023 Appearance (Body fld) Hazy [facility] Comment on above: The reference interv al and other method performance specifications have not been established for this body fluid. The test result must be integrated into the clinical context for interpretation. Evaluation of color of body fluidOrdered By: Caesar Blakc on 09-13-2023 Color (Body fld) Straw [facility] Comment on above: The reference interv al and other method performance specifications have not been established for this body fluid. The test result must be integrated into the clinical context for interpretation. Glucose [Mass/volume] in Bod y fluidOrdered By: Caesar Black on 09-13-2023 Glucose (Body fld) [Mass/Vol] 280 mg/dL [facility] Comment on above: No reference range e stablished Glucose, Fluidon 09-13-2023 Glucose, Fluid 280 mg/dL Normal [facility] Comment on above: Order Comment: Comme nt Obtain PTT 6 HRS after start of Heparin changes Result Comment: No r eference range established Performed By: #### P TT #### [address] Gram Stainon 09-13-2023 Microscopic observation Gram stain Nom (Unsp spec) ONLY ONE BAG WAS SENT @[facility] Gram Stain Result No Bacteria Seen No White Blood Cells Seen Rare Red Blood Cells PERFORMED BY: [place] [address] PATHOLOGIST SET UP MECHANIC BRO PIERRE M.D. Normal [facility] Comment on above: Performed By: #### B MP, HEPATIC, PTT, SHAKIRA, CBC, LIPASE, PT #### [address] Gram stain for investigation of transfusion reactionOrdered By: Caesar Black on 09-13-2023 Microscopic observation Gram stain Nom (Unsp spec) No Anaerobes Isolated 1 Day [facility] Microscopic observation Gram stain Nom (Unsp spec) No Anaerobes Isolated 3 Days [facility] [place] 09-13-2023 L Specimen: [id number] Received: 09/16/23 Status: FABIOLA Analia Num: [id number] Spec Type: Cytology Subm Dr: Eric Shanks II, MD Tissues: A ASCITES (PARACENTESIS) Procedures: HE/2, Gross/Micro L4, CALRETININ, CK20, CK 7, Cyto Prepstain, MOC31, PAPSTN Age/ Patient Sex Location Account Attending Physician RigobertodungRaul rendon Philomena 68/M 3T [id number] Caesar Black MD SPEC NUM: [id number] RECD: 09/16/23 STATUS: FABIOLA CEJA NUM: [id number] JOSUE: 09/13/[address]: Eric Shanks II, MD ENTERED: 09/16/23 [facility] DR: Caesar Black MD SPEC TYPE: Cytology DEPT: CNG ENTERED BY: [id number] RECV BY: [id number] ORDERED: HE/2, Gross/Micro L4, CALRETININ, CK20, CK 7, Cyto Prepstain, MOC31, PAPSTN ORDERED: HE/2, Gross/Micro L4, CALRETININ, CK20, CK 7, Cyto Prepstain, MOC31, PAPSTN Pathological Diagnosis Ascites (paracentesis with ThinPrep filter and cell block preparation): Adequacy: Adequate for evaluation Diagnostic category: Atypical, see comment and microscopic description Descriptive diagnosis: Abundant mesothelial and inflammatory cells with reactive changes are present Rare groups of atypical cells are noted Comment: There are rare small groups of atypical cells present possibly representing reactive mesothelial cells. Attempts at further classification are unsuccessful as insufficient atypical cells are present within the cell block. Clinical Information Ascites,liver lesion,abnormal gallbladder on CT Gross Description Received is 1100 ml yellow cloudy unfixed fluid for cytology said to have been obtained as ascites. ThinPrep and cell block preparations are prepared for microscopic examination.(CA/nh) Specimen: [id number] Received: 09/16/23 Status: FABIOLA Ceja Num: [id number] Spec Type: Cytology Subm Dr: Eric Shanks II, MD Tissues: A ASCITES (PARACENTESIS) Procedures: HE/2, Gross/Micro L4, CALRETININ, CK20, CK 7, Cyto Prepstain, MOC31, PAPSTN Patient: Raul Manriquez [id number] (Continued) Specimen: [id number] Received: 09/16/23 (Continued) Signed (signature on file) Aman Chappell Jr., MD 09/17/23 1634 Specimen: [id number] Received: 09/16/23 Status: FABIOLA Ceja Num: [id number] Spec Type: Cytology Subm Dr: Eric Shanks II, MD Tissues: A ASCITES (PARACENTESIS) Procedures: HE/2, Gross/Micro L4, CALRETININ, CK20, CK 7, Cyto Prepstain, MOC31, PAPSTN Patient: RigobertodungRaul rendon [id number] (Continued) Specimen: [id number] Received: 09/16/23 (Continued) Microscopic Description Immunoperoxidase stains performed on formalin fixed and paraffin-embedded tissue sections of the cell block preparation for MOC-31, cytokeratin subtypes 7 and 20, and calretinin are unsuccessful as only a small amount of tissue is present and insufficient atypical cells are noted. The controls stain appropriately. CPT Codes 83828. 84604, 20705, 95746 x 3 Specimen: [id number] Received: 09/16/23 Status: FABIOLA Ceja Num: [id number] Spec Type: Cytology Subm Dr: Eric Shanks II, MD Tissues: A ASCITES (PARACENTESIS) Procedures: HE/2, Gross/Micro L4, CALRETININ, CK20, CK 7, Cyto Prepstain, MOC31, PAPSTN Patient: Raul Manriquez [id number] (Continued) Signed (signature on file) Aman Chappell Jr., MD 09/17/23 7806 Normal [facility] LDH, Fluidon 09-13-2023 LDH, Fluid 26 [IU]/mL Normal [facility] Comment on above: Order Comment: Comme nt Obtain PTT 6 HRS after start of Heparin changes Result Comment: No r eference range established Performed By: #### P TT #### [facility] [address] Lactate dehydrogenase [Enzym atic activity/volume] in Body fluid by Lactate to pyruvatOrdered By: Caesar Black on 09-13-2023 LDH Lactate to pyruvate reaction (Body fld) [Catalytic activity/Vol] 26 [IU]/mL [facility] Comment on above: No reference range e stablished Manual body fluid eosinophil s/100 leukocytesOrdered By: Caesar Black on 09-13-2023 Eosinophils/100 WBC Manual cnt (Body fld) 0 /100{WBC} 0-3 [facility] Manual body fluid erythrocyt es count (number/volume)Ordered By: Caesar Black on 09-13-2023 RBC Manual cnt (Body fld) [#/Vol] 149 /uL [facility] Comment on above: The reference interv al and other method performance specifications have not been established for this body fluid. The test result must be integrated into the clinical context for interpretation. Manual body fluid lymphocyte s/100 leukocytesOrdered By: Caesar Black on 09-13-2023 Lymphocytes/100 WBC Manual cnt (Body fld) 22 % [facility] Comment on above: The reference interv al and other method performance specifications have not been established for this body fluid. The test result must be integrated into the clinical context for interpretation. Neutrophils/100 WBC Manual c nt (Body fld)Ordered By: Caesar Black on 09-13-2023 Neutrophils/100 WBC (Body fld) 22 % [facility] Comment on above: The reference interv al and other method performance specifications have not been established for this body fluid. The test result must be integrated into the clinical context for interpretation. Partial Thromboplastin Timeo n 09-13-2023 aPTT Coag (Bld) [Time] 59.8 s High 25.1-36.5 [facility] Comment on above: Result Comment: A he matocrit value greater than 55% may lead to inaccurate results in coagulation testing. Patients having hematocrit values >55% require a special collection tube for coagulation studies. Please contact the laboratory at [phone] for redraw instructions. PERFORMED BY: [place] [address] PATHOLOGIST SET UP MECHANIC BRO PIERRE M.D. Performed By: #### B MP, PT, PTT #### [facility] [address] [place] [id number] [facility] aPTT Coag (Bld) [Time] 76.9 s High 25.1-36.5 [facility] Comment on above: Result Comment: A he matocrit value greater than 55% may lead to inaccurate results in coagulation testing. Patients having hematocrit values >55% require a special collection tube for coagulation studies. Please contact the laboratory at [phone] for redraw instructions. PERFORMED BY: [place] [address] PATHOLOGIST SET UP MECHANIC BRO PIERRE M.D. Performed By: #### B MP, HEPATIC, PTT, SHAKIRA, CBC, LIPASE, PT #### [facility] [address] [place] [id number] [facility] Protein [Mass/volume] in Bod y fluidOrdered By: Caesar Black on 09-13-2023 Protein (Body fld) [Mass/Vol] g/dL [facility] Prothrombin Time INRon 09-12 INR Coag (PPP) [Relative time] 1.2 {INR} Normal [facility] Comment on above: Result Comment: INR Therapeutic Range A) Pre- and Peroperative OAT started two weeks before surgery. NOT HIP SURGERY: 1.5 - 2.5 HIP SURGERY: 2 - 3 B) Primary and secondary prevention of venous THROMBOSIS: 2 - 3 C) Active venous thrombosis, pulmonary embolism and prevention of recurrent venous thrombosis: 2 - 3 D) Prevention of arterial thromboembolism including patients with mechanical heart valves: 3 - 4.5 PERFORMED BY: [place] [id number] PATHOLOGIST SET UP MECHANIC BRO PIERRE M.D. Performed By: #### B MP, HEPATIC, PTT, SHAKIRA, CBC, LIPASE, PT #### [address] PT Coag (PPP) [Time] 14.1 s High 9.0-12.9 [facility] Comment on above: Result Comment: A he matocrit value greater than 55% may lead to inaccurate results in coagulation testing. Patients having hematocrit values >55% require a special collection tube for coagulation studies. Please contact the laboratory at [phone] for redraw instructions. Performed By: #### B MP, HEPATIC, PTT, SHAKIRA, CBC, LIPASE, PT #### [address] Renal Function Panelon 09-12 Albumin [Mass/Vol] 2.9 g/dL Low 3.5-5.7 [facility] Comment on above: Performed By: #### B MP, HEPATIC, PTT, SHAKIRA, CBC, LIPASE, PT #### [address] Anion gap [Moles/Vol] 10.0 mmol/L Normal 6.0-15.0 [facility] Comment on above: Performed By: #### B MP, HEPATIC, PTT, SHAKIRA, CBC, LIPASE, PT #### [address] Calcium [Mass/Vol] 8.5 mg/dL Low 8.6-10.3 [facility] Comment on above: Performed By: #### B MP, HEPATIC, PTT, SHAKIRA, CBC, LIPASE, PT #### [address] Chloride [Moles/Vol] 102 mmol/L Normal 98-107 [facility] Comment on above: Performed By: #### B MP, HEPATIC, PTT, SHAKIRA, CBC, LIPASE, PT #### [address] CO2 [Moles/Vol] 23.6 mmol/L Normal 21.0-31.0 [facility] Comment on above: Performed By: #### B MP, HEPATIC, PTT, SHAKIRA, CBC, LIPASE, PT #### [facility] [address] Creatinine [Mass/Vol] 1.37 mg/dL High 0.70-1.30 [facility] Comment on above: Performed By: #### B MP, HEPATIC, PTT, SHAKIRA, CBC, LIPASE, PT #### [facility] [address] [place] [address] [place] Creatinine Clr Calc Pharmacy 50.53 Normal [facility] Comment on above: Result Comment: PERF ORMED BY: [place] [address] PATHOLOGIST SET UP MECHANIC BRO PIERRE M.D. Performed By: #### B MP, HEPATIC, PTT, SHAKIRA, CBC, LIPASE, PT #### [facility] [address] GFR/1.73 sq M.predicted MDRD (S/P/Bld) [Vol rate/Area] 55.840 mL/min/{1.73_m2} Normal [facility] Comment on above: Performed By: #### B MP, HEPATIC, PTT, SHAKIRA, CBC, LIPASE, PT #### [address] Glucose [Mass/Vol] 170 mg/dL High 70-100 [facility] Comment on above: Result Comment: [facility] Glucose Reference Range is dependent on time and content of last meal. Glucose of more than 200 mg/dL in a nonstressed, ambulatory subject supports the diagnosis of Diabetes Mellitus. ADA recommended reference range Performed By: #### B MP, HEPATIC, PTT, SHAKIRA, CBC, LIPASE, PT #### [facility] [address] Phosphate [Mass/Vol] 1.2 mg/dL Low 2.5-4.5 [facility] Comment on above: Performed By: #### B MP, HEPATIC, PTT, SHAKIRA, CBC, LIPASE, PT #### [facility] [address] Potassium [Moles/Vol] 4.6 mmol/L Normal 3.5-5.1 [facility] Comment on above: Performed By: #### B MP, HEPATIC, PTT, SHAKIRA, CBC, LIPASE, PT #### [address] Sodium [Moles/Vol] 131 mmol/L Low 136-145 [facility] Comment on above: Performed By: #### B MP, HEPATIC, PTT, SHAKIRA, CBC, LIPASE, PT #### [address] Urea nitrogen [Mass/Vol] 24 mg/dL Normal 7-25 [facility] Comment on above: Performed By: #### B MP, HEPATIC, PTT, SHAKIRA, CBC, LIPASE, PT #### [address] Total Protein, Fluidon 09-12 Total Protein, Fluid < 3.0 Normal [facility] Comment on above: Order Comment: Comme nt Obtain PTT 6 HRS after start of Heparin changes Result Comment: PERF ORMED BY: [place] [address] PATHOLOGIST SET UP MECHANIC BRO PIERRE M.D. Performed By: #### P TT #### [address] US paracentesis abd w/imageo n 09-13-2023 US paracentesis abd w/image [facility] [place] [address] [place] [address] Ultrasound Report Signed Patient: Raul Manriquez MR#: [id number] : 1955 Acct:[id number] Age/Sex: 68 / M ADM Date: 09/11/23 Loc: Room: [address] [place] [address] Type: ADM IN Attending Dr: Caesar Black MD Ordering Provider: Caesar Black MD Date of Service: 09/13/23 US/US paracentesis abd w/image: Possible Malignant ascites Copies to: Caesar Black MD US paracentesis abd w/image 09/12/2023 3:07 PM SIGNS AND SYMPTOMS: Possible Malignant ascites INFORMED CONSENT: Reason for procedure was discussed with the patient. The procedure expectations risks benefits options and alternatives were discussed. All the questions were answered. The patient understood the results cannot be guaranteed. The procedure is indicated and risks were acceptable. Consent was obtained. PROCEDURE: A fluid collection is visualized in the right lower quadrant. The skin was marked in this location using sonographic imaging. The skin was prepped and draped in a sterile manner. 8 mL of lidocaine 2% without epinephrine were used for local anesthesia. A 5 Kazakh one-step catheter was introduced into the fluid collection with the catheter advanced as the needle was removed. The catheter was connected to tubing and into vacuum device. 1 L of clear yellow fluid was removed. The catheter was removed and hemostasis was gained using manual pressure. A bandage was placed over the puncture site. The patient tolerated the procedure well. No immediate complications were detected. US/US paracentesis abd w/image IMPRESSION: Successful ultrasound-guided paracentesis in the right lower quadrant yielding 1 L of clear yellow fluid. Impression dictated by: Eric Shanks M.D.09/13/2023 2:18 PM Dictation Location: [place] [address] Tech: Amalia Venkat Transcribed By: CT 09/13/231417 Dictated By: Eric Shnaks II, MD 09/13/231413 Signed By: 09/13/231417 [place] [facility] thyroidon 09-13-2023 thyroid [facility] [place] [address] Ultrasound Report Signed Patient: Raul Manriquez MR#: [id number] : 1955 Acct:[id number] Age/Sex: 68 / M ADM Date: 09/11/23 Loc: Room: [address] [place] [address] Type: ADM IN Attending Dr: Caesar Black MD Ordering Provider: Caesar Black MD Date of Service: 09/13/23 US/US thyroid: thyroid nodule Copies to: Caesar Black MD Thyroid Ultrasound HISTORY: Thyroid nodule identified with CT the chest. This is in the RIGHT lobe measuring 2.6 cm. COMPARISON: None The RIGHT lobe measures 4.1 x 1.9 x 2.1 cmcm. LEFT lobe measures 3.8 x 2.0 x 2.0 cm cm. Isthmus has an AP dimension of 0.3cm. RIGHT mid to inferior hypoechoic nodule measures 1.9 x 1.4 x 1.6 cm. RIGHT medial cystic nodule in the isthmus measures 4 mm. LEFT superior cystic nodule measures 6 mm. LEFT mid solid cystic nodule measures 5 mm. LEFT inferior solid cystic nodule measures 4 mm. No microcalcifications identified. Symmetric blood flow of the thyroid gland identified. US/US thyroid IMPRESSION: 2 cm RIGHT solid thyroid nodule with increased vascularity. Fine-needle aspiration recommended. Impression dictated by: Ken Cabrera M.D.09/13/2023 7:25 PM Dictation Location: [place] [address] Tech: Linazion Anderser Transcribed By: CT 09/13/231924 Dictated By: Ken Cabrera DO 09/13/231917 Signed By: 09/13/231924 Normal [facility] Basic Metabolic Panelon 08-20 Anion gap [Moles/Vol] 9.4 mmol/L Normal 6.0-15.0 [facility] Comment on above: Performed By: #### B MP, PT, PTT #### [facility] [address] [place] [id number] [place] Calcium [Mass/Vol] 8.7 mg/dL Normal 8.6-10.3 [facility] Comment on above: Performed By: #### B MP, PT, PTT #### [facility] [address] [place] [id number] [place] Chloride [Moles/Vol] 103 mmol/L Normal 98-107 [facility] Comment on above: Performed By: #### B MP, PT, PTT #### [facility] [address] [place] [address] [place] CO2 [Moles/Vol] 22.8 mmol/L Normal 21.0-31.0 [facility] Comment on above: Performed By: #### B MP, PT, PTT #### [facility] [address] [place] [address] [place] Creatinine [Mass/Vol] 1.49 mg/dL High 0.70-1.30 [facility] Comment on above: Performed By: #### B MP, PT, PTT #### [place] [address] [place] Creatinine Clr Calc Pharmacy 47.12 Normal [facility] Comment on above: Result Comment: PERF ORMED BY: [place] [address] PATHOLOGIST SET UP MECHANIC BRO PIERRE M.D. Performed By: #### B MP, PT, PTT #### [place] [address] [place] GFR/1.73 sq M.predicted MDRD (S/P/Bld) [Vol rate/Area] 50.487 mL/min/{1.73_m2} Normal [facility] Comment on above: Performed By: #### B MP, PT, PTT #### [place] [address] [place] Glucose [Mass/Vol] 184 mg/dL High 70-100 [facility] Comment on above: Result Comment: [facility] Glucose Reference Range is dependent on time and content of last meal. Glucose of more than 200 mg/dL in a nonstressed, ambulatory subject supports the diagnosis of Diabetes Mellitus. ADA recommended reference range Performed By: #### B MP, PT, PTT #### [address] Potassium [Moles/Vol] 4.2 mmol/L Normal 3.5-5.1 [facility] Comment on above: Performed By: #### B MP, PT, PTT #### [place] [address] [place] Sodium [Moles/Vol] 131 mmol/L Low 136-145 [facility] Comment on above: Performed By: #### B MP, PT, PTT #### [address] Urea nitrogen [Mass/Vol] 22 mg/dL Normal 7-25 [facility] Comment on above: Performed By: #### B MP, PT, PTT #### [address] [place] [address] [facility] CT chest wo conon 09-12-2023 CT chest wo con [facility] [place] [address] [place] [address] CT Scan Report Signed Patient: Raul Manriquez MR#: [id number] 677 : 1955 Acct:[id number] Age/Sex: 68 / M ADM Date: 09/11/23 Loc: Room: [address] [place] [address] Type: ADM IN Attending Dr: Caesar Black MD Copies to: Caesar Black MD Ordering Provider: Caesar Black MD Date of Service: 09/12/23 CT/CT chest wo con: Evaluate possible lung mets CT chest wo con 09/12/2023 4:29 PM SIGN AND SYMPTOMS: Evaluate possible lung mets TECHNIQUE: Multidetector CT axial slices of the chest were obtained without IV contrast. Multiplanar reformats were performed and viewed on a separate workstation and reviewed to further define anatomy and possible pathology. CT was performed with one or more of the following dose reduction techniques: Automated exposure control, adjustment of the mA and/or kV according to patient size, or use of iterative reconstruction technique. COMPARISON: 09/11/2023. FINDINGS: Lower neck: There is a 2.1 cm hypoattenuating nodule within the right thyroid lobe. Ultrasound correlation is recommended as malignancy is not excluded. Vessels: Atherosclerotic changes are noted in the thoracic aorta and great vessels. Atherosclerotic changes are noted in the coronary arteries. Mediastinum and Mari: Within normal limits. Heart: There is cardiomegaly. No pericardial effusion. Airways: Within normal limits Lungs: Airspace opacities are noted in the lung bases. Pleura: Small bilateral pleural effusions are noted in the lung bases. Chest Wall: Within normal limits. Upper Abdomen: There is redemonstration of ascites with a heterogeneous liver and distended gallbladder. Periportal lymphadenopathy is redemonstrated. Bones: Degenerative changes are noted in the upper thoracic spine. CT/CT chest wo con IMPRESSION: No evidence of pulmonary metastatic disease. There is dependent atelectasis with small bilateral pleural effusions. There is cardiomegaly. Please see separately dictated abdominal CT for liver, periportal, and gallbladder findings. There is a 2.1 cm hypoattenuating nodule within the right thyroid lobe. Ultrasound correlation is recommended as malignancy is not excluded. Impression dictated by: Eric Shanks M.D.09/12/2023 5:58 PM Dictation Location: [place] [address] Transcribed By: [facility] 09/12/231757 Dictated By: Eric Shanks II, MD 09/12/231743 Signed By: 09/12/231757 Normal [facility] Complete Blood Count Auto Di ffon 09-12-2023 Basophils (Bld) [#/Vol] 0.0 10*3/uL Normal 0.0-0.2 [facility] Comment on above: Result Comment: PERF ORMED BY: [place] [address] PATHOLOGIST SET UP MECHANIC BRO PIERRE M.D. Performed By: #### B MP, PT, PTT #### [address] Basophils/100 WBC (Bld) 0.4 % Normal . [facility] Comment on above: Performed By: #### B MP, PT, PTT #### [address] Eosinophils (Bld) [#/Vol] 0.0 10*3/uL Normal 0.0-0.45 [facility] Comment on above: Performed By: #### B MP, PT, PTT #### [address] Eosinophils/100 WBC (Bld) 1.5 % Normal . [facility] Comment on above: Performed By: #### B MP, PT, PTT #### [address] Erythrocyte distribution width (RBC) [Ratio] 13.3 % Normal 12.0-14.8 [facility] Comment on above: Performed By: #### B MP, PT, PTT #### [address] Hematocrit (Bld) [Volume fraction] 33.4 % Low 38.8-50.0 [facility] Comment on above: Performed By: #### B MP, PT, PTT #### [address] Hemoglobin (Bld) [Mass/Vol] 11.1 g/dL Low 13.0-17.0 [facility] Comment on above: Performed By: #### B MP, PT, PTT #### [address] Lymphocytes (Bld) [#/Vol] 0.5 10*3/uL Low 1.00-4.8 [facility] Comment on above: Performed By: #### B MP, PT, PTT #### [address] Lymphocytes/100 WBC (Bld) 17.5 % Normal . [facility] Comment on above: Performed By: #### B MP, PT, PTT #### [address] MCH (RBC) [Entitic mass] 29.3 pg Normal 27.5-35.2 [facility] Comment on above: Performed By: #### B MP, PT, PTT #### [address] MCV (RBC) [Entitic vol] 87.9 fL Normal 83.5-101 [facility] Comment on above: Performed By: #### B MP, PT, PTT #### [address] Mean Corpuscular HGB Conc 33.4 g/dL Normal 32.5-35.6 [facility] Comment on above: Performed By: #### B MP, PT, PTT #### [address] Monocytes (Bld) [#/Vol] 0.4 10*3/uL Normal 0.0-0.8 [facility] Comment on above: Performed By: #### B MP, PT, PTT #### [address] Monocytes/100 WBC (Bld) 14.6 % Normal . [facility] Comment on above: Performed By: #### B MP, PT, PTT #### [facility] [address] Neutrophils (Bld) [#/Vol] 2.0 10*3/uL Normal 1.8-7.7 [facility] Comment on above: Performed By: #### B MP, PT, PTT #### [facility] [address] Neutrophils/100 WBC (Bld) 66.0 % Normal . [facility] Comment on above: Performed By: #### B MP, PT, PTT #### [address] NRBC% 0.1 /100{WBC} Normal 0-0.5 [facility] Comment on above: Performed By: #### B MP, PT, PTT #### [address] Platelet mean volume (Bld) [Entitic vol] 9.5 fL Normal 6.6-10.1 [facility] Comment on above: Performed By: #### B MP, PT, PTT #### [place] [address] [place] Platelets (Bld) [#/Vol] 96 10*3/uL Low 150-450 [facility] Comment on above: Performed By: #### B MP, PT, PTT #### [place] [address] [place] RBC (Bld) [#/Vol] 3.80 10*6/uL Low 3.90-5.60 [facility] Comment on above: Performed By: #### B MP, PT, PTT #### [address] WBC (Bld) [#/Vol] 3.0 10*3/uL Low 4.1-10.5 [facility] Comment on above: Performed By: #### B MP, PT, PTT #### [facility] [address] [place] [address] [place] Partial Thromboplastin Timeo n 09-12-2023 aPTT Coag (Bld) [Time] 64.6 s High 25.1-36.5 [facility] Comment on above: Order Comment: List the anticoagulant: HEPARIN, UNFRACTIONATED Result Comment: A he matocrit value greater than 55% may lead to inaccurate results in coagulation testing. Patients having hematocrit values >55% require a special collection tube for coagulation studies. Please contact the laboratory at [phone] for redraw instructions. PERFORMED BY: [place] [address] PATHOLOGIST SET UP MECHANIC BRO PIERRE M.D. Performed By: #### B MP, HEPATIC, PTT, SHAKIRA, CBC, LIPASE, PT #### [address] [address] [place] aPTT Coag (Bld) [Time] 57.5 s High 25.1-36.5 [facility] Comment on above: Order Comment: Comme nt timed for heparin gtt Result Comment: A he matocrit value greater than 55% may lead to inaccurate results in coagulation testing. Patients having hematocrit values >55% require a special collection tube for coagulation studies. Please contact the laboratory at [phone] for redraw instructions. PERFORMED BY: [place] [address] PATHOLOGIST SET UP MECHANIC BRO PIERRE M.D. Performed By: #### B MP, HEPATIC, PTT, SHAKIRA, CBC, LIPASE, PT #### [place] [id number] [place] aPTT Coag (Bld) [Time] 47.2 s High 25.1-36.5 [facility] Comment on above: Result Comment: A he matocrit value greater than 55% may lead to inaccurate results in coagulation testing. Patients having hematocrit values >55% require a special collection tube for coagulation studies. Please contact the laboratory at [phone] for redraw instructions. PERFORMED BY: [place] [address] PATHOLOGIST SET UP MECHANIC BRO PIERRE M.D. Performed By: #### B MP, PT, PTT #### [place] [id number] [facility] aPTT Coag (Bld) [Time] 49.6 s High 25.1-36.5 [facility] Comment on above: Order Comment: Comme nt timed for heparin gtt Result Comment: A he matocrit value greater than 55% may lead to inaccurate results in coagulation testing. Patients having hematocrit values >55% require a special collection tube for coagulation studies. Please contact the laboratory at [phone] for redraw instructions. PERFORMED BY: [place] [address] PATHOLOGIST SET UP MECHANIC BRO PIERRE M.D. Performed By: #### B MP, PT, PTT #### [place] [id number] [facility] aPTT Coag (Bld) [Time] 35.5 s Normal 25.1-36.5 [facility] Comment on above: Order Comment: Comme nt Obtain PTT 6 HRS after start of Heparin changes Result Comment: A he matocrit value greater than 55% may lead to inaccurate results in coagulation testing. Patients having hematocrit values >55% require a special collection tube for coagulation studies. Please contact the laboratory at [phone] for redraw instructions. PERFORMED BY: [place] [address] PATHOLOGIST SET UP MECHANIC BRO PIERRE M.D. Performed By: #### P TT #### [place] [id number] [facility] Prothrombin Time INRon 09-11 INR Coag (PPP) [Relative time] 1.3 {INR} Normal [facility] Comment on above: Result Comment: INR Therapeutic Range A) Pre- and Peroperative OAT started two weeks before surgery. NOT HIP SURGERY: 1.5 - 2.5 HIP SURGERY: 2 - 3 B) Primary and secondary prevention of venous THROMBOSIS: 2 - 3 C) Active venous thrombosis, pulmonary embolism and prevention of recurrent venous thrombosis: 2 - 3 D) Prevention of arterial thromboembolism including patients with mechanical heart valves: 3 - 4.5 Performed By: #### B MP, PT, PTT #### [facility] [address] PT Coag (PPP) [Time] 14.5 s High 9.0-12.9 [facility] Comment on above: Result Comment: A he matocrit value greater than 55% may lead to inaccurate results in coagulation testing. Patients having hematocrit values >55% require a special collection tube for coagulation studies. Please contact the laboratory at [phone] for redraw instructions. Performed By: #### B MP, PT, PTT #### [facility] [address] [place] [id number] [facility] Activated partial thrombopla stin time (aPTT) in platelet poor plasma by coagulation aOrdered By: Sheldon Cameron on 09-11-2023 aPTT Coag (PPP) [Time] 32.6 s 25.1-36.5 [facility] Comment on above: A hematocrit value g reater than 55% may lead to inaccurate results in coagulation testing. Patients having hematocrit values >55% require a special collection tube for coagulation studies. Please contact the laboratory at [phone] for redraw instructions. Alanine aminotransferase [En zymatic activity/volume] in Serum or PlasmaOrdered By: Sheldon Cameron on 09-11-2023 ALT [Catalytic activity/Vol] 23 U/L Normal 7-52 [facility] Comment on above: Performed By: #### B MP, HEPATIC, PTT, SHAKIRA, CBC, LIPASE, PT #### [facility] [address] [place] [id number] [facility] Albumin [Mass/volume] in Ser um or Plasma by Bromocresol green (BCG) dye binding methoOrdered By: Sheldon Cameron on 09-11-2023 Albumin BCG dye [Mass/Vol] 3.8 g/dL 3.5-5.7 [facility] Alkaline phosphatase [Enzyma tic activity/volume] in Serum or PlasmaOrdered By: Sheldon Cameron on 09-11-2023 ALP [Catalytic activity/Vol] 116 U/L High 34-104 [facility] Comment on above: Performed By: #### B MP, HEPATIC, PTT, SHAKIRA, CBC, LIPASE, PT #### [address] Amylase [Enzymatic activity/ volume] in Serum or PlasmaOrdered By: Sheldon Cameron on 09-11-2023 Amylase [Catalytic activity/Vol] 26 U/L Low 29-103 [facility] Comment on above: Performed By: #### B MP, HEPATIC, PTT, SHAKIRA, CBC, LIPASE, PT #### [address] Aspartate aminotransferase [ Enzymatic activity/volume] in Serum or PlasmaOrdered By: Sheldon Cameron on 09-11-2023 AST [Catalytic activity/Vol] 22 U/L Normal 13-39 [facility] Comment on above: Performed By: #### B MP, HEPATIC, PTT, SHAKIRA, CBC, LIPASE, PT #### [address] Automated basophil %Ordered By: Sheldon Cameron on 09-11-2023 Basophils/100 WBC (Bld) 0.2 % Normal . [facility] Comment on above: Performed By: #### B MP, HEPATIC, PTT, SHAKIRA, CBC, LIPASE, PT #### [address] Automated basophil countOrde red By: Sheldon Cameron on 09-11-2023 Basophils (Bld) [#/Vol] 0.0 10*3/uL Normal 0.0-0.2 [facility] Comment on above: Result Comment: PERF ORMED BY: [place] [address] PATHOLOGIST SET UP MECHANIC BRO PIERRE M.D. Performed By: #### B MP, HEPATIC, PTT, SHAKIRA, CBC, LIPASE, PT #### [address] Automated blood monocyte cou ntOrdered By: Sheldon Cameron on 09-11-2023 Monocytes (Bld) [#/Vol] 0.6 10*3/uL Normal 0.0-0.8 [facility] Comment on above: Performed By: #### B MP, HEPATIC, PTT, SHAKIRA, CBC, LIPASE, PT #### [address] Automated eosinophil %Ordere d By: Sheldon Cameron on 09-11-2023 Eosinophils/100 WBC (Bld) 0.4 % Normal . [facility] Comment on above: Performed By: #### B MP, HEPATIC, PTT, SHAKIRA, CBC, LIPASE, PT #### [address] Automated eosinophil countOr dered By: Sheldon Cameron on 09-11-2023 Eosinophils (Bld) [#/Vol] 0.0 10*3/uL Normal 0.0-0.45 [facility] Comment on above: Performed By: #### B MP, HEPATIC, PTT, SHAKIRA, CBC, LIPASE, PT #### [address] Automated monocyte %Ordered By: Sheldon Cameron on 09-11-2023 Monocytes/100 WBC (Bld) 9.9 % Normal . [facility] Comment on above: Performed By: #### B MP, HEPATIC, PTT, SHAKIRA, CBC, LIPASE, PT #### [address] Automated neutrophil %Ordere d By: Sheldon Cameron on 09-11-2023 Neutrophils/100 WBC (Bld) 78.4 % Normal . [facility] Comment on above: Performed By: #### B MP, HEPATIC, PTT, SHAKIRA, CBC, LIPASE, PT #### [address] Basic Metabolic Panelon 08-20 Creatinine Clr Calc Pharmacy 36.22 Normal [facility] Comment on above: Performed By: #### B MP, HEPATIC, PTT, SHAKIRA, CBC, LIPASE, PT #### [address] GFR/1.73 sq M.predicted MDRD (S/P/Bld) [Vol rate/Area] 38.196 mL/min/{1.73_m2} Normal [facility] Comment on above: Performed By: #### B MP, HEPATIC, PTT, SHAKIRA, CBC, LIPASE, PT #### [facility] [address] [place] [address] [facility] Bilirubin.direct [Mass/volum e] in Serum or PlasmaOrdered By: Sheldon Cameron on 09-11-2023 Bilirubin.direct [Mass/Vol] 0.20 mg/dL High 0.03-0.18 [facility] Bilirubin.total [Mass/volume ] in Serum or PlasmaOrdered By: Sheldon Cameron on 09-11-2023 Bilirubin [Mass/Vol] 0.8 mg/dL Normal 0.3-1.0 [facility] Comment on above: Performed By: #### B MP, HEPATIC, PTT, SHAKIRA, CBC, LIPASE, PT #### [facility] [address] [place] [phone] [facility] CT abdomen pelvis wo conon 0 09-11-2023 CT abdomen pelvis wo con [facility] [address] [place] [address] CT Scan Report Signed Patient: Raul Manriquez MR#: [id number] : 1955 Acct:[id number] Age/Sex: 68 / M ADM Date: 09/11/23 Loc: ER Room: Type: [facility] ER Attending Dr: Copies to: Sheldon Cameron MD Ordering Provider: Sheldon Cameron MD Date of Service: 09/11/23 CT/CT abdomen pelvis wo con: Abdominal Pain CT Abdomen and Pelvis withoutcontrast TECHNIQUE: Axial imaging with 2-D reconstruction. . The CT exam was performed using one or more the following dose reduction techniques: Automated exposure control, adjustment of the MA and/or Kv according to patient size, or use of the iterative reconstruction technique. COMPARISON: None History: Gallbladder cancer with liver metastasis. Lower abdominal pain for one week. Nausea and vomiting. History of renal transplantation. LIMITATIONS: None LOWER THORAX linear atelectasis/scarring greater on the RIGHT. Small hiatal hernia LIVER: Liver cirrhosis. Ill-defined hypodensity adjacent to the gallbladder corresponding with metastatic disease from gallbladder. High density within the portal vein corresponding with history of thrombosis. GALLBLADDER: Distended gallbladder with irregular wall thickening consistent with history of gallbladder cancer. BILE DUCTS: Mild prominence of common bile duct. No ductal stone. SPLEEN: 15 cm in length PANCREAS: Unremarkable ADRENAL GLANDS: Unremarkable KIDNEYS:Marked bilateral renal atrophy. A transplanted LEFT pelvic kidney. No hydronephrosis. Small cysts. Atherosclerosis. AORTA: No aortic aneurysm. Atherosclerosis of aorta and branches. RETROPERITONEUM: No significant retroperitoneal abnormalities identified. MESENTERY:Minimal stranding. SMALL BOWEL: The small bowel loops are nondistended. APPENDIX: The appendix is normal. COLON: Moderate constipation URINARY BLADDER: Urinary bladder is unremarkable. REPRODUCTIVE SYSTEM: Reproductive structures are unremarkable. PNEUMOPERITONEUM: None PERITONEAL FLUID:Mild upper abdominal ascites BONY STRUCTURES: Unremarkable ABDOMINAL WALL: Unremarkable CT/CT abdomen pelvis wo con IMPRESSION: Distended gallbladder with irregular gallbladder wall thickening and adjacent hepatic lesion consistent with patient's history of gallbladder cancer with hepatic metastasis. Liver cirrhosis. High density within the portal vein concerning for portal vein thrombosis. Marked atrophy of the algaaciq kidneys with transplanted LEFT pelvic kidney. No hydronephrosis. moderate constipation. Nondistended small bowel. Mild upper abdominal ascites. Splenomegaly Impression dictated by: Ken Cabrera M.D.09/11/2023 4:57 PM Dictation Location: [place] [address] Transcribed By: [facility] 09/11/231656 Dictated By: Ken Cabrera DO 09/11/23 1646 Signed By: 09/11/231656 Normal [facility] Calcium [Mass/volume] in Ser um or PlasmaOrdered By: Sheldon Cameron on 09-11-2023 Calcium [Mass/Vol] 9.9 mg/dL Normal 8.6-10.3 [facility] Comment on above: Performed By: #### B MP, HEPATIC, PTT, SHAKIRA, CBC, LIPASE, PT #### [facility] [address] Carbon dioxide, total [Moles /volume] in Serum or PlasmaOrdered By: Sheldon Cameron on 09-11-2023 CO2 [Moles/Vol] 23.7 mmol/L Normal 21.0-31.0 [facility] Comment on above: Performed By: #### B MP, HEPATIC, PTT, SHAKIRA, CBC, LIPASE, PT #### [facility] [address] [place] [phone] [place] Chloride [Moles/volume] in S amee or PlasmaOrdered By: Sheldon Cameron on 09-11-2023 Chloride [Moles/Vol] 97 mmol/L Low 98-107 [facility] Comment on above: Performed By: #### B MP, HEPATIC, PTT, SHAKIRA, CBC, LIPASE, PT #### [address] Complete Blood Count Auto Di ffon 09-11-2023 Basophils (Bld) [#/Vol] 0.0 10*3/uL Normal 0.0-0.2 [facility] Comment on above: Order Comment: NO MORGAN DY IN 3T16 PSW Result Comment: PERF ORMED BY: [place] [address] PATHOLOGIST SET UP MECHANIC BRO PIERRE M.D. Performed By: #### B MP, HEPATIC, PTT, SHAKIRA, CBC, LIPASE, PT #### [address] Basophils/100 WBC (Bld) 0.5 % Normal . [facility] Comment on above: Order Comment: NO MORGAN DY IN 3T16 PSW Performed By: #### B MP, HEPATIC, PTT, SHAKIRA, CBC, LIPASE, PT #### [address] Eosinophils (Bld) [#/Vol] 0.0 10*3/uL Normal 0.0-0.45 [facility] Comment on above: Order Comment: NO MORGAN DY IN 3T16 PSW Performed By: #### B MP, HEPATIC, PTT, SHAKIRA, CBC, LIPASE, PT #### [address] Eosinophils/100 WBC (Bld) 1.1 % Normal . [facility] Comment on above: Order Comment: NO MORGAN DY IN 3T16 PSW Performed By: #### B MP, HEPATIC, PTT, SHAKIRA, CBC, LIPASE, PT #### [address] Erythrocyte distribution width (RBC) [Ratio] 13.0 % Normal 12.0-14.8 [facility] Comment on above: Order Comment: NO MORGAN DY IN 3T16 PSW Performed By: #### B MP, HEPATIC, PTT, SHAKIRA, CBC, LIPASE, PT #### [address] Hematocrit (Bld) [Volume fraction] 34.6 % Low 38.8-50.0 [facility] Comment on above: Order Comment: NO MORGAN DY IN 3T16 PSW Performed By: #### B MP, HEPATIC, PTT, SHAKIRA, CBC, LIPASE, PT #### [address] Hemoglobin (Bld) [Mass/Vol] 11.5 g/dL Low 13.0-17.0 [facility] Comment on above: Order Comment: NO MORGAN DY IN 3T16 PSW Performed By: #### B MP, HEPATIC, PTT, SHAKIRA, CBC, LIPASE, PT #### [address] Lymphocytes (Bld) [#/Vol] 0.7 10*3/uL Low 1.00-4.8 [facility] Comment on above: Order Comment: NO MORGAN DY IN 3T16 PSW Performed By: #### B MP, HEPATIC, PTT, SHAKIRA, CBC, LIPASE, PT #### [address] Lymphocytes/100 WBC (Bld) 18.2 % Normal . [facility] Comment on above: Order Comment: NO MORGAN DY IN 3T16 PSW Performed By: #### B MP, HEPATIC, PTT, SHAKIRA, CBC, LIPASE, PT #### [address] MCH (RBC) [Entitic mass] 29.3 pg Normal 27.5-35.2 [facility] Comment on above: Order Comment: NO MORGAN DY IN 3T16 PSW Performed By: #### B MP, HEPATIC, PTT, SHAKIRA, CBC, LIPASE, PT #### [address] MCV (RBC) [Entitic vol] 87.7 fL Normal 83.5-101 [facility] Comment on above: Order Comment: NO MORGAN DY IN 3T16 PSW Performed By: #### B MP, HEPATIC, PTT, SHAKIRA, CBC, LIPASE, PT #### [address] Mean Corpuscular HGB Conc 33.4 g/dL Normal 32.5-35.6 [facility] Comment on above: Order Comment: NO MORGAN DY IN 3T16 PSW Performed By: #### B MP, HEPATIC, PTT, SHAKIRA, CBC, LIPASE, PT #### [address] Monocytes (Bld) [#/Vol] 0.5 10*3/uL Normal 0.0-0.8 [facility] Comment on above: Order Comment: NO MORGAN DY IN 3T16 PSW Performed By: #### B MP, HEPATIC, PTT, SHAKIRA, CBC, LIPASE, PT #### [address] Monocytes/100 WBC (Bld) 17.82 % Normal 0.00-20.00 [facility] Comment on above: Order Comment: NO MORGAN DY IN 3T16 PSW Performed By: #### B MP, HEPATIC, PTT, SHAKIRA, CBC, LIPASE, PT #### [address] Monocytes/100 WBC (Bld) 11.7 % Normal . [facility] Comment on above: Order Comment: NO MORGAN DY IN 3T16 PSW Performed By: #### B MP, HEPATIC, PTT, SHAKIRA, CBC, LIPASE, PT #### [address] Neutrophils (Bld) [#/Vol] 2.7 10*3/uL Normal 1.8-7.7 [facility] Comment on above: Order Comment: NO MORGAN DY IN 3T16 PSW Performed By: #### B MP, HEPATIC, PTT, SHAKIRA, CBC, LIPASE, PT #### [address] Neutrophils/100 WBC (Bld) 68.5 % Normal . [facility] Comment on above: Order Comment: NO MORGAN DY IN 3T16 PSW Performed By: #### B MP, HEPATIC, PTT, SHAKIRA, CBC, LIPASE, PT #### [address] NRBC% 0.1 /100{WBC} Normal 0-0.5 [facility] Comment on above: Order Comment: NO MORGAN DY IN 3T16 PSW Performed By: #### B MP, HEPATIC, PTT, SHAKIRA, CBC, LIPASE, PT #### [address] Platelet mean volume (Bld) [Entitic vol] 9.0 fL Normal 6.6-10.1 [facility] Comment on above: Order Comment: NO MORGAN DY IN 3T16 PSW Performed By: #### B MP, HEPATIC, PTT, SHAKIRA, CBC, LIPASE, PT #### [address] Platelets (Bld) [#/Vol] 103 10*3/uL Significant change down 150-450 [facility] Comment on above: Order Comment: NO MORGAN DY IN 3T16 PSW Performed By: #### B MP, HEPATIC, PTT, SHAKIRA, CBC, LIPASE, PT #### [address] RBC (Bld) [#/Vol] 3.95 10*6/uL Normal 3.90-5.60 [facility] Comment on above: Order Comment: NO MORGAN DY IN 3T16 PSW Performed By: #### B MP, HEPATIC, PTT, SHAKIRA, CBC, LIPASE, PT #### [address] WBC (Bld) [#/Vol] 4.0 10*3/uL Low 4.1-10.5 [facility] Comment on above: Order Comment: NO MORGAN DY IN 3T16 PSW Performed By: #### B MP, HEPATIC, PTT, SHAKIRA, CBC, LIPASE, PT #### [address] Mean Corpuscular HGB Conc 32.9 g/dL Normal 32.5-35.6 [facility] Comment on above: Performed By: #### B MP, HEPATIC, PTT, SHAKIRA, CBC, LIPASE, PT #### [address] Monocytes/100 WBC (Bld) 19.22 % Normal 0.00-20.00 [facility] Comment on above: Performed By: #### B MP, HEPATIC, PTT, SHAKIRA, CBC, LIPASE, PT #### [address] NRBC% 0.0 /100{WBC} Normal 0-0.5 [facility] Comment on above: Performed By: #### B MP, HEPATIC, PTT, SHAKIRA, CBC, LIPASE, PT #### [address] Creatinine [Mass/volume] in Serum or PlasmaOrdered By: Sheldon Cameron on 09-11-2023 Creatinine [Mass/Vol] 1.88 mg/dL High 0.70-1.30 [facility] Comment on above: Performed By: #### B MP, HEPATIC, PTT, SHAKIRA, CBC, LIPASE, PT #### [address] Erythrocyte distribution wid th [Ratio] by Automated countOrdered By: Sheldon Cameron on 09-11-2023 Erythrocyte distribution width (RBC) [Ratio] 13.3 % Normal 12.0-14.8 [facility] Comment on above: Performed By: #### B MP, HEPATIC, PTT, SHAKIRA, CBC, LIPASE, PT #### [address] Erythrocytes [#/volume] in B lood by Automated countOrdered By: Sheldon Cameron on 09-11-2023 RBC (Bld) [#/Vol] 4.27 10*6/uL Normal 3.90-5.60 [facility] Comment on above: Performed By: #### B MP, HEPATIC, PTT, SHAKIRA, CBC, LIPASE, PT #### [address] Glucose [Mass/volume] in Ser um or PlasmaOrdered By: Sheldon Cameron on 09-11-2023 Glucose [Mass/Vol] 267 mg/dL High 70-100 [facility] Comment on above: ADA recommended refe rence rangeRandom Glucose Reference Range is dependent on time and content of last meal. Glucose of more than 200 mg/dL in a nonstressed, ambulatory subject supports the diagnosis of Diabetes Mellitus. Result Comment: [place] om Glucose Reference Range is dependent on time and content of last meal. Glucose of more than 200 mg/dL in a nonstressed, ambulatory subject supports the diagnosis of Diabetes Mellitus. ADA recommended reference range Performed By: #### B MP, HEPATIC, PTT, SHAKIRA, CBC, LIPASE, PT #### [address] Hematocrit [Volume Fraction] of Blood by Automated countOrdered By: Sheldon Cameron on 09-11-2023 Hematocrit (Bld) [Volume fraction] 37.7 % Low 38.8-50.0 [facility] Comment on above: Performed By: #### B MP, HEPATIC, PTT, SHAKIRA, CBC, LIPASE, PT #### [address] Hemoglobin [Mass/volume] in BloodOrdered By: Sheldon Cameron on 09-11-2023 Hemoglobin (Bld) [Mass/Vol] 12.4 g/dL Low 13.0-17.0 [facility] Comment on above: Performed By: #### B MP, HEPATIC, PTT, SHAKIRA, CBC, LIPASE, PT #### [address] Hepatic Panelon 09-11-2023 Albumin [Mass/Vol] 3.8 g/dL Normal 3.5-5.7 [facility] Comment on above: Performed By: #### B MP, HEPATIC, PTT, SHAKIRA, CBC, LIPASE, PT #### [address] Bilirubin,Indirect 0.6 mg/dL Normal [facility] Comment on above: Performed By: #### B MP, HEPATIC, PTT, SHAKIRA, CBC, LIPASE, PT #### [address] Bilirubin.indirect [Mass/Vol] 0.20 mg/dL High 0.03-0.18 [facility] Comment on above: Performed By: #### B MP, HEPATIC, PTT, SHAKIRA, CBC, LIPASE, PT #### [facility] [address] INR in Platelet poor plasma by Coagulation assayOrdered By: Sheldon Cameron on 09-11-2023 INR Coag (PPP) [Relative time] 1.5 {INR} Normal [facility] Comment on above: INR Therapeutic Rang e A) Pre- and Peroperative OAT started two weeks before surgery. NOT HIP SURGERY: 1.5 - 2.5 HIP SURGERY: 2 - 3B) Primary and secondary prevention of venous THROMBOSIS: 2 - 3C) Active venous thrombosis, pulmonary embolismand prevention of recurrent venous thrombosis: 2 - 3D) Prevention of arterial thromboembolismincluding patients with mechanical heart valves: 3 - 4.5 Result Comment: INR Therapeutic Range A) Pre- and Peroperative OAT started two weeks before surgery. NOT HIP SURGERY: 1.5 - 2.5 HIP SURGERY: 2 - 3 B) Primary and secondary prevention of venous THROMBOSIS: 2 - 3 C) Active venous thrombosis, pulmonary embolism and prevention of recurrent venous thrombosis: 2 - 3 D) Prevention of arterial thromboembolism including patients with mechanical heart valves: 3 - 4.5 Performed By: #### B MP, HEPATIC, PTT, SHAKIRA, CBC, LIPASE, PT #### [address] Leukocytes [#/volume] correc mary for nucleated erythrocytes in Blood by Automated counOrdered By: Sheldon Cameron on 09-11-2023 WBC corrected for nucl RBC Auto (Bld) [#/Vol] 6.2 10*3/uL 4.1-10.5 [facility] Leukocytes [#/volume] in Blo od by Automated countOrdered By: Sheldon Cameron on 09-11-2023 WBC (Bld) [#/Vol] 6.2 10*3/uL Normal 4.1-10.5 [facility] Comment on above: Performed By: #### B MP, HEPATIC, PTT, SHAKIRA, CBC, LIPASE, PT #### [address] Lipase [Enzymatic activity/v olume] in Serum or PlasmaOrdered By: Sheldon Cameron on 09-11-2023 Lipase [Catalytic activity/Vol] 21.0 U/L 11.0-82.0 [facility] Comment on above: Result Comment: PERF ORMED BY: [place] [address] PATHOLOGIST SET UP MECHANIC BRO PIERRE M.D. Performed By: #### B MP, HEPATIC, PTT, SHAKIRA, CBC, LIPASE, PT #### [address] Lymphocytes [#/volume] in Bl ood by Automated countOrdered By: Sheldon Cameron on 09-11-2023 Lymphocytes (Bld) [#/Vol] 0.7 10*3/uL Low 1.00-4.8 [facility] Comment on above: Performed By: #### B MP, HEPATIC, PTT, SHAKIRA, CBC, LIPASE, PT #### [address] Lymphocytes/100 leukocytes i n Blood by Automated countOrdered By: Sheldon Cameron on 09-11-2023 Lymphocytes/100 WBC (Bld) 11.1 % Normal . [facility] Comment on above: Performed By: #### B MP, HEPATIC, PTT, SHAKIRA, CBC, LIPASE, PT #### [address] MCH [Entitic mass] by Automa mary countOrdered By: Sheldon Cameron on 09-11-2023 MCH (RBC) [Entitic mass] 29.0 pg Normal 27.5-35.2 [facility] Comment on above: Performed By: #### B MP, HEPATIC, PTT, SHAKIRA, CBC, LIPASE, PT #### [address] MCHC Auto (RBC) [Mass/Vol]Or dered By: Sheldon Cameron on 09-11-2023 MCHC (RBC) [Mass/Vol] 32.9 g/dL 32.5-35.6 [facility] MCV [Entitic volume] by Auto mated countOrdered By: Sheldon Cameron on 09-11-2023 MCV (RBC) [Entitic vol] 88.2 fL Normal 83.5-101 [facility] Comment on above: Performed By: #### B MP, HEPATIC, PTT, SHAKIRA, CBC, LIPASE, PT #### [facility] [address] Monocyte distribution width [Entitic volume] in Blood by AutomatedOrdered By: Mary Kay Gray on 09-11-2023 Monocyte distribution width Auto (Bld) [Entitic vol] 17.82 % 0.00-20.00 [facility] Monocyte distribution width [Entitic volume] in Blood by AutomatedOrdered By: Sheldon Cameron on 09-11-2023 Monocyte distribution width Auto (Bld) [Entitic vol] 19.22 % 0.00-20.00 [facility] Neutrophils [#/volume] in Bl ood by Automated countOrdered By: Sheldon Cameron on 09-11-2023 Neutrophils (Bld) [#/Vol] 4.9 10*3/uL Normal 1.8-7.7 [facility] Comment on above: Performed By: #### B MP, HEPATIC, PTT, SHAIKRA, CBC, LIPASE, PT #### [facility] [address] No Panel InformationOrdered By: Sheldon Cameron on 09-11-2023 Estimated GFR (CKD-EPI) 38.196 mL/Min [facility] Creatinine Clearance (Chem 36.22 [facility] Nucleated erythrocytes [Pres ence] in Blood by Automated countOrdered By: Sheldon Cameron on 09-11-2023 Nucleated RBC Auto Ql (Bld) 0.0 /100{WBC} 0-0.5 [facility] Partial Thromboplastin Timeo n 09-11-2023 aPTT Coag (Bld) [Time] 30.9 s Normal 25.1-36.5 [facility] Comment on above: Order Comment: NO MORGAN DY IN 3T16 PSW Result Comment: A he matocrit value greater than 55% may lead to inaccurate results in coagulation testing. Patients having hematocrit values >55% require a special collection tube for coagulation studies. Please contact the laboratory at [phone] for redraw instructions. PERFORMED BY: [address] [place] [address] PATHOLOGIST SET UP MECHANIC BRO PIERRE M.D. Performed By: #### B MP, HEPATIC, PTT, SHAKIRA, CBC, LIPASE, PT #### [address] aPTT Coag (Bld) [Time] 32.6 s Normal 25.1-36.5 [facility] Comment on above: Result Comment: A he matocrit value greater than 55% may lead to inaccurate results in coagulation testing. Patients having hematocrit values >55% require a special collection tube for coagulation studies. Please contact the laboratory at [phone] for redraw instructions. PERFORMED BY: [place] [address] PATHOLOGIST SET UP MECHANIC BRO PIERRE M.D. Performed By: #### B MP, PT, PTT #### [address] Platelet mean volume [Entiti c volume] in Blood by Automated countOrdered By: Sheldon Cameron on 09-11-2023 Platelet mean volume (Bld) [Entitic vol] 9.6 fL Normal 6.6-10.1 [facility] Comment on above: Performed By: #### B MP, HEPATIC, PTT, SHAKIRA, CBC, LIPASE, PT #### [address] Platelets [#/volume] in Bloo d by Automated countOrdered By: Sheldon Cameron on 09-11-2023 Platelets (Bld) [#/Vol] 148 10*3/uL Low 150-450 [facility] Comment on above: Performed By: #### B MP, HEPATIC, PTT, SHAKIRA, CBC, LIPASE, PT #### [address] Potassium [Moles/volume] in Serum or PlasmaOrdered By: Sheldon Cameron on 09-11-2023 Potassium [Moles/Vol] 4.5 mmol/L Normal 3.5-5.1 [facility] Comment on above: Performed By: #### B MP, HEPATIC, PTT, SHAKIRA, CBC, LIPASE, PT #### [facility] [address] [place] [phone] [facility] Protein [Mass/volume] in Ser um or PlasmaOrdered By: Sheldon Cameron on 09-11-2023 Protein [Mass/Vol] 6.9 g/dL Normal 6.4-8.9 [facility] Comment on above: Performed By: #### B MP, HEPATIC, PTT, SHAKIRA, CBC, LIPASE, PT #### [facility] [address] [place] [phone] [facility] Prothrombin Time INRon 09-10 INR Coag (PPP) [Relative time] 1.4 {INR} Normal [facility] Comment on above: Order Comment: NO MORGAN DY IN 3T16 PSW Result Comment: INR Therapeutic Range A) Pre- and Peroperative OAT started two weeks before surgery. NOT HIP SURGERY: 1.5 - 2.5 HIP SURGERY: 2 - 3 B) Primary and secondary prevention of venous THROMBOSIS: 2 - 3 C) Active venous thrombosis, pulmonary embolism and prevention of recurrent venous thrombosis: 2 - 3 D) Prevention of arterial thromboembolism including patients with mechanical heart valves: 3 - 4.5 Performed By: #### B MP, HEPATIC, PTT, SHAKIRA, CBC, LIPASE, PT #### [facility] [facility] [address] [id number] [facility] PT Coag (PPP) [Time] 16.1 s High 9.0-12.9 [facility] Comment on above: Order Comment: NO MORGAN DY IN 3T16 PSW Result Comment: A he matocrit value greater than 55% may lead to inaccurate results in coagulation testing. Patients having hematocrit values >55% require a special collection tube for coagulation studies. Please contact the laboratory at [phone] for redraw instructions. Performed By: #### B MP, HEPATIC, PTT, SHAKIRA, CBC, LIPASE, PT #### [facility] [address] [id number] [facility] Prothrombin time (PT)Ordered By: Sheldon Cameron on 09-11-2023 PT Coag (PPP) [Time] 17.5 s High 9.0-12.9 [facility] Comment on above: A hematocrit value g reater than 55% may lead to inaccurate results in coagulation testing. Patients having hematocrit values >55% require a special collection tube for coagulation studies. Please contact the laboratory at [phone] for redraw instructions. Result Comment: A he matocrit value greater than 55% may lead to inaccurate results in coagulation testing. Patients having hematocrit values >55% require a special collection tube for coagulation studies. Please contact the laboratory at [phone] for redraw instructions. Performed By: #### B MP, HEPATIC, PTT, SHAKIRA, CBC, LIPASE, PT #### [address] Serum globulin measurement b y calculation (mass/volume)Ordered By: Sheldon Cameron on 09-11-2023 Globulin (S) [Mass/Vol] 3.1 g/dL [facility] Comment on above: Performed By: #### B MP, HEPATIC, PTT, SHAKIRA, CBC, LIPASE, PT #### [address] Serum or plasma albumin/glob ulin mass ratioOrdered By: Sheldon Cameron on 09-11-2023 Albumin/Globulin [Mass ratio] 1.2 {ratio} [facility] Comment on above: Performed By: #### B MP, HEPATIC, PTT, SHAKIRA, CBC, LIPASE, PT #### [address] Serum or plasma anion gap de terminationOrdered By: Sheldon Cameron on 09-11-2023 Anion gap [Moles/Vol] 11.8 mmol/L Normal 6.0-15.0 [facility] Comment on above: Performed By: #### B MP, HEPATIC, PTT, SHAKIRA, CBC, LIPASE, PT #### [address] Serum or plasma non-glucuron idated bilirubin measurement (mass/volume)Ordered By: Sheldon Cameron on 09-11-2023 Bilirubin.indirect [Mass/Vol] 0.6 mg/dL [facility] Sodium [Moles/volume] in Ser um or PlasmaOrdered By: Sheldon Cameron on 09-11-2023 Sodium [Moles/Vol] 128 mmol/L Low 136-145 [facility] Comment on above: Performed By: #### B MP, HEPATIC, PTT, SHAKIRA, CBC, LIPASE, PT #### [facility] [address] Urea nitrogen [Mass/volume] in Serum or PlasmaOrdered By: Sheldon Cameron on 09-11-2023 Urea nitrogen [Mass/Vol] 27 mg/dL High 7-25 [facility] Comment on above: Performed By: #### B MP, HEPATIC, PTT, SHAKIRA, CBC, LIPASE, PT #### [facility] [address] Erythrocyte distribution wid th Auto (RBC) [Ratio]on 08-06-2023 Erythrocyte distribution width (RBC) [Ratio] 13.1 % 11.0-15.0 [facility] Estimated glomerular filtrat ion rate (GFR) non- Americanon 08-06-2023 GFR/1.73 sq M.predicted among non-blacks MDRD (S/P/Bld) [Vol rate/Area] 40 mL/min/{1.73_m2} Low >=60 [facility] Hematocrit Auto (Bld) [Volum e fraction]on 08-06-2023 Hematocrit (Bld) [Volume fraction] 41.4 % Low 42.0-54.0 [facility] Hemoglobin [Mass/volume] in Bloodon 08-06-2023 Hemoglobin (Bld) [Mass/Vol] 13.3 g/dL Low 14.0-18.0 [facility] Iron binding capacity [Mass/ volume] in Serum or Plasmaon 08-06-2023 Iron binding capacity [Mass/Vol] 306.0 ug/dL 250.0-450. 0 [facility] Iron saturation [Mass Fracti on] in Serum or Plasmaon 08-06-2023 Iron saturation [Mass fraction] 19.6 % [facility] Laboratory - Chemistry and C hemistry - challengeon 08-06-2023 Albumin [Mass/Vol] 3.4 g/dL 3.4-5.0 [facility] Calcium [Mass/Vol] 9.8 mg/dL 8.5-10.1 [facility] Chloride [Moles/Vol] 102 mmol/L 98-107 [facility] CO2 [Moles/Vol] 21.4 mmol/L 21.0-32.0 [facility] Creatinine [Mass/Vol] 1.69 mg/dL High 0.70-1.30 [facility] Ferritin [Mass/Vol] 334.0 ng/mL 26.0-388.0 [facility] GFR/1.73 sq M.predicted MDRD (S/P/Bld) [Vol rate/Area] 49 mL/min/{1.73_m2} Low >=60 [facility] Glucose [Mass/Vol] 190 mg/dL High 74-106 [facility] Iron [Mass/Vol] 60.0 ug/dL Low 65.0-175.0 [facility] Magnesium [Mass/Vol] 1.9 mg/dL 1.8-2.4 [facility] Potassium [Moles/Vol] 4.5 mmol/L 3.5-5.1 [facility] Sodium [Moles/Vol] 136 mmol/L 136-145 [facility] Urate [Mass/Vol] 5.1 mg/dL 3.5-7.2 [facility] Urea nitrogen [Mass/Vol] 30.0 mg/dL High 7.0-18.0 [facility] Urea nitrogen/Creatinine [Mass ratio] 17.8 mg/mg [facility] Bilirubin Ql (U) Negative NEGATIVE [facility] Glucose (U) [Mass/Vol] 100 mg/dL Abnormal NEGATIVE [facility] Ketones Ql (U) Negative NEGATIVE [facility] pH (U) 6.0 [pH] 5.0-9.0 [facility] Specific gravity (U) [Rel density] 1.015 1.005-1.02 5 [facility] Urobilinogen Qn (U) 0.2 {Hernandez'U}/dL 0.2-1.0 [facility] Laboratory - Specimen inform ationon 08-06-2023 Appearance (U) CLEAR CLEAR [facility] Color (U) LT. YELLOW YELLOW [facility] Laboratory - Urinalysison Leukocyte esterase Test strip Ql (U) Negative NEGATIVE [facility] Mucus Ql (Urine sed) NONE SEEN NONE SEEN [facility] Nitrite Ql (U) Negative NEGATIVE [facility] Protein (U) [Mass/Vol] 19.4 mg/dL High <=11.9 [facility] Protein Ql (U) Negative NEG/TRACE [facility] Leukocytes [#/volume] correc mary for nucleated erythrocytes in Blood by Automated counon 08-06-2023 WBC corrected for nucl RBC Auto (Bld) [#/Vol] 6.2 10 3/uL 4.0-11.0 [facility] MCH Auto (RBC) [Entitic mass ]on 08-06-2023 MCH (RBC) [Entitic mass] 28.9 pg 25.9-34.0 [facility] MCHC Auto (RBC) [Mass/Vol]on 08-06-2023 MCHC (RBC) [Mass/Vol] 32.1 g/dL 29.9-35.2 [facility] MCV Auto (RBC) [Entitic vol] on 08-06-2023 MCV (RBC) [Entitic vol] 90.0 fL 80.0-94.0 [facility] No Panel Informationon 08-05 25-Hydroxy Vitamin D Total 38.0 ng/mL [facility] Comment on above: <20 ng/mL Vit D defi cient20-<30 ng/mL Vit D [id number] ng/mL Vit D sufficient>100 ng/mL Potential Toxicity Parathyroid Hormone (Intact) 90 pg/mL Abnormal 15-65 [facility] Comment on above: Performed at: - [employer] [address] [id number] Director: Sukhwinder Garcia PhD, Phone: [phone] Phosphorus Level 2.6 mg/dL 2.6-4.7 [facility] Urine Bacteria NONE SEEN #/HPF NONE SEEN [facility] Urine Occult Blood Negative NEGATIVE [facility] Urine Random Creatinine 58.11 mg/dL 20.00-300. 00 [facility] Urine RBC NONE SEEN #/HPF 0-2 [facility] Urine Squamous Epithelial Cells RARE #/LPF NONE/RARE [facility] Urine WBC NONE SEEN #/HPF NONE SEEN [facility] Platelet mean volume Auto (B ld) [Entitic vol]on 08-06-2023 Platelet mean volume (Bld) [Entitic vol] 10.4 fL 9.5-13.5 [facility] Platelets Auto (Bld) [#/Vol] on 08-06-2023 Platelets (Bld) [#/Vol] 150 10 3/uL 150-450 [facility] RBC Auto (Bld) [#/Vol]on RBC (Bld) [#/Vol] 4.60 10 6/uL Low 4.70-6.10 [facility] Serum or plasma anion gap de terminationon 08-06-2023 Anion gap [Moles/Vol] 17.1 mmol/L [facility] Tacrolimus [Mass/volume] in Bloodon 08-06-2023 Tacrolimus (Bld) [Mass/Vol] 5.1 ng/mL 2.0-20.0 [facility] Comment on above: This test was devderrick velásquez and its performance characteristicsdetermined by [employer]. It has not been cleared orapproved by the Food and Drug Administration. Trough (immediately following transplant) 15.0 Trough (steady state, 2 weeks or more after transplant): 3.0 - 8.0 Performed by LC-MS/MS technology.Performed at: [address] [id number] Director: George Dahl MD, Phone: [phone] Urine protein/creatinine rat ioon 08-06-2023 Protein/Creatinine (U) [Ratio] 0.33 [facility] XR hand RT min 3V*on 024 XR hand RT min 3V* [facility] [place] [address] XRay Report Signed Patient: Raul Manriquez MR#: [id number] : 1955 Acct:[id number] Age/Sex: 68 / M ADM Date: 05/24/23 Loc: XDUCLY Room: Type: [facility] Attending 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 Impression dictated by: Elijah Gaytan Jr., D.OBaljit05/24/2023 12:03 PM Dictation Location: [address] [address] Transcribed By: [facility] 05/24/23 1203 Dictated By: Elijah Gaytan Jr, DO 05/24/23 1202 Signed By: 05/24/23 1203 Normal [facility] Automated epithelial cells c ount in urine sediment (number/area)on 05-12-2023 Epithelial cells Auto (Urine sed) [#/Area] RARE #/LPF NONE/RARE [facility] Automated leukocytes count i n urine sediment (number/area)on 05-12-2023 WBC Auto (Urine sed) [#/Area] NONE SEEN #/HPF 0-2 [facility] Automated urine specific gra vity by refractometryon 05-12-2023 Specific gravity Refractometry automated (U) [Rel density] 1.015 1.005-1.02 5 [facility] Bilirubin Auto test strip (U ) [Mass/Vol]on 05-12-2023 Bilirubin (U) [Mass/Vol] Negative NEGATIVE [facility] Casts typing in urine sedime nt by light microscopyon 05-12-2023 Casts LM Nom (Urine sed) NONE SEEN #/LPF NONE SEEN [facility] Color Auto (U)on 05-12-2023 Color (U) LT. YELLOW YELLOW [facility] Erythrocyte distribution wid th Auto (RBC) [Ratio]on 05-12-2023 Erythrocyte distribution width (RBC) [Ratio] 13.3 % 11.0-15.0 [facility] Estimated glomerular filtrat ion rate (GFR) non- Americanon 05-12-2023 GFR/1.73 sq M.predicted among non-blacks MDRD (S/P/Bld) [Vol rate/Area] 36 mL/min/{1.73_m2} >=60 [facility] Hematocrit Auto (Bld) [Volum e fraction]on 05-12-2023 Hematocrit (Bld) [Volume fraction] 42.0 % 42.0-54.0 [facility] Hemoglobin [Mass/volume] in Bloodon 05-12-2023 Hemoglobin (Bld) [Mass/Vol] 13.6 g/dL 14.0-18.0 [facility] Ketones Auto test strip (U) [Mass/Vol]on 05-12-2023 Ketones (U) [Mass/Vol] Negative NEGATIVE [facility] Laboratory - Chemistry and C hemistry - challengeon 05-12-2023 Albumin [Mass/Vol] 3.7 g/dL 3.4-5.0 [facility] Calcium [Mass/Vol] 10.3 mg/dL 8.5-10.1 [facility] Chloride [Moles/Vol] 100 mmol/L 98-107 [facility] CO2 [Moles/Vol] 24.6 mmol/L 21.0-32.0 [facility] Creatinine [Mass/Vol] 1.88 mg/dL 0.70-1.30 [facility] GFR/1.73 sq M.predicted MDRD (S/P/Bld) [Vol rate/Area] 43 mL/min/{1.73_m2} >=60 [facility] Glucose [Mass/Vol] 194 mg/dL 74-106 [facility] Magnesium [Mass/Vol] 1.6 mg/dL 1.8-2.4 [facility] Potassium [Moles/Vol] 4.0 mmol/L 3.5-5.1 [facility] Sodium [Moles/Vol] 136 mmol/L 136-145 [facility] Urea nitrogen [Mass/Vol] 31.0 mg/dL 7.0-18.0 [facility] Urea nitrogen/Creatinine [Mass ratio] 16.5 mg/mg [facility] Leukocytes [#/volume] correc mary for nucleated erythrocytes in Blood by Automated counon 05-12-2023 WBC corrected for nucl RBC Auto (Bld) [#/Vol] 5.7 10 3/uL 4.0-11.0 [facility] MCH Auto (RBC) [Entitic mass ]on 05-12-2023 MCH (RBC) [Entitic mass] 29.7 pg 25.9-34.0 [facility] MCHC Auto (RBC) [Mass/Vol]on 05-12-2023 MCHC (RBC) [Mass/Vol] 32.4 g/dL 29.9-35.2 [facility] MCV Auto (RBC) [Entitic vol] on 05-12-2023 MCV (RBC) [Entitic vol] 91.7 fL 80.0-94.0 [facility] Mucus LM Ql (Urine sed)on Mucus Ql (Urine sed) NONE SEEN NONE SEEN [facility] No Panel Informationon 05-11 Phosphorus Level 2.3 mg/dL 2.6-4.7 [facility] Platelet mean volume Auto (B ld) [Entitic vol]on 05-12-2023 Platelet mean volume (Bld) [Entitic vol] 10.3 fL 9.5-13.5 [facility] Platelets Auto (Bld) [#/Vol] on 05-12-2023 Platelets (Bld) [#/Vol] 146 10 3/uL 150-450 [facility] Protein Auto test strip (U) [Mass/Vol]on 05-12-2023 Protein (U) [Mass/Vol] Negative NEG/TRACE [facility] RBC Auto (Bld) [#/Vol]on RBC (Bld) [#/Vol] 4.58 10 6/uL 4.70-6.10 [facility] Serum or plasma anion gap de terminationon 05-12-2023 Anion gap [Moles/Vol] 15.4 mmol/L [facility] Specific gravity Auto test s trip (U) [Rel density]on 05-12-2023 Specific gravity (U) [Rel density] CLEAR CLEAR [facility] Tacrolimus [Mass/volume] in Bloodon 05-12-2023 Tacrolimus (Bld) [Mass/Vol] 4.4 ng/mL 2.0-20.0 [facility] Comment on above: This test was develo ped and its performance characteristicsdetermined by [employer]. It has not been cleared orapproved by the Food and Drug Administration. Trough (immediately following transplant) 15.0 Trough (steady state, 2 weeks or more after transplant): 3.0 - 8.0 Performed by LC-MS/MS technology.Performed at: [address] [id number] Director: George Dahl MD, Phone: [phone] Urine bacteria detection by automated methodon 05-12-2023 Bacteria Auto Ql (U) NONE SEEN #/HPF NONE SEEN [facility] Urine glucose measurement by test strip (mass/volume)on 05-12-2023 Glucose Test strip (U) [Mass/Vol] 250 mg/dL NEGATIVE [facility] Urine hemoglobin detection b y automated test stripon 05-12-2023 Hemoglobin Auto test strip Ql (U) Negative NEGATIVE [facility] Urine nitrite detection by a utomated test stripon 05-12-2023 Nitrite Auto test strip Ql (U) Negative NEGATIVE [facility] Urine sediment crystal ident ification by light microscopyon 05-12-2023 Crystals LM Nom (Urine sed) None Seen #/HPF None Seen [facility] Urine sediment leukocyte cou nt by microscopy (number/high power field)on 05-12-2023 WBC LM.HPF (Urine sed) [#/Area] NONE SEEN #/HPF NONE SEEN [facility] Urobilinogen Auto test strip (U) [Mass/Vol]on 05-12-2023 Urobilinogen Qn (U) 0.2 {Hernandez'U}/dL 0.2-1.0 [facility] pH Auto test strip (U)on pH (U) 5.5 [pH] 5.0-9.0 [facility] COVID/FLU RT-PCRon SARS-CoV-2 (COVID-19) RNA CODY+probe Ql (Unsp spec) Positive [employer] Other COVID/FLU RT-PCR Negative [facility] [employer] Other FK506 (TACROLIMUS) WHOLE BLO ODon 06-23-2022 Tacrolimus (FK506), Blood 4.8 ng/mL Normal 2.0-20.0 [facility] Comment on above: Result Comment: Trou gh (immediately following transplant) 15.0 . Trough (steady state, 2 weeks or more after transplant): 3.0 - 8.0 . Performed by LC-MS/MS technology. Performed By: #### F [id number] #### [facility] [address] [place] [address] Dr. Sagar Morales PTH INTACTon 06-22-2022 PTH, Intact 57 pg/mL Normal 15-65 [facility] Comment on above: Performed By: #### P THINT #### [facility] [address] [place] [address] Dr. Sagar Morales HEMOGRAM AND PLATELon 2022 Hematocrit (Bld) [Volume fraction] 42.1 % Normal 42.0-54.0 [facility] Comment on above: Performed By: #### H H #### [facility] [address] [place] [address] Dr. Sagar Morales Hemoglobin (Bld) [Mass/Vol] 13.7 g/dL Critically low 14.0-18.0 [facility] Comment on above: Performed By: #### H H #### [facility] [address] [place] [address] Dr. Sagar Morales MCH (RBC) [Entitic mass] 30.0 pg Normal 25.9-34.0 [facility] Comment on above: Performed By: #### H H #### [facility] [address] [place] [address] Dr. Sagar Morales MCHC (RBC) [Mass/Vol] 32.5 g/dL Normal 29.9-35.2 [facility] Comment on above: Performed By: #### H H #### [facility] [address] [place] [address] Dr. Sagar Morales MCV (RBC) [Entitic vol] 92.3 fL Normal 80.0-94.0 [facility] Comment on above: Performed By: #### H H #### [facility] [address] [place] [address] Dr. Sagar Morales PLT 122 103/ul Critically low 150-450 [facility] Comment on above: Performed By: #### H H #### [facility] [address] [place] [address] Dr. Sagar Morales RBC 4.56 106/ul Critically low 4.70-6.10 [facility] Comment on above: Performed By: #### H H #### [facility] [address] [place] [address] Dr. Sagar Morales WBC 5.1 103/ul Normal 4.0-11.0 [facility] Comment on above: Performed By: #### H H #### [facility] [address] [place] [address] Dr. Sagar Morales MAGNESIUMon 06-21-2022 Magnesium [Mass/Vol] 1.7 mg/dL Critically low 1.8-2.4 [facility] Comment on above: Performed By: #### Troy PERALTA URIC, LIVER #### [facility] [address] [place] [address] Dr. Sagar Morales PROF 14(COMP METB)on 023 Albumin [Mass/Vol] 3.6 g/dL Normal 3.4-5.0 [facility] Comment on above: Performed By: #### Troy ENMADI URIC, LIVER #### [facility] [address] [place] [address] Dr. Sagar Morales Albumin/Globulin [Mass ratio] 1.0 {ratio} Normal [facility] Comment on above: Performed By: #### Troy ENMADI URIC, LIVER #### [facility] [address] [place] [address] Dr. Sagar Morales ALP [Catalytic activity/Vol] 62 U/L Normal 46-116 [facility] Comment on above: Performed By: #### Troy ENMADI URIC, LIVER #### [facility] [address] [address] [address] Sagar Morales ALT [Catalytic activity/Vol] 38 U/L Normal 16-63 [facility] Comment on above: Performed By: #### R ENAL, URIC, LIVER #### [facility] [address] [place] [address] Dr. Sagar Morales Anion gap [Moles/Vol] 12.4 mmol/L Normal [facility] Comment on above: Performed By: #### R ENAL, URIC, LIVER #### [facility] [address] [address] [address] Sagar Morales AST [Catalytic activity/Vol] 24 U/L Normal 15-37 [facility] Comment on above: Performed By: #### R ENAL, URIC, LIVER #### [facility] [address] [place] [address] Dr. Sagar Morales Bilirubin [Mass/Vol] 0.6 mg/dL Normal 0.2-1.0 [facility] Comment on above: Performed By: #### R ENAL, URIC, LIVER #### [facility] [address] [address] [address] Sagar Morales Calcium [Mass/Vol] 9.9 mg/dL Normal 8.5-10.1 [facility] Comment on above: Performed By: #### R ENAL, URIC, LIVER #### [facility] [address] [place] [address] Dr. Sagar Morales Chloride [Moles/Vol] 103 mmol/L Normal 98-107 [facility] Comment on above: Performed By: #### R ENAL, URIC, LIVER #### [facility] [address] [address] [address] Sagar Morales CO2 [Moles/Vol] 25.3 mmol/L Normal 21.0-32.0 [facility] Comment on above: Performed By: #### R ENAL, URIC, LIVER #### [facility] [address] [place] [address] Dr. Sagar Morales Creatinine [Mass/Vol] 1.59 mg/dL Critically high 0.70-1.30 [facility] Comment on above: Performed By: #### R ENAL, URIC, LIVER #### [facility] [address] [place] [address] Dr. Sagar Morales EGFR-AF [place]IZ[place] 53 mL/min/1.73m2 Critically low >=60 [facility] Comment on above: Performed By: #### R ENAL, URIC, LIVER #### [facility] [address] [place] [address] Dr. Sagar Morales EGFR-NON AF CITIZEN [place] 44 mL/min/1.73m2 Critically low >=60 [facility] Comment on above: Performed By: #### R ENAL, URIC, LIVER #### [facility] [address] [place] [address] Dr. Sagar Morales Globulin (S) [Mass/Vol] 3.7 g/dL Normal [facility] Comment on above: Performed By: #### R ENAL, URIC, LIVER #### [facility] [address] [place] [address] Dr. Sagar Morales Glucose [Mass/Vol] 211 mg/dL Critically high 74-106 [facility] Comment on above: Performed By: #### R ENAL, URIC, LIVER #### [facility] [address] [place] [address] Dr. Sagar Morales Potassium [Moles/Vol] 4.7 mmol/L Normal 3.5-5.1 [facility] Comment on above: Performed By: #### R ENAL, URIC, LIVER #### [facility] [address] [place] [address] Dr. Sagar Morales Protein [Mass/Vol] 7.3 g/dL Normal 6.4-8.2 [facility] Comment on above: Performed By: #### R ENAL, URIC, LIVER #### [facility] [address] [place] [address] Dr. Sagar Morales Sodium [Moles/Vol] 136 mmol/L Normal 136-145 [facility] Comment on above: Performed By: #### R ENAL, URIC, LIVER #### [facility] [address] [place] [address] Dr. Sagar Morales Urea nitrogen [Mass/Vol] 40.0 mg/dL Critically high 7.0-18.0 [facility] Comment on above: Performed By: #### R ENAL, URIC, LIVER #### [facility] [address] [place] [address] Dr. Sagar Morales Urea nitrogen/Creatinine [Mass ratio] 25.2 mg/mg Normal [facility] Comment on above: Performed By: #### R ENAL, URIC, LIVER #### [facility] [address] [place] [address] Dr. Sagar Morales UA RANDOM W/MICROSCOPICon BACTERIA NONE SEEN Normal NONE SEEN [facility] Comment on above: Performed By: #### U AMIC #### [facility] [address] [place] [address] Dr. Sagar Morales Bilirubin Ql (U) Negative Normal NEGATIVE [facility] Comment on above: Performed By: #### U AMIC #### [facility] [address] [place] [address] Dr. Sagar Morales CAST NONE SEEN Normal NONE SEEN [facility] Comment on above: Performed By: #### U AMIC #### [facility] [address] [place] [address] Dr. Sagar Morales Clarity (U) CLEAR Normal CLEAR [facility] Comment on above: Performed By: #### U AMIC #### [facility] [address] [place] [address] Dr. Sagar Morales Color (U) LT. YELLOW Normal YELLOW [facility] Comment on above: Performed By: #### U AMIC #### [facility] [address] [place] [address] Dr. Sagar Morales Crystals LM Nom (Urine sed) NONE SEEN Normal NONE SEEN [facility] Comment on above: Performed By: #### U AMIC #### [facility] [address] [place] [address] Dr. Sagar Morales Epithelial cells LM Ql (Urine sed) FEW Abnormal NONE SEEN /RARE [facility] Comment on above: Performed By: #### U AMIC #### [facility] [address] [address] [address] Sagar Morales Glucose Ql (U) 250 mg/dl Abnormal NEGATIVE [facility] Comment on above: Performed By: #### U AMIC #### [facility] [address] [address] [address] Sagar Morales Hemoglobin Ql (U) Negative Normal NEGATIVE [facility] Comment on above: Performed By: #### U AMIC #### [facility] [address] [address] [address] Sagar Morales Ketones Ql (U) Negative Normal NEGATIVE [facility] Comment on above: Performed By: #### U AMIC #### [facility] [address] [address] [address] Sagar Morales LEUKOCYTES Negative Normal NEGATIVE [facility] Comment on above: Performed By: #### U AMIC #### [facility] [address] [place] [address] Dr. Sagar Morales MUCOUS NONE SEEN Normal NONE SEEN [facility] Comment on above: Performed By: #### U AMIC #### [facility] [address] [address] [address] Sagar Morales Nitrite Ql (U) Negative Normal NEGATIVE [facility] Comment on above: Performed By: #### U AMIC #### [facility] [address] [place] [address] Dr. Sagar Morales pH (U) 5.5 [pH] Normal 5-9 [facility] Comment on above: Performed By: #### U AMIC #### [facility] [address] [place] [address] Dr. Sagar Morales RBC NONE SEEN Abnormal 0-2 [facility] Comment on above: Performed By: #### U AMIC #### [facility] [address] [place] [address] Dr. Sagar Morales SPEC GRAVITY 1.015 Normal 1.005-<=1. 025 [facility] Comment on above: Performed By: #### U AMIC #### [facility] [address] [place] [address] Dr. Sagar Morales UA PROTEIN Negative Normal NEGATIVE/ TRACE [facility] Comment on above: Performed By: #### U AMIC #### [facility] [address] [place] [address] Dr. Sagar Morales Urobilinogen Qn (U) 0.2 {Hernandez'U}/dL Normal 0.2 - 1. 0 [facility] Comment on above: Performed By: #### U AMIC #### [facility] [address] [place] [address] Dr. Sagar Morales WBC NONE SEEN Normal NONE SEEN [facility] Comment on above: Performed By: #### U AMIC #### [facility] [address] [place] [address] Dr. Sagar Morales URIC ACID SERUMon 06-21-2022 Urate [Mass/Vol] 4.4 mg/dL Normal 3.5-7.2 [facility] Comment on above: Performed By: #### R KATHRYN URIC, LIVER #### [facility] [address] [place] [address] Dr. Sagar Morales URINE T PROTEIN CREAT RATIOo n 06-21-2022 Protein (U) [Mass/Vol] 15.7 mg/dL Critically high <=12.0 [facility] Comment on above: Performed By: #### R KATHRYN URIC, LIVER #### [facility] [address] [place] [address] Dr. Sagar Morales UR PROT CREAT RAT 0.34 Normal [facility] Comment on above: Performed By: #### R KATHRYN URIC, LIVER #### [facility] [address] [place] [address] Dr. Sagar Morales URINE CREAT 45.54 mg/dL Normal 20.00-300. 00 [facility] Comment on above: Performed By: #### R KATHRYN URIC, LIVER #### [facility] [address] [place] [address] Dr. Sagar Morales VITAMIN D 25 OHon 06-21-2022 VIT D 25-OH 36.8 ng/mL Normal [facility] Comment on above: Performed By: #### R FRANNY PERALTA, LIVER #### [facility] [address] [place] [address] Dr. Sagar Morales VIT D RANGES SEE BELOW Normal [facility] Comment on above: Result Comment: <20 ng/mL Vit D deficient 20 - <30 ng/mL Vit D insufficient 30 - 100 ng/mL Vit D sufficient >100 ng/mL Potential Toxicity Performed By: #### R ENAL, URIC, LIVER #### [facility] [address] [place] [address] Dr. Sagar Morales GLYCOHEMOGLOBIN A1Con 2022 ADA RECOMMENDATION SEE BELOW Normal [facility] Comment on above: Result Comment: ADA RECOMMENDED LIMIT 4.0 - 6.0 ADA THERAPEUTIC TARGET < 7.0 ACTION SUGGESTED > 7.0 Performed By: #### R ENMADI, URIC, LIVER #### [facility] [address] [place] [address] Dr. Sagar Morales Glucose [Mass/Vol] 120 mg/dL Normal [facility] Comment on above: Performed By: #### R ENAL, URIC, LIVER #### [facility] [address] [place] [address] Dr. Sagar Morales HbA1c (Bld) [Mass fraction] 5.8 % Normal 4.5-6.2 [facility] Comment on above: Performed By: #### R ENMADI, URIC, LIVER #### [facility] [address] [place] [address] Dr. Sagar Morales LIPID PROFILEon 05-18-2022 CHOL-HDL RATIO NORM SEE BELOW Normal [facility] Comment on above: Result Comment: 3.3 - 4.4 LOW RISK 4.4 - 7.1 AVERAGE RISK 7.1 - 11.0 MODERATE RISK >11.0 HIGH RISK Performed By: #### R ENAL, URIC, LIVER #### [facility] [address] [place] [address] Dr. Sagar Morales Cholesterol [Mass/Vol] 176 mg/dL Normal <=200 [facility] Comment on above: Performed By: #### R ENMADI, URIC, LIVER #### [facility] [address] [place] [address] Dr. Sagar Morales Cholesterol in HDL [Mass/Vol] 84 mg/dL Critically high 40-60 [facility] Comment on above: Performed By: #### R ENMADI URIC, LIVER #### [facility] [address] [address] [address] Sagar Morales Cholesterol in LDL [Mass/Vol] 76.0 mg/dL Normal [facility] Comment on above: Performed By: #### R ENMADI URIC, LIVER #### [facility] [address] [address] [address] Sagar Morales Cholesterol.total/Cho lesterol in HDL [Mass ratio] 2.1 {ratio} Normal [facility] Comment on above: Performed By: #### R KATHRYN URIC, LIVER #### [facility] [address] [address] [address] Sagar Morales HDL NORMAL > or = 60 mg/dl - LO W CARDIOVASCULAR RISK <40 mg/dl - HIGH CARDIOVASCULAR RISK Normal [facility] Comment on above: Performed By: #### R ENMADI URIC, LIVER #### [facility] [address] [address] [address] Sagar Morales LDL CALC NORMAL SEE BELOW Normal [facility] Comment on above: Result Comment: <100 mg/dl OPTIMAL 100 - 129 mg/dl NEAR OR ABOVE OPTIMAL 130 - 159 mg/dl BORDERLINE HIGH 160 - 189 mg/dl HIGH >190 mg/dl VERY HIGH Performed By: #### R KATHRYN URIC, LIVER #### [facility] [address] [address] [address] Sagar Morales Triglyceride [Mass/Vol] 80 mg/dL Normal <=150 [facility] Comment on above: Performed By: #### R ENMADI URIC, LIVER #### [facility] [address] [address] [address] Sagar Morales VLDL CALC 16.0 mg/dL Normal [facility] Comment on above: Performed By: #### R ENMADI URIC, LIVER #### [facility] [address] [address] [address] Sagar Morales FK506 (TACROLIMUS) WHOLE BLO ODon 04-02-2022 Tacrolimus (FK506), Blood 5.4 ng/mL Normal 2.0-20.0 [facility] Comment on above: Result Comment: Trou gh (immediately following transplant) 15.0 . Trough (steady state, 2 weeks or more after transplant): 3.0 - 8.0 . Performed by LC-MS/MS technology. Performed By: #### F [id number] #### [facility] [address] [address] [address] Sagar Morales RENAL FUNCTION PANELon 03-30 Albumin [Mass/Vol] 3.4 g/dL Normal 3.4-5.0 [facility] Comment on above: Performed By: #### R FRANNY PERALTA, LIVER #### [facility] [address] [place] [address] Dr. Sagar Morales Calcium [Mass/Vol] 9.5 mg/dL Normal 8.5-10.1 [facility] Comment on above: Performed By: #### Troy PERALTA URIC, LIVER #### [facility] [address] [place] [address] Dr. Sagar Morales Chloride [Moles/Vol] 106 mmol/L Normal 98-107 [facility] Comment on above: Performed By: #### Troy PERALTA URIC, LIVER #### [facility] [address] [place] [address] Dr. Sagar Morales CO2 [Moles/Vol] 23.0 mmol/L Normal 21.0-32.0 [facility] Comment on above: Performed By: #### R KATHRYN URIC, LIVER #### [facility] [address] [place] [address] Dr. Sagar Morales Creatinine [Mass/Vol] 1.62 mg/dL Critically high 0.70-1.30 [facility] Comment on above: Performed By: #### R KATHRYN URIC, LIVER #### [facility] [address] [place] [address] Dr. Sagar Morales EGFR-AF CITIZ[place] 52 mL/min/1.73m2 Critically low >=60 [facility] Comment on above: Performed By: #### R KATHRYN URIC, LIVER #### [facility] [address] [address] [address] Sagar Morales EGFR-NON AF CITIZEN [place] 43 mL/min/1.73m2 Critically low >=60 [facility] Comment on above: Performed By: #### R ENAL, URIC, LIVER #### [facility] [address] [address] [address] Sagar Morales Glucose [Mass/Vol] 148 mg/dL Critically high 74-106 [facility] Comment on above: Performed By: #### R ENAL, URIC, LIVER #### [facility] [address] [address] [address] Sagar Morales Phosphate [Mass/Vol] 2.3 mg/dL Critically low 2.6-4.7 [facility] Comment on above: Performed By: #### R ENAL, URIC, LIVER #### [facility] [address] [place] [address] Dr. Sagar Morales Potassium [Moles/Vol] 4.2 mmol/L Normal 3.5-5.1 [facility] Comment on above: Performed By: #### R ENMADI, URIC, LIVER #### [facility] [address] [address] [address] Sagar Morales Sodium [Moles/Vol] 138 mmol/L Normal 136-145 [facility] Comment on above: Performed By: #### R ENAL, URIC, LIVER #### [facility] [address] [address] [address] Sagar Morales Urea nitrogen [Mass/Vol] 27.0 mg/dL Critically high 7.0-18.0 [facility] Comment on above: Performed By: #### R ENAL, URIC, LIVER #### [facility] [address] [place] [address] Dr. Sagar Morales FK506 (TACROLIMUS) WHOLE BLO ODon 12-09-2021 Tacrolimus (FK506), Blood 3.6 ng/mL Normal 2.0-20.0 [facility] Comment on above: Result Comment: Trou gh (immediately following transplant) 15.0 . Trough (steady state, 2 weeks or more after transplant): 3.0 - 8.0 . Performed by LC-MS/MS technology. Performed By: #### F [id number] #### [facility] [address] [place] [address] Dr. Sagar Morales LIVER PROFILEon 12-06-2021 Albumin [Mass/Vol] 3.6 g/dL Normal 3.4-5.0 [facility] Comment on above: Performed By: #### R KATHRYN URIC, LIVER #### [facility] [address] [place] [address] Dr. Sagar Morales Albumin/Globulin [Mass ratio] 1.0 {ratio} Normal [facility] Comment on above: Performed By: #### R KATHRYN URIC, LIVER #### [facility] [address] [place] [address] Dr. Sagar Morales ALP [Catalytic activity/Vol] 59 U/L Normal 46-116 [facility] Comment on above: Performed By: #### R KATHRYN URIC, LIVER #### [facility] [address] [place] [address] Dr. Sagar Morales ALT [Catalytic activity/Vol] 31 U/L Normal 16-63 [facility] Comment on above: Performed By: #### R KATHRYN URIC, LIVER #### [facility] [address] [place] [address] Dr. Sagar Morales AST [Catalytic activity/Vol] 19 U/L Normal 15-37 [facility] Comment on above: Performed By: #### R KATHRYN URIC, LIVER #### [facility] [address] [place] [address] Dr. Sagar Morales BILI, CONJUGATED 0.1 mg/dL Normal 0.0-0.2 [facility] Comment on above: Performed By: #### R KATHRYN URIC, LIVER #### [facility] [address] [place] [address] Dr. Sagar Morales Bilirubin [Mass/Vol] 0.6 mg/dL Normal 0.2-1.0 [facility] Comment on above: Performed By: #### R KATHRYN URIC, LIVER #### [facility] [address] [address] [address] Sagar Morales Globulin (S) [Mass/Vol] 3.5 g/dL Normal [facility] Comment on above: Performed By: #### R ENAL, URIC, LIVER #### [facility] [address] [address] [address] Sagar Morales Protein [Mass/Vol] 7.1 g/dL Normal 6.4-8.2 [facility] Comment on above: Performed By: #### R ENAL, URIC, LIVER #### [facility] [address] [address] [address] Sagar Morales RENAL FUNCTION PANELon 12-06 Calcium [Mass/Vol] 9.6 mg/dL Normal 8.5-10.1 [facility] Comment on above: Performed By: #### R ENAL, URIC, LIVER #### [facility] [address] [address] [address] Sagar Morales Chloride [Moles/Vol] 103 mmol/L Normal 98-107 [facility] Comment on above: Performed By: #### R ENAL, URIC, LIVER #### [facility] [address] [address] [address] Sagar Morales CO2 [Moles/Vol] 23.7 mmol/L Normal 21.0-32.0 [facility] Comment on above: Performed By: #### R ENAL, URIC, LIVER #### [facility] [address] [address] [address] Sagar Morales Creatinine [Mass/Vol] 1.65 mg/dL Critically high 0.70-1.30 [facility] Comment on above: Performed By: #### R ENAL, URIC, LIVER #### [facility] [address] [address] [address] Sagar Morales EGFR-AF [place]IZ[place] 51 mL/min/1.73m2 Critically low >=60 [facility] Comment on above: Performed By: #### R ENAL, URIC, LIVER #### [facility] [address] [address] [address] Sagar Morales EGFR-NON AF CITIZ[place] 42 mL/min/1.73m2 Critically low >=60 [facility] Comment on above: Performed By: #### R KATHRYN URIC, LIVER #### [facility] [address] [address] [address] Sagar Morales Glucose [Mass/Vol] 256 mg/dL Critically high 74-106 [facility] Comment on above: Performed By: #### R KATHRYN URIC, LIVER #### [facility] [address] [address] [address] Sagar Morales Phosphate [Mass/Vol] 2.6 mg/dL Normal 2.6-4.7 [facility] Comment on above: Performed By: #### R KATHRYN URIC, LIVER #### [facility] [address] [place] [address] Dr. Sagar Morales Potassium [Moles/Vol] 4.7 mmol/L Normal 3.5-5.1 [facility] Comment on above: Performed By: #### R KATHRYN URIC, LIVER #### [facility] [address] [place] [address] Dr. Sagar Morales Sodium [Moles/Vol] 137 mmol/L Normal 136-145 [facility] Comment on above: Performed By: #### R KATHRYN URIC, LIVER #### [facility] [address] [place] [address] Dr. Sagar Morales Urea nitrogen [Mass/Vol] 27.0 mg/dL Critically high 7.0-18.0 [facility] Comment on above: Performed By: #### R KATHRYN URIC, LIVER #### [facility] [address] [place] [address] Dr. Sagar Morales URIC ACID SERUMon 12-06-2021 Urate [Mass/Vol] 4.7 mg/dL Normal 3.5-7.2 [facility] Comment on above: Performed By: #### R KATHRYN URIC, LIVER #### [facility] [address] [place] [address] Dr. Sagar Morales URINE T PROTEIN CREAT RATIOo n 12-06-2021 Protein (U) [Mass/Vol] 28.8 mg/dL Critically high <=12.0 [facility] Comment on above: Performed By: #### R KATHRYN URIC, LIVER #### [facility] [address] [place] [address] Dr. Sagar Morales UR PROT CREAT RAT 0.21 Normal [facility] Comment on above: Performed By: #### R KATHRYN URIC, LIVER #### [facility] [address] [place] [address] Dr. Sagar Morales URINE CREAT 137.37 mg/dL Normal 20.00-300. 00 [facility] Comment on above: Performed By: #### R FRANNY PERALTA, LIVER #### [facility] [address] [place] [address] Dr. Sagar Morales FK506 (TACROLIMUS) WHOLE BLO ODon 08-19-2021 Tacrolimus (FK506), Blood 4.4 ng/mL Normal 2.0-20.0 [facility] Comment on above: Result Comment: Trou gh (immediately following transplant) 15.0 . Trough (steady state, 2 weeks or more after transplant): 3.0 - 8.0 . Performed by LC-MS/MS technology. Performed By: #### F [id number] #### [facility] [address] [place] [address] Dr. Sagar Morales LIVER PROFILEon 08-17-2021 Albumin [Mass/Vol] 3.4 g/dL Normal 3.4-5.0 [facility] Comment on above: Performed By: #### R KATHRYN URIC, LIVER #### [facility] [address] [place] [address] Dr. Sagar Morales Albumin/Globulin [Mass ratio] 1.0 {ratio} Normal [facility] Comment on above: Performed By: #### R KATHRYN URIC, LIVER #### [facility] [address] [place] [address] Dr. Sagar Morales ALP [Catalytic activity/Vol] 71 U/L Normal 46-116 [facility] Comment on above: Performed By: #### R KATHRYN URIC, LIVER #### [facility] [address] [place] [address] Dr. Sagar Morales ALT [Catalytic activity/Vol] 38 U/L Normal 16-63 [facility] Comment on above: Performed By: #### R ENMADI URIC, LIVER #### [facility] [address] [address] [address] Sagar Morales AST [Catalytic activity/Vol] 21 U/L Normal 15-37 [facility] Comment on above: Performed By: #### R ENMADI URIC, LIVER #### [facility] [address] [address] [address] Sagar Morales BILI, CONJUGATED 0.2 mg/dL Normal 0.0-0.2 [facility] Comment on above: Performed By: #### R KATHRYN URIC, LIVER #### [facility] [address] [place] [address] Dr. Sagar Morales Bilirubin [Mass/Vol] 0.6 mg/dL Normal 0.2-1.0 [facility] Comment on above: Performed By: #### R KATHRYN URIC, LIVER #### [facility] [address] [address] [address] Sagar Morales Globulin (S) [Mass/Vol] 3.4 g/dL Normal [facility] Comment on above: Performed By: #### R KATHRYN URIC, LIVER #### [facility] [address] [place] [address] Dr. Sagar Morales Protein [Mass/Vol] 6.8 g/dL Normal 6.4-8.2 [facility] Comment on above: Performed By: #### R ENMADI URIC, LIVER #### [facility] [address] [address] [address] Sagar Morales RENAL FUNCTION PANELon 08-17 Calcium [Mass/Vol] 9.5 mg/dL Normal 8.5-10.1 [facility] Comment on above: Performed By: #### R ENMADI URIC, LIVER #### [facility] [address] [address] [address] Sagar Morales Chloride [Moles/Vol] 103 mmol/L Normal 98-107 [facility] Comment on above: Performed By: #### R ENAL, URIC, LIVER #### [facility] [address] [address] [address] Sagar Morales CO2 [Moles/Vol] 25.3 mmol/L Normal 21.0-32.0 [facility] Comment on above: Performed By: #### R ENAL, URIC, LIVER #### [facility] [address] [place] [address] Dr. Sagar Morales Creatinine [Mass/Vol] 1.73 mg/dL Critically high 0.70-1.30 [facility] Comment on above: Performed By: #### R ENAL, URIC, LIVER #### [facility] [address] [place] [address] Dr. Sagar Morales EGFR-AF [place] 48 mL/min/1.73m2 Critically low >=60 [facility] Comment on above: Performed By: #### R ENAL, URIC, LIVER #### [facility] [address] [place] [address] Dr. Sagar Morales EGFR-NON AF [place]IZ[place] 40 mL/min/1.73m2 Critically low >=60 [facility] Comment on above: Performed By: #### R ENAL, URIC, LIVER #### [facility] [address] [place] [address] Dr. Sagar Morales Glucose [Mass/Vol] 197 mg/dL Critically high 74-106 T [facility] Comment on above: Performed By: #### R ENAL, URIC, LIVER #### [facility] [address] [place] [address] Dr. Sagar Morales Phosphate [Mass/Vol] 2.8 mg/dL Normal 2.6-4.7 [facility] Comment on above: Performed By: #### R ENAL, URIC, LIVER #### [facility] [address] [place] [address] Dr. Sagar Morales Potassium [Moles/Vol] 4.9 mmol/L Normal 3.5-5.1 [facility] Comment on above: Performed By: #### R ENAL, URIC, LIVER #### [facility] [address] [address] [address] Sagar Morales Sodium [Moles/Vol] 136 mmol/L Normal 136-145 [facility] Comment on above: Performed By: #### R ENMADI URIC, LIVER #### [facility] [address] [place] [address] Dr. Sagar Morales Urea nitrogen [Mass/Vol] 25.0 mg/dL Critically high 7.0-18.0 [facility] Comment on above: Performed By: #### R ENAL URIC, LIVER #### [facility] [address] [place] [address] Dr. Sagar Morales URIC ACID SERUMon 08-17-2021 Urate [Mass/Vol] 4.5 mg/dL Normal 3.5-7.2 [facility] Comment on above: Performed By: #### R KATHRYN URIC, LIVER #### [facility] [address] [place] [address] Dr. Sagar Morales URINE T PROTEIN CREAT RATIOo n 08-17-2021 Protein (U) [Mass/Vol] 27.9 mg/dL Critically high <=12.0 [facility] Comment on above: Performed By: #### R ENMADI URIC, LIVER #### [facility] [address] [place] [address] Dr. Sagar Morales UR PROT CREAT RAT 0.24 Normal [facility] Comment on above: Performed By: #### R ENMADI URIC, LIVER #### [facility] [address] [place] [address] Dr. Sagar Morales URINE CREAT 114.26 mg/dL Normal 20.00-300. 00 [facility] Comment on above: Performed By: #### R ENMADI URIC, LIVER #### [facility] [address] [place], [place] [id number] Dr. Sagar Morales Vital Signs Date Time Vital Sign Value Performing Clinician Facility 10-17-2023 13:48-0400 Body height 180.34 cm MD Shaikh Rodarte Work Phone: [facility] 10-17-2023 13:48-0400 Body mass index (BMI) [Ratio] 21.4 kg/m2 MD Shaikh Rodarte Work Phone: [facility] 10-17-2023 13:48-0400 Body temperature 98.5 [degF] MD Shaikh Rodarte Work Phone: [facility] 10-17-2023 13:48-0400 Body weight 69.56 kg MD Shaikh Rodarte Work Phone: [facility] 10-17-2023 13:48-0400 Diastolic blood pressure 59 mm[Hg] MD Shaikh Rodarte Work Phone: [facility] 10-17-2023 13:48-0400 Heart rate 84 /min MD Shaikh Rodarte Work Phone: [facility] 10-17-2023 13:48-0400 Respiratory rate 16 /min MD Shaikh Rodarte Work Phone: [facility] 10-17-2023 13:48-0400 SaO2% (BldA) [Mass fraction] 96 % MD Shaikh Rodarte Work Phone: [facility] 10-17-2023 13:48-0400 Systolic blood pressure 107 mm[Hg] MD Shaikh Rodarte Work Phone: [facility] 10-04-2023 15:30-0400 Diastolic blood pressure 65 mm[Hg] MD Shaikh Rodarte Work Phone: [facility] 10-04-2023 15:30-0400 Heart rate 74 /min MD Shaikh Rodarte Work Phone: [facility] 10-04-2023 15:30-0400 Respiratory rate 16 /min MD Shaikh Rodarte Work Phone: [facility] 10-04-2023 15:30-0400 SaO2% (BldA) [Mass fraction] 96 % MD Shaikh Rodarte Work Phone: [facility] 10-04-2023 15:30-0400 Systolic blood pressure 130 mm[Hg] MD Shaikh Rodarte Work Phone: [facility] 10-04-2023 12:26-0400 Body height 180.34 cm MD Shaikh Rodarte Work Phone: [facility] 10-04-2023 12:26-0400 Body weight 68.03 kg MD Shaikh Rodarte Work Phone: [facility] 09-28-2023 09:54-0400 Body height 180.34 cm MD Shaikh Rodarte Work Phone: [facility] 09-28-2023 09:54-0400 Body mass index (BMI) [Ratio] 20.5 kg/m2 MD Shaikh Rodarte Work Phone: [facility] 09-28-2023 09:54-0400 Body temperature 97.5 [degF] MD Shaikh Rodarte Work Phone: [facility] 09-28-2023 09:54-0400 Body weight 66.67 kg MD Shaikh Rodarte Work Phone: [facility] 09-28-2023 09:54-0400 Diastolic blood pressure 60 mm[Hg] MD Shaikh Rodarte Work Phone: [facility] 09-28-2023 09:54-0400 Heart rate 73 /min MD Shaikh Rodarte Work Phone: [facility] 09-28-2023 09:54-0400 Respiratory rate 16 /min MD Shaikh Rodarte Work Phone: [facility] 09-28-2023 09:54-0400 SaO2% (BldA) [Mass fraction] 98 % MD Shaikh Rodarte Work Phone: [facility] 09-28-2023 09:54-0400 Systolic blood pressure 123 mm[Hg] MD Shaikh Rodarte Work Phone: [facility] 09-14-2023 14:41-0400 Body temperature 97.8 [degF] MD Shaikh Rodarte Work Phone: [facility] 09-14-2023 14:41-0400 Diastolic blood pressure 61 mm[Hg] MD Shaikh Rodarte Work Phone: [facility] 09-14-2023 14:41-0400 Heart rate 74 /min MD Shaikh Rodarte Work Phone: [facility] 09-14-2023 14:41-0400 Respiratory rate 18 /min MD Shaikh Rodarte Work Phone: [facility] 09-14-2023 14:41-0400 SaO2% (BldA) [Mass fraction] 94 % MD Shaikh Rodarte Work Phone: [facility] 09-14-2023 14:41-0400 Systolic blood pressure 127 mm[Hg] MD Shaikh Rodarte Work Phone: [facility] 09-14-2023 06:00-0400 Body weight 71.6 kg MD Shaikh Rodarte Work Phone: [facility] 09-12-2023 15:08-0400 Body height 180.34 cm MD Shaikh Rodarte Work Phone: [facility] 09-11-2023 20:43-0400 Body temperature 99.1 [degF] MD Shaikh Rodarte Work Phone: [facility] 09-11-2023 20:43-0400 Diastolic blood pressure 58 mm[Hg] MD Shaikh Rodarte Work Phone: [facility] 09-11-2023 20:43-0400 Heart rate 87 /min MD Shaikh Rodarte Work Phone: [facility] 09-11-2023 20:43-0400 Respiratory rate 16 /min MD Shaikh Rodarte Work Phone: [facility] 09-11-2023 20:43-0400 SaO2% (BldA) [Mass fraction] 96 % MD Shaikh Rodarte Work Phone: [facility] 09-11-2023 20:43-0400 Systolic blood pressure 127 mm[Hg] MD Shaikh Rodarte Work Phone: [facility] 09-11-2023 14:55-0400 Body height 180.34 cm MD Shaikh Rodarte Work Phone: [facility] 09-11-2023 14:55-0400 Body weight 69.05 kg MD Shaikh Rodarte Work Phone: [facility] 08-09-2023 10:23-0400 Body height 180.34 cm MD Shaikh Rodarte Work Phone: [facility] 08-09-2023 10:23-0400 Body mass index (BMI) [Ratio] 20.6 kg/m2 MD Shaikh Rodarte Work Phone: [facility] 08-09-2023 10:23-0400 Body temperature 96.5 [degF] MD Shaikh Rodarte Work Phone: [facility] 08-09-2023 10:23-0400 Body weight 67.13 kg MD Shaikh Rodarte Work Phone: [facility] 08-09-2023 10:23-0400 Diastolic blood pressure 50 mm[Hg] MD Shaikh Rodarte Work Phone: [facility] 08-09-2023 10:23-0400 Heart rate 94 /min MD Shaikh Rodarte Work Phone: [facility] 08-09-2023 10:23-0400 Respiratory rate 16 /min MD Shaikh Rodarte Work Phone: [facility] 08-09-2023 10:23-0400 SaO2% (BldA) [Mass fraction] 98 % MD Shaikh Rodarte Work Phone: [facility] 08-09-2023 10:23-0400 Systolic blood pressure 110 mm[Hg] MD Shaikh Rodarte Work Phone: [facility] 05-24-2023 11:23-0400 Body height 180.34 cm MD Shaikh Rodarte Work Phone: [facility] 05-24-2023 11:23-0400 Body mass index (BMI) [Ratio] 21.3 kg/m2 MD Shaikh Rodarte Work Phone: [facility] 05-24-2023 11:23-0400 Body temperature 98 [degF] MD Shaikh Rodarte Work Phone: [facility] 05-24-2023 11:23-0400 Body weight 69.45 kg MD Shaikh Rodarte Work Phone: [facility] 05-24-2023 11:23-0400 Heart rate 91 /min MD Shaikh Rodarte Work Phone: [facility] 05-24-2023 11:23-0400 Respiratory rate 18 /min MD Shaikh Rodarte Work Phone: [facility] 05-24-2023 11:23-0400 SaO2% (BldA) [Mass fraction] 99 % MD Shaikh Rodarte Work Phone: [facility] 05-17-2023 13:20-0400 Body height 180.34 cm [facility] 05-17-2023 13:20-0400 Body mass index (BMI) [Ratio] 20.9 kg/m2 [facility] 05-17-2023 13:20-0400 Body temperature 97.6 [degF] [facility] 05-17-2023 13:20-0400 Body weight 68.26 kg [facility] 05-17-2023 13:20-0400 Diastolic blood pressure 60 mm[Hg] [facility] 05-17-2023 13:20-0400 Heart rate 99 /min [facility] 05-17-2023 13:20-0400 Respiratory rate 16 /min [facility] 05-17-2023 13:20-0400 SaO2% (BldA) [Mass fraction] 98 % [facility] 05-17-2023 13:20-0400 Systolic blood pressure 122 mm[Hg] [facility] 02-23-2023 12:15-0500 Body height 180.34 cm Kailey Rosariomond Other [facility] 02-23-2023 12:15-0500 Body mass index (BMI) [Ratio] 20.58 kg/m2 Kailey Sandrine Other [facility] [employer] Other 02-23-2023 12:15-0500 Body temperature 98.7 [degF] Kailey Sandrine Other [employer] Other 02-23-2023 12:15-0500 Body weight 66.95 kg Kailey Sandrine Other [facility] 02-23-2023 12:15-0500 Diastolic blood pressure 62 mm[Hg] Kailey Sandrine Other [facility] 02-23-2023 12:15-0500 Respiratory rate 18 /min Kailey Sandrine Other [employer] Other 02-23-2023 12:15-0500 SaO2% (BldA) [Mass fraction] 98 % Kailey Deluca Other [employer] Other 02-23-2023 12:15-0500 Systolic blood pressure 118 mm[Hg] Kailey Deluca Other [facility] 12-18-2022 14:20-0400 Body height 180.34 cm Jarod Madina Other [employer] Other 12-18-2022 14:20-0400 Body mass index (BMI) [Ratio] 20.89 kg/m2 Jarod Madina Other [employer] Other 12-18-2022 14:20-0400 Body temperature 96.9 [degF] Jarod Madina Other [employer] Other 12-18-2022 14:20-0400 Body weight 67.95 kg Jarod Madina Other [employer] Other 12-18-2022 14:20-0400 Diastolic blood pressure 62 mm[Hg] Jarod Madina Other [employer] Other 12-18-2022 14:20-0400 Respiratory rate 18 /min Jarod Madina Other [employer] Other 12-18-2022 14:20-0400 SaO2% (BldA) [Mass fraction] 99 % Jarod Madina Other [employer] Other 12-18-2022 14:20-0400 Systolic blood pressure 116 mm[Hg] Jarod Madina Other [employer] Other 09-07-2022 10:40-0400 Body height 180.34 cm Jarod Madina Other [employer] Other 09-07-2022 10:40-0400 Body mass index (BMI) [Ratio] 21.11 kg/m2 Jarod Madina Other [employer] Other 09-07-2022 10:40-0400 Body temperature 97.2 [degF] Jarod Madina Other [employer] Other 09-07-2022 10:40-0400 Body weight 68.68 kg Jarod Madina Other [employer] Other 09-07-2022 10:40-0400 Diastolic blood pressure 53 mm[Hg] Jarod Madina Other [employer] Other 09-07-2022 10:40-0400 Respiratory rate 18 /min Jarod Madina Other [employer] Other 09-07-2022 10:40-0400 SaO2% (BldA) [Mass fraction] 99 % Jarod Madina Other [employer] Other 09-07-2022 10:40-0400 Systolic blood pressure 102 mm[Hg] Jarod Madina Other [employer] Other 08-14-2022 09:55-0400 Body height 180.34 cm Chani Milner Other [employer] Other 08-14-2022 09:55-0400 Body mass index (BMI) [Ratio] 20.36 kg/m2 Chani Annia Other [employer] Other 08-14-2022 09:55-0400 Body temperature 97.9 [degF] Chani Annia Other [employer] Other 08-14-2022 09:55-0400 Body weight 66.23 kg Chani Annia Other [employer] Other 08-14-2022 09:55-0400 Diastolic blood pressure 55 mm[Hg] Chani Milner Other [employer] Other 08-14-2022 09:55-0400 Respiratory rate 18 /min Chani Milner Other [employer] Other 08-14-2022 09:55-0400 SaO2% (BldA) [Mass fraction] 98 % Chani Annia Other [employer] Other 08-14-2022 09:55-0400 Systolic blood pressure 102 mm[Hg] Chanivesta Milner Other [employer] Other 06-15-2022 15:20-0400 Body height 180.34 cm Jarod Madina Other [employer] Other 06-15-2022 15:20-0400 Body mass index (BMI) [Ratio] 20.61 kg/m2 Jarod Madina Other [employer] Other 06-15-2022 15:20-0400 Body temperature 97.5 [degF] Jarod Madina Other [employer] Other 06-15-2022 15:20-0400 Body weight 67.04 kg Jarod Madina Other [employer] Other 06-15-2022 15:20-0400 Diastolic blood pressure 64 mm[Hg] Jarod Madina Other [employer] Other 06-15-2022 15:20-0400 Respiratory rate 18 /min Jarod Madina Other [employer] Other 06-15-2022 15:20-0400 SaO2% (BldA) [Mass fraction] 97 % Jarod Madina Other [employer] Other 06-15-2022 15:20-0400 Systolic blood pressure 120 mm[Hg] Jarod Madina Other [employer] Other Encounters Encounter Date Encounter Type Care Provider Facility Start: 10-17-2023 End: 10-17-2023 ambulatory MD Shaikh Rodarte Work Phone: [facility] Work Phone: Start: 10-17-2023 End: 10-17-2023 Encounter for general adult medical examination without abnormal findings MD Shaikh Rodarte Work Phone: [facility] Start: 10-17-2023 End: 10-17-2023 Patient encounter procedure MD Shaikh Rodarte Work Phone: [facility] Nephrology [place] Work Phone: Start: 10-17-2023 Registered Recurring MD Shaikh Rodarte Work Phone: [facility] Work Phone: Start: 10-15-2023 Non-patient / Non-visit MD [facility] Work [facility]: Start: 10-15-2023 End: 10-15-2023 ambulatory NAKUL HOANG Not Available Start: 10-12-2023 End: 10-12-2023 ambulatory MEHDI SAUL Not Available Start: 10-04-2023 End: 10-04-2023 Admission to same day surgery center MD Shaikh Rodarte Work Phone: [facility]Ul[facility]ound [place] Work Phone: Start: 10-04-2023 End: 10-04-2023 ambulatory MD Shaikh Rodarte Work Phone: [facility] Work Phone: Start: 09-28-2023 Registered Recurring MD Shaikh Rodarte Work Phone: [facility] Work Phone: Start: 09-28-2023 End: 09-28-2023 ambulatory MD Shaikh Rodarte Work Phone: [facility] Work Phone: Start: 09-28-2023 End: 09-28-2023 Patient encounter procedure MD Shaikh Rodarte Work Phone: [facility] Ambulatory Work Phone: Start: 09-17-2023 End: 09-17-2023 ambulatory SHAIKH CAYDEN Not Available Start: 09-12-2023 Non-patient / Non-visit MD Shaikh Rodarte Work Phone: [facility] Gastroenterology Work Phone: Start: 09-12-2023 Non-patient / Non-visit MD Shaikh Rodarte Work Phone: [facility] Work Phone: Start: 09-11-2023 End: 09-14-2023 Evaluation and management of inpatient MD Shaikh Rodarte Work Phone: [facility] [place] [facility] Work Phone: Start: 08-30-2023 End: 08-30-2023 ambulatory SHAIKH CAYDEN Not Available Start: 08-09-2023 End: 08-09-2023 ambulatory KHAI THOMPSON Not Available Start: 08-09-2023 End: 08-09-2023 ambulatory MD Shaikh Rodarte Work Phone: [facility] Work Phone: Start: 08-09-2023 End: 08-09-2023 Encounter for general adult medical examination without abnormal findings MD Shaikh Rodarte Work Phone: [facility] Start: 08-09-2023 End: 08-09-2023 Patient encounter procedure MD Shaikh Rodarte Work Phone: [facility] Nephrology [place] Work Phone: Start: 08-06-2023 Non-patient / Non-visit MD Shaikh Rodarte [facility] Work Phone: Start: 07-30-2023 End: 07-30-2023 ambulatory SHAIKH CAYDEN Not Available Start: 07-26-2023 End: 07-26-2023 ambulatory KHAI THOMPSON Not Available Start: 05-24-2023 End: 05-24-2023 ambulatory MD Shaikh Rodarte Work Phone: [facility] Work Phone: Start: 05-24-2023 End: 05-24-2023 Patient encounter procedure MD Shaikh Rodarte Work Phone: [facility] Urgent Care [place] Work Phone: Start: 05-17-2023 Patient encounter status [facility] Start: 05-17-2023 End: 05-17-2023 ambulatory [facility] Work Phone: Start: 05-17-2023 End: 05-17-2023 Encounter for general adult medical examination without abnormal findings [facility] Start: 05-17-2023 End: 05-17-2023 Patient encounter procedure [facility] Nephrology [place] Work Phone: Start: 05-12-2023 Non-patient / Non-visit [facility] Work Phone: Start: 04-24-2023 End: 04-24-2023 ambulatory SHAIKH CAYDEN Not Available Start: 04-21-2023 Non-patient / Non-visit MD Shaikh Rodarte Work Phone: [facility] Work Phone: Start: 04-04-2023 Bamboo flowsheet Darren A Fel ter BAKERY MANAGER-EXPERIMENTAL DISPLAY BUILDER Work Phone: [facility] Start: 04-04-2023 Bamboo flowsheet Darren A Fel ter BAKERY MANAGER-EXPERIMENTAL DISPLAY BUILDER Work Phone: [facility] Start: 04-04-2023 End: 04-04-2023 Office outpatient visit 15 minutes Darren A Felter BAKERY MANAGER-EXPERIMENTAL DISPLAY BUILDER Work Phone: [facility] Comment on above: Seborrheic keratosis (Primary Dx); Actinic keratosis; Sebaceous hyperplasia; Lentigines Start: 04-04-2023 End: 04-04-2023 ambulatory DARREN A FELTER Not Available Start: 04-01-2023 Daniel Rodarte MD Work Phone: [facility] Comment on above: Other osteoporosis w ithout current pathological fracture (CMS/HCC) Start: 03-24-2023 Daniel Rodarte MD Work Phone: [facility] Comment on above: Other osteoporosis w ithout current pathological fracture ([facility]) Start: 02-23-2023 End: 02-23-2023 ambulatory Kailey Sandrine Other [employer] Other Start: 02-23-2023 Office outpatient visit 15 minutes Kaileygarcia Deluca [facility] [place] Start: 02-23-2023 End: 02-23-2023 Patient encounter procedure [facility] [place] Work Phone: Start: 01-30-2023 End: 01-30-2023 ambulatory Jarod Madina Other [employer] Other Start: 01-30-2023 Telephone encounter Jarod Madina [facility] Start: 01-22-2023 End: 01-22-2023 ambulatory SHAIKH CAYDEN Not Available Start: 01-22-2023 Patient encounter procedure Shaikh Cayden SWAN Work Phone: [facility] Start: 12-18-2022 End: 12-18-2022 ambulatory Jarod Madina Other [employer] Other Start: 12-18-2022 Encounter for genera l adult medical examination without abnormal findings Jarod Madina [facility] Start: 12-18-2022 Office outpatient visit 25 minutes Jarod Madina [facility] Start: 09-07-2022 End: 09-07-2022 ambulatory Jarod Madina Other [employer] Other Start: 09-07-2022 Encounter for genera l adult medical examination without abnormal findings Jarod Madina [facility] [place] Start: 09-07-2022 Office outpatient visit 25 minutes Jarod Madina [facility] [place] Start: 08-14-2022 End: 08-14-2022 ambulatory Chani Milner Other [employer] Other Start: 08-14-2022 Office outpatient visit 15 minutes Chani Milner [facility] [place] Start: 06-29-2022 End: 06-29-2022 ambulatory MD Shaikh Rodarte Work Phone: [facility] Work Phone: Start: 06-29-2022 End: 06-29-2022 Patient encounter procedure MD Shaikh Rodarte Work Phone: [facility]-Electrodiagnostics Work Phone: Start: 06-28-2022 Encounter for genera l adult medical examination without abnormal findings JAROD MADINA [facility] Start: 06-25-2022 End: 06-25-2022 ambulatory Jarod Madina Other [employer] Other Start: 06-25-2022 Telephone encounter Jarod Madina [facility] Start: 06-21-2022 End: 06-22-2022 ambulatory SHAIKH Hugo RODARTE Facility:[facility] Start: 06-15-2022 End: 06-15-2022 ambulatory Jarod Madina Other [employer] Other Start: 06-15-2022 Encounter for genera l [...] Date Procedure Procedure Detail Performing Clinician Start: 10-17-2023 Positron emission tomography with computed tomography MD Shaikh Rodarte Work Phone: Start: 10-04-2023 Aspiration MD Shaikh Rodarte Work Phone: Start: 10-04-2023 Ultrasonic guidance for needle biopsy MD Shaikh Rodarte Work Phone: Start: 09-14-2023 Carcinoembryonic ant igen cea Kailey Deluca Comment on above: Result Comment: Seri al tumor marker results determined by assays using different manufacturers or methods may not be comparable. 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 ASSAY. PERFORMED BY: [place] [address] PATHOLOGIST SET UP MECHANIC BRO PIERRE M.D. Performed By: #### B MP, PT, PTT #### [address] Start: 09-13-2023 US scan of thyroid MD Chasidy Rodarte Work Phone: Start: 09-13-2023 Investigation of transfusion reaction MD Shaikh Rodarte Work Phone: Start: 09-13-2023 Ultrasonography guid ed puncture and aspiration of abdomen MD Shaikh Rodarte Work Phone: Start: 09-12-2023 CT of chest without contrast MD Shaikh Rodarte Work Phone: Start: 09-11-2023 CT of abdomen and pe lvis without contrast MD Shaikh Rodarte Work Phone: Start: 05-24-2023 Plain X-ray of right hand MD Shaikh Rodarte Work Phone: Start: 05-24-2017 History of renal transplant Hi story of renal transplant Shaikh Cayden SWAN Work Phone: History of renal transplant Jarod Ballard Other History of renal transplant Oliva l transplant recipient Plan of Treatment Date Care Activity Detail Author Start: 08-19-2025 Screening for malignant neoplasm of colon [facility] Start: 01-23-2024 Medicare Annual Wellness (AWV) Medicare Annual Wellness (AWV) [facility] Start: 10-04-2023 [facility] Start: 10-04-2023 Ultrasonic guidance for needle biopsy [facility] Start: 09-21-2023 [facility] Start: 09-20-2023 [facility] Start: 09-19-2023 [facility] Start: 09-18-2023 [facility] Start: 09-17-2023 [facility] Start: 09-16-2023 [facility] Start: 09-15-2023 [facility] Start: 09-14-2023 End: 09-14-2023 [facility] Start: 09-13-2023 [facility] Start: 09-12-2023 Administration of prophylactic treatment [facility] Start: 09-12-2023 Microbial culture, body fluid [facility] Start: 09-12-2023 Referral to shaving machine operator [facility] Start: 09-12-2023 Referral to scratcher tender [facility] Start: 09-12-2023 aPTT in Platelet poor plasma by Coagulation assay [facility] Start: 09-12-2023 [facility] Start: 09-12-2023 aPTT in Platelet poor plasma by Coagulation assay [facility] Start: 09-11-2023 End: 09-11-2023 [facility] Start: 09-11-2023 Referral to oncologist [facility] Start: 09-11-2023 Hospital admission [facility] Start: 09-11-2023 Drainage of Peritoneal Cavity, Percutaneous Approach Drainage of Peritoneal Cavity, Percutaneous Approach [facility] Start: 04-24-2023 End: 04-24-2023 Patient encounter procedure 04/24/2023 10:00 AM EST Office Visit [facility] [address] [place] [address] Shaikh Rodarte MD [address] [place] [address] [facility] Start: 04-04-2023 End: 04-04-2023 Patient encounter procedure 04/04/2023 9:20 AM EST Office Visit [facility] [address] [place] [id number] Darren Gallo, BAKERY MANAGER-EXPERIMENTAL DISPLAY BUILDER [address] [place] [address] [facility] Start: 02-19-2023 Hemoglobin A1c measurement Diabetes: Hemoglobin A1C [facility] Start: 10-20-2022 Influenza vaccination Influenza Vaccine (#1) [facility] Start: 05-22-2019 Pneumococcal Vaccine: 65+ Years (2 - PCV) Pneumococcal Vaccine: 65+ Years (2 - PCV) [facility] Start: 02-12-1964 Glaucoma screening Diabetes: Retinopathy Screening [facility] Start: 1955 Screening for malignant neoplasm of colon [facility] aPTT in Platelet poo r plasma by Coagulation assay [facility] Basophils [#/volume] in Blood by Automated count [facility] Basophils/100 leukoc ytes in Blood by Automated count [facility] Biopsy [facility] Cancer Ag 125 [Units /volume] in Serum or Plasma [facility] Cancer Ag 19-9 [Units/volume] in Serum or Plasma [facility] Eosinophils/100 leuk ocytes in Blood by Automated count [facility] Erythrocyte distribu tion width [Ratio] by Automated count [facility] Erythrocytes [#/volu me] in Blood [facility] Hematocrit [Volume F raction] of Blood [facility] Hemoglobin [Mass/vol ume] in Blood [facility] INR in Platelet poor plasma by Coagulation assay [facility] Leukocytes [#/volume ] corrected for nucleated erythrocytes in Blood by Automated coun [facility] Leukocytes [#/volume ] in Blood [facility] Lymphocytes [#/volum e] in Blood by Automated count [facility] Lymphocytes/100 leuk ocytes in Blood by Automated count [facility] MCH [Entitic mass] b y Automated count [facility] MCHC [Mass/volume] b y Automated count [facility] MCV [Entitic volume] by Automated count [facility] Monocytes [#/volume] in Blood by Automated count [facility] Monocytes/100 leukoc ytes in Blood by Automated count [facility] Neutrophils [#/volum e] in Blood by Automated count [facility] Neutrophils/100 leuk ocytes in Blood by Automated count [facility] Nucleated erythrocyt es [Presence] in Blood by Automated count [facility] Patient Education [facility] Work Phone: Patient referral [facility] Work Phone: Platelet mean volume [Entitic volume] in Blood by Automated count [facility] Platelets [#/volume] in Blood [facility] Prothrombin time (PT) [facility] Renal function 1999 panel - Serum or Plasma [facility] Renal function 1999 panel - Serum or Plasma [facility] Renal function 1999 panel - Serum or Plasma [facility] Tacrolimus [Mass/vol ume] in Blood [facility] Tacrolimus [Mass/vol ume] in Blood [facility] Tacrolimus [Mass/vol ume] in Blood [facility] XR Hand - right GE 3 Views [facility] Immunizations Immunization Date Immunization Notes Care Provider Fa cility 12-20-2018 influenza virus vacc ine, unspecified formulation Shaikh Cayden SWAN Work Phone: [facility] Payers Date Payer Category Payer Self-pay 2023 Private Health Insurance [id number] 2022 Medicare [id number] 1959 Medicare [id number] 2. [id number] 1959 Medicare [id number] 1955 Unknown [id number] 2.16.84 0.1.977872.3.579.2.593 1954 Unknown [id number] 2.16.84 0.1.870477.3.579.2.593 1954 Unknown [id number] 2.16.84 0.1.671359.3.579.2.593 1954 Unknown [id number] 2.16.84 0.1.573946.3.579.2.593 1954 Unknown [id number] 2.16.84 0.1.292827.3.579.2.593 1954 Unknown [id number] 2.16.84 0.1.480070.3.579.2.1259 1954 Unknown [id number] 2.16.84 0.1.590651.3.579.2.1259 1954 Unknown [id number] 2.16.84 0.1.100520.3.579.2.1259 1954 Unknown [id number] 2.16.84 0.1.140872.3.579.2.1259 1954 Unknown [id number] 2.16.84 0.1.855698.3.579.2.1259 1954 Unknown [id number] 2.16.84 0.1.951949.3.579.2.1259 1954 Unknown [id number] 2.16.84 0.1.250653.3.579.2.1259 1954 Unknown [id number] 2.16.84 0.1.142315.3.579.2.1259 1954 Unknown [id number] 2.16.84 0.1.837783.3.579.2.1259 1954 Unknown [id number] 2.16.840 .1.476919.3.579.2.1259 Unknown [id number] 2.16.8 40.1.161329.3.579.2.531 Unknown [id number] 2.16.8 40.1.656313.3.579.2.531 Unknown [id number] 2.16.8 40.1.538242.3.579.2.531 Unknown [id number] 2.16.8 40.1.811394.3.579.2.531 Social History Date Type Detail Facility Unknown if ever smoked [employer] Other Start: 01-22-2023 End: 04-04-2023 Sex Assigned At [employer] Other Start: 1955 Sex Assigned At Male F [facility] Start: 08-17-2022 End: 10-17-2023 Tobacco smoking status NHIS Never smoked tobacco [...] Not at all [facility] (I/We) worried bassam er (my/our) food would run out before (I/we) got money to buy more. Never true [facility] Start: 01-22-2023 Alcohol Comment DAILY [facility] Start: 1955 Sex Assigned At Not on file [facility] Medical Equipment Procedure Code Equipment Code Equipment Origin al Text Equipment Identifier Dates USE DIRECTED EVERY DAY [id number] Start: 01-08-2023 Goals Date Patient Goal Desired Activity /State Functional Status Date Assessment Result Facility 09-14-2023 Functional status Patient at Baseline [facility] Work Phone: Mental Status Date Assessment Result Facility 09-14-2023 Cognitive function Cognitive Sta tus Patient at Baseline [facility] Work Phone: Clinical Notes 06-15-2022 to 09-14-2023 Note Date & Type Note Facility 09-14-2023 Discharge summary Note Date/Time September 14, 2023 4:18pm [facility] [address] [place] [address] Discharge Summary Signed Patient: Raul Manriquez MR#: [id number] : 1955 Acct:[id number] Age/Sex: 68 / M Adm Date: 4 Loc: Room: [address] [place] [address]: Caesar Black MD Copies to: MD Shaikh Cayden Gonzalez MD~ Providers Date of Discharge: 09/14/23 Discharging Provider: Caesar Black Primary Care Provider: Shaikh Cayden Consults: 09/11/23 18:31 Consult to Oncology Stat Comment: Consulting Provider: BRANDY Medina at [facility] - Med Onc Reason For Exam: gall bladder cancer Has Provider Been Notified: Yes Date of Notification: 09/12/23 Time of Notification: 08:01 Extended Comment: sent text through [facility] 09/12/23 09:33 Consult to Nephrology Routine Comment: Consulting Provider: RITCHIE - Nephrology Has Provider Been Notified: Yes Date of Notification: 09/12/23 Time of Notification: 09:59 Extended Comment: Hx Kidney Transplant Reason for Consult: Renal Failure 09/12/23 10:10 Consult to Gastroenterology Routine Comment: Consulting Provider: RITCHIE - Gastroenterology Reason For Exam: ascites Has Provider Been Notified: Yes Date of Notification: 09/12/23 Time of Notification: 10:15 Discharge Diagnosis (1) Renal transplant recipient: (2) Chronic kidney disease, stage III (moderate): (3) Hyponatremia: (4) Hypertensive chronic kidney disease with stage 1 through stage 4 chronic kidney disease, or unspecified chronic kidney disease: (5) Diabetes mellitus with chronic kidney disease: (6) Cancer of gallbladder: (7) Portal vein thrombosis: Final Diagnosis Final Discharge Diagnosis: Metastatic Cancer, pathology to be determined Summary Hospital Course Hospital course: 68-year-old white male past medical history of hypertension, hyperlipidemia, diabetes type 2, end-stage renal disease, status post kidney transplant 2014, renal artery stenosis, anemia of chronic disease, anxiety and depression, and recent diagnosis of 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 He was told to follow up as soon as possible with a specialist when he comes back to [place], which he did and he came to [facility]. He was complaining of abdominal pain, 8/10 intensity. There is no radiation. The pain located in the epigastric and upperquadrant area associated with constipation. No diarrhea. No nausea or vomiting. No fever or chills. Denies any chest pain or shortness of breath. No orthopnea or PND. Denies any dysuria, hematuria, pr frequency. No hematemesis or melena. No hematochezia. GI and oncology were consulted, as wellas nephrology given his acute kidney injury. He underwent diagnostic paracentesis, and he required IV pain medication for his abdominal pain. Studieswere sent, including cytology and cell block with NGS sequencing as per oncologyrequest. I discussed the plan in detail with the patient and his and explained that he is clinically and hemodynamically stable to be discharged granted that he will be following up closely with his oncologist as outpatient. I spoke also with Dr. Duarte who is willing to see him as outpatient and I discussed with her the plan of management and from her standpoint as well the patient is okay to be discharged. Also discussed the findings of thyroid noduleon his ultrasound of the thyroid, and spoke to oncology as well patient can get the fine-needle aspiration as outpatient since the results of the paracentesis are more distressing than important terms of his prognosis and course of management. Upon discharge patient will have to resume his Eliquis. And he also will be offlosartan. Explained all those instructions with the family Condition Condition at Discharge: Stable Status at Discharge Overall status at discharge: patient is back to baseline Time Spent with Patient Time spent providing/coordinating discharge services (# min): 50 Discharge Plan Discharge Plan Patient Disposition: Home Activity: No Activity Restriction Diet: Diabetic Additional Instructions: Wound care daily: Right elbow skin tear- Clean with NS and pat dry. Hydrogel to the wound bed. Top with Adaptic and gauze. Secure with Conform and paper tape. Dietitian recommendations: Glucerna, 1 container, twice daily with meals Instructions: Know your Meds Prescriptions: New carvedilol 6.25 mg Tablet 6.25 mg PO BID.WITH.MEALS 15 Days Qty: 30 0RF bisacodyl 5 mg Tablet,Delayed Release (Dr/Ec) 10 mg PO DAILY PRN (Reason: Constipation) Qty: 10 0RF Continued mycophenolate mofetil 500 mg tablet 500 mg PO BID Qty: 180 1RF tacrolimus 1 mg capsule See Rx Instructions .ROUTE .COMPLEX Qty: 180 1RF Dose Instruction: TAKE 1 CAPSULE BY MOUTH TWICE A DAY FOR 90 DAYS Rx Instructions: TAKE 1 CAPSULE BY MOUTH TWICE A DAY FOR 90 DAYS prednisone 5 mg tablet 5 mg PO DAILY Qty: 90 1RF Eliquis 5 mg tablet 5 mg PO BID pantoprazole 40 mg tablet,delayed release (DR/EC) 40 mg PO DAILY oxycodone-acetaminophen 5-325 mg tablet 1 tab PO .Q6 PRN (Reason: pain) dicyclomine 10 mg capsule 10 mg PO allopurinol 100 mg tablet 100 mg PO DAILY glipizide 5 mg tablet 5 mg PO DAILY lorazepam 0.5 mg tablet 0.5 mg PO BID PRN (Reason: anxiety) magnesium oxide 400 mg (241.3 mg magnesium) tablet 400 mg PO DAILY alendronate 70 mg tablet 70 mg PO QWEEK atorvastatin 20 mg tablet 20 mg PO QHS nifedipine 60 mg tablet extended release 24hr 60 mg PO HS Discontinued losartan 50 mg tablet 50 mg PO DAILY Other Ambulatory Orders: DME Home Medical Equipment (Routine) Timeframe: [id number] Location: Determined by Patient Ordered By: Caesar Black Follow Up: Mehdi Saul DO [Active Staff - D.O.] - (A referral was sent to the office regarding your thyroid nodule. The office will review your information and contact you. If you have any questions, please call the office. ) Shakira Duarte MD [Active Staff] - 09/28/23 10:00 am (You have been scheduled for a follow up appointment for the following date and time, please call to rescheduleif needed.) Jarod Ballard MD [Active Staff] - 11/12/23 2:00 pm (Previously scheduled appointment. ) Shaikh Rodarte MD [Primary Care Provider] - 09/17/23 4:00 pm (You have been scheduled for a follow up appointment for the following date and time, please call to reschedule if needed.) Exam Physical Exam Vital Signs: Temp Pulse Resp BP Pulse Ox O2 Del Method 97.8 F 74 18 127/61 94 L Room Air 09/14/23 14:41 09/14/23 14:41 09/14/23 14:41 09/14/23 14:41 09/14/23 14:41 09/14/23 14:41 Narrative: General: awake and oriented x3, not in acute distress, temporal wasting noted, and pt is cachectic and frail HEENT: No lymphadenopathy, no thyromegaly, PERRLA, EOMI Chest: Good bilateral air entry, no wheezes or crackles CVS: Normal S1 and S2, no murmurs, no abnormal heart sounds Abdomen: Soft, mild tenderness in bilateral lower quadrants. There is splenomegaly on exam, no shifting dullness, no fluid wave on palpation. Extremities: No lower extremity swelling, normal and intact peripheral pulses Neuro: Pleasant and oriented, follows commands, no focal motor or sensory deficits Diagnostic Studies Completed and Pending Studies Pending studies at discharge: 09/12/23 15:05 Body Fluid Culture Routine 09/14/23 06:10 CA 125 [Cancer Antigen 125] IN AM CA 19-9 [Carbohydrate Antigen 19-9] IN AM 09/15/23 05:00 Prothrombin Time INR IN AM Complete Blood Count Auto Diff IN AM Renal Function Panel [CHEM] IN AM 09/16/23 05:00 Prothrombin Time INR IN AM Complete Blood Count Auto Diff IN AM Renal Function Panel [CHEM] IN AM 09/17/23 05:00 Prothrombin Time INR IN AM Complete Blood Count Auto Diff IN AM 09/18/23 05:00 Prothrombin Time INR IN AM Complete Blood Count Auto Diff IN AM 09/19/23 05:00 Prothrombin Time INR IN AM Complete Blood Count Auto Diff IN AM 09/20/23 05:00 Prothrombin Time INR IN AM Complete Blood Count Auto Diff IN AM 09/21/23 05:00 Prothrombin Time INR IN AM Complete Blood Count Auto Diff IN AM Preliminary micro results at discharge 09/13/23 13:37 Aerobic Culture - Preliminary Ascites Fluid No Growth 1 Day Anaerobic Culture - Preliminary No Anaerobes Isolated 1 Day Labs on day of discharge: 09/14/23 14:29: APTT 82.2 H 09/14/23 06:10: Corrected WBC 3.3 L, Uncorrected WBC Count 3.3 L, RBC 4.14, Hgb 12.0 L, Hct 35.9 L, MCV 86.7, MCH 29.0, MCHC 33.5, RDW 13.0, Plt Count 104 L, MPV 9.9, Neut % (Auto) N/A, Lymph % (Auto) N/A, Dent % (Auto) N/A, Eos % (Auto) N/A, Baso % (Auto) N/A, Nucleat RBC Rel Count N/A, Neut # (Auto) N/A, Lymph # (Auto) N/A, Dent # (Auto) N/A, Eos # (Auto) N/A, Baso # (Auto) N/A, Lymphocytes % 23, Monocytes % 9, Eosinophils % 1, Segmented Neutrophils 68, Platelet Estimate Decreased, Giant Platelets 2, Plt Morphology Comment Normal, RBC Morphology N/A, Ovalocytes Slight, ESR 41 H, PT 12.7, INR 1.1, APTT 77.0 H, PHA Creatinine Clear 51.16, Sodium 131 L, Potassium 4.7, Chloride 102, Carbon Dioxide 22.4, Anion Gap 11.3, BUN 27 H, Creatinine 1.38 H, Est GFR (CKD-EPI) 55.355, Glucose 211 H, Calcium 8.8, Phosphorus 1.2 L, Magnesium 1.7 L, Total Bilirubin 0.5, AST 19, ALT 15, Alkaline Phosphatase 100, Lactate Dehydrogenase 136 L, Total Protein 5.5 L, Albumin 2.9 L, Globulin 2.6, Albumin/Globulin Ratio 1.1, Carcinoembryonic Ag 10.0 H 09/13/23 21:24: APTT 59.8 H 09/13/23 13:37: Fl Monocyt/Macrophag % Cancelled, Fluid Glucose 280, Fluid Total Protein < 3.0, Fluid LDH 26, Fluid Comment Cancelled 09/13/23 13:37: Fluid Eosinophils Cancelled, Fluid Mononuclear Cell Cancelled, Fluid Plasma Cells % Cancelled, Fl Monocyt/Macrophag % 56 09/13/23 13:37: Fluid Lymphocytes % Cancelled, Fluid Eosinophils 0 09/13/23 13:37: Fluid Neutrophils % Cancelled, Fluid Lymphocytes % 22 09/13/23 13:37: Fld Tot Nucleated Cell Cancelled, Fluid Neutrophils % 22 09/13/23 13:37: Fluid RBC Cancelled, Fld Tot Nucleated Cell 220 09/13/23 13:37: Fld Supernatant Color Cancelled, Fluid RBC 149 09/13/23 13:37: Fluid Appearance Cancelled, Fld Supernatant Color Straw 09/13/23 13:37: Fluid Color Cancelled, Fluid Appearance Hazy 09/13/23 13:37: Fluid Color Straw Documented By: Caesar Black MD 09/14/23 1614 Signed By: <Electronically signed by Caesar Black MD> 09/14/23 1621 [facility] Work Phone: 1(463) 576-165507-26-2024 Progress note Author Jarod Ballard [facility] September 14, 2023 11:49am Note Date/Time September 14, 2023 11:4 6am [facility] [address] [place] [address] Nephrology Progress Note Signed Patient: Raul Manriquez MR#: [id number] : 1955 Acct:[id number] Age/Sex: 68 / M Adm Date: 4 Loc: Room: [address] [place] [address] Type: ADM IN Attending Dr: Caesar Black MD Copies to: ~ Date of Service: 09/14/2023 Subjective Subjective Narrative: This is a 68-year-old male with a medical history of ESRD s/p renal transplant, DM, CKD, HTN, anemia, HLD and gout was presented to the emergency room for abdominal pain. Patient's reported that he was having abdominal pain and was at the hospital in [place]. He was diagnosed to have a gallbladder cancer and portal vein thrombosis. He was started on Eliquis. Patient continues to have abdominal pain so he decided come to the emergency room. He had a CAT scanabdomen pelvis done without contrast in the emergency room which showed finding concerning for metastatic gallbladder cancer. Patient has a known history of renal transplant and currently takes tacrolimus, mycophenolate prednisone. He follows in the office for his CKD care. He also follow-up with transplant center in [place]. His baseline (around 1.4 to 1.8 mg/dL. Nephrology is consulted for his CKD and transplant management during the hospital stay. INTERIM HISTORY Patient was seen and examined bedside and case was discussed with the patient's at the bedside. He denies any chest pain palpation cough nausea or diarrhea and shortness of breath. Exam Physical Exam Vital Signs: Temp Pulse Resp BP Pulse Ox O2 Del Method 97.7 F 72 18 118/66 96 Room Air 09/14/23 11:03 09/14/23 11:03 09/14/23 11:03 09/14/23 11:03 09/14/23 11:03 09/14/23 11:03 Narrative: General: Appears comfortable and not in distress Heart: S1-S2, no rub Lung: Bilateral air entry, no wheezing or crackles Abdomen: Soft, distended, positive fluid thrill. Extremities: No edema, no cyanosis Head: Atraumatic, normocephalic Ear: No gross hearing Deficit or external ear redness Eyes: No pallor or redness Neck: No JVD or visible mass Skin: No rashes , warm to touch [employer] CONSULTANT: Awake,Alert, following simple command Musculoskeletal: No swelling or limitation of movement of the large joints Psychiatric: Cooperative, normal mood and affect Objective Intake and Output I&O: Intake & Output 09/11/23 09/12/23 09/13/23 09/14/23 23:59 23:59 23:59 23:59 Intake Total 1250 / 1250 920 / 920 860 / 860 650 / 650 Balance 1250 / 1250 920 / 920 860 / 860 650 / 650 Weight 71 kg 71.2 kg 70.2 kg 71.6 kg Meds and Allergies Meds: Active Medications Acetaminophen (Acetaminophen 325 Mg Tablet) 650 mg PO Q6HR PRN PRN Reason: Pain Scale 1 - 3 or fever Stop: 09/10/24 17:56 Last Admin: 09/13/23 02:51 Dose: 650 mg Allopurinol (Allopurinol 100 Mg Tablet) 100 mg PO DAILY SAMANTHA Stop: 09/11/24 08:59 Last Admin: 09/14/23 08:24 Dose: 100 mg Atorvastatin Calcium (Atorvastatin 20 Mg Tablet) 20 mg PO QHS [facility] Stop: 09/10/24 21:59 Last Admin: 09/13/23 21:56 Dose: 20 mg Bisacodyl (Bisacodyl 5 Mg Tablet.Dr) 10 mg PO DAILY PRN PRN Reason: Constipation Stop: 09/10/24 17:56 Last Admin: 09/14/23 08:24 Dose: 10 mg Carvedilol (Carvedilol 6.25 Mg Tablet) 6.25 mg PO BID.WITH.MEALS [facility] Stop: 09/11/24 16:59 Last Admin: 09/14/23 08:24 Dose: 6.25 mg Glipizide (Glipizide 5 Mg Tablet) 5 mg PO DAILY [facility] Stop: 09/11/24 08:59 Last Admin: 09/14/23 08:24 Dose: 5 mg Hydromorphone HCl (Hydromorphone 0.5 Mg/0.5 Ml Syringe) 0.5 mg IV-PUSH Q4H PRN PRN Reason: Pain Scale 8 - 10 Last Admin: 09/14/23 09:57 Dose: 0.5 mg Heparin Sodium/Sodium Chloride (Heparin) 25,000 unit in 250 mls @ 12 mls/hr IV .[id number] [facility]; Protocol Stop: 09/10/24 18:44 Last Admin: 09/14/23 08:25 Dose: 1,500 units/hr, 15 mls/hr Sodium Phosphate 45 mmol/ (Sodium Chloride) 265 mls @ 44.167 mls/hr IV ONCE ONE Stop: 09/14/23 13:53 Last Admin: 09/14/23 09:57 Dose: 44.17 mls/hr Lorazepam (Lorazepam 0.5 Mg Tablet) 0.5 mg PO BID PRN PRN Reason: anxiety Stop: 03/09/24 17:55 Magnesium Oxide (Magnesium Oxide 400 Mg Tablet) 400 mg PO DAILY [facility] Stop: 09/11/24 08:59 Last Admin: 09/14/23 08:24 Dose: 400 mg Melatonin (Melatonin 5 Mg Tablet) 5 mg PO QHS PRN PRN Reason: Insomnia Stop: 09/10/24 17:56 Mycophenolate Mofetil (Mycophenolate Mofetil 250 Mg Capsule) 500 mg PO BID [facility] Stop: 09/10/24 20:59 Last Admin: 09/14/23 08:24 Dose: 500 mg Nifedipine (Nifedipine Er.24hr 60 Mg Tab.Er.24) 60 mg PO HS SAMANTHA Stop: 09/11/24 08:59 Last Admin: 09/13/23 21:56 Dose: 60 mg Ondansetron HCl (Ondansetron 4 Mg/2 Ml Vial) 4 mg IV-PUSH Q8H PRN PRN Reason: Nausea And Vomiting Stop: 09/10/24 17:56 Oxycodone/Acetaminophen (Oxycodone/Acetaminophen 5-325 Mg Tablet) 1 tab PO Q6H PRN PRN Reason: pain Last Admin: 09/14/23 05:12 Dose: 1 tab Pantoprazole Sodium (Pantoprazole 40 Mg Tablet.Dr) 40 mg PO DAILY SAMANTHA Stop: 09/11/24 08:59 Last Admin: 09/14/23 08:24 Dose: 40 mg Prednisone (Prednisone 5 Mg Tablet) 5 mg PO DAILY SAMANTHA Stop: 09/11/24 08:59 Last Admin: 09/14/23 08:24 Dose: 5 mg Sodium Chloride (Sodium Chloride 0.9 % 10 Ml Syringe) 0 ml IV-PUSH PRN PRN PRN Reason: Flush Stop: 09/10/24 14:54 Last Admin: 09/12/23 23:54 Dose: 10 ml Tacrolimus (Tacrolimus 1 Mg Capsule) 1 mg PO BID SAMANTHA Stop: 09/10/24 20:59 Last Admin: 09/14/23 08:24 Dose: 1 mg Allergies No Known Allergies Allergy (Verified 09/11/23 14:56) Results - Nephrology Labs 09/14/23 06:10 09/14/23 06:10 Labs: 09/14/23 06:10 BUN 27 H Creatinine 1.38 H Phosphorus 1.2 L Albumin 2.9 L Radiology Impressions Impressions - last 24 hours: Impressions Paracentesis Ultrasound 09/13/23 05:00 IMPRESSION: Successful ultrasound-guided paracentesis in the right lower quadrant yielding 1L of clear yellow fluid. Impression dictated by: Eric Shanks M.D.09/13/2023 2:18 PM Dictation Location: [place] [address] Thyroid Ultrasound 09/13/23 15:17 IMPRESSION: 2 cm RIGHT solid thyroid nodule with increased vascularity. Fine- needle aspiration recommended. Impression dictated by: Ken Cabrera M.D.09/13/2023 7:25 PM Dictation Location: [place] [address] Any impression(s) listed above is documentation that was entered by the reading physician into a diagnostic report(s) for Raul Manriquez. I have reviewed the report(s) and am incorporating any findings in the treatment plan of this patient where applicable. A&P - Nephrology Assessment/Plan (1) Renal transplant recipient: Assessment/Problem Details: He has a cadaveric renal transplant since 2014. He takes immunosuppressive medication including Prograf, CellCept and prednisone. 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 (3) Hyponatremia: Assessment/Problem Details: He has hypervolemic hyponatremia. (4) Hypertensive chronic kidney disease with stage 1 through stage 4 chronic kidney disease, or unspecified chronic kidney disease: Assessment/Problem Details: Blood pressure is high. He was taking losartan and nifedipine at home. (5) Diabetes mellitus with chronic kidney disease: Assessment/Problem Details: He has a known insulin-dependent type 2 diabetes mellitus and was taking glipizide at home. 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 Oncology has been consulted. (7) Portal vein thrombosis: Assessment/Problem Details: He also noticed to have a portal vein thrombosis Plan * Will not start diuretics as patient likely has a malignant ascites. Will wait for the diagnostic cytology. * Will give IV sodium phosphate 45 mmol x 1 dose. * Will also give magnesium sulfate 2 g IV x 1 dose. Continue oral magnesium. * Continue home dose of the immunosuppressive medication including tacrolimus 1 mg twice daily, prednisone 5 mg daily and mycophenolate 500 mg twice daily. * Continue current dose of the nifedipine. * Continue current carvedilol. * Continue to hold losartan upon discharge * Check renal function daily and monitor input output * Patient can be discharged from renal standpoint. He can keep an appointment as scheduled in October. I explained to the patient and the that he can be seen sooner if his renal function declined in setting of cancer treatment. Documented By: Jarod Ballard MD 09/14/23 1144 Signed By: <Electronically signed by Jarod Ballard MD> 09/14/23 1149 [facility] Work Phone: 1(423) 652-984807-25-2024 Progress note Author Caesar Black [facility] September 13, 2023 3:17pm Note Date/Time September 13, 2023 3:17 pm [facility] [address] [place] [address] Hospitalist Progress Note Signed Patient: Raul Manriquez MR#: [id number] : 1955 Acct:[id number] Age/Sex: 68 / M Adm Date: 4 Loc: Room: [address] [place] [address] Type: ADM IN Attending Dr: Caesar Black MD Copies to: ~ Date of Service: 09/13/2023 Subjective Subjective Narrative: Patient seen and examined at bedside. I discussed the plan of management with the patient and his in details. He just had his paracentesis diagnostic today waiting for the results. He mentions that his abdominal pain is improved compared to yesterday. He denies any nausea vomiting or change in bowel habits. He denies any urinary symptoms. Exam Physical Exam Vital Signs: Temp Pulse Resp BP Pulse Ox O2 Del Method 97.7 F 84 17 126/63 94 L Room Air 09/13/23 08:23 09/13/23 14:27 09/13/23 14:27 09/13/23 14:27 09/13/23 14:27 09/13/23 14:27 Narrative: General: awake and oriented x3, not in acute distress, temporal wasting noted, and pt is cachectic and frail HEENT: No lymphadenopathy, no thyromegaly, PERRLA, EOMI Chest: Good bilateral air entry, no wheezes or crackles CVS: Normal S1 and S2, no murmurs, no abnormal heart sounds Abdomen: Soft, mild tenderness in bilateral lower quadrants. There is splenomegaly on exam, no shifting dullness, no fluid wave on palpation. Extremities: No lower extremity swelling, normal and intact peripheral pulses Neuro: Pleasant and oriented, follows commands, no focal motor or sensory deficits Objective Lab Results 09/13/23 06:29 09/13/23 06:29 Meds Allergies and Active Meds Allergies No Known Allergies Allergy (Verified 09/11/23 14:56) Active Meds: Active Medications Generic Name Dose Route Start Last Admin Trade Name Freq PRN Reason Stop Dose Admin Acetaminophen 650 mg 09/11/23 17:57 09/13/23 02:51 Acetaminophen 325 Mg Tablet PO 09/10/24 17:56 650 mg Q6HR PRN Administration Pain Scale 1 - 3 or fever Allopurinol 100 mg 09/12/23 09:00 09/13/23 09:14 Allopurinol 100 Mg Tablet PO 09/11/24 08:59 100 mg DAILY SAMANTHA Administration Atorvastatin Calcium 20 mg 09/11/23 22:00 09/12/23 21:11 Atorvastatin 20 Mg Tablet PO 09/10/24 21:59 20 mg QHS SAMANTHA Administration Bisacodyl 10 mg 09/11/23 17:57 Bisacodyl 5 Mg Tablet.Dr PO 09/10/24 17:56 DAILY PRN Constipation Carvedilol 6.25 mg 09/12/23 17:00 09/13/23 09:14 Carvedilol 6.25 Mg Tablet PO 09/11/24 16:59 6.25 mg BID.WITH.MEALS SAMANTHA Administration Glipizide 5 mg 09/12/23 09:00 09/13/23 09:14 Glipizide 5 Mg Tablet PO 09/11/24 08:59 5 mg DAILY SAMANTHA Administration Hydromorphone HCl 0.5 mg 09/11/23 17:57 09/12/23 23:54 Hydromorphone 0.5 Mg/0.5 Ml Syringe IV-PUSH 0.5 mg Q4H PRN Administration Pain Scale 8 - 10 Heparin Sodium/Sodium Chloride 25,000 unit in 250 mls @ 12 mls/hr 09/11/23 18:45 09/13/23 14:42 Heparin IV 09/10/24 18:44 1,400 units/hr .[id number] SAMANTHA 14 mls/hr Administration Protocol 1,200 UNITS/HR Lorazepam 0.5 mg 09/11/23 17:56 Lorazepam 0.5 Mg Tablet PO 03/09/24 17:55 BID PRN anxiety Magnesium Oxide 400 mg 09/12/23 09:00 09/13/23 09:14 Magnesium Oxide 400 Mg Tablet PO 09/11/24 08:59 400 mg DAILY SAMANTHA Administration Melatonin 5 mg 09/11/23 17:57 Melatonin 5 Mg Tablet PO 09/10/24 17:56 QHS PRN Insomnia Mycophenolate Mofetil 500 mg 09/11/23 21:00 09/13/23 09:14 Mycophenolate Mofetil 250 Mg Capsule PO 09/10/24 20:59 500 mg BID SAMANTHA Administration Nifedipine 60 mg 09/13/23 22:00 Nifedipine Er.24hr 60 Mg Tab.Er.24 PO 09/11/24 08:59 HS SAMANTHA Ondansetron HCl 4 mg 09/11/23 17:57 Ondansetron 4 Mg/2 Ml Vial IV-PUSH 09/10/24 17:56 Q8H PRN Nausea And Vomiting Oxycodone/Acetaminophen 1 tab 09/11/23 17:56 09/13/23 12:27 Oxycodone/Acetaminophen 5-325 Mg Tablet PO 1 tab Q6H PRN Administration pain Pantoprazole Sodium 40 mg 09/12/23 09:00 09/13/23 09:14 Pantoprazole 40 Mg Tablet. PO 09/11/24 08:59 40 mg DAILY SAMANTHA Administration Prednisone 5 mg 09/12/23 09:00 09/13/23 09:14 Prednisone 5 Mg Tablet PO 09/11/24 08:59 5 mg DAILY SAMANTHA Administration Sodium Chloride 0 ml 09/11/23 14:55 09/12/23 23:54 Sodium Chloride 0.9 % 10 Ml Syringe IV-PUSH 09/10/24 14:54 10 ml PRN PRN Administration Flush Tacrolimus 1 mg 09/11/23 21:00 09/13/23 09:14 Tacrolimus 1 Mg Capsule PO 09/10/24 20:59 1 mg BID SAMANTHA Administration A&P - Hospitalist Assessment/Plan (1) Cancer of gallbladder: (2) Portal vein thrombosis: Plan: Will start heparin infusion at home for Eliquis anticipating he will need CT- guided biopsy (3) Metastatic cancer: Plan: Oncology consult (4) Gout: Plan: Allopurinol (5) Hyperlipidemia: Plan: Resume Lipitor (6) Secondary hyperparathyroidism: (7) Renal transplant recipient: Plan: Resume immunosuppressive medication nephrology consult (8) Diabetes mellitus with chronic kidney disease: (9) ESRD (end stage renal disease): (10) Hyponatremia: Plan: BMP daily Normal saline 75 cc/h Plan 68-year-old white male with recent diagnosis of possible gallbladder cancer withmetastasis to the liver and portal vein [place], on Eliquis Gallbladder cancer with Liver mets? Portal vein thrombosis in the setting of malignancy Renal transplant since 2015, on immunosuppression, Acute Renal Failure on Chronic Kidney DIsease Asymptomatic Hyponatremia, appears euvolemic likely due to SIADH in the setting of Malignancy-Improving -CT chest showed some bilateral small pleural effusions which are not significant and right-sided thyroid nodule -GI consulted, recommended diagnostic paracentesis -Oncology consulted, pending recs -Continue dialudid 0.5 mg q4 hours PRN -Restart pt on Heparin after he had the procedure earlier today -Renal function continues to improve, will continue monitoring, and his phosphorus was repleted today, keep pt off lisinopril -I will obtain some tumor markers. -Patient is possibly being discharged tomorrow once we get the results of the basic ascitic fluid studies and will discuss that further with the specialists. He will need close loop follow-up plan on discharge including with oncology, GI and surgery. -Patient still in need of IV pain medication for his abdominal pain which showedimprovement with IV medicine -Continue rest of current management Plan discussed in details with pt and his at bedside. Time Spent With Patient (min): 50 Documented By: Caesar Black MD 09/13/231509 Signed By: <Electronically signed by Caesar Black MD> 09/13/23 6930 [facility] Work Phone: [phone]) 244-142807-25-2024 Progress note Author Jarod Ballard [facility] September 13, 2023 11:46am Note Date/Time September 13, 2023 8:21 am [facility] [address] [place] [address] Nephrology Progress Note Signed Patient: Raul Manriquez MR#: [id number] : 1955 Acct:[id number] Age/Sex: 68 / M Adm Date: 4 Loc: 3T Room: [address] [place] [address] Type: ADM IN Attending Dr: Caesar Black MD Copies to: ~ Date of Service: 09/13/2023 Subjective Subjective Narrative: This is a 68-year-old male with a medical history of ESRD s/p renal transplant, DM, CKD, HTN, anemia, HLD and gout was presented to the emergency room for abdominal pain. Patient's reported that he was having abdominal pain and was at the hospital in [place]. He was diagnosed to have a gallbladder cancer and portal vein thrombosis. He was started on Eliquis. Patient continues to have abdominal pain so he decided come to the emergency room. He had a CAT scanabdomen pelvis done without contrast in the emergency room which showed finding concerning for metastatic gallbladder cancer. Patient has a known history of renal transplant and currently takes tacrolimus, mycophenolate prednisone. He follows in the office for his CKD care. He also follow-up with transplant center in [place]. His baseline (around 1.4 to 1.8 mg/dL. Nephrology is consulted for his CKD and transplant management during the hospital stay. INTERIM HISTORY Patient was seen and examined bedside. He denies any chest pain palpation coughnausea or diarrhea and shortness of breath. He is scheduled to have a paracentesis this afternoon. He was seen by the GI for ascites recommended diuretic versus therapeutic paracentesis. Exam Physical Exam Vital Signs: Temp Pulse Resp BP Pulse Ox O2 Del Method 97.9 F 77 16 138/67 93 L Room Air 09/13/23 04:00 09/13/23 04:00 09/13/23 04:00 09/13/23 04:00 09/13/23 04:09/13/23 04:00 Narrative: General: Appears comfortable and not in distress Heart: S1-S2, no rub Lung: Bilateral air entry, no wheezing or crackles Abdomen: Soft, distended, positive fluid thrill. Extremities: No edema, no cyanosis Head: Atraumatic, normocephalic Ear: No gross hearing Deficit or external ear redness Eyes: No pallor or redness Neck: No JVD or visible mass Skin: No rashes , warm to touch [employer]: Awake,Alert, following simple command Musculoskeletal: No swelling or limitation of movement of the large joints Psychiatric: Cooperative, normal mood and affect Objective Intake and Output I&O: Intake & Output 09/10/23 09/11/23 09/12/23 09/13/23 23:59 23:59 23:59 23:59 Intake Total 1250 / 1250 920 / 920 250 / 250 Balance 1250 / 1250 920 / 920 250 / 250 Weight 71 kg 71.2 kg 70.2 kg Meds and Allergies Meds: Active Medications Acetaminophen (Acetaminophen 325 Mg Tablet) 650 mg PO Q6HR PRN PRN Reason: Pain Scale 1 - 3 or fever Stop: 09/10/24 17:56 Last Admin: 09/13/23 02:51 Dose: 650 mg Allopurinol (Allopurinol 100 Mg Tablet) 100 mg PO DAILY [facility] Stop: 09/11/24 08:59 Last Admin: 09/12/23 08:27 Dose: 100 mg Atorvastatin Calcium (Atorvastatin 20 Mg Tablet) 20 mg PO QHS [facility] Stop: 09/10/24 21:59 Last Admin: 09/12/23 21:11 Dose: 20 mg Bisacodyl (Bisacodyl 5 Mg Tablet.Dr) 10 mg PO DAILY PRN PRN Reason: Constipation Stop: 09/10/24 17:56 Carvedilol (Carvedilol 6.25 Mg Tablet) 6.25 mg PO BID.WITH.MEALS [facility] Stop: 09/11/24 16:59 Last Admin: 09/12/23 16:57 Dose: 6.25 mg Glipizide (Glipizide 5 Mg Tablet) 5 mg PO DAILY [facility] Stop: 09/11/24 08:59 Last Admin: 09/12/23 08:27 Dose: 5 mg Hydromorphone HCl (Hydromorphone 0.5 Mg/0.5 Ml Syringe) 0.5 mg IV-PUSH Q4H PRN PRN Reason: Pain Scale 8 - 10 Last Admin: 09/12/23 23:54 Dose: 0.5 mg Heparin Sodium/Sodium Chloride (Heparin) 25,000 unit in 250 mls @ 12 mls/hr IV .[id number] [facility]; Protocol Stop: 09/10/24 18:44 Last Admin: 09/12/23 15:28 Dose: 1,400 units/hr, 14 mls/hr Sodium Phosphate 30 mmol/ (Sodium Chloride) 260 mls @ 43.333 mls/hr IV ONCE ONE Stop: 09/13/23 14:19 Lorazepam (Lorazepam 0.5 Mg Tablet) 0.5 mg PO BID PRN PRN Reason: anxiety Stop: 03/09/24 17:55 Magnesium Oxide (Magnesium Oxide 400 Mg Tablet) 400 mg PO DAILY [facility] Stop: 09/11/24 08:59 Last Admin: 09/12/23 08:27 Dose: 400 mg Melatonin (Melatonin 5 Mg Tablet) 5 mg PO QHS PRN PRN Reason: Insomnia Stop: 09/10/24 17:56 Mycophenolate Mofetil (Mycophenolate Mofetil 250 Mg Capsule) 500 mg PO BID SAMANTHA Stop: 09/10/24 20:59 Last Admin: 09/12/23 21:11 Dose: 500 mg Nifedipine (Nifedipine Er.24hr 60 Mg Tab.Er.24) 60 mg PO DAILY SAMANTHA Stop: 09/11/24 08:59 Last Admin: 09/12/23 21:19 Dose: 60 mg Ondansetron HCl (Ondansetron 4 Mg/2 Ml Vial) 4 mg IV-PUSH Q8H PRN PRN Reason: Nausea And Vomiting Stop: 09/10/24 17:56 Oxycodone/Acetaminophen (Oxycodone/Acetaminophen 5-325 Mg Tablet) 1 tab PO Q6H PRN PRN Reason: pain Last Admin: 09/12/23 08:23 Dose: 1 tab Pantoprazole Sodium (Pantoprazole 40 Mg Tablet.Dr) 40 mg PO DAILY [facility] Stop: 09/11/24 08:59 Last Admin: 09/12/23 08:27 Dose: 40 mg Prednisone (Prednisone 5 Mg Tablet) 5 mg PO DAILY SAMANTHA Stop: 09/11/24 08:59 Last Admin: 09/12/23 08:27 Dose: 5 mg Sodium Chloride (Sodium Chloride 0.9 % 10 Ml Syringe) 0 ml IV-PUSH PRN PRN PRN Reason: Flush Stop: 09/10/24 14:54 Last Admin: 09/12/23 23:54 Dose: 10 ml Tacrolimus (Tacrolimus 1 Mg Capsule) 1 mg PO BID [facility] Stop: 09/10/24 20:59 Last Admin: 09/12/23 21:11 Dose: 1 mg Allergies No Known Allergies Allergy (Verified 09/11/23 14:56) Results - Nephrology Labs 09/13/23 06:29 09/13/23 06:29 Labs: 09/13/23 06:29 BUN 24 Creatinine 1.37 H Phosphorus 1.2 L Albumin 2.9 L Radiology Impressions Impressions - last 24 hours: Impressions Abdomen/Pelvis CT 09/11/23 15:22 IMPRESSION: Distended gallbladder with irregular gallbladder wall thickening andadjacent hepatic lesion consistent with patient's history of gallbladder cancer with hepatic metastasis. Liver cirrhosis. High density within the portal vein concerning for portal vein thrombosis. Marked atrophy of the algaaciq kidneys with transplanted LEFT pelvic kidney. No hydronephrosis. moderate constipation. Nondistended small bowel. Mild upper abdominal ascites. Splenomegaly Impression dictated by: Ken Cabrera M.D.09/11/2023 4:57 PM Dictation Location: [place] [address] 09/12/23 16:26 IMPRESSION: No evidence of pulmonary metastatic disease. There is dependent atelectasis with small bilateral pleural effusions. There is cardiomegaly. Please see separately dictated abdominal CT for liver, periportal, and gallbladder findings. There is a 2.1 cm hypoattenuating nodule within the right thyroid lobe. Ultrasound correlation is recommended as malignancy is not excluded. Impression dictated by: Eric Shanks M.D.09/12/2023 5:58 PM Dictation Location: [place] [address] Any impression(s) listed above is documentation that was entered by the reading physician into a diagnostic report(s) for Raul Manriquez. I have reviewed the report(s) and am incorporating any findings in the treatment plan of this patient where applicable. A&P - Nephrology Assessment/Plan (1) Renal transplant recipient: Assessment/Problem Details: He has a cadaveric renal transplant since 2014. He takes immunosuppressive medication including Prograf, CellCept and prednisone. 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 (3) Hyponatremia: Assessment/Problem Details: He has hypervolemic hyponatremia. (4) Hypertensive chronic kidney disease with stage 1 through stage 4 chronic kidney disease, or unspecified chronic kidney disease: Assessment/Problem Details: Blood pressure is high. He was taking losartan and nifedipine at home. (5) Diabetes mellitus with chronic kidney disease: Assessment/Problem Details: He has a known insulin-dependent type 2 diabetes mellitus and was taking glipizide at home. 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 Oncology has been consulted. (7) Portal vein thrombosis: Assessment/Problem Details: He also noticed to have a portal vein thrombosis Plan * Will not start diuretics as patient likely has a malignant ascites. Will wait for the diagnostic cytology. * Will give IV sodium phosphate 30 mmol x 1 dose. * Continue home dose of the immunosuppressive medication including tacrolimus 1 mg twice daily, prednisone 5 mg daily and mycophenolate 500 mg twice daily. * Continue current dose of the nifedipine. * Continue current carvedilol. * Check renal function daily and monitor input output * Documented By: Jarod Ballard MD 09/13/23 0820 Signed By: <Electronically signed by Jarod Ballard MD> 09/13/23 8653 [facility] Work Phone: 1(131) 119-421407-25-2024 Consult note Author Shakira Duarte [facility] September 12, 2023 10:36pm Note Date/Time September 12, 2023 10:3 6pm [facility] [address] [place] [address] Med Onc/Hem Consult Note Signed Patient: Raul Manriquez MR#: [id number] : 1955 Acct:[id number] Age/Sex: 68 / M Adm Date: 4 Loc: Room: [address] [place] [address] Type: ADM IN Attending Dr: Caesar Black MD Copies to: MD Caesar Rutherford MD Shaikh Fawwad, MD~ CONSULT DATE: 09/12/2023 REQUESTING PROVIDER: Caesar Black MD REASON FOR CONSULT: New diagnosis of suspected gallbladder cancer based on imaging. Coordination ofdiagnostic workup and therapy. HISTORY OF PRESENT: Dear Dr. Black, I had the great pleasure of seeing your patient in consultation. Thank you verymuch for your referral. As you know this is a 68-year-old white male past medical history of hypertension, hyperlipidemia, diabetes type 2, end-stage renal disease, status post kidney transplant 2014, renal artery stenosis, anemiaof chronic disease, anxiety and depression. Imaging showed suspected gallbladder cancer with mets to the liver and portal vein thrombosis diagnosed recently in [place]. He had imaging but no biopsy--seen by GI today with recommendation for diagnostic paracentesis for cytology. We will request NGS onspecimen to guide therapy. Will followup results as an outpatient. Please feelfree to call if new issues arise during hospital stay--will need anticoagulationfor portal vein thrombosis after diagnostic paracentesis and likely coordinate outpatient palliative medicine consult. High complexity 45 minute consult. Review of Systems Review of Systems Review of systems: Constitutional: No fever or chills. Positive for weight loss. Eyes: No visual changes or eye pain. Ear, Nose and throat: No congestion, sore throat, sinusitis or ear pain. Cardiovascular: No palpitations, edema, syncope or claudication. No angina. Respiratory: Denies cough or shortness of breath. Gastroenterology: + nausea and poor oral intake, no constipation, no diarrhea, no melena or hematochezia Genitourinary: No dysuria, urgency, or burning with urination. History of kidney transplant (no family history of kidney disease or malignancy). Musculoskeletal: No muscle or joint pain. No current cervical, thoracic or lumbar pain or immobility. Skin: No rash, pruritus, ulcerations. Neurologic: No headache, vertigo, weakness, numbness or tingling. No syncope described. Endocrine: No polyuria, polydipsia, heat or cold intolerance. No history of thyroid disease. Psychiatric: No hallucinations, new stressors, or change in sleep patterns. Hematologic: No abnormal bleeding or bruising. No lymphadenopathy noted. Immunologic: No history of frequent infections or delayed wound healing. [facility] Medical History Hypomagnesemia Hyperlipidemia Anemia of renal disease Thrombocytopenia Skin cancer Renal artery stenosis Immunosuppressed status Hyperuricemia Hypertension ESRD (end stage renal disease) T2DM (type 2 diabetes mellitus) Basal cell carcinoma of skin of face Anxiety and depression Left wrist fracture Surgical History Kidney transplanted History of CEA (carotid endarterectomy) History of renal stent Family History Father Family history of mental disorder Legacy FamHx Problem: Diagnosed with Mental Illness Family/Other Legacy FamHx Problem: 1 sister renal failure, copd, :1 sister alive DM, COPD:1 brother over dose :1 brother alive copd Mother Cancer Legacy FamHx Problem: Diagnosed with Cancer Family history of lung cancer Sister Diabetes Social History Smoking Status: Never smoker Substance Use Type: Alcohol Substance Abuse Comment: daily 2-3 Social History Comments: mobile home Allergies No Known Allergies Allergy (Verified 09/11/23 14:56) Home Medications alendronate 70 mg tablet 70 mg PO QWEEK 05/17/23 [History Confirmed 09/11/23] allopurinol 100 mg tablet 100 mg PO DAILY 05/17/23 [History Confirmed 09/11/23] glipizide 5 mg tablet 5 mg PO DAILY 05/17/23 [History Confirmed 09/11/23] lorazepam 0.5 mg tablet 0.5 mg PO BID PRN anxiety 05/17/23 [History Confirmed 09/11/23] losartan 50 mg tablet 50 mg PO DAILY 05/17/23 [History Confirmed 09/11/23] magnesium oxide 400 mg (241.3 mg magnesium) tablet 400 mg PO DAILY 05/17/23 [History Confirmed 09/11/23] mycophenolate mofetil 500 mg tablet 500 mg PO BID #180 tabs 07/26/23 [Rx Confirmed 09/11/23] atorvastatin 20 mg tablet 20 mg PO QHS 08/09/23 [History Confirmed 09/11/23] nifedipine 60 mg tablet,extended release 24 hr 60 mg PO DAILY 08/09/23 [History Confirmed 09/11/23] tacrolimus 1 mg capsule, immediate-release See Rx Instructions .Route .COMPLEX #180 caps 08/10/23 [Rx Confirmed 09/11/23] prednisone 5 mg tablet 5 mg PO DAILY #90 tabs 08/29/23 [Rx Confirmed 09/11/23] apixaban 5 mg tablet (Eliquis) 5 mg PO BID 09/11/23 [History Confirmed 09/11/23] dicyclomine 10 mg capsule 10 mg PO 09/11/23 [History] oxycodone-acetaminophen 5 mg-325 mg tablet 1 tab PO .Q6 PRN pain 09/11/23 [History Confirmed 09/11/23] pantoprazole 40 mg tablet,delayed release 40 mg PO DAILY 09/11/23 [History Confirmed 09/11/23] Exam Physical Exam Vital Signs: Temp Pulse Resp BP Pulse Ox O2 Del Method 97.6 F 94 18 157/76 H 96 Room Air 09/12/23 11:20 09/12/23 11:20 09/12/23 11:20 09/12/23 11:20 09/12/23 11:20 09/12/23 11:20 Narrative: ECOG PS 2, Pain 7/10 epigastrium General: awake and oriented x3, not in acute distress, temporal wasting noted, and pt is cachectic and frail HEENT: No lymphadenopathy, no thyromegaly, PERRLA, EOMI Chest: Good bilateral air entry, no wheezes or crackles CVS: Normal S1 and S2, no murmurs, no abnormal heart sounds Abdomen: Positive for distention with shifting dullness, RUQ/epigastric pain, + hepatosplenomegaly, no guarding or rebound TTP. Extremities: No lower extremity swelling, normal and intact peripheral pulses Neuro: Pleasant and oriented, follows commands, no focal motor or sensory deficits LABS 09/12/23 04:55: APTT 47.2 H, PHA Creatinine Clear 47.12, Sodium 131 L, Potassium4.2, Chloride 103, Carbon Dioxide 22.8, Anion Gap 9.4, BUN 22, Creatinine 1.49 H, Est GFR (CKD-EPI) 50.487, Glucose 184 H, Calcium 8.7 09/12/23 04:55: Corrected WBC 3.0 L, Uncorrected WBC Count 3.0 L, RBC 3.80 L, Hgb 11.1 L, Hct 33.4 L, MCV 87.9, MCH 29.3, MCHC 33.4, RDW 13.3, Plt Count 96 L,MPV 9.5, Neut % (Auto) 66.0, Lymph % (Auto) 17.5, Dent % (Auto) 14.6, Eos % (Auto) 1.5, Baso % (Auto) 0.4, Nucleat RBC Rel Count 0.1, Neut # (Auto) 2.0, Lymph # (Auto) 0.5 L, Dent # (Auto) 0.4, Eos # (Auto) 0.0, Baso # (Auto) 0.0, PT14.5 H, INR 1.3, APTT 49.6 H 09/12/23 00:42: APTT 35.5 09/11/23 21:02: Corrected WBC 4.0 L, Uncorrected WBC Count 4.0 L, RBC 3.95, Hgb 11.5 L, Hct 34.6 L, MCV 87.7, MCH 29.3, MCHC 33.4, RDW 13.0, Plt Count 103 L D, MPV 9.0, Neut % (Auto) 68.5, Lymph % (Auto) 18.2, Dent % (Auto) 11.7, Eos % (Auto) 1.1, Baso % (Auto) 0.5, Nucleat RBC Rel Count 0.1, Neut # (Auto) 2.7, Lymph # (Auto) 0.7 L, Dent # (Auto) 0.5, Eos # (Auto) 0.0, Baso # (Auto) 0.0, Monocyte Dist Width 17.82, PT 16.1 H, INR 1.4, APTT 30.9 09/11/23 15:35: Corrected WBC 6.2, Uncorrected WBC Count 6.2, RBC 4.27, Hgb 12.4L, Hct 37.7 L, MCV 88.2, MCH 29.0, MCHC 32.9, RDW 13.3, Plt Count 148 L, MPV 9.6, Neut % (Auto) 78.4, Lymph % (Auto) 11.1, Dent % (Auto) 9.9, Eos % (Auto) 0.4, Baso % (Auto) 0.2, Nucleat RBC Rel Count 0.0, Neut # (Auto) 4.9, Lymph # (Auto) 0.7 L, Dent # (Auto) 0.6, Eos # (Auto) 0.0, Baso # (Auto) 0.0, Monocyte Dist Width 19.22, PT 17.5 H, INR 1.5, APTT 32.6, PHA Creatinine Clear 36.22, Sodium 128 L, Potassium 4.5, Chloride 97 L, Carbon Dioxide 23.7, Anion Gap 11.8,BUN 27 H, Creatinine 1.88 H, Est GFR (CKD-EPI) 38.196, Glucose 267 H, Calcium 9.9, Total Bilirubin 0.8, Direct Bilirubin 0.20 H, Indirect Bilirubin 0.6, AST 22, ALT 23, Alkaline Phosphatase 116 H, Total Protein 6.9, Albumin 3.8, Globulin3.1, Albumin/Globulin Ratio 1.2, Amylase 26 L, Lipase 21.[address] chest [facility] 09/12/2023 4:29 PM SIGN AND SYMPTOMS: Evaluate possible lung mets TECHNIQUE: Multidetector CT axial slices of the chest were obtained without IV contrast. Multiplanar reformats were performed and viewed on a separate workstation and reviewed to further define anatomy and possible pathology. CT was performed with one or more of the following dose reduction techniques: Automatedexposure control, adjustment of the mA and/or kV according to patient size, or use of iterative reconstruction technique. COMPARISON: 09/11/2023. FINDINGS: Lower neck: There is a 2.1 cm hypoattenuating nodule within the right thyroid lobe. Ultrasound correlation is recommended as malignancy is not excluded. Vessels: Atherosclerotic changes are noted in the thoracic aorta and great vessels. Atherosclerotic changes are noted in the coronary arteries. Mediastinum and Mari: Within normal limits. Heart: There is cardiomegaly. No pericardial effusion. Airways: Within normal limits Lungs: Airspace opacities are noted in the lung bases. Pleura: Small bilateral pleural effusions are noted in the lung bases. Chest Wall: Within normal limits. Upper Abdomen: There is redemonstration of ascites with a heterogeneous liver and distended gallbladder. Periportal lymphadenopathy is redemonstrated. Bones: Degenerative changes are noted in the upper thoracic spine. CT/CT chest wo con IMPRESSION: No evidence of pulmonary metastatic disease. There is dependent atelectasis with small bilateral pleural effusions. There is cardiomegaly. Please see separately dictated abdominal CT for liver, periportal, and gallbladder findings. There is a 2.1 cm hypoattenuating nodule within the right thyroid lobe. Ultrasound correlation is recommended as malignancy is not excluded. Impression dictated by: Eric Shanks M.D.09/12/2023 5:[address] Abdomen and Pelvis withoutcontrast TECHNIQUE: Axial imaging with 2-D reconstruction. . The CT exam was performed using one or more the following dose reduction techniques: Automated exposure control, adjustment of the MA and/or Kv according to patient size, or use of theiterative reconstruction technique. COMPARISON: None History: Gallbladder cancer with liver metastasis. Lower abdominal pain for oneweek. Nausea and vomiting. History of renal transplantation. LIMITATIONS: None LOWER THORAX linear atelectasis/scarring greater on the RIGHT. Small hiatal hernia LIVER: Liver cirrhosis. Ill-defined hypodensity adjacent to the gallbladder corresponding with metastatic disease from gallbladder. High density within theportal vein corresponding with history of thrombosis. GALLBLADDER: Distended gallbladder with irregular wall thickening consistent with history of gallbladder cancer. BILE DUCTS: Mild prominence of common bile duct. No ductal stone. SPLEEN: 15 cm in length PANCREAS: Unremarkable ADRENAL GLANDS: Unremarkable KIDNEYS:Marked bilateral renal atrophy. A transplanted LEFT pelvic kidney. No hydronephrosis. Small cysts. Atherosclerosis. AORTA: No aortic aneurysm. Atherosclerosis of aorta and branches. RETROPERITONEUM: No significant retroperitoneal abnormalities identified. MESENTERY:Minimal stranding. SMALL BOWEL: The small bowel loops are nondistended. APPENDIX: The appendix is normal. COLON: Moderate constipation URINARY BLADDER: Urinary bladder is unremarkable. REPRODUCTIVE SYSTEM: Reproductive structures are unremarkable. PNEUMOPERITONEUM: None PERITONEAL FLUID:Mild upper abdominal ascites BONY STRUCTURES: Unremarkable ABDOMINAL WALL: Unremarkable CT/CT abdomen pelvis wo con IMPRESSION: Distended gallbladder with irregular gallbladder wall thickening andadjacent hepatic lesion consistent with patient's history of gallbladder cancer with hepatic metastasis. Liver cirrhosis. High density within the portal vein concerning for portal vein thrombosis. Marked atrophy of the algaaciq kidneys with transplanted LEFT pelvic kidney. No hydronephrosis. moderate constipation. Nondistended small bowel. Mild upper abdominal ascites. Splenomegaly Impression dictated by: Ken Cabrera M.D.09/11/2023 4:57 PM Assessment & Plan (1) Cancer of gallbladder: PLAN: Suspected gallbladder cancer with mets to the liver and portal vein thrombosis diagnosed recently in [place]. He had imaging but no biopsy--seen by GI today with recommendation for diagnostic paracentesis for cytology. We will request NGS on specimen to guide therapy. Will followup results as an outpatient. Please feel free to call if new issues arise during hospital stay--will need anticoagulation for portal vein thrombosis after diagnostic paracentesis and likely coordinate outpatient palliative medicine consult. High complexity 45 minute consult. Code(s): C23 - Malignant neoplasm of gallbladder (2) Ascites: PLAN: Hospitalist service to set up diagnostic paracentesis with cell counts, cytology, albumin, Gram stain and culture. GI will assist with ascites management based on these results. Code(s): R18.8 - Other ascites (3) Portal vein thrombosis: PLAN: Current unfractionated heparin anticoagulation pending diagnostic workup. Code(s): I81 - Portal vein thrombosis (4) Renal transplant recipient: PLAN: Prior renal transplant 2014, chronic immunosuppression. This would be a contraindication for immunotherapy, therefore NGS will likely be needed to direct therapy. Code(s): Z94.0 - Kidney transplant status (5) Diabetes mellitus with chronic kidney disease: PLAN: Stable--followed by Dr. Ballard locally for chronic kidney disease. No baseline diabetic neuropathy. Code(s): E11.22 - Type 2 diabetes mellitus with diabetic chronic kidney disease (6) Chronic kidney disease, stage III (moderate): PLAN: Stable renal function on chronic immunosuppression. Code(s): N18.30 - Chronic kidney disease, stage 3 unspecified No Active Chemotherapy Documented By: Shakira Duarte MD 09/12/23 1418 Signed By: <Electronically signed by MD Shakira Duarte> 09/12/23 2230 [facility] Work Phone: [phone] 569-244607-24-2024 Consult note Author Jarod Ballard [facility] September 12, 2023 3:43pm Note Date/Time September 12, 2023 10:2 6am [facility] [address] [place] [address] Nephrology Consult Note Signed Patient: Raul Manriquez MR#: [id number] : 1955 Acct:[id number] Age/Sex: 68 / M Adm Date: 4 Loc: Room: [address] [place] [address] Type: ADM IN Attending Dr: Caesar Black MD Copies to: MD Caesar Nicole MD Shaikh Fawwad, MD~ Providers Consult Date: 09/12/23 Requesting Provider: Caesar Black MD Primary Care Provider: Shaikh Cayden MD HPI Reason for Consult: CKD and renal transplant management History of Present Illness: This is a 68-year-old male with a medical history of ESRD s/p renal transplant, DM, CKD, HTN, anemia, HLD and gout was presented to the emergency room for abdominal pain. Patient's reported that he was having abdominal pain and was at the hospital in [place]. He was diagnosed to have a gallbladder cancer and portal vein thrombosis. He was started on Eliquis. Patient continues to have abdominal pain so he decided come to the emergency room. He had a CAT scanabdomen pelvis done without contrast in the emergency room which showed finding concerning for metastatic gallbladder cancer. Patient has a known history of renal transplant and currently takes tacrolimus, mycophenolate prednisone. He follows in the office for his CKD care. He also follow-up with transplant center in [place]. His baseline (around 1.4 to 1.8 mg/dL. Nephrology is consulted for his CKD and transplant management during the hospital stay. Patient was seen and examined bedside reported to have abdominal distention and pain. Review of Systems Review of Systems All other systems reviewed & are negative unless noted below or in HPI Review of systems: Cardiovascular: denies any chest pain, palpitation Pulmonary: denies any cough, hemoptysis Gastrointestinal: denies any nausea, vomiting, diarrhea Neurological :denies any headache, numbness, weakness Endocrine: denies any polyuria, polydipsia Dermatological: denies any itching or rash [facility] Medical History (Updated 09/12/23 @ 14:20 by Rosendo Hansen MD) Hypomagnesemia Hyperlipidemia Anemia of renal disease Thrombocytopenia Skin cancer Renal artery stenosis Immunosuppressed status Hyperuricemia Hypertension ESRD (end stage renal disease) T2DM (type 2 diabetes mellitus) Basal cell carcinoma of skin of face Anxiety and depression Left wrist fracture Surgical History Kidney transplanted History of CEA (carotid endarterectomy) History of renal stent Family History Father Family history of mental disorder Legacy FamHx Problem: Diagnosed with Mental Illness Family/Other Legacy FamHx Problem: 1 sister renal failure, copd, :1 sister alive DM, COPD:1 brother over dose :1 brother alive copd Mother Cancer Legacy FamHx Problem: Diagnosed with Cancer Family history of lung cancer Sister Diabetes Social History Smoking Status: Never smoker Substance Use Type: Alcohol Substance Abuse Comment: daily 2-3 Social History Comments: mobile home Meds Medications & Allergies Allergies No Known Allergies Allergy (Verified 09/11/23 14:56) Home Medications alendronate 70 mg tablet 70 mg PO QWEEK 05/17/23 [History Confirmed 09/11/23] allopurinol 100 mg tablet 100 mg PO DAILY 05/17/23 [History Confirmed 09/11/23] glipizide 5 mg tablet 5 mg PO DAILY 05/17/23 [History Confirmed 09/11/23] lorazepam 0.5 mg tablet 0.5 mg PO BID PRN anxiety 05/17/23 [History Confirmed 09/11/23] losartan 50 mg tablet 50 mg PO DAILY 05/17/23 [History Confirmed 09/11/23] magnesium oxide 400 mg (241.3 mg magnesium) tablet 400 mg PO DAILY 05/17/23 [History Confirmed 09/11/23] mycophenolate mofetil 500 mg tablet 500 mg PO BID #180 tabs 07/26/23 [Rx Confirmed 09/11/23] atorvastatin 20 mg tablet 20 mg PO QHS 08/09/23 [History Confirmed 09/11/23] nifedipine 60 mg tablet,extended release 24 hr 60 mg PO DAILY 08/09/23 [History Confirmed 09/11/23] tacrolimus 1 mg capsule, immediate-release See Rx Instructions .Route .COMPLEX #180 caps 08/10/23 [Rx Confirmed 09/11/23] prednisone 5 mg tablet 5 mg PO DAILY #90 tabs 08/29/23 [Rx Confirmed 09/11/23] apixaban 5 mg tablet (Eliquis) 5 mg PO BID 09/11/23 [History Confirmed 09/11/23] dicyclomine 10 mg capsule 10 mg PO 09/11/23 [History] oxycodone-acetaminophen 5 mg-325 mg tablet 1 tab PO .Q6 PRN pain 09/11/23 [History Confirmed 09/11/23] pantoprazole 40 mg tablet,delayed release 40 mg PO DAILY 09/11/23 [History Confirmed 09/11/23] Active Medications: Active Medications Acetaminophen (Acetaminophen 325 Mg Tablet) 650 mg PO Q6HR PRN PRN Reason: Pain Scale 1 - 3 or fever Stop: 09/10/24 17:56 Last Admin: 09/12/23 05:21 Dose: 650 mg Allopurinol (Allopurinol 100 Mg Tablet) 100 mg PO DAILY [facility] Stop: 09/11/24 08:59 Last Admin: 09/12/23 08:27 Dose: 100 mg Atorvastatin Calcium (Atorvastatin 20 Mg Tablet) 20 mg PO QHS SAMANTHA Stop: 09/10/24 21:59 Last Admin: 09/11/23 21:33 Dose: 20 mg Bisacodyl (Bisacodyl 5 Mg Tablet.) 10 mg PO DAILY PRN PRN Reason: Constipation Stop: 09/10/24 17:56 Glipizide (Glipizide 5 Mg Tablet) 5 mg PO DAILY [facility] Stop: 09/11/24 08:59 Last Admin: 09/12/23 08:27 Dose: 5 mg Hydromorphone HCl (Hydromorphone 0.5 Mg/0.5 Ml Syringe) 0.5 mg IV-PUSH Q4H PRN PRN Reason: Pain Scale 8 - 10 Last Admin: 09/12/23 09:32 Dose: 0.5 mg Heparin Sodium/Sodium Chloride (Heparin) 25,000 unit in 250 mls @ 12 mls/hr IV .[id number] [facility]; Protocol Stop: 09/10/24 18:44 Last Titration: 09/12/23 06:44 Dose: 1,300 units/hr, 13 mls/hr Lorazepam (Lorazepam 0.5 Mg Tablet) 0.5 mg PO BID PRN PRN Reason: anxiety Stop: 03/09/24 17:55 Magnesium Oxide (Magnesium Oxide 400 Mg Tablet) 400 mg PO DAILY [facility] Stop: 09/11/24 08:59 Last Admin: 09/12/23 08:27 Dose: 400 mg Melatonin (Melatonin 5 Mg Tablet) 5 mg PO QHS PRN PRN Reason: Insomnia Stop: 09/10/24 17:56 Mycophenolate Mofetil (Mycophenolate Mofetil 250 Mg Capsule) 500 mg PO BID [facility] Stop: 09/10/24 20:59 Last Admin: 09/12/23 08:23 Dose: 500 mg Nifedipine (Nifedipine Er.24hr 60 Mg Tab.Er.24) 60 mg PO DAILY [facility] Stop: 09/11/24 08:59 Ondansetron HCl (Ondansetron 4 Mg/2 Ml Vial) 4 mg IV-PUSH Q8H PRN PRN Reason: Nausea And Vomiting Stop: 09/10/24 17:56 Oxycodone/Acetaminophen (Oxycodone/Acetaminophen 5-325 Mg Tablet) 1 tab PO Q6H PRN PRN Reason: pain Last Admin: 09/12/23 08:23 Dose: 1 tab Pantoprazole Sodium (Pantoprazole 40 Mg Tablet.) 40 mg PO DAILY [facility] Stop: 09/11/24 08:59 Last Admin: 09/12/23 08:27 Dose: 40 mg Prednisone (Prednisone 5 Mg Tablet) 5 mg PO DAILY SAMANTHA Stop: 09/11/24 08:59 Last Admin: 09/12/23 08:27 Dose: 5 mg Sodium Chloride (Sodium Chloride 0.9 % 10 Ml Syringe) 0 ml IV-PUSH PRN PRN PRN Reason: Flush Stop: 09/10/24 14:54 Tacrolimus (Tacrolimus 1 Mg Capsule) 1 mg PO BID SAMANTHA Stop: 09/10/24 20:59 Last Admin: 09/12/23 08:23 Dose: 1 mg Exam Physical Exam Vital Signs: Temp Pulse Resp BP Pulse Ox O2 Del Method 97.6 F 107 H 18 164/62 H 97 Room Air 09/12/23 08:21 09/12/23 08:21 09/12/23 08:21 09/12/23 08:21 09/12/23 08:21 09/12/23 08:32 Narrative: General: Appears comfortable and not in distress Heart: S1-S2, no rub Lung: Bilateral air entry, no wheezing or crackles Abdomen: Soft, distended, positive fluid thrill. Extremities: No edema, no cyanosis Head: Atraumatic, normocephalic Ear: No gross hearing Deficit or external ear redness Eyes: No pallor or redness Neck: No JVD or visible mass Skin: No rashes , warm to touch [employer]: Awake,Alert, following simple command Musculoskeletal: No swelling or limitation of movement of the large joints Psychiatric: Cooperative, normal mood and affect Results - Nephrology Labs 09/12/23 04:55 09/12/23 04:55 Labs: 09/11/23 09/12/23 15:35 04:55 BUN 27 H 22 Creatinine 1.88 H 1.49 H Albumin 3.8 Radiology Impressions Impressions - last 24 hours: Impressions Abdomen/Pelvis CT 09/11/23 15:22 IMPRESSION: Distended gallbladder with irregular gallbladder wall thickening andadjacent hepatic lesion consistent with patient's history of gallbladder cancer with hepatic metastasis. Liver cirrhosis. High density within the portal vein concerning for portal vein thrombosis. Marked atrophy of the algaaciq kidneys with transplanted LEFT pelvic kidney. No hydronephrosis. moderate constipation. Nondistended small bowel. Mild upper abdominal ascites. Splenomegaly Impression dictated by: Ken Cabrera M.D.09/11/2023 4:57 PM Dictation Location: [place] [address] Any impression(s) listed above is documentation that was entered by the reading physician into a diagnostic report(s) for Raul Manriquez. I have reviewed the report(s) and am incorporating any findings in the treatment plan of this patient where applicable. A&P - Nephrology Assessment/Plan (1) Renal transplant recipient: Assessment/Problem Details: He has a cadaveric renal transplant since 2015. He takes immunosuppressive medication including Prograf, CellCept and prednisone. 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 (3) Hyponatremia: Assessment/Problem Details: He has hypervolemic hyponatremia. (4) Hypertensive chronic kidney disease with stage 1 through stage 4 chronic kidney disease, or unspecified chronic kidney disease: Assessment/Problem Details: Blood pressure is high. He was taking losartan and nifedipine at home. (5) Diabetes mellitus with chronic kidney disease: Assessment/Problem Details: He has a known insulin-dependent type 2 diabetes mellitus and was taking glipizide at home. 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 Oncology has been consulted. (7) Portal vein thrombosis: Assessment/Problem Details: He also noticed to have a portal vein thrombosis Plan * Stop IV fluid. * Will consult GI due to the ascites. He may benefit with a diagnostic paracentesis. * Agree with oncology consult. * Continue home dose of the immunosuppressive medication including tacrolimus 1 mg twice daily, prednisone 5 mg daily and mycophenolate 500 mg twice daily. * Agreed to hold losartan. * Continue current dose of the nifedipine. * Will add low-dose of the carvedilol as he has a high blood pressure with tachycardia. * Check renal function daily and monitor input output * Thanks for consult. Will continue follow-up with you. Please feel free to call us with any question. Documented By: Jarod Ballard MD 09/12/23 1014 Signed By: <Electronically signed by Jarod Ballard MD> 09/12/23 1366 [facility] Work Phone: 1(434) 981-514307-24-2024 Progress note Author Caesar Black [facility] September 12, 2023 3:24pm Note Date/Time September 12, 2023 3:24 pm [facility] [address] [place], [place] [id number] Hospitalist Progress Note Signed Patient: Raul Manriquez MR#: [id number] : 1955 Acct:[id number] Age/Sex: 68 / M Adm Date: 4 Loc: Room: [address] [place] [address] Type: ADM IN Attending Dr: Caesar Black MD Copies to: ~ Date of Service: 09/12/2023 Subjective Subjective Narrative: 68-year-old white male past medical history of hypertension, hyperlipidemia, diabetes type 2, end-stage renal disease, status post kidney transplant 2014, renal artery stenosis, anemia of chronic disease, anxiety and depression, and 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 Was admitted due to findings on his imaging concerning for metastatic carcinoma. Oncology, Nephrology, and GI were consulted. I had a lengthy conversation with the patient and his at bedside and discussed the plan of management. He was complaining of some abdominal pain earlier this morning, but no fever, nausea, or vomiting. He denies any diarrhea or constipation. He is not aware of recent weight loss, but does report anorexia lately. Exam Physical Exam Vital Signs: Temp Pulse Resp BP Pulse Ox O2 Del Method 97.6 F 94 18 157/76 H 96 Room Air 09/12/23 11:20 09/12/23 11:20 09/12/23 11:20 09/12/23 11:20 09/12/23 11:20 09/12/23 11:20 Narrative: General: awake and oriented x3, not in acute distress, temporal wasting noted, and pt is cachectic and frail HEENT: No lymphadenopathy, no thyromegaly, PERRLA, EOMI Chest: Good bilateral air entry, no wheezes or crackles CVS: Normal S1 and S2, no murmurs, no abnormal heart sounds Abdomen: Soft, non tender with some distension, there is splenomegaly on exam, no shifting dullness, no fluid wave on palpation. Extremities: No lower extremity swelling, normal and intact peripheral pulses Neuro: Pleasant and oriented, follows commands, no focal motor or sensory deficits Objective Lab Results 09/12/23 04:55 09/12/23 04:55 Meds Allergies and Active Meds Allergies No Known Allergies Allergy (Verified 09/11/23 14:56) Active Meds: Active Medications Generic Name Dose Route Start Last Admin Trade Name Freq PRN Reason Stop Dose Admin Acetaminophen 650 mg 09/11/23 17:57 09/12/23 05:21 Acetaminophen 325 Mg Tablet PO 09/10/24 17:56 650 mg Q6HR PRN Administration Pain Scale 1 - 3 or fever Allopurinol 100 mg 09/12/23 09:00 09/12/23 08:27 Allopurinol 100 Mg Tablet PO 09/11/24 08:59 100 mg DAILY SAMANTHA Administration Atorvastatin Calcium 20 mg 09/11/23 22:00 09/11/23 21:33 Atorvastatin 20 Mg Tablet PO 09/10/24 21:59 20 mg QHS SAMANTHA Administration Bisacodyl 10 mg 09/11/23 17:57 Bisacodyl 5 Mg Tablet. PO 09/10/24 17:56 DAILY PRN Constipation Carvedilol 6.25 mg 09/12/23 17:00 Carvedilol 6.25 Mg Tablet PO 09/11/24 16:59 BID.WITH.MEALS SAMANTHA Glipizide 5 mg 09/12/23 09:00 09/12/23 08:27 Glipizide 5 Mg Tablet PO 09/11/24 08:59 5 mg DAILY SAMANTHA Administration Hydromorphone HCl 0.5 mg 09/11/23 17:57 09/12/23 09:32 Hydromorphone 0.5 Mg/0.5 Ml Syringe IV-PUSH 0.5 mg Q4H PRN Administration Pain Scale 8 - 10 Heparin Sodium/Sodium Chloride 25,000 unit in 250 mls @ 12 mls/hr 09/11/23 18:45 09/12/23 14:43 Heparin IV 09/10/24 18:44 1,400 units/hr .[id number] SAMANTHA 14 mls/hr Titration Protocol 1,200 UNITS/HR Lorazepam 0.5 mg 09/11/23 17:56 Lorazepam 0.5 Mg Tablet PO 03/09/24 17:55 BID PRN anxiety Magnesium Oxide 400 mg 09/12/23 09:00 09/12/23 08:27 Magnesium Oxide 400 Mg Tablet PO 09/11/24 08:59 400 mg DAILY SAMANTHA Administration Melatonin 5 mg 09/11/23 17:57 Melatonin 5 Mg Tablet PO 09/10/24 17:56 QHS PRN Insomnia Mycophenolate Mofetil 500 mg 09/11/23 21:00 09/12/23 08:23 Mycophenolate Mofetil 250 Mg Capsule PO 09/10/24 20:59 500 mg BID SAMANTHA Administration Nifedipine 60 mg 09/12/23 09:00 Nifedipine Er.24hr 60 Mg Tab.Er.24 PO 09/11/24 08:59 DAILY SAMANTHA Ondansetron HCl 4 mg 09/11/23 17:57 Ondansetron 4 Mg/2 Ml Vial IV-PUSH 09/10/24 17:56 Q8H PRN Nausea And Vomiting Oxycodone/Acetaminophen 1 tab 09/11/23 17:56 09/12/23 08:23 Oxycodone/Acetaminophen 5-325 Mg Tablet PO 1 tab Q6H PRN Administration pain Pantoprazole Sodium 40 mg 09/12/23 09:00 09/12/23 08:27 Pantoprazole 40 Mg Tablet. PO 09/11/24 08:59 40 mg DAILY SAMANTHA Administration Prednisone 5 mg 09/12/23 09:00 09/12/23 08:27 Prednisone 5 Mg Tablet PO 09/11/24 08:59 5 mg DAILY SAMANTHA Administration Sodium Chloride 0 ml 09/11/23 14:55 Sodium Chloride 0.9 % 10 Ml Syringe IV-PUSH 09/10/24 14:54 PRN PRN Flush Tacrolimus 1 mg 09/11/23 21:00 09/12/23 08:23 Tacrolimus 1 Mg Capsule PO 09/10/24 20:59 1 mg BID SAMANTHA Administration A&P - Hospitalist Assessment/Plan (1) Cancer of gallbladder: (2) Portal vein thrombosis: Plan: Will start heparin infusion at home for Eliquis anticipating he will need CT- guided biopsy (3) Metastatic cancer: Plan: Oncology consult (4) Gout: Plan: Allopurinol (5) Hyperlipidemia: Plan: Resume Lipitor (6) Secondary hyperparathyroidism: (7) Renal transplant recipient: Plan: Resume immunosuppressive medication nephrology consult (8) Diabetes mellitus with chronic kidney disease: (9) ESRD (end stage renal disease): (10) Hyponatremia: Plan: BMP daily Normal saline 75 cc/h Plan 68-year-old white male with recent diagnosis of gallbladder cancer with metastasis to the liver and portal vein thrombosis, on Eliquis Gallbladder cancer with Liver mets? Portal vein thrombosis in the setting of malignancy Renal transplant since 2015, on immunosuppression, Acute Renal Failure on Chronic Kidney DIsease Asymptomatic Hyponatremia, appears euvolemic likely due to SIADH in the setting of Malignancy -CT abdomen pelvis on admission: Distended gallbladder with irregular gallbladder wall thickening and adjacent hepatic lesion consistent with patient's history of gallbladder cancer with hepatic metastasis. Liver cirrhosis. High density within the portal vein concerning for portal vein thrombosis. Marked atrophy of the algaaciq kidneys with transplanted LEFT pelvic kidney. No hydronephrosis. moderate constipation. Nondistended small bowel. Mild upper abdominal ascites. Splenomegaly -GI consulted, recommended diagnostic paracentesis -Oncology consulted, pending recs -Continue dialudid 0.5 mg q4 hours PRN -Pt is on heparin drip, pt is off eliquis -Will wait for ascitic fluid studies )whether it's malignancy or overload (whichI doubt), and then decide whether to diurese the pt -Also may obtain CT chest without contrast to assess for any mets to the lungs -Renal function improved today, pt is off IV fluids -Continue rest of current management Plan discussed in details with pt and his at bedside. Time Spent With Patient (min): 40 Time spent planning advance care (# min): 15 Advance directives explained/discussed with: Patient and Spouse Discussed in details goals of care, pt and want to keep his code status as full code for now until they get the answers for their questions about diagnosis, prognosis, plan of management and so on. All questions answered and emotional support provided. Documented By: Caesar Black MD 09/12/23 1506 Signed By: <Electronically signed by Caesar Black MD> 09/12/23 0569 [facility] Work Phone: [phone] Consult note Author Rosendo Hansen [facility] September 12, 2023 2:24pm Note Date/Time September 12, 2023 12:0 7pm [facility] [address] [place] [address] Gastroenterology Consult Note Signed Patient: Raul Manriquez MR#: [id number] : 1955 Acct:[id number] Age/Sex: 68 / M Adm Date: 4 Loc: Room: [address] [place] [address] Type: ADM IN Attending Dr: Caesar Black MD Copies to: MD Caesar Condon MD Shaikh Fawwad, MD~ HPI Data of Consult Date of Consultation: 09/12/23 Requesting Physician: Caesar Black MD Consult Narrative History of present illness: Mr. Manriquez is a 68 year old male with a pmhx of heavy EtOH use, CKD/ESRD s/p OKT recently diagnosed with gallbladder cancer . Patient and SO state they haveno tissue diagnosis. A non-contrasted CT abdomen shows Distended gallbladder with irregular gallbladder wall thickening and adjacent hepatic lesion consistent with patient's history of gallbladder cancer with hepatic metastasis. Liver cirrhosis. High density within the portal vein concerning for portal vein thrombosis. Marked atrophy of the algaaciq kidneys with transplanted LEFT pelvic kidney. No hydronephrosis. moderate constipation. Nondistended small bowel. Mild upper abdominal ascites. Splenomegaly cc:: CC: Caesar Black MD Review of Systems Constitutional Constitutional: Denies chills, Denies fever(s) and Denies headache(s) Eyes Eyes: Denies blurry vision and Denies change in vision ENT Ears, Nose, Mouth, and Throat: Denies headache(s) and Denies neck pain Cardiovascular Cardiovascular: Denies chest pain and Denies palpitations Respiratory Respiratory: Denies cough and Denies wheezing Gastrointestinal Gastrointestinal: Reports other (per HPI) Genitourinary Genitourinary: Denies urinary urgency Musculoskeletal Musculoskeletal: Denies neck pain Integumentary/Breasts Skin/Breast: Denies pruritus Neurologic Neurologic: Denies headache(s) Psychiatric Psychiatric: Denies anxiety and Denies mood swings Endocrine Endocrine: Denies palpitations Hematologic/Lymphatic Hematologic/Lymphatic: Denies easy bleeding and Denies easy bruising Allergic/Immunologic Allergic/Immunologic: Denies wheezing [facility] Medical History (Updated 09/12/23 @ 14:20 by Rosendo Hansen MD) Hypomagnesemia Hyperlipidemia Anemia of renal disease Thrombocytopenia Skin cancer Renal artery stenosis Immunosuppressed status Hyperuricemia Hypertension ESRD (end stage renal disease) T2DM (type 2 diabetes mellitus) Basal cell carcinoma of skin of face Anxiety and depression Left wrist fracture Surgical History Kidney transplanted History of CEA (carotid endarterectomy) History of renal stent Family History Father Family history of mental disorder Legacy FamHx Problem: Diagnosed with Mental Illness Family/Other Legacy FamHx Problem: 1 sister renal failure, copd, :1 sister alive DM, COPD:1 brother over dose :1 brother alive copd Mother Cancer Legacy FamHx Problem: Diagnosed with Cancer Family history of lung cancer Sister Diabetes Social History Smoking Status: Never smoker Substance Use Type: Alcohol Substance Abuse Comment: daily 2-3 Social History Comments: mobile home Meds Medications and Allergies Allergies No Known Allergies Allergy (Verified 09/11/23 14:56) Home Medications alendronate 70 mg tablet 70 mg PO QWEEK 05/17/23 [History Confirmed 09/11/23] allopurinol 100 mg tablet 100 mg PO DAILY 05/17/23 [History Confirmed 09/11/23] glipizide 5 mg tablet 5 mg PO DAILY 05/17/23 [History Confirmed 09/11/23] lorazepam 0.5 mg tablet 0.5 mg PO BID PRN anxiety 05/17/23 [History Confirmed 09/11/23] losartan 50 mg tablet 50 mg PO DAILY 05/17/23 [History Confirmed 09/11/23] magnesium oxide 400 mg (241.3 mg magnesium) tablet 400 mg PO DAILY 05/17/23 [History Confirmed 09/11/23] mycophenolate mofetil 500 mg tablet 500 mg PO BID #180 tabs 07/26/23 [Rx Confirmed 09/11/23] atorvastatin 20 mg tablet 20 mg PO QHS 08/09/23 [History Confirmed 09/11/23] nifedipine 60 mg tablet,extended release 24 hr 60 mg PO DAILY 08/09/23 [History Confirmed 09/11/23] tacrolimus 1 mg capsule, immediate-release See Rx Instructions .Route .COMPLEX #180 caps 08/10/23 [Rx Confirmed 09/11/23] prednisone 5 mg tablet 5 mg PO DAILY #90 tabs 08/29/23 [Rx Confirmed 09/11/23] apixaban 5 mg tablet (Eliquis) 5 mg PO BID 09/11/23 [History Confirmed 09/11/23] dicyclomine 10 mg capsule 10 mg PO 09/11/23 [History] oxycodone-acetaminophen 5 mg-325 mg tablet 1 tab PO .Q6 PRN pain 09/11/23 [History Confirmed 09/11/23] pantoprazole 40 mg tablet,delayed release 40 mg PO DAILY 09/11/23 [History Confirmed 09/11/23] Exam Physical Exam Vital Signs: Temp Pulse Resp BP Pulse Ox O2 Del Method 97.6 F 94 18 157/76 H 96 Room Air 09/12/23 11:20 09/12/23 11:20 09/12/23 11:20 09/12/23 11:20 09/12/23 11:20 09/12/23 11:20 Const General: no acute distress and well developed HEENT Head: normocephalic and atraumatic Mouth: moist mucous membranes Eyes Sclera: sclerae normal (no scleral icterus) EOM: EOM intact bilaterally Neck Other: trachea midline Resp Effort & Inspection: normal respiratory effort and able to speak in complete sentences GI Inspection: distended Palpation: soft and tender Skin General: turgor normal and no jaundice Neuro General: patient alert and patient oriented x3 Psych Appearance: grossly normal Mental Status: mental status grossly normal Results - Gastroenterology Labs Labs: Laboratory Results - last 24 hr 09/11/23 09/11/23 09/12/23 15:35 21:02 00:42 Corrected WBC 6.2 4.0 L Uncorrected WBC Count 6.2 4.0 L RBC 4.27 3.95 Hgb 12.4 L 11.5 L Hct 37.7 L 34.6 L MCV 88.2 87.7 MCH 29.0 29.3 MCHC 32.9 33.4 RDW 13.3 13.0 Plt Count 148 L 103 L D MPV 9.6 9.0 Neut % (Auto) 78.4 68.5 Lymph % (Auto) 11.1 18.2 Dent % (Auto) 9.9 11.7 Eos % (Auto) 0.4 1.1 Baso % (Auto) 0.2 0.5 Nucleat RBC Rel Count 0.0 0.1 Neut # (Auto) 4.9 2.7 Lymph # (Auto) 0.7 L 0.7 L Dent # (Auto) 0.6 0.5 Eos # (Auto) 0.0 0.0 Baso # (Auto) 0.0 0.0 Monocyte Dist Width 19.22 17.82 PT 17.5 H 16.1 H INR 1.5 1.4 APTT 32.6 30.9 35.5 PHA Creatinine Clear 36.22 Sodium 128 L Potassium 4.5 Chloride 97 L Carbon Dioxide 23.7 Anion Gap 11.8 BUN 27 H Creatinine 1.88 H Est GFR (CKD-EPI) 38.196 Glucose 267 H Calcium 9.9 Total Bilirubin 0.8 Direct Bilirubin 0.20 H Indirect Bilirubin 0.6 AST 22 ALT 23 Alkaline Phosphatase 116 H Total Protein 6.9 Albumin 3.8 Globulin 3.1 Albumin/Globulin Ratio 1.2 Amylase 26 L Lipase 21.0 09/12/23 09/12/23 04:55 04:55 Corrected WBC 3.0 L Uncorrected WBC Count 3.0 L RBC 3.80 L Hgb 11.1 L Hct 33.4 L MCV 87.9 MCH 29.3 MCHC 33.4 RDW 13.3 Plt Count 96 L MPV 9.5 Neut % (Auto) 66.0 Lymph % (Auto) 17.5 Dent % (Auto) 14.6 Eos % (Auto) 1.5 Baso % (Auto) 0.4 Nucleat RBC Rel Count 0.1 Neut # (Auto) 2.0 Lymph # (Auto) 0.5 L Dent # (Auto) 0.4 Eos # (Auto) 0.0 Baso # (Auto) 0.0 Monocyte Dist Width PT 14.5 H INR 1.3 APTT 49.6 H 47.2 H PHA Creatinine Clear 47.12 Sodium 131 L Potassium 4.2 Chloride 103 Carbon Dioxide 22.8 Anion Gap 9.4 BUN 22 Creatinine 1.49 H Est GFR (CKD-EPI) 50.487 Glucose 184 H Calcium 8.7 Total Bilirubin Direct Bilirubin Indirect Bilirubin AST ALT Alkaline Phosphatase Total Protein Albumin Globulin Albumin/Globulin Ratio Amylase Lipase A&P - Gastroenterology Assessment/Plan (1) ESRD (end stage renal disease): (2) Metastatic cancer: (3) Portal vein thrombosis: (4) Cancer of gallbladder: (5) Ascites: Plan -If his ascites is secondary to portal hypertension then it may be diuretic responsive. We would recommend spironolactone:furosemide in a 2.5:1 ratio, willdefer to nephrology on dosing d/t his CKD of OKT. -If his ascites is malignant then it will not be responsive to diuretics and he will need periodic therapeutic paracentesis, also depending on his treatment course and how aggressive he wishes to be with treatment can consider a Pleurx catheter which can be arrange at his cancer teams tertiary care center. -I would recommend a diagnostic paracentesis with cell counts, cytology, albumin, Gram stain and culture -Agree with oncology consult, patient will need discussed at hepatobiliary tumorboard and plan for tissue diagnosis Thank you for this consult, little further to add from a GI standpoint. I will peripherally follow Documented By: Rosendo Hansen MD 09/12/23 1206 Signed By: <Electronically signed by Rosendo Hansen MD> 09/12/23 1427 [facility] Work Phone: 1(876) 213-553307-23-2024 History and physical note Author Mary Kay Gray [facility] September 11, 2023 6:39pm Note Date/Time September 11, 2023 5:45 pm [facility] [address] [place] [address] Hospitalist H&P Signed Patient: Raul Manriquez MR#: [id number] : 1955 Acct:[id number] Age/Sex: 68 / M Adm Date: 4 Loc: ER Room: Type: [facility] ER Attending Dr: Copies to: MD Sheldon Mitchell MD Shaikh Fawwad, MD~ HPI DATE OF EXAMINATION: 09/11/23 CHIEF COMPLAINT: Abdominal pain HISTORY OF PRESENT ILLNESS: 68-year-old white male past medical history of hypertension, hyperlipidemia, diabetes type 2, end-stage renal disease, status post kidney transplant 2014, renal artery stenosis, anemia of chronic disease, anxiety and depression, and 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 Patient left the hospital and flew home today and Went to the ER for treatment. He is complaining of abdominal pain. It is 8/10 intensity. There is no radiation. The pain locatedin the epigastric and upper quadrant area associated with constipation. No diarrhea. No nausea or vomiting. No fever or chills. Denies any chest pain orshortness of breath. No orthopnea or PND. Denies any dysuria, hematuria, pr frequency. No hematemesis or melena. No hematochezia. 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 Basal cell carcinoma of skin of face Anxiety and depression Left wrist fracture Surgical History Kidney transplanted History of CEA (carotid endarterectomy) History of renal stent Family History Father Family history of mental disorder Legacy FamHx Problem: Diagnosed with Mental Illness Family/Other Legacy FamHx Problem: 1 sister renal failure, copd, :1 sister alive DM, COPD:1 brother over dose :1 brother alive copd Mother Cancer Legacy FamHx Problem: Diagnosed with Cancer Family history of lung cancer Sister Diabetes Social History Smoking Status: Never smoker Substance Use Type: Alcohol Substance Abuse Comment: daily 2-3 Meds Medications and Allergies Allergies No Known Allergies Allergy (Verified 09/11/23 14:56) Home Medications alendronate 70 mg tablet 70 mg PO QWEEK 05/17/23 [History Confirmed 09/11/23] allopurinol 100 mg tablet 100 mg PO DAILY 05/17/23 [History Confirmed 09/11/23] glipizide 5 mg tablet 5 mg PO DAILY 05/17/23 [History Confirmed 09/11/23] lorazepam 0.5 mg tablet 0.5 mg PO BID PRN anxiety 05/17/23 [History Confirmed 09/11/23] losartan 50 mg tablet 50 mg PO DAILY 05/17/23 [History Confirmed 09/11/23] magnesium oxide 400 mg (241.3 mg magnesium) tablet 400 mg PO DAILY 05/17/23 [History Confirmed 09/11/23] mycophenolate mofetil 500 mg tablet 500 mg PO BID #180 tabs 07/26/23 [Rx Confirmed 09/11/23] atorvastatin 20 mg tablet 20 mg PO QHS 08/09/23 [History Confirmed 09/11/23] nifedipine 60 mg tablet,extended release 24 hr 60 mg PO DAILY 08/09/23 [History Confirmed 09/11/23] tacrolimus 1 mg capsule, immediate-release See Rx Instructions .Route .COMPLEX #180 caps 08/10/23 [Rx Confirmed 09/11/23] prednisone 5 mg tablet 5 mg PO DAILY #90 tabs 08/29/23 [Rx Confirmed 09/11/23] apixaban 5 mg tablet (Eliquis) 5 mg PO BID 09/11/23 [History Confirmed 09/11/23] dicyclomine 10 mg capsule 10 mg PO 09/11/23 [History] oxycodone-acetaminophen 5 mg-325 mg tablet 1 tab PO .Q6 PRN pain 09/11/23 [History Confirmed 09/11/23] pantoprazole 40 mg tablet,delayed release 40 mg PO DAILY 09/11/23 [History Confirmed 09/11/23] Exam Physical Exam Vital Signs: Temp Pulse Resp BP Pulse Ox O2 Del Method 98 F 92 18 127/58 L 99 Room Air 09/11/23 14:55 09/11/23 16:22 09/11/23 14:55 09/11/23 16:22 09/11/23 16:22 09/11/23 16:22 Narrative: General patient laying in bed in no acute distress alert awake oriented x3 HEENT PERRLA Neck supple no JVD no carotid bruit CVS S1-S2 regular rate and rhythm no murmur no gallop Chest clear to auscultation percussion Abdomen soft bowel sounds normoactive no rebound no guarding Extremities no stenosis no clubbing no edema Musculoskeletal exam normal no joint effusion Neurologic exam oriented x3 alert awake no focal left Psychiatry: Normal insight and judgment Skin: no rash or lesions Results - Hospitalist H&P Lab Results Labs: Laboratory Last Values Corrected WBC 6.2 X10E3/uL (4.1-10.5) 09/11/23 15:35 Uncorrected WBC Count 6.2 x10E3/uL (4.1-10.5) 09/11/23 15:35 RBC 4.27 X10E6/uL (3.90-5.60) 09/11/23 15:35 Hgb 12.4 g/dL (13.0-17.0) L 09/11/23 15:35 Hct 37.7 % (38.8-50.0) L 09/11/23 15:35 MCV 88.2 fl (83.5-101) 09/11/23 15:35 MCH 29.0 pg (27.5-35.2) 09/11/23 15:35 MCHC 32.9 g/dL (32.5-35.6) 09/11/23 15:35 RDW 13.3 % (12.0-14.8) 09/11/23 15:35 Plt Count 148 x10E3/uL (150-450) L 09/11/23 15:35 MPV 9.6 fl (6.6-10.1) 09/11/23 15:35 Neut % (Auto) 78.4 % (.) 09/11/23 15:35 Lymph % (Auto) 11.1 % (.) 09/11/23 15:35 Dent % (Auto) 9.9 % (.) 09/11/23 15:35 Eos % (Auto) 0.4 % (.) 09/11/23 15:35 Baso % (Auto) 0.2 % (.) 09/11/23 15:35 Nucleat RBC Rel Count 0.0 /100 WBC (0-0.5) 09/11/23 15:35 Neut # (Auto) 4.9 x10E3/uL (1.8-7.7) 09/11/23 15:35 Lymph # (Auto) 0.7 x10E3/uL (1.00-4.8) L 09/11/23 15:35 Dent # (Auto) 0.6 x10E3/uL (0.0-0.8) 09/11/23 15:35 Eos # (Auto) 0.0 x10E3/uL (0.0-0.45) 09/11/23 15:35 Baso # (Auto) 0.0 x10E3/uL (0.0-0.2) 09/11/23 15:35 Monocyte Dist Width 19.22 % (0.00-20.00) 09/11/23 15:35 PT 17.5 Seconds (9.0-12.9) H 09/11/23 15:35 INR 1.5 09/11/23 15:35 APTT 32.6 Seconds (25.1-36.5) 09/11/23 15:35 PHA Creatinine Clear 36.22 09/11/23 15:35 Sodium 128 mmol/L (136-145) L 09/11/23 15:35 Potassium 4.5 mmol/L (3.5-5.1) 09/11/23 15:35 Chloride 97 mmol/L (98-107) L 09/11/23 15:35 Carbon Dioxide 23.7 mmol/L (21.0-31.0) 09/11/23 15:35 Anion Gap 11.8 mEq/L (6.0-15.0) 09/11/23 15:35 BUN 27 mg/dL (7-25) H 09/11/23 15:35 Creatinine 1.88 mg/dL (0.70-1.30) H 09/11/23 15:35 Est GFR (CKD-EPI) 38.196 mL/Min 09/11/23 15:35 Glucose 267 mg/dL (70-100) H 09/11/23 15:35 Calcium 9.9 mg/dL (8.6-10.3) 09/11/23 15:35 Total Bilirubin 0.8 mg/dl (0.3-1.0) 09/11/23 15:35 Direct Bilirubin 0.20 mg/dL (0.03-0.18) H 09/11/23 15:35 Indirect Bilirubin 0.6 mg/dL 09/11/23 15:35 AST 22 U/L (13-39) 09/11/23 15:35 ALT 23 U/L (7-52) 09/11/23 15:35 Alkaline Phosphatase 116 U/L (34-104) H 09/11/23 15:35 Total Protein 6.9 gm/dL (6.4-8.9) 09/11/23 15:35 Albumin 3.8 gm/dL (3.5-5.7) 09/11/23 15:35 Globulin 3.1 gm/dL 09/11/23 15:35 Albumin/Globulin Ratio 1.2 09/11/23 15:35 Amylase 26 U/L (29-103) L 09/11/23 15:35 Lipase 21.0 U/L (11.0-82.0) 09/11/23 15:35 Assessment & Plan Assessment/Plan (1) Cancer of gallbladder: (2) Portal vein thrombosis: Plan: Will start heparin infusion at home for Eliquis anticipating he will need CT- guided biopsy (3) Metastatic cancer: Plan: Oncology consult (4) Gout: Plan: Allopurinol (5) Hyperlipidemia: Plan: Resume Lipitor (6) Secondary hyperparathyroidism: (7) Renal transplant recipient: Plan: Resume immunosuppressive medication nephrology consult (8) Diabetes mellitus with chronic kidney disease: (9) ESRD (end stage renal disease): (10) Hyponatremia: Plan: BMP daily Normal saline 75 cc/h Plan 68-year-old white male with recent diagnosis of 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 Liver cirrhosis. High density within the portal vein concerning for portal vein thrombosis. Marked atrophy of the algaaciq kidneys with transplanted LEFT pelvic kidney. No hydronephrosis. moderate constipation. Nondistended small bowel. Mild upper abdominal ascites. Splenomegaly Amylase is normal Liver enzymes are normal Alkaline phosphatase slightly elevated No fever No leukocytosis Normal saline at 75 cc/h Dilaudid 0.5 mg every 4 hours as needed Hold Eliquis for now Start on heparin infusion Oncology consult Nephrology consult IP vs OBS Justification Based on differential dx, clinical care plan, and risk of adverse events, if untreated, in my clinical judgement this patient requires an acute care setting as: INPATIENT because of an expectation of an over 2 midnight stay. Estimated length of stay (# of days): 3 Documented By: Mary Kay Gray MD 09/11/23 9587 Signed By: <Electronically signed by Mary Kay Gray MD> 09/11/23 9346 [facility] Work Phone: [phone]) 707-296507-23-2024 History and physical note Author Mary Kay Gray [facility] September 11, 2023 6:39pm Note Date/Time September 11, 2023 5:45 pm [facility] [address] [place] [address] Hospitalist H&P Signed Patient: Raul Manriquez MR#: [id number] : 1955 Acct:[id number] Age/Sex: 68 / M Adm Date: 4 Loc: ER Room: Type: [facility] ER Attending Dr: Copies to: MD Sheldon Mitchell MD Shaikh Fawwad, MD~ HPI DATE OF EXAMINATION: 09/11/23 CHIEF COMPLAINT: Abdominal pain HISTORY OF PRESENT ILLNESS: 68-year-old white male past medical history of hypertension, hyperlipidemia, diabetes type 2, end-stage renal disease, status post kidney transplant 2014, renal artery stenosis, anemia of chronic disease, anxiety and depression, and 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 Patient left the hospital and flew home today and Went to the ER for treatment. He is complaining of abdominal pain. It is 8/10 intensity. There is no radiation. The pain locatedin the epigastric and upper quadrant area associated with constipation. No diarrhea. No nausea or vomiting. No fever or chills. Denies any chest pain orshortness of breath. No orthopnea or PND. Denies any dysuria, hematuria, pr frequency. No hematemesis or melena. No hematochezia. 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 Basal cell carcinoma of skin of face Anxiety and depression Left wrist fracture Surgical History Kidney transplanted History of CEA (carotid endarterectomy) History of renal stent Family History Father Family history of mental disorder Legacy FamHx Problem: Diagnosed with Mental Illness Family/Other Legacy FamHx Problem: 1 sister renal failure, copd, :1 sister alive DM, COPD:1 brother over dose :1 brother alive copd Mother Cancer Legacy FamHx Problem: Diagnosed with Cancer Family history of lung cancer Sister Diabetes Social History Smoking Status: Never smoker Substance Use Type: Alcohol Substance Abuse Comment: daily 2-3 Meds Medications and Allergies Allergies No Known Allergies Allergy (Verified 09/11/23 14:56) Home Medications alendronate 70 mg tablet 70 mg PO QWEEK 05/17/23 [History Confirmed 09/11/23] allopurinol 100 mg tablet 100 mg PO DAILY 05/17/23 [History Confirmed 09/11/23] glipizide 5 mg tablet 5 mg PO DAILY 05/17/23 [History Confirmed 09/11/23] lorazepam 0.5 mg tablet 0.5 mg PO BID PRN anxiety 05/17/23 [History Confirmed 09/11/23] losartan 50 mg tablet 50 mg PO DAILY 05/17/23 [History Confirmed 09/11/23] magnesium oxide 400 mg (241.3 mg magnesium) tablet 400 mg PO DAILY 05/17/23 [History Confirmed 09/11/23] mycophenolate mofetil 500 mg tablet 500 mg PO BID #180 tabs 07/26/23 [Rx Confirmed 09/11/23] atorvastatin 20 mg tablet 20 mg PO QHS 08/09/23 [History Confirmed 09/11/23] nifedipine 60 mg tablet,extended release 24 hr 60 mg PO DAILY 08/09/23 [History Confirmed 09/11/23] tacrolimus 1 mg capsule, immediate-release See Rx Instructions .Route .COMPLEX #180 caps 08/10/23 [Rx Confirmed 09/11/23] prednisone 5 mg tablet 5 mg PO DAILY #90 tabs 08/29/23 [Rx Confirmed 09/11/23] apixaban 5 mg tablet (Eliquis) 5 mg PO BID 09/11/23 [History Confirmed 09/11/23] dicyclomine 10 mg capsule 10 mg PO 09/11/23 [History] oxycodone-acetaminophen 5 mg-325 mg tablet 1 tab PO .Q6 PRN pain 09/11/23 [History Confirmed 09/11/23] pantoprazole 40 mg tablet,delayed release 40 mg PO DAILY 09/11/23 [History Confirmed 09/11/23] Exam Physical Exam Vital Signs: Temp Pulse Resp BP Pulse Ox O2 Del Method 98 F 92 18 127/58 L 99 Room Air 09/11/23 14:55 09/11/23 16:22 09/11/23 14:55 09/11/23 16:22 09/11/23 16:22 09/11/23 16:22 Narrative: General patient laying in bed in no acute distress alert awake oriented x3 HEENT PERRLA Neck supple no JVD no carotid bruit CVS S1-S2 regular rate and rhythm no murmur no gallop Chest clear to auscultation percussion Abdomen soft bowel sounds normoactive no rebound no guarding Extremities no stenosis no clubbing no edema Musculoskeletal exam normal no joint effusion Neurologic exam oriented x3 alert awake no focal left Psychiatry: Normal insight and judgment Skin: no rash or lesions Results - Hospitalist H&P Lab Results Labs: Laboratory Last Values Corrected WBC 6.2 X10E3/uL (4.1-10.5) 09/11/23 15:35 Uncorrected WBC Count 6.2 x10E3/uL (4.1-10.5) 09/11/23 15:35 RBC 4.27 X10E6/uL (3.90-5.60) 09/11/23 15:35 Hgb 12.4 g/dL (13.0-17.0) L 09/11/23 15:35 Hct 37.7 % (38.8-50.0) L 09/11/23 15:35 MCV 88.2 fl (83.5-101) 09/11/23 15:35 MCH 29.0 pg (27.5-35.2) 09/11/23 15:35 MCHC 32.9 g/dL (32.5-35.6) 09/11/23 15:35 RDW 13.3 % (12.0-14.8) 09/11/23 15:35 Plt Count 148 x10E3/uL (150-450) L 09/11/23 15:35 MPV 9.6 fl (6.6-10.1) 09/11/23 15:35 Neut % (Auto) 78.4 % (.) 09/11/23 15:35 Lymph % (Auto) 11.1 % (.) 09/11/23 15:35 Dent % (Auto) 9.9 % (.) 09/11/23 15:35 Eos % (Auto) 0.4 % (.) 09/11/23 15:35 Baso % (Auto) 0.2 % (.) 09/11/23 15:35 Nucleat RBC Rel Count 0.0 /100 WBC (0-0.5) 09/11/23 15:35 Neut # (Auto) 4.9 x10E3/uL (1.8-7.7) 09/11/23 15:35 Lymph # (Auto) 0.7 x10E3/uL (1.00-4.8) L 09/11/23 15:35 Dent # (Auto) 0.6 x10E3/uL (0.0-0.8) 09/11/23 15:35 Eos # (Auto) 0.0 x10E3/uL (0.0-0.45) 09/11/23 15:35 Baso # (Auto) 0.0 x10E3/uL (0.0-0.2) 09/11/23 15:35 Monocyte Dist Width 19.22 % (0.00-20.00) 09/11/23 15:35 PT 17.5 Seconds (9.0-12.9) H 09/11/23 15:35 INR 1.5 09/11/23 15:35 APTT 32.6 Seconds (25.1-36.5) 09/11/23 15:35 PHA Creatinine Clear 36.22 09/11/23 15:35 Sodium 128 mmol/L (136-145) L 09/11/23 15:35 Potassium 4.5 mmol/L (3.5-5.1) 09/11/23 15:35 Chloride 97 mmol/L (98-107) L 09/11/23 15:35 Carbon Dioxide 23.7 mmol/L (21.0-31.0) 09/11/23 15:35 Anion Gap 11.8 mEq/L (6.0-15.0) 09/11/23 15:35 BUN 27 mg/dL (7-25) H 09/11/23 15:35 Creatinine 1.88 mg/dL (0.70-1.30) H 09/11/23 15:35 Est GFR (CKD-EPI) 38.196 mL/Min 09/11/23 15:35 Glucose 267 mg/dL (70-100) H 09/11/23 15:35 Calcium 9.9 mg/dL (8.6-10.3) 09/11/23 15:35 Total Bilirubin 0.8 mg/dl (0.3-1.0) 09/11/23 15:35 Direct Bilirubin 0.20 mg/dL (0.03-0.18) H 09/11/23 15:35 Indirect Bilirubin 0.6 mg/dL 09/11/23 15:35 AST 22 U/L (13-39) 09/11/23 15:35 ALT 23 U/L (7-52) 09/11/23 15:35 Alkaline Phosphatase 116 U/L (34-104) H 09/11/23 15:35 Total Protein 6.9 gm/dL (6.4-8.9) 09/11/23 15:35 Albumin 3.8 gm/dL (3.5-5.7) 09/11/23 15:35 Globulin 3.1 gm/dL 09/11/23 15:35 Albumin/Globulin Ratio 1.2 09/11/23 15:35 Amylase 26 U/L (29-103) L 09/11/23 15:35 Lipase 21.0 U/L (11.0-82.0) 09/11/23 15:35 Assessment & Plan Assessment/Plan (1) Cancer of gallbladder: (2) Portal vein thrombosis: Plan: Will start heparin infusion at home for Eliquis anticipating he will need CT- guided biopsy (3) Metastatic cancer: Plan: Oncology consult (4) Gout: Plan: Allopurinol (5) Hyperlipidemia: Plan: Resume Lipitor (6) Secondary hyperparathyroidism: (7) Renal transplant recipient: Plan: Resume immunosuppressive medication nephrology consult (8) Diabetes mellitus with chronic kidney disease: (9) ESRD (end stage renal disease): (10) Hyponatremia: Plan: BMP daily Normal saline 75 cc/h Plan 68-year-old white male with recent diagnosis of 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 Liver cirrhosis. High density within the portal vein concerning for portal vein thrombosis. Marked atrophy of the algaaciq kidneys with transplanted LEFT pelvic kidney. No hydronephrosis. moderate constipation. Nondistended small bowel. Mild upper abdominal ascites. Splenomegaly Amylase is normal Liver enzymes are normal Alkaline phosphatase slightly elevated No fever No leukocytosis Normal saline at 75 cc/h Dilaudid 0.5 mg every 4 hours as needed Hold Eliquis for now Start on heparin infusion Oncology consult Nephrology consult IP vs OBS Justification Based on differential dx, clinical care plan, and risk of adverse events, if untreated, in my clinical judgement this patient requires an acute care setting as: INPATIENT because of an expectation of an over 2 midnight stay. Estimated length of stay (# of days): 3 Documented By: Mary Kay Gray MD 09/11/23 2985 Signed By: <Electronically signed by Mary Kay Gray MD> 09/11/23 6987 [facility] Work Phone: [phone] History of Present illness Narrative* Darren Gallo, BAKERY MANAGER-EXPERIMENTAL DISPLAY BUILDER - 04/04/2023 9:20 AM EST Lesion(s) Location: scalp, face Duration: months Quality: [...] Discussed treatment options, including cryotherapy and topical preparations.It was emphasized that any treated lesions that [...] 14 days. Dispense 30 day supply but onlyuse for 14 days. 3. Sebaceous hyperplasia Head - Anterior (Face) Small yellow papules with a central dell. Reassure, benign. Discussed these can be removed for a cosmetic fee with the hyfrecator if desired. 4. Lentigines Scalp Scattered freitas macules in sun-exposed areas. The patient was informed that lentigines are benign pigmented lesions that occur on sun-exposed andsun-damaged skin. No treatment is necessary. Recommended regular use of broad spectrum sunscreen SPF 30 or higher Next Visit: 1 year (skin check) documented in this encounterCox [id number] Evaluation note* Encounter Date Diagnosis Assessment Notes Treatment Notes Treatment Clinical Notes Feb, COVID-19 (ICD-10 - U07.1) Discharge [...] (suspected) exposure to covid-19 (ICD-10 - Z20.822) [employer] Other 12-12-2023 Evaluation note* Encounter Date Diagnosis Assessment Notes Treatment Notes Treatment Clinical Notes Jan, Renal transplant recipient (ICD-10 - Z94.0) [employer] Other 10-30-2023 Evaluation note* Encounter Date Diagnosis Assessment Notes Treatment Notes Treatment Clinical Notes Nov, Renal transplant recipient (ICD-10 - Z94.0) He has a cadaveric renal transplant since 2014 and currently follows with the transplant team in [place]. He is currently on immunosuppressive medication including [...] disease (ICD-10 - E11.22) He has a rua-qvoaqew-wkgjnqcdf type 2 diabetes mellitus. Advised him continue [...] the low magnesium. He understood and verbalized. [employer] Other 07-20-2023 Evaluation note* Encounter Date Diagnosis Assessment Notes Treatment Notes Treatment Clinical Notes Aug, Renal transplant recipient (ICD-10 - Z94.0) He has a cadaveric renal transplant since 2014 and currently follows with the transplant team in [place]. He is currently on immunosuppressive medication including Prograf CellCept and prednisone. Advised him to increase 1 mg q12 hrs due to subtherapeutic level. He reported be compliant with his immunosuppressive medications. Patient reported that he was advised to increase the Prograf to 1 mg twice daily by his transplant scratcher tender in [place] but he was still taking 1 mg [...] disease (ICD-10 - E11.22) He has a mqz-fdxifgs-wfeaskgny type 2 diabetes mellitus. Advised him continue [...] in future including B12 and folate level. [employer] Other 06-26-2023 Evaluation note* Encounter Date Diagnosis [...] plan. Jul, Jaw swelling (ICD-10 - R22.0) [employer] Other 04-27-2023 Evaluation note* Encounter Date Diagnosis Assessment Notes Treatment Notes Treatment Clinical Notes May, Renal transplant recipient (ICD-10 - Z94.0) It was a pleasure to see Mr. Manriquez in our office for an evaluation and management of the CKD and renal transplant. As you know he has a cadaveric renal transplant since 2014 and currently follows with the transplant team in [place]. He is currently on immunosuppressive medication including [...] disease (ICD-10 - E11.22) He has a zyg-ryokecx-udsppgksj type 2 diabetes mellitus. Hemoglobin A1c was [...] as a systolic murmur. Ordered the echocardiogram [facility] [employer] Other Evaluation [facility]No [facility] [employer] Other Evaluation noteNo assessment information available [facility] Work Phone: Evaluation note* Diagnosis Other osteoporosis [...] chronic kidney disease acute Healthcare maintenance acute [id number] acute Hypomagnesemia acute Renal transplant recipient a cute Secondary hyperparathyroidism acute [facility] Work Phone: Evaluation note* Diagnosis Onset Date Resolution Status Anemia of renal disease acut e Chronic kidney disease, stage III (moderate) acute Diabetes mellitus with chronic kidney disease acute Gout acute Healthcare maintenance acute Hyperlipidemia acute [id number] acute Hypomagnesemia acute Renal transplant recipient a cute Secondary hyperparathyroidism acute Sprain of right hand noneact [facility] Work Phone: Evaluation note* Diagnosis Onset Date Resolution Status Anemia of renal disease acut e Chronic kidney disease, stage III (moderate) acute Diabetes mellitus with chronic kidney disease acute Gout acute Healthcare maintenance acute Hyperlipidemia acute [id number] acute Hypomagnesemia acute Renal transplant recipient a cute Secondary hyperparathyroidism acute Hand sprain noneactive Sprain of right hand noneact [facility] Work Phone: Evaluation note* Diagnosis Onset Date Resolution Status Anemia of renal disease acut e Chronic kidney disease, stage III (moderate) acute Diabetes mellitus with chronic kidney disease acute Gout acute Healthcare maintenance acute Hyperlipidemia acute [id number] acute Hypomagnesemia acute Renal transplant recipient a cute Secondary hyperparathyroidism acute Hand sprain noneactive Sprain of right hand noneact bonita Anemia of renal disease acut e Chronic kidney disease, stage III (moderate) acute Diabetes mellitus with chronic kidney disease acute Gout acute Healthcare maintenance acute Hyperlipidemia acute [id number] acute Hypomagnesemia acute Renal transplant recipient a cute Secondary hyperparathyroidism acute [facility] Work Phone: Evaluation note* Diagnosis Onset Date Resolution Status Anemia of renal disease acut e Chronic kidney disease, stage III (moderate) acute Diabetes mellitus with chronic kidney disease acute Gout acute Healthcare maintenance acute Hyperlipidemia acute [id number] acute Hypomagnesemia acute Renal transplant recipient a cute Secondary hyperparathyroidism acute Cancer of gallbladder acute Diabetes mellitus with chronic kidney disease acute ESRD (end stage renal disease) acute Gout acute Hyperlipidemia acute Hyponatremia acute Metastatic cancer acute Portal vein thrombosis acute Renal transplant recipient a cute Secondary hyperparathyroidism acute [facility] Work Phone: Evaluation note* Diagnosis Onset Date Resolution Status Anemia of renal disease acut e Chronic kidney disease, stage III (moderate) acute Diabetes mellitus with chronic kidney disease acute Gout acute Healthcare maintenance acute Hyperlipidemia acute [id number] acute Hypomagnesemia acute Renal transplant recipient a cute Secondary hyperparathyroidism acute Ascites acute Cancer of gallbladder acute Chronic kidney disease, stage III (moderate) acute Diabetes mellitus with chronic kidney disease acute ESRD (end stage renal disease) acute Gout acute Hyperlipidemia acute [id number] acute Hyponatremia acute Metastatic cancer acute Portal vein thrombosis acute Renal transplant recipient a cute Secondary hyperparathyroidism acute [facility] Work Phone: evaluation note* Diagnosis Onset Date Resolution Status Anemia of renal disease acut e Chronic kidney disease, stage III (moderate) acute Diabetes mellitus with chronic kidney disease acute Gout acute Healthcare maintenance acute Hyperlipidemia acute [id number] acute Hypomagnesemia acute Renal transplant recipient a cute Secondary hyperparathyroidism acute Cancer of gallbladder acute Chronic kidney disease, stage III (moderate) acute Diabetes mellitus with chronic kidney disease acute ESRD (end stage renal disease) acute Gout acute Hyperlipidemia acute [id number] acute Metastatic cancer acute Portal vein thrombosis acute Renal transplant recipient a cute Secondary hyperparathyroidism acute Ascites resolved Hyponatremia resolved [facility] Work Phone: Evaluation note* Diagnosis Onset Date Resolution Status Anemia of renal disease acut e Chronic kidney disease, stage III (moderate) acute Diabetes mellitus with chronic kidney disease acute Gout acute Healthcare maintenance acute Hyperlipidemia acute [id number] acute Hypomagnesemia acute Renal transplant recipient a cute Secondary hyperparathyroidism acute Cancer of gallbladder acute Chronic kidney disease, stage III (moderate) acute Diabetes mellitus with chronic kidney disease acute ESRD (end stage renal disease) acute Gout acute Hyperlipidemia acute [id number] acute Metastatic cancer acute Portal vein thrombosis acute Renal transplant recipient a cute Secondary hyperparathyroidism acute Ascites resolved Hyponatremia resolved Cancer of gallbladder acute Chronic kidney disease, stage III (moderate) acute Diabetes mellitus with chronic kidney disease acute Encounter for coordination of complex care acute Nodule of right lobe of thyroid gland acute Portal vein thrombosis acute Renal transplant recipient a cute Ascites resolved [facility] Work Phone: Evaluation note* Diagnosis Onset Date Resolution Status Anemia of renal disease acut e Chronic kidney disease, stage III (moderate) acute Diabetes mellitus with chronic kidney disease acute Gout acute Healthcare maintenance acute Hyperlipidemia acute [id number] acute Hypomagnesemia acute Renal transplant recipient a cute Secondary hyperparathyroidism acute Cancer of gallbladder acute Chronic kidney disease, stage III (moderate) acute Diabetes mellitus with chronic kidney disease acute ESRD (end stage renal disease) acute Gout acute Hyperlipidemia acute [id number] acute Metastatic cancer acute Portal vein thrombosis acute Renal transplant recipient a cute Secondary hyperparathyroidism acute Ascites resolved Hyponatremia resolved Cancer of gallbladder acute Chronic kidney disease, stage III (moderate) acute Diabetes mellitus with chronic kidney disease acute Encounter for coordination of complex care acute Nodule of right lobe of thyroid gland acute Portal vein thrombosis acute Renal transplant recipient a cute Ascites resolved Anemia of renal disease acut e Chronic kidney disease, stage III (moderate) acute Diabetes mellitus with chronic kidney disease acute Gout acute Healthcare maintenance acute Hyperlipidemia acute [id number] acute Hypomagnesemia acute Renal transplant recipient a cute Secondary hyperparathyroidism acute [facility] Work Phone: History general Narrative [...] KIDNEY TRANSPLANT 04/2014 Hospitalization History SEE ABOVE [employer] Other Hospital Discharge instructionsAmbulatory Orders* Oncology Histology Time Frame: 1 Day, Location: Determined By Patient [facility] Work Phone: Summary Purpose Family History Relationship Condition Age at Onset Recorded Date/T bobbi father Family history of mental disorder Unknown Unknown family member Unknown Not Specified Malignant neoplasm Unknown Family history of lung cancer Unknown sister Diabetes mellitus Unknown Relationship Condition Age at Onset Recorded Date/T bobbi father Family history of mental disorder Unknown Unknown family member Unknown mother Malignant neoplasm Unknown Family history of lung cancer Unknown sister Diabetes mellitus Unknown Advance Directives Advance Directive Response Recorded Date/ Time Advance Directives No June 29 3 10:41am Chief Complaint and Reason for Visit Chief Complaint Z94.0 R01.1 Chief Complaint Cough, Congestion, RENAL 3 month Follow up Reason for Visit Anemia of renal dise ase Chronic kidney disease, stage III (moderate) Diabetes mellitus with chronic kidney disease Healthcare maintenance [id number] Hypomagnesemia Renal transplant recipient Secondary hyperparathyroidism Chief Complaint RENAL 3 month Follow up right hand pain Reason for Visit Anemia of renal dise ase Chronic kidney disease, stage III (moderate) Diabetes mellitus with chronic kidney disease Gout Healthcare maintenance Hyperlipidemia [id number] Hypomagnesemia Renal transplant recipient Secondary hyperparathyroidism Sprain of right hand Chief Complaint RENAL 3 month Follow up right hand pain Reason for Visit Anemia of renal dise ase Chronic kidney disease, stage III (moderate) Diabetes mellitus with chronic kidney disease Gout Healthcare maintenance Hyperlipidemia [id number] Hypomagnesemia Renal transplant recipient Secondary hyperparathyroidism Hand sprain Sprain of right hand Chief Complaint RENAL 3 month Follow up right hand pain M79.641 RENAL 3 MONTH F/U Reason for Visit Anemia of renal dise ase Chronic kidney disease, stage III (moderate) Diabetes mellitus with chronic kidney disease Gout Healthcare maintenance Hyperlipidemia [id number] Hypomagnesemia Renal transplant recipient Secondary hyperparathyroidism Hand sprain Sprain of right hand Anemia of renal disease Chronic kidney disease, stage III (moderate) Diabetes mellitus with chronic kidney disease Gout Healthcare maintenance Hyperlipidemia [id number] Hypomagnesemia Renal transplant recipient Secondary hyperparathyroidism Chief Complaint RENAL 3 MONTH F/U abd pain, back pain Reason for Visit Anemia of renal dise ase Chronic kidney disease, stage III (moderate) Diabetes mellitus with chronic kidney disease Gout Healthcare maintenance Hyperlipidemia [id number] Hypomagnesemia Renal transplant recipient Secondary hyperparathyroidism Cancer of gallbladder Diabetes mellitus with chronic kidney disease ESRD (end stage renal disease) Gout Hyperlipidemia Hyponatremia Metastatic cancer Portal vein thrombosis Renal transplant recipient Secondary hyperparathyroidism Chief Complaint RENAL 3 MONTH F/U abd pain, back pain abd pain, back pain abd pain, back pain Reason for Visit Anemia of renal dise ase Chronic kidney disease, stage III (moderate) Diabetes mellitus with chronic kidney disease Gout Healthcare maintenance Hyperlipidemia [id number] Hypomagnesemia Renal transplant recipient Secondary hyperparathyroidism Ascites Cancer of gallbladder Chronic kidney disease, stage III (moderate) Diabetes mellitus with chronic kidney disease ESRD (end stage renal disease) Gout Hyperlipidemia [id number] Hyponatremia Metastatic cancer Portal vein thrombosis Renal transplant recipient Secondary hyperparathyroidism Chief Complaint RENAL 3 MONTH F/U abd pain, back pain abd pain, back pain abd pain, back pain Gallbladder Cancer Reason for Visit Anemia of renal dise ase Chronic kidney disease, stage III (moderate) Diabetes mellitus with chronic kidney disease Gout Healthcare maintenance Hyperlipidemia [id number] Hypomagnesemia Renal transplant recipient Secondary hyperparathyroidism Cancer of gallbladder Chronic kidney disease, stage III (moderate) Diabetes mellitus with chronic kidney disease ESRD (end stage renal disease) Gout Hyperlipidemia [id number] Metastatic cancer Portal vein thrombosis Renal transplant recipient Secondary hyperparathyroidism Ascites Hyponatremia Chief Complaint RENAL 3 MONTH F/U abd pain, back pain abd pain, back pain abd pain, back pain Gallbladder Cancer Gallbladder Cancer liver mass Reason for Visit Anemia of renal dise ase Chronic kidney disease, stage III (moderate) Diabetes mellitus with chronic kidney disease Gout Healthcare maintenance Hyperlipidemia [id number] Hypomagnesemia Renal transplant recipient Secondary hyperparathyroidism Cancer of gallbladder Chronic kidney disease, stage III (moderate) Diabetes mellitus with chronic kidney disease ESRD (end stage renal disease) Gout Hyperlipidemia [id number] Metastatic cancer Portal vein thrombosis Renal transplant recipient Secondary hyperparathyroidism Ascites Hyponatremia Cancer of gallbladder Chronic kidney disease, stage III (moderate) Diabetes mellitus with chronic kidney disease Encounter for coordination of complex care Nodule of right lobe of thyroid gland Portal vein thrombosis Renal transplant recipient Ascites Chief Complaint RENAL 3 MONTH F/U abd pain, back pain abd pain, back pain abd pain, back pain Gallbladder Cancer liver mass Gallbladder Cancer Renal leg swelling Reason for Visit Anemia of renal dise ase Chronic kidney disease, stage III (moderate) Diabetes mellitus with chronic kidney disease Gout Healthcare maintenance Hyperlipidemia [id number] Hypomagnesemia Renal transplant recipient Secondary hyperparathyroidism Cancer of gallbladder Chronic kidney disease, stage III (moderate) Diabetes mellitus with chronic kidney disease ESRD (end stage renal disease) Gout Hyperlipidemia [id number] Metastatic cancer Portal vein thrombosis Renal transplant recipient Secondary hyperparathyroidism Ascites Hyponatremia Cancer of gallbladder Chronic kidney disease, stage III (moderate) Diabetes mellitus with chronic kidney disease Encounter for coordination of complex care Nodule of right lobe of thyroid gland Portal vein thrombosis Renal transplant recipient Ascites Anemia of renal disease Chronic kidney disease, stage III (moderate) Diabetes mellitus with chronic kidney disease Gout Healthcare maintenance Hyperlipidemia [id number] Hypomagnesemia Renal transplant recipient Secondary hyperparathyroidism Additional Source Comments REASON FOR VISIT (unrecogniz ed section and content) Reason Comments Med Refill Reason Comments Suspicious Skin Lesion (unrecognized sect ion and content) No Status Records FoundNo Status Records FoundNo Status Records Found INFORMATION SOURCE (unrecogn ized section and content) DATE CREATED AUTHOR 06/29/2022 [facility] DATE CREATED AUTHOR AUTHOR'S ORGANIZ ATION 10/11/2023 [facility] DATE CREATED AUTHOR AUTHOR'S ORGANIZ ATION 10/16/2023 [facility] EPIC Care Teams (unrecognized sec [...] Status: Inactive Member Role Status Dates Shaikh Cadyen MD Primary Care Provider Active Start: May [...] Shaikh Cayden MD Primary Care Provider Active Lithopress Operator Relationship Specialty Start Date End Date Shaikh Rodarte MD PCP - General Internal Medicine 02/19/22 Lithopress Operator Relationship Specialty Start Date End Date Shaikh Rodarte MD PCP - General Internal Medicine 02/19/22 Lithopress Operator Relationship Specialty Start Date End Date Shaikh Rodarte MD [address] [place] [address] PCP - General Internal Medicine 02/19/22 Lithopress Operator Relationship Specialty Start Date End Date Shaikh Rodarte MD [address] [place] [address] PCP - General Internal Medicine 02/19/22 Team Status: Inactive Member Role Status Dates JULIEN Tapia Attending Provider Active S tart: February 23, 2023 End: February 23, 2023 Team Status: Active Member Role Status Dates Shaikh Cayden MD Primary Care Provider Active Start: August 06, 2023 Jarod Ballard MD Attending Provider Active Start : August 06, 2023 Team Status: Inactive Member Role Status Dates Shaikh Cayden MD Primary Care Provider Active Start: August 09, 2023 End: August 09, 2023 Jarod Ballard MD Attending Provider Active Start : August 09, 2023 End: August 09, 2023 Team Status: Active Member Role Status Dates Shaikh Cayden MD Primary Care Provider Active Start: September 11, 2023 Sheldon Cameron MD Emergency Provider Active Star t: September 11, 2023 Mary Kay Gray MD Admit Provider, Attending Provider A ctive Start: September 11, 2023 Team Status: Inactive Member Role Status Dates Shaikh Cayden MD Primary Care Provider Active Start: September 11, 2023 End: September 14, 2023 Sheldon Cameron MD Emergency Provider Active Star t: September 11, 2023 End: September 14, 2023 Mary Kay Gray MD Admit Provider Active Start: 2023 End: September 14, 2023 Shakira Duarte MD Other Provider Active Start: September 11, 2023 End: September 14, 2023 Cristian Waddell II, DO Other Provider Active Start: September 11, 2023 End: September 14, 2023 Sherry Heard MD Other Provider Active Start: 2023 End: September 14, 2023 Agnieszka Benavides MD Other Provider Active Start: 2023 End: September 14, 2023 Janet Rea Other Provider Active Start: August 202023 End: September 14, 2023 Tamiko Colunga APRN Other Provider Active Start: September 11, 2023 End: September 14, 2023 Chandrika Dotson Other Provider Active Start: September 11, 2023 End: September 14, 2023 Catrachita Green Other Provider Active Start: Thalia carmona 2023 End: September 14, 2023 Jon Larkin MD Other Provider Active Start: September 11, 2023 End: September 14, 2023 Norma Cruz APRN Other Provider Active Star t: September 11, 2023 End: September 14, 2023 Caesar Black MD Attending Provider Active Star t: September 11, 2023 End: September 14, 2023 Rosendo Hansen MD Other Provider Active Start : September 11, 2023 End: September 14, 2023 Cayden Pinzon APRN Other Provider Active St art: September 11, 2023 End: September 14, 2023 Rina Georges MD Other Provider Active Start: Aug End: September 14, 2023 Swetha Carmona DO Other Provider Active Start: September 11, 2023 End: September 14, 2023 Silvestre Lopez MD Other Provider Active Start: J pascual 2023 End: September 14, 2023 JULIEN Hinds Other Provider Active Start: September 11, 2023 End: September 14, 2023 Jarod Ballard MD Other Provider Active Start: Ju ly 2023 End: September 14, 2023 Briseyda Valadez MD Other Provider Active Start: J pascual 2023 End: September 14, 2023 Team Status: Active Member Role Status Dates Shaikh Cayden MD Primary Care Provider Active Start: September 12, 2023 Sheldon Cameron MD Emergency Provider Active Star t: September 12, 2023 Mary Kay Gray MD Admit Provider Active Start: J pascual 2023 Shakira Duarte MD Other Provider Active Start: September 12, 2023 Cristian Waddell II DO Other Provider Active Start: September 12, 2023 Sherry Heard MD Other Provider Active Start: J pascual 2023 Agnieszka Benavides MD Other Provider Active Start: J pascual 2023 Janet Rea Other Provider Active Start: August 202023 Tamiko Colunga APRN Other Provider Active Start: September 11 Chandrika Dotson Other Provider Active Start: September 12, 2023 Catrachita Green Other Provider Active Start: Ju ly 2023 Jon Larkin MD Other Provider Active Start: September 12, 2023 Norma Cruz APRN Other Provider Active Star t: September 12, 2023 Caesar Black MD Other Provider Active Start: J pascual 24th, 2024 Silvestre Lopez MD Other Provider Active Start: 2023 JULIEN Hinds Other Provider Active Start: September 12, 2023 Jarod Ballard MD Attending Provider, Other Provider Active Start: September 12, 2023 Briseyda Valadez MD Other Provider Active Start: 2023 Rosendo Hansen MD Other Provider Active Start : September 12, 2023 Cayden Pinzon APRN Other Provider Active St art: September 12, 2023 Rina Georges MD Other Provider Active Start: Aug Swetha Carmona DO Other Provider Active Start: September 12, 2023 Team Status: Active Member Role Status Dates Shaikh Cayden MD Primary Care Provider Active Start: September 12, 2023 Sheldon Cameron MD Emergency Provider Active Star t: September 12, 2023 Mary Kay Gray MD Admit Provider Active Start: 2023 Shakira Duarte MD Other Provider Active Start: September 12, 2023 Cristian Waddell II DO Other Provider Active Start: September 12, 2023 Sherry Heard MD Other Provider Active Start: 2023 Agnieszka Benavides MD Other Provider Active Start: 2023 Janet Rea Other Provider Active Start: August 202023 Tamiko Colunga APRN Other Provider Active Start: September 11 Chandrika Dotson Other Provider Active Start: September 12, 2023 Catrachita Green Other Provider Active Start: Ju ly 2023 Jon Larkin MD Other Provider Active Start: September 12, 2023 Norma Cruz APRN Other Provider Active Star t: September 12, 2023 Caesar Black MD Other Provider Active Start: 2023 Silvestre Lopez MD Other Provider Active Start: 2023 JULIEN Hinds Other Provider Active Start: September 12, 2023 Jarod Ballard MD Other Provider Active Start: Ju ly 2023 Briseyda Valadez MD Other Provider Active Start: Molina garner 2023 Rosendo Hansen MD Attending Provider, Other Provider Active Start: September 12, 2023 Cayden Pinzon APRN Other Provider Active St art: September 12, 2023 Rina Georges MD Other Provider Active Start: Aug Swetha Carmona DO Other Provider Active Start: September 12, 2023 Team Status: Inactive Member Role Status Dates Shaikh Cayden MD Primary Care Provider Active Start: September 28, 2023 End: September 28, 2023 Shakira Duarte MD Attending Provider Active Start: September 28, 2023 End: September 28, 2023 Team Status: Active Member Role Status Dates Shaikh Cayden MD Primary Care Provider Active Start: September 28, 2023 Shakira Duarte MD Attending Provider Active Start: September 28, 2023 Jarod Ballard MD Referring Provider Active Start : September 28, 2023 Team Status: Inactive Member Role Status Dates Shaikh Cayden MD Primary Care Provider Active Start: October 04, 2023 End: October 04, 2023 Shakira Duarte MD Attending Provider Active Start: October 04, 2023 End: October 04, 2023 Team Status: Active Member Role Status Dates NUSRAT BeltranC Primary Care Provider Ac tive Team Status: Active Member Role Status Dates Shaikh Cayden MD Primary Care Provider Active Start: October 15, 2023 Jarod Ballard MD Attending Provider Active Start : October 15, 2023 Team Status: Active Member Role Status Dates Shakira Duarte MD Attending Provider Active Start: October 17, 2023 Jarod Ballard MD Referring Provider Active Start : October 17, 2023 Nakul Ennis NP-C Primary Care Provider Ac tive Start: October 17, 2023 Team Status: Inactive Member Role Status Dates Jarod Ballard MD Attending Provider Active Start : October 17, 2023 End: October 17, 2023 Nakul Ennis SANFORIZING MACHINE OPERATOR-C Primary Care Provider Ac tive Start: October 17, 2023 End: October 17, 2023 Goals (unrecognized section and content) Goals [...] BE BASED ON THE PRIMARY CLINICAL RECORDS. [facility] WO Funding [facility]. provides no warranty or guarantee of the accuracy or completeness of information in this document.
[2023-10-18 10:08] LABS: Albumin Level 2.6 g/dL (3.4-5.0); Anion Gap 13.2; BUN Creatinine Ratio 14.3; Calcium 9.4 mg/dL (8.5-10.1); Carbon Dioxide 23.3 mmol/L (21.0-32.0); Chloride 100 mmol/L (98-107); Estimated GFR (African America >60 (>=60); Estimated GFR (Non-African Ame 50 (>=60); Glucose 187 mg/dL (74-106); Potassium 3.5 mmol/L (3.5-5.1); Sodium 133 mmol/L (136-145)
== END 2023-10-18 08:43 | disposition home or self-care (01) ==
LOC: LAB 08:44
PROVIDERS: Visit Provider Internal Medicine
DX: Z94.0 Kidney transplant status (principal)
CPT/HCPCS: 36415; 80069; 80197

== ENCOUNTER 2023-10-18 08:46 | Outpatient (OUT) | payer MEDICARE, SELFPAY ==
[2023-10-18 10:13] LABS: Thyroid Stimulating Hormone 2.243 uIU/mL (0.358-3.740)
[2023-10-19 12:10] LABS: Triiodothyronine (T3) 84 ng/dL (71-180)
== END 2023-10-18 08:47 | disposition home or self-care (01) ==
LOC: LAB 08:46
DX: Z94.0 Kidney transplant status (principal); E04.1 Nontoxic single thyroid nodule
CPT/HCPCS: 36415; 80069; 80197; 84436; 84443; 84480